=== PATIENT | female | born 1965 | race Hispanic/Latino ===

== ENCOUNTER 2023-01-18 11:20 | Emergency (ER) | payer SELFPAY ==
--- NOTE | 2023-01-18 11:50 | RAD REPORT ---
EXAM DESCRIPTION: CT - Ct Stroke Brain Wo Cont - 01/18/2023 11:37 am CLINICAL HISTORY: STROKE ALERT COMPARISON: No comparisons TECHNIQUE: Noncontrast head CT images ad were obtained without IV contrast. Multiplanar reformats we re generated and reviewed. All CT scans are performed using dose optimization technique as appropriate and may include automated exposure control or mA/KV adjustment according to patient size. FINDINGS: No intracranial hemorrhage, mass, or edema. Midline structures are unremarkable. Normal ventricular caliber for age. Region of vasogenic edema pattern in the left frontal operculum, appears to spare the cortex. Miller-wh ite matter differentiation is preserved, without evidence of acute infarct. No abnormal extra-axial f luid collections. Mastoid air cells and visualized portions of the paranasal sinuses are clear. No acute bony findings. IMPRESSION: Region of vasogenic edema pattern in the left frontal operculum, appearing to spare the cortex. Differential considerations include white matter ischemia, or vasogenic edema surrounding an otherwise indeterminate subcortical or deep white matter space-occupying lesion. MRI would provide im proved characterization. The findings were communicated to Frank Myers on 01/18/2023 at 11:39 hours.
[2023-01-18] MEDS ORDERED: METOPROLOL TARTRATE 5 MG/5 ML INJ IV ONE (11:51)
--- NOTE | 2023-01-18 12:02 | ER ---
Nurse's Notes [facility] Name: Tahira Solorio Age: 57 yrs Sex: Female : 1965 Arrival Date: 01/18/2023 Time: 11:20 Bed 6 Private MD: Diagnosis: Persistent atrial fibrillation Presentation: 01/18 11:47 Chief complaint: Patient states: R sided facial drrop, R sided deficitis, cannot talk. ll1 [address] today. Last known well 11 PM last night when going to bed EMS states: HR 160's sinus tach. BP 130's/90;'s. B leg swelling, urine soaked clothes. Coronavirus screen: Client denies travel out of the [place] in the last 14 days. At this time, the client does not indicate any symptoms associated with coronavirus-19. Ebola Screen: Patient denies travel to an Ebola-affected area in the 21 days before illness onset. Initial Sepsis Screen: Does the patient meet any 2 criteria? No. Patient's initial sepsis screen is negative. Does the patient have a suspected source of infection? No. Patient's initial sepsis screen is negative. Risk Assessment: Do you want to hurt yourself or someone else? Patient reports no desire to harm self or others. Onset of symptoms was January 18, 2023. 11:47 Method Of Arrival: Ambulatory ll1 11:47 Acuity: RENO 2 ll1 Triage Assessment: 11:57 General: Appears uncomfortable, Behavior is cooperative, quiet. Pain: Denies pain. ll1 Neuro: Level of Consciousness is awake, confused, lethargic, Speech is slurred, with expressive aphasia noted, Facial droop on right. Historical: - Allergies: 11:22 No Known Allergies; ll1 - Immunization history:: Adult Immunizations up to date. - Social history:: Smoking status: unknown. Screenin:55 Misti Swallow Protocol Exclusion Criteria: Unable to remain alert for testing: Yes NPO ll1 for medical/surgical reason by provider order Yes Exclusion Criteria Result: Defer \T\ Re-attempt Brief Cognitive Screen What is your name? Abnormal: no answer. Result: FAIL MD Notified: Frank Myers MD. 11:56 [facility] ED Fall Risk Assessment (Adult) Confusion or Disorientation Yes (5 pts) ll1 Impaired Gait Yes (1 pt) Mobility Assist Device Used Yes (1 pt) Score/Fall Risk Level 3 or more points = High Risk Oriented to surroundings, Maintained a safe environment, Educated pt \T\ family on fall prevention, incl call for assistance when getting out of bed, Hourly rounding (assess needs \T\ fall precautionary measures) done, Used gait belt as appropriate Implemented a Fall Risk Plan of Care, Remained with patient while ambulating. Abuse screen: Denies threats or abuse. Nutritional screening: No deficits noted. Tuberculosis screening: No symptoms or risk factors identified. Assessment: 11:42 Reassessment: No changes from previously documented assessment. Patient and/or family ll1 updated on plan of care and expected duration. Pain level reassessed. 12:16 Reassessment: No changes from previously documented assessment. Patient and/or family ll1 updated on plan of care and expected duration. Pain level reassessed. Vital Signs: 11:30 Weight 125.65 kg (M); jl7 11:41 BP 150 / 121; Pulse 170; Resp 24; Pulse Ox 91% on R/A; ll1 11:47 Pulse 135; Resp 22; Pulse Ox 100% on 2 lpm NC; ll1 11:50 BP 129 / 106; Pulse 129; ll1 11:56 BP 127 / 102; Pulse 135; Resp 22; Pulse Ox 100% on 2 lpm NC; ll1 12:15 BP 127 / 102; Pulse 134; Resp 25; Temp 98; Pulse Ox 94% on 2 lpm NC; ll1 NIH Stroke Scale Scores: 11:32 NIHSS Score: 18 bs3 12:16 NIHSS Score: 19 ll1 ED Course: 11:21 Patient arrived in ED. eb 11:22 Frank Myers MD is Attending Physician. bs3 11:22 Arm band placed on. ll1 11:35 Inserted saline lock: 20 gauge in left forearm, using aseptic technique. Blood ll1 collected. 11:39 CT Stroke Brain w/o Contrast In Process Unspecified. EDMS 11:39 CT Head Angio In Process Unspecified. EDMS 11:40 CT Neck Angio In Process Unspecified. EDMS 11:40 EKG done, by ED staff. tm3 11:41 Jordan Boyd RN is Primary Nurse. ll1 11:41 initiated a transfer with Mehrdad from the [facility]/. eb 11:[address] Negrete the neuro economic history teacher for [facility] with Dr. Myers for patient eb transfer consultation. 11:47 called the [facility] for a helicopter/ rashawn Singh they will send one eb once we get administrative approval. 11:49 Triage completed. ll1 11:58 Stroke CXR 1 View In Process Unspecified. EDMS 12:00 administrative approval given by Mehrdad Jackson Rn/ patient has been accepted to [facility] ER/ Dr. Katie Gray has accepted the patient in transfer/ report to be called [phone]. 12:18 No provider procedures requiring assistance completed. ll1 12:19 Patient has correct armband on for positive identification. Bed in low position. Call ll1 light in reach. Side rails up X2. Client placed on continuous cardiac and pulse oximetry monitoring. NIBP monitoring applied. monitoring coordinator on. 12:19 Patient transferred, IV remains in place. ll1 Administered Medications: 11:41 Drug: NS 0.9% IV 500 ml Route: IV; Rate: bolus; Site: left forearm; ll1 12:19 Follow up: Response: No adverse reaction; IV Status: Completed infusion; IV Intake: ll1 500ml 11:46 Drug: Metoprolol IVP 5 mg Route: IVP; Site: left forearm; ll1 12:19 Follow up: Response: No adverse reaction ll1 Medication: 12:19 VIS not applicable for this client. ll1 Intake: 12:19 IV: 500ml; Total: 500ml. ll1 Outcome: 12:01 ER care complete, transfer ordered by bs3 12:19 Transferred by helicopter to [facility], Transfer form completed. ll1 12:19 Condition: stable 12:19 Instructed on the need for transfer. 12:21 Patient left the ED. ll1 12:34 Transferred Note: Report to Shemar Jimenes in interventional radiology. ll1 NIH Stroke Scale - NIH Stroke Score Date: 01/18/2023 Time: 11:32 Total Score = 18 10. Dysarthria (speech clarity - read or repeat words) - 2(Severe) 11. Extinction and Inattention (visual/tactile/auditory/spatial/personal) - 0(No abnormality) 1a. Level of Consciousness (LOC) - 0(Alert) 1b. Level of Consciousness (LOC) (Month \T\ Age) - 2(Neither) 1c. LOC Commands (Open \T\ Closes Eyes/Pari Mutuel Ticket Seller) - 2(Neither) 2. Best Gaze (Lateral Gaze Paresis) - 1(Partial gaze palsy) 3. Visual Field Loss - 0(No visual loss) 4. Facial Palsy - 2(Partial paralysis) 5a. Left Arm: Motor (10-second hold) - 0(No drift) 5b. Right Arm: Motor (10-second hold) - 2(Drift, some effort against gravity) 6a. Left Leg: Motor (5-second hold - always test supine) - 0(No drift) 6b. Right Leg: Motor (5-second hold - always test supine) - 2(Drift, some effort against gravity) 7. Limb Ataxia (finger/nose \T\ heel/regalado - test with eyes open) - 1(Present in one limb) 8. Sensory Loss (pinprick arms/legs/face) - 1(Mild to moderate loss) 9. Best Language: Aphasia (description/naming/reading) - 3(Mute, global aphasia) Initials: bs3 NIH Stroke Scale - NIH Stroke Score Date: 01/18/2023 Time: 12:16 Total Score = 19 10. Dysarthria (speech clarity - read or repeat words) - 2(Severe) 11. Extinction and Inattention (visual/tactile/auditory/spatial/personal) - 1(Present) 1a. Level of Consciousness (LOC) - 1(Not Alert) 1b. Level of Consciousness (LOC) (Month \T\ Age) - 2(Neither) 1c. LOC Commands (Open \T\ Closes Eyes/Pari Mutuel Ticket Seller) - 0(Both) 2. Best Gaze (Lateral Gaze Paresis) - 2(Forced deviation) 3. Visual Field Loss - 0(No visual loss) 4. Facial Palsy - 2(Partial paralysis) 5a. Left Arm: Motor (10-second hold) - 0(No drift) 5b. Right Arm: Motor (10-second hold) - 2(Drift, some effort against gravity) 6a. Left Leg: Motor (5-second hold - always test supine) - 3(No effort against gravity) 6b. Right Leg: Motor (5-second hold - always test supine) - 0(No drift) 7. Limb Ataxia (finger/nose \T\ heel/regalado - test with eyes open) - 2(Present in two limbs) 8. Sensory Loss (pinprick arms/legs/face) - 0(Normal) 9. Best Language: Aphasia (description/naming/reading) - 2(Severe aphasia) Initials: ll1 Signatures: Dispatcher [employer] EDAyo Mason tm3 Jazmyne Burns RN RN jl7 Lea Lutz Lynsay, RN RN ll1 Emmanuelle Jacques RN RN ld1 Frank Myers MD MD bs3 Corrections: (The following items were deleted from the chart) 11:47 11:41 BP 150 / 121; Pulse 150bpm; Resp 24bpm; Pulse Ox 91% RA; ll1 ll1 11:54 11:51 called the [facility] flight for a helicopter/ per Francisco they eb will send one once we get administrative approval. eb 12:16 11:42 Reassessment: No changes from previously documented assessment. Patient ll1 and/or family updated on plan of care and expected duration. Pain level reassessed. Patient is alert, oriented x 3, equal unlabored respirations, skin warm/dry/pink. ll1 12:20 12:15 BP 127 / 102; Pulse 134bpm; Resp 25bpm; Pulse Ox 89% 2 lpm Nasal Cannula; ll1 ld1 12:29 12:15 BP 127 / 102; Pulse 134bpm; Resp 25bpm; Pulse Ox 89% 2 lpm Nasal Cannula; ll1 Temp 98F; ll1
--- NOTE | 2023-01-18 12:02 | EDPHYS ---
Physician Documentation [facility] Name: Tahira Solorio Age: 57 yrs Sex: Female : 1965 Arrival Date: 01/18/2023 Time: 11:20 Bed 6 Private MD: ED Physician Frank Myers HPI: 01/18 11:32 This 57 yrs old Female presents to ER via Unassigned with complaints of S/S of bs3 Possible Stroke. 11:32 Patient does not see a doctor she was last known normal approximately 11 to 11:30 PM bs3 presents with right-sided weakness unintelligible speech fingerstick per EMS was over 100. 11:32 Blood pressure less than 180 systolic per EMS the report was that she normally is able bs3 to walk and talk and act normally but she went to bed and they heard coughing and then today she was not speaking she has not seen a doctor in years per her son and refused to go history is limited secondary to patient's mental status and acute condition. Historical: - Allergies: 11:22 No Known Allergies; ll1 - Immunization history:: Adult Immunizations up to date. - Social history:: Smoking status: unknown. ROS: 11:32 Unable to obtain ROS due to altered mental status. bs3 Exam: 11:32 Constitutional: Awake and alert appears in distress Head/Face: Right facial droop bs3 Eyes: Pupils equal round and reactive to light, extra-ocular motions intact. Lids and lashes normal. ENT: mmm, no posterior phyarngeal erythema Neck: Trachea midline, no thyromegaly, no neck stiffness Chest/axilla: Normal chest wall appearance and motion. Nontender with no deformity. No lesions are appreciated. Cardiovascular: Irregular, tachycardic Respiratory: Lungs have equal breath sounds bilaterally, clear to auscultation, no respiratory distress Abdomen/GI: Soft, non-tender, no rebound or guarding Back: No spinal tenderness. No costovertebral tenderness. Full range of motion. Skin: Warm, dry with normal turgor. Normal color with no rashes, no lesions, and no evidence of cellulitis. MS/ Extremity: Pulses equal, no cyanosis. Neurovascular intact. Full, normal range of motion. Neuro: She has a slight gaze preference to the left but does seem to overcome this she has a right facial droop she has inability to lift her arm up but when I lifted up she does hold it up but it drifts and hits the bed the same with the right lower extremity she does not name objects and is not talking 11:32 A-fib at a rate of [address] elevations or depressions QTc 507 12:02 Radiologist reports: occlusion bs3 Vital Signs: 11:30 Weight 125.65 kg (M); jl7 11:41 BP 150 / 121; Pulse 170; Resp 24; Pulse Ox 91% on R/A; ll1 11:47 Pulse 135; Resp 22; Pulse Ox 100% on 2 lpm NC; ll1 11:50 BP 129 / 106; Pulse 129; ll1 11:56 BP 127 / 102; Pulse 135; Resp 22; Pulse Ox 100% on 2 lpm NC; ll1 12:15 BP 127 / 102; Pulse 134; Resp 25; Temp 98; Pulse Ox 94% on 2 lpm NC; ll1 NIH Stroke Scale Scores: 11:32 NIHSS Score: 18 bs3 12:16 NIHSS Score: 19 ll1 MDM: 11:32 Differential diagnosis: CVA, metabolic disorder, Given the A-fib and right-sided bs3 weakness my concerns for CVA possible bleed versus ischemic/embolic we will do gentle rate control as prolonged permissive hypertension she is not in the window for TNK she immediately received a CT CT angiogram which showed a left anterior MCA branch occlusion at the origin I immediately called neuro intervention at [facility] and spoke with the neuro food broker Dr. De La Rosa who given the patient has symptoms for less than 24 hours recommended transfer for CT perfusion and possible intervention. Data reviewed: vital signs, nurses notes. 12:01 Patient medically screened. bs3 12:10 ED course: Given my lack of capacity for neuro intervention here will transfer to [facility]. 01/18 11:22 Order name: Basic Metabolic Panel eb 01/18 11:22 Order name: CBC with Diff eb 01/18 11:22 Order name: High Sensitivity Troponin eb 01/18 11:22 Order name: Protime (+inr) eb 01/18 11:22 Order name: Ptt, Activated eb 01/18 11:22 Order name: CT Stroke Brain w/o Contrast; Complete Time: 12:10 eb 01/18 11:22 Order name: Stroke CXR 1 View; Complete Time: 12:10 eb 01/18 11:24 Order name: CT Head Angio; Complete Time: 12:10 eb 01/18 11:24 Order name: CT Neck Angio; Complete Time: 12:10 eb 01/18 11:22 Order name: EKG; Complete Time: 11:23 eb 01/18 11:22 Order name: Accucheck; Complete Time: 11:42 eb 01/18 11:22 Order name: Cardiac monitoring; Complete Time: 11:42 eb 01/18 11:22 Order name: EKG - Nurse/Tech; Complete Time: 11:42 eb 01/18 11:22 Order name: IV Saline Lock; Complete Time: 11:42 eb 01/18 11:22 Order name: Labs collected and sent; Complete Time: 11:42 eb 01/18 11:22 Order name: NPO; Complete Time: 11:42 eb 01/18 11:22 Order name: O2 Per Protocol; Complete Time: 11:42 eb 01/18 11:22 Order name: O2 Sat Monitoring; Complete Time: 11:42 eb 01/18 11:22 Order name: Stroke Swallow Screen; Complete Time: 11:42 eb Administered Medications: 11:41 Drug: NS 0.9% IV 500 ml Route: IV; Rate: bolus; Site: left forearm; ll1 12:19 Follow up: Response: No adverse reaction; IV Status: Completed infusion; IV Intake: ll1 500ml 11:46 Drug: Metoprolol IVP 5 mg Route: IVP; Site: left forearm; ll1 12:19 Follow up: Response: No adverse reaction ll1 Disposition: 12:10 Chart complete. bs3 Disposition Summary: 01/18/23 12:01 Transfer Ordered Transfer Location: [facility] bs3 Reason: Higher level of care bs3 Condition: Critical bs3 Problem: new bs3 Symptoms: are unchanged bs3 Accepting Physician: robert(01/18/23 12:21) ll1 Diagnosis - Persistent atrial fibrillation bs3 Forms: - Medication Reconciliation Form bs3 - SBAR form bs3 Critical care time excluding procedures: 11:32 Critical care time: Bedside Care: 35 minutes, Consultation: 30 minutes. Total time: 65 bs3 minutes NIH Stroke Scale - NIH Stroke Score Date: 01/18/2023 Time: 11:32 Total Score = 18 10. Dysarthria (speech clarity - read or repeat words) - 2(Severe) 11. Extinction and Inattention (visual/tactile/auditory/spatial/personal) - 0(No abnormality) 1a. Level of Consciousness (LOC) - 0(Alert) 1b. Level of Consciousness (LOC) (Month \T\ Age) - 2(Neither) 1c. LOC Commands (Open \T\ Closes Eyes/Software Development Leader) - 2(Neither) 2. Best Gaze (Lateral Gaze Paresis) - 1(Partial gaze palsy) 3. Visual Field Loss - 0(No visual loss) 4. Facial Palsy - 2(Partial paralysis) 5a. Left Arm: Motor (10-second hold) - 0(No drift) 5b. Right Arm: Motor (10-second hold) - 2(Drift, some effort against gravity) 6a. Left Leg: Motor (5-second hold - always test supine) - 0(No drift) 6b. Right Leg: Motor (5-second hold - always test supine) - 2(Drift, some effort against gravity) 7. Limb Ataxia (finger/nose \T\ heel/regalado - test with eyes open) - 1(Present in one limb) 8. Sensory Loss (pinprick arms/legs/face) - 1(Mild to moderate loss) 9. Best Language: Aphasia (description/naming/reading) - 3(Mute, global aphasia) Initials: bs3 NIH Stroke Scale - NIH Stroke Score Date: 01/18/2023 Time: 12:16 Total Score = 19 10. Dysarthria (speech clarity - read or repeat words) - 2(Severe) 11. Extinction and Inattention (visual/tactile/auditory/spatial/personal) - 1(Present) 1a. Level of Consciousness (LOC) - 1(Not Alert) 1b. Level of Consciousness (LOC) (Month \T\ Age) - 2(Neither) 1c. LOC Commands (Open \T\ Closes Eyes/Software Development Leader) - 0(Both) 2. Best Gaze (Lateral Gaze Paresis) - 2(Forced deviation) 3. Visual Field Loss - 0(No visual loss) 4. Facial Palsy - 2(Partial paralysis) 5a. Left Arm: Motor (10-second hold) - 0(No drift) 5b. Right Arm: Motor (10-second hold) - 2(Drift, some effort against gravity) 6a. Left Leg: Motor (5-second hold - always test supine) - 3(No effort against gravity) 6b. Right Leg: Motor (5-second hold - always test supine) - 0(No drift) 7. Limb Ataxia (finger/nose \T\ heel/regalado - test with eyes open) - 2(Present in two limbs) 8. Sensory Loss (pinprick arms/legs/face) - 0(Normal) 9. Best Language: Aphasia (description/naming/reading) - 2(Severe aphasia) Initials: ll1 Signatures: Dispatcher [employer] EDLea Young Lynsay, RN RN ll1 Frank Myers MD MD bs3 Corrections: (The following items were deleted from the chart) 11:56 11:32 This 57 yrs old Female presents to ER via Unassigned with bs3 complaints of S/S of Possible Stroke. bs3 12:21 12:01 jones bs3 ll1
--- NOTE | 2023-01-18 12:03 | RAD REPORT ---
EXAM DESCRIPTION: CT - Head angio - 01/18/2023 11:38 am CLINICAL HISTORY: DECLINING STATE COMPARISON: Ct Stroke Brain Wo Cont dated 01/18/2023; Neck Angio dated 01/18/2023 TECHNIQUE: Axial CT angiography images of the head was performed with multiplanar and maximum intens ity projection reconstructions. Images performed following intravenous administration of 95mL Isovue 370. All CT scans are performed using dose optimization technique as appropriate and may include automated exposure control or mA/KV adjustment according to patient size. FINDINGS: Very proximal anterior left MCA branch occlusion, likely M2 segment. Please see CT angiogr am separate Henson axial image 72/167 and coronal images 99 and 100/208 of the coronal sequence dee lovell. Reconstitution of a distal left M3/M4 BALDEMAR branch along the anterior sylvian fissure more cr anially, axial image 94/167. No evidence of aneurysm or dissection flap is detected. No flow-limiting stenosis or vascular malformation identified. Antegrade flow is seen in the vertebral arteries. The vertebral arteries are codominant. The visualized dural venous sinuses are grossly patent. IMPRESSION: Very proximal anterior left MCA branch occlusion. The findings were communicated to Frank Myers on 01/18/2023 at 11: 39 hours.
--- NOTE | 2023-01-18 12:06 | RAD REPORT ---
EXAM DESCRIPTION: CT - Neck Angio - 01/18/2023 11:38 am CLINICAL HISTORY: poss cva COMPARISON: No comparisons TECHNIQUE: Axial CT angiography images of the head was performed with multiplanar and maximum intens ity projection reconstructions. Images performed following intravenous administration of 95mL Isovue 370. All CT scans are performed using dose optimization technique as appropriate and may include automated exposure control or mA/KV adjustment according to patient size. Quantification of carotid stenosis, if any, is performed according to NASCET criteria. FINDINGS: A left aortic arch is identified with normal three vessel configuration of the great vesse ls. No significant flow abnormality is seen of the common carotid bilaterally. No significant stenosis is identified involving the cervical segments of both internal carotid arteri es. Mild atherosclerotic calcifications along the carotid bifurcations. Normal flow is seen within both vertebral arteries. Not mentioned on prior reports, up to advanced inflammatory mucosal thickening throughout the paranas al sinuses, with mucous retention cyst in the left maxillary sinus. IMPRESSION: No significant flow abnormality of the neck vessels is identified. Findings as above.
[2023-01-18 12:08] LABS: Absolute Lymphocytes (CBC) 1.1 K/uL (0.7-4.9); Hematocrit 38.5 % (36.0-45.0); Lymphocytes % 16.1 % (15.3-44.8); MCV 99.7 fL (80-100); MPV 8.4 fL (7.6-11.3); RBC Red Blood Cell Count 3.86 M/uL (3.86-4.86)
--- NOTE | 2023-01-18 12:08 | RAD REPORT ---
EXAM DESCRIPTION: Christoph Single View01/18/2023 11:57 am CLINICAL HISTORY: poss cva COMPARISON: No comparisons TECHNIQUE: Portable AP view of the chest. FINDINGS: Central interstitial prominence with central and basilar predominant fluffy opacities. No pneumothorax or effusion. Moderate cardiomegaly The mediastinal contours are unremarkable. IMPRESSION: Suspected pulmonary edema, with moderate cardiomegaly, could be of cardiogenic origin.
[2023-01-18 12:14] LABS: Protime INR 1.22
[2023-01-18 12:28] LABS: Potassium 3.7 mEq/L (3.5-5.1)
[2023-01-18 12:35] LABS: Troponin High Sensitivity 155.5 pg/mL (<58.9)
[2023-01-18 13:10] VITALS: BP 127/102
[2023-01-18 13:12] VITALS: TEMP 98; O2SAT 89
--- NOTE | 2023-01-19 10:16 | EKG ---
Test Date: 2023-01-18 Test Time: 11:31:37 Senior Qa Automation Engineer: KASH MEASUREMENT RESULTS: Intervals: Rate: 167 VA: QRSD: 120 QT: 304 QTc: 507 [place]: P: VA: QRS: -23 T: 174 INTERPRETIVE STATEMENTS: Poor data quality, interpretation may be adversely affected Atrial fibrillation with premature ventricular or aberrantly conducted complexes Left ventricular hypertrophy with QRS widening ST & T wave abnormality, consider lateral ischemia or digitalis effect Abnormal ECG No previous ECG available for comparison Electronically Signed On 01-19-23 10:13:47 CDT by Willis Holman
--- NOTE | 2023-01-19 10:16 | EKG ---
Test Date: 2023-01-18 Test Time: 11:32:10 Salesperson Stereo Equipment: GERALDINEL MEASUREMENT RESULTS: Intervals: Rate: 161 UT: QRSD: 116 QT: 310 QTc: 507 [place]: P: UT: QRS: -24 T: 130 INTERPRETIVE STATEMENTS: Atrial fibrillation Left ventricular hypertrophy with QRS widening ST & T wave abnormality, consider lateral ischemia or digitalis effect Abnormal ECG Compared to ECG 01/18/2023 11:31:37 Ventricular premature complex(es) no longer present ST (T wave) deviation still present Possible ischemia still present Electronically Signed On 01-19-23 10:13:46 CDT by Willis Holman
== END 2023-01-18 12:21 | disposition short-term general hospital (02) ==
LOC: ER 11:20
DX: I48.19 Other persistent atrial fibrillation (principal); R29.718 NIHSS score 18
CPT/HCPCS: 36415; 70450; 70496; 70498; 71045; 80048; 82947; 84484; 85025; 85610; 85730; 93005; 96361; 96374; 99285; Q9967

== ENCOUNTER 2023-06-15 12:38 | Emergency (ER) | payer OTHER, SELFPAY ==
--- OUTSIDE RECORDS SUMMARY | 2023-06-15 12:54 | XMS REPORT | Continuity of Care Document ---
:1965 Author Organization [facility] t Address [address] [facility] [address] [place] [address] Care Team Providers Name Role Phone Pcp, Patient Does Not Have A Primary Care Physician [phone] BRIT SMITH Attending Clinician Unavailable WANDA ROJAS Attending Clinician Unavailable ALLYN ZULETA Attending Clinician Unavailable RE CHASE Attending Clinician Unavailable BOB GALEAS Attending Clinician Unavailable SHAWN CARTER Attending Clinician Unavailable SANDHYA PAREDES Attending Clinician Unavailable LEVI MAZA Attending Clinician Unavailable JOSE SALGUERO Attending Clinician Unavailable AMADEO SANCHEZ Attending Clinician Unavailable BONIFACIO CLARK Attending Clinician Unavailable Renetta Hilario MD Attending Clinician Abel Vicente DO Attending Clinician ABEL VICENTE Attending Clinician Unavailable REGULO PETERS Attending Clinician Unavailable REGULO PETERS Attending Clinician Unavailable Julio Avalos MD Attending Clinician Ember Johnston MD Attending Clinician [phone] Sandhya Paredes MD Attending Clinician Negra Sanders MD, Angeles Herman Attending Clinician [phone] Estela Benitez MD Attending Clinician Rena CARTER, Re Hung Attending Clinician Hailee No DO Attending Clinician Aviva CARTER, Ceci Gilbert Attending Clinician Carolina CARTER, Collin Higuera Attending Clinician [phone] Dutch CARTER, Dylan Melgar Attending Clinician DYLAN JUDD Attending Clinician Unavailable Lazaro Schroeder MD, Justyn Alegria Attending Clinician [phone] Crystal CARTER, Wanda Eid Attending Clinician [phone] Song CARTER, Allyn Chicas Attending Clinician [phone] Emerita Monroy Attending Clinician Vitaly Olmedo MD Attending Clinician Dionte Hanley MD Attending Clinician Bob Galeas Attending Clinician JULIO AVALOS Attending Clinician Unavailable EMBER JOHNSTON Attending Clinician Unavailable Wanda Benoit MD Attending Clinician Bonifacio Clark MD Attending Clinician [phone] Luisa Ewing MD, Amadeo Darnell Attending Clinici an Jose Salguero MD Attending Clinician Emani Robertson MD Attending Clinician EMANI ROBERTSON Attending Clinician Unavailable WANDA BENOIT Attending Clinician Unavailable Virtual, Surgeon Attending Clinician Unavailable Jamaal Arreola MD Attending Clinician EMBER JOHNSTON Admitting Clinician Unavailable BOB GALEAS Admitting Clinician Unavailable BONIFACIO CLARK Admitting Clinician Unavailable REGULO PETERS Admitting Clinician Unavailable Payers Payer Name Policy Type Policy Number Effective Date Expiration Date S [facility] HMO POS [id number] 2022 00:00:00 [employer] CHO[employer] Problems Condition Condition Condition Status Onset Resolution Last Treating Co mments Source Name Details Category Date Date Treatment Clinician Date Encounter Encounter Disease Active Uni vers for care for care 8-15 [place] [place] feeding 00 Medical tube tube Branch Dysphagia Dysphagia Disease [facility] Medical 00 [place] 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 6[facility] failure failure 00:00: Medical 00 [place] Choledocho Choledocho Disease Active [facility] lithiasis lithiasis 630 [facility] 00:00: Medical 00 [place] Bacteremia Bacteremia Disease Active [facility] due to due to [facility] Klebsiella Klebsiella 00:00: Me dical pneumoniae pneumoniae 00 Ce nter Atrial Atrial Disease Active [facility] fibrillati fibrillati 6-30 [facility] on with on with 00:00: Medical RVR RVR 00 Center Septic Septic Disease Recurre [facility] shock shock nce 6-23 [facility] 00:00: Medical 00 Center Atrial Atrial Disease Recurre [facility] fibrillati fibrillati nce 6-05 [facility] on on 00:00: Medical 00 Center Cerebral Cerebral Disease Recurre [facility] edema edema nce 6[facility]05 [facility] 00:00: Medical 00 [place] Obesity Obesity Disease Active [facility] 00:[facility]: Medical 00 Center Cerebrovas Cerebrovas Disease Recurre [facility] cular cular nce 6[facility]04 [facility] accident accident 00:00: Medica l (CVA), (CVA), 00 Center unspecifie unspecifie d d mechanism mechanism Allergies, Adverse Reactions, Alerts Allergy Allergy Status Severity Reaction(s) Onset Inactive Treating Comm ents Source Name Type Date Date Clinician NO KNOWN Drug Active Univers ALLERGIE Class ity [facility] NO KNOWN Allergy Active [facility] Social History Social Habit Start Date Stop Date Quantity Comments Source Gender identity [facility] Sexual orientation Univer [facility] Alcohol intake 2023-02-26 2023-02-26 Ex-drinker SAVANAH Sanchez es 00:00:00 00:00:00 (finding) Medical Center Exposure to 2023-02-14 2023-02-24 Not sure SAVANAH Ayala SARS-CoV-2 (event) 00:00:00 14:15:00 Medica Center Tobacco use and 2023-01-18 2023-01-18 Smokeless SAVANAH Victoria exposure 00:00:00 00:00:00 tobacco non-user Medical Center Sex Ass[birth year] At [birth year] SAVANAH [place] 00:00:00 00:00:00 Medical Center Smoking Status Start Date Stop Date Source Tobacco smoking consumption [facility] unknown Branch Never smoked tobacco [facility] Medications Ordered Filled Start Stop Current Ordering Indication Dosage Frequency Signature Comments Components Source Medication Medication Date Date Medication? Clinician (SIG) Name Name iopamidol 2022- No [id number] 100mL 100 mL, Univers (ISOVUE 03-11 Intravenou ity o f 370-500 mL) 05:15: 04:25 s, ONCE, 1 [place] injection 00 :00 dose, On Medica l 100 mL Wed Branch 03/11/23 at 0015, Routine acetaminoph 0 Yes [id number] 650mg Take 1 Univers en (TYLENOL 7-26 tablet by ity of 8 HOUR) 650 00:00: mouth [place] mg CR 00 every 8 Medical tablet (eight) Branch hours as needed for Pain. ibuprofen 0 Yes [id number] 600mg Take 1 Univers 600 mg 7-26 tablet by ity of tablet 00:00: mouth [place] 00 every 6 Medical (six) Branch hours as needed for Pain (scale 4-6). acetaminoph 2022-0 Yes [id number] 650mg Take 1 Univers en (TYLENOL 7-26 tablet by ity of 8 HOUR) 650 00:00: mouth [place] mg CR 00 every 8 Medical tablet (eight) Branch hours as needed for Pain. ibuprofen 2022-0 Yes [id number] 600mg Take 1 Univers 600 mg 7-26 tablet by ity of tablet 00:00: mouth [place] 00 every 6 Medical (six) Branch hours as needed for Pain (scale 4-6). acetaminoph 2022-0 Yes [id number] 650mg Take 1 Univers en (TYLENOL 7-26 tablet by ity of 8 HOUR) 650 00:00: mouth [place] mg CR 00 every 8 Medical tablet (eight) Branch hours as needed for Pain. ibuprofen 2023-0 Yes [id number] 600mg Take 1 Univers 600 mg 7-26 tablet by ity of tablet 00:00: mouth [place] 00 every 6 Medical (six) Branch hours as needed for Pain (scale 4-6). acetaminoph 2023-0 Yes [id number] 650mg Take 1 Univers en (TYLENOL 7-26 tablet by ity of 8 HOUR) 650 00:00: mouth [place] mg CR 00 every 8 Medical tablet (eight) Branch hours as needed for Pain. ibuprofen 2023-0 Yes [id number] 600mg Take 1 Univers 600 mg 7-26 tablet by ity of tablet 00:00: mouth [place] 00 every 6 Medical (six) Branch hours as needed for Pain (scale 4-6). acetaminoph 2023-0 Yes [id number] 650mg Take 1 Univers en (TYLENOL 7-26 tablet by ity of 8 HOUR) 650 00:00: mouth [place] mg CR 00 every 8 Medical tablet (eight) Branch hours as needed for Pain. ibuprofen 3-0 Yes [id number] 600mg Take 1 Univers 600 mg 7-26 tablet by ity of tablet 00:00: mouth [place] 00 every 6 Medical (six) Branch hours as needed for Pain (scale 4-6). acetaminoph 2023-0 Yes [id number] 650mg Take 1 Univers en (TYLENOL 7-26 tablet by ity of 8 HOUR) 650 00:00: mouth [place] mg CR 00 every 8 Medical tablet (eight) Branch hours as needed for Pain. ibuprofen 2023-0 Yes [id number] 600mg Take 1 Univers 600 mg 7-26 tablet by ity of tablet 00:00: mouth [place] 00 every 6 Medical (six) Branch hours as needed for Pain (scale 4-6). acetaminoph 2023-0 Yes [id number] 650mg Take 1 Univers en (TYLENOL 7-26 tablet by ity of 8 HOUR) 650 00:00: mouth [place] mg CR 00 every 8 Medical tablet (eight) Branch hours as needed for Pain. ibuprofen 2023-0 Yes [id number] 600mg Take 1 Univers 600 mg 7-26 tablet by ity of tablet 00:00: mouth [place] 00 every 6 Medical (six) Branch hours as needed for Pain (scale 4-6). metoprolol 2023- No 50mg Q.5D Take [address] [facility] succinate 03-04- tablet (50 Soy es (TOPROL-XL) 00:00: 23:59 mg total) Medical 50 MG 24 hr 00 :00 by mouth 2 Ce nter tablet (two) times daily. digoxin 2023- No 125ug QD Take [address] [facility] (LANOXIN) 02-25- tablet [facility] 0.125 MG 00:00: 23:59 (125 mcg Medi alejandra tablet 00 :00 total) by Center mouth daily. spironolact 2023- No 25mg QD Take [address] [facility] one 02-25 tablet (25 [facility] (ALDACTONE) 00:00: 23:59 mg total) Medical 25 MG 00 :00 by mouth Center tablet daily. amiodarone 2022- No 200mg QD Take [address] (PACERONE) 02-04 tablet [facility] 200 MG 00:00: 23:59 (200 mg Medical tablet 00 :00 total) by Center mouth daily for 90 days. digoxin 2022- No 125ug QD Take [address] (LANOXIN) 02-04 tablet [facility] 0.125 MG 00:00: 00:00 (125 mcg Medi alejandra tablet 00 :00 total) by Center mouth daily. insulin 2023- No 10U QD Inject [address] glargine 02-03- Units [facility]ukes (LANTUS) 00:00: 23:59 subcutaneo Me dical 100 unit/mL 00 :00 usly Center injection nightly Use as directed. metoprolol 2022- No 25mg Q.5D Take 0.[address] tartrate 02-03- tablets [facility] (LOPRESSOR) 00:00: 00:00 (25 mg Med ical 50 MG 00 :00 total) by Center tablet mouth 2 (two) times daily. empaglifloz Yes 25mg QD Take [address] [facility] in - tablet (25 [facility] (JARDIANCE) 00:00: mg total) M edical 25 mg 00 by mouth Center tablet daily. cyanocobala 2023- No 1000ug QD Take [address] min 02-01 tablet [facility] (VITAMIN 00:00: 23:59 (1,000 mcg Me dical B-12) 1000 00 :00 total) by Cent er MCG tablet mouth daily. losartan 2023- No 25mg QD Take [address] (COZAAR) 25 02-01 tablet (25 L ukes MG tablet 00:00: 23:59 mg total) Me dical 00 :00 by mouth Center daily. furosemide 2022- No 20mg QD Take [address] [facility] (LASIX) 20 02-01- tablet (20 [facility] MG tablet 00:00: 00:00 mg total) Me dical 00 :00 by mouth Center daily. apixaban Yes 5mg Q.5D Take [address] (ELIQUIS) 5 01-31 tablet (5 Soy es mg Tab 00:00: mg total) Medica l tablet 00 by mouth 2 Center (two) times daily. atorvastati 2023- No 80mg QD Take [address] n (LIPITOR) 01-31 tablet (80 L ukes 80 MG 00:00: 23:59 mg total) Medica l tablet 00 :00 by mouth Center nightly. insulin 2023- No Use as [facility] regular 01-31 directed. [facility] (HumuLIN 00:00: 23:59 Medical R,NovoLIN 00 :00 Center R) 100 unit/mL injection amiodarone 2022- No 200mg Q.5D Take [address] (PACERONE) 01-31 tablet [facility] 200 MG 00:00: 00:00 (200 mg Medical tablet 00 :00 total) by Center mouth 2 (two) times daily for 30 days. insulin 2022- No 5U QD Inject 5 [facility] t glargine 01-31-20 Units [facility] (LANTUS) 00:00: 00:00 subcutaneo Me dical 100 unit/mL 00 :00 usly Center injection nightly Use as directed. metoprolol 2022- No 50mg Q.5D Take [address] tartrate 6-17 06-20 tablet (50 Luke s (LOPRESSOR) 00:00: 00:00 mg total) Medical 50 MG 00 :00 by mouth 2 Center tablet (two) times daily. Vital Signs Vital Name Observation Time Observation Value Comments Source Systolic blood 2023-03-31 14:26:00 102 mm[Hg] Univer sity of pressure [facility] Diastolic blood 2023-03-31 14:26:00 53 mm[Hg] Unive rsity of [facility] Heart rate 2023-03-31 14:26:00 63 /min Universi ty of [facility] Body temperature 2023-03-31 14:26:00 36.33 Fatoumata Univ ersity [facility] Respiratory rate 2023-03-31 14:26:00 19 /min Univ ersity of [facility] Body height 2023-03-31 14:26:00 175.3 cm Universi ty [facility] Oxygen saturation in 2023-03-31 14:26:00 99 /min University of Arterial blood by [facility] Pulse oximetry Branch Systolic blood 2023-03-11 06:00:00 126 mm[Hg] Univer sity of [facility] Diastolic blood 2023-03-11 06:00:00 47 mm[Hg] Unive rsity of [facility] Heart rate 2023-03-11 06:00:00 64 /min Universi ty of [facility] Respiratory rate 2023-03-11 06:00:00 20 /min Univ ersity [facility] Oxygen saturation in 2023-03-11 06:00:00 99 /min University of Arterial blood by [facility] Pulse oximetry Branch Body temperature 2023-03-11 04:01:00 36.61 Fatoumata Univ ersity [facility] Body height 2023-03-11 02:41:00 172.7 cm Universi ty of [facility] Body weight 2023-03-11 02:41:00 104.327 kg Universi ty of [facility] BMI 2023-03-11 02:41:00 34.97 kg/m2 Universi ty of [facility] HEIGHT 2023-02-24 14:03:00 180.3 cm WEIGHT 2023-02-24 14:03:00 110.678 kg WEIGHT 2023-02-07 21:00:00 110.8 kg HEIGHT 2023-02-05 23:43:00 180.3 cm WEIGHT 2023-02-05 23:43:00 119.75 kg HEIGHT 2023-02-24 14:03:00 180.3 cm WEIGHT 2023-02-24 14:03:00 110.678 kg WEIGHT 2023-02-07 21:00:00 110.8 kg HEIGHT 2023-02-05 23:43:00 180.3 cm WEIGHT 2023-02-05 23:43:00 119.75 kg WEIGHT 2023-01-20 05:39:00 120.1 kg WEIGHT 2023-01-19 06:00:00 120 kg HEIGHT 2023-01-18 16:00:00 180.3 cm WEIGHT 2023-01-18 16:00:00 120.7 kg WEIGHT 2023-01-18 13:52:00 125.65 kg HEIGHT 2023-01-18 13:52:00 180.3 cm WEIGHT 2023-01-20 05:39:00 120.1 kg WEIGHT 2023-01-19 06:00:00 120 kg HEIGHT 2023-01-18 16:00:00 180.3 cm WEIGHT 2023-01-18 16:00:00 120.7 kg WEIGHT 2023-01-18 13:52:00 125.65 kg HEIGHT 2023-01-18 13:52:00 180.3 cm Heart rate 2023-03-04 12:14:00 127 /min [facility] Systolic blood 2023-03-04 12:00:00 119 mm[Hg] [facility] Diastolic blood 2023-03-04 12:00:00 89 mm[Hg] [facility] Body temperature 2023-03-04 12:00:00 36 Fatoumata [facility] Respiratory rate 2023-03-04 12:00:00 18 /min [facility] Oxygen saturation in 2023-03-04 12:00:00 100 /min [facility] Arterial blood by Medical nter Pulse oximetry Body height 2023-02-24 14:03:00 180.3 cm [facility] Body weight 2023-02-24 14:03:00 110.678 kg [facility] BMI 2023-02-24 14:03:00 34.03 kg/m2 [facility] Procedures Procedure Date / Time Performing Clinician Source Performed CT ABDOMEN PELVIS W CONTRAST 2023-03-11 Trinity Regulo Uni versity of 04:25:02 [facility] LIPASE 2023-03-11 Regulo Peters [place] of 03:03:00 [facility] TROPONIN I 2023-03-11 Regulo Peters [place] of 03:03:00 [facility] COMP. METABOLIC PANEL ([id number]) 2023-03-11 Trinity Regulo Un iversity of 03:03:00 [facility] CBC WITH DIFF 2023-03-11 Trinity [facility] of 03:03:00 [facility] POCT-GLUCOSE METER 2023-03-[address] [facility] 12:17:00 [facility] POCT-GLUCOSE METER 2023-03-[address] [facility] 06:39:00 [facility] LIMITED 2D ECHOCARDIOGRAM 2023-03-[address] [facility] 22:58:13 [facility] POCT-GLUCOSE METER 2023-03-03 Athreya, Khannan [facility] 21:18:00 [facility] POCT-GLUCOSE METER 2023-03-03 Athreya, Khannan [facility] 15:30:00 [facility] POCT-GLUCOSE METER 2023-03-03 Athreya, Khannan [facility] 11:09:00 [facility] POCT-GLUCOSE METER 2023-03-03 Athreya, Khannan [facility] 06:20:00 [facility] CBC (HEMOGRAM ONLY) 2023-03-[address] [facility] 03:53:00 [facility] POCT-GLUCOSE METER 2023-03-02 Athreya, Khannan [facility] 21:35:00 [facility] POCT-GLUCOSE METER 2023-03-02 Athreya, Khannan [facility] 16:27:00 [facility] POCT-GLUCOSE METER 2023-03-02 Athreya, Khannan [facility] 12:42:00 [facility] POCT-GLUCOSE METER 2023-03-[address] [facility] 06:09:00 [facility] POCT-GLUCOSE METER 2023-03-[address] [facility] 21:29:00 [facility] POCT-GLUCOSE METER 2023-03-[address] [facility] 16:54:00 [facility] POCT-GLUCOSE METER 2023-03-[address] [facility] 11:28:00 [facility] POCT-GLUCOSE METER 2023-03-[address] [facility] 06:53:00 [facility] CBC (HEMOGRAM ONLY) 2023-03-[address] [facility] 02:36:00 [facility] POCT-GLUCOSE METER 2023-03-[address] [facility] 00:01:00 [facility] POCT-GLUCOSE METER 2023-02-[address] [facility] 16:10:00 [facility] POCT-GLUCOSE METER 2023-02-[address] [facility] 11:58:00 [facility] POCT-GLUCOSE METER 2023-02-[address] [facility] 07:01:00 [facility] COMPREHENSIVE METABOLIC PANEL 2023-02-[address] [facility] 04:33:00 [facility] POCT-GLUCOSE METER 2023-02-[address] [facility] 20:49:00 [facility] POCT-GLUCOSE METER 2023-02-[address] [facility] 16:08:00 [facility] POCT-GLUCOSE METER 2023-02-[address] [facility] 11:03:00 [facility] POCT-GLUCOSE METER 2023-02-[address] [facility] 06:14:00 [facility] CBC (HEMOGRAM ONLY) 2023-02-[address] [facility] 03:27:00 [facility] COMPREHENSIVE METABOLIC PANEL 2023-02-[address] [facility] 03:27:00 [facility] POCT-GLUCOSE METER 2023-02-[address] [facility] 21:58:00 [facility] POCT-GLUCOSE METER 2023-02-26 Athgladysa, Khannan [facility] 17:46:00 [facility] POCT-GLUCOSE METER 2023-02-26 Athgladysa, Khannan [facility] 15:19:00 [facility] FL FLUORO NON-SPECIFIC UP TO 1 2023-02-[address] [facility] HOUR 13:34:00 [facility] TISSUE EXAM 2023-02-[address] [facility] 12:12:00 [facility] CHOLECYSTECTOMY, LAPAROSCOPIC 2023-02-[address] [facility] 10:51:00 [facility] POCT-GLUCOSE METER 2023-02-[address] [facility] 06:29:00 [facility] HEPATIC FUNCTION PANEL 2023-02-[address] Mar[address]id[address] T [facility] 03:31:00 [facility] POCT-GLUCOSE METER 2023-02-25 Athgeronimo, Khannan [facility] 21:27:00 [facility] POCT-GLUCOSE METER 2023-02-[address] [facility] 16:15:00 [facility] TYPE AND SCREEN, AUTOMATED 2023-02-25 Pham Cassidy [facility] POCT-GLUCOSE METER 2023-02-25 Athreya, Khannan [facility] 11:15:00 [facility] POCT-GLUCOSE METER 2023-02-25 No, Hailee [facility] 06:16:00 [facility] CBC (HEMOGRAM ONLY) 2023-02-[address] [facility] 04:14:00 [facility] POCT-GLUCOSE METER 2023-02-24 No, Hailee [facility] 22:16:00 [facility] POCT-GLUCOSE METER 2023-02-24 No, Hailee [facility] 17:06:00 [facility] REPORT OF PROCEDURE - ENDOSCOPY 2023-02-[address] [facility] URL 16:35:34 [facility] ERCP, WITH SPHINCTEROTOMY 2023-02-24 [facility], [facility]lyn [facility] 15:50:00 [facility] PROCEDURE W/ C-ARM 2023-02-24 [facility], Allyn [facility] 15:50:00 [facility] ENDOSCOPIC RETROGRADE 2023-02-24 [facility], Allyn [facility] St Soy es CHOLANGIOPANCREATOGRAPHY, WITH 15:50:00 [facility] STENT REMOVAL ERCP, WITH BALLOON SWEEP OF BILE 2023-02-24 [facility], [facility] DUCTS 15:50:00 [facility] POCT-GLUCOSE METER 2023-02-24 No, Hailee [facility] 11:42:00 [facility] POCT-GLUCOSE METER 2023-02-24 No, Hailee [facility] 06:23:00 [facility] COMPREHENSIVE METABOLIC PANEL 2023-02-[address] [facility] 03:29:00 [facility] DIGOXIN LEVEL 2023-02-[address]ño [facility] 03:29:00 [facility] Center POCT-GLUCOSE METER 2023-02-23 No, Hailee [facility] 21:29:00 [facility] Center POCT-GLUCOSE METER 2023-02-23 No, Hailee [facility] 16:59:00 [facility] Center POCT-GLUCOSE METER 2023-02-23 No, Hailee [facility] 11:40:00 [facility] Center POCT-GLUCOSE METER 2023-02-23 No, Hailee [facility] 06:16:00 [facility] CBC (HEMOGRAM ONLY) 2023-02-[address] [facility] 04:37:00 [facility] COMPREHENSIVE METABOLIC PANEL 2023-02-[address] [facility] 04:37:00 [facility] POCT-GLUCOSE METER 2023-02-22 No, Hailee [facility] 21:27:00 [facility] APTT 2023-02-22 Manek, Magen [facility] 18:44:00 [facility] POCT-GLUCOSE METER 2023-02-22 No, Hailee [facility] 16:02:00 Medical Center APTT 2023-02-22 Manek, Magen [facility] 12:32:00 [facility] POCT-GLUCOSE METER 2023-02-22 No, Hailee [facility] 11:04:00 [facility] Center POCT-GLUCOSE METER 2023-02-22 Ali, Hiba Vladimir [facility] 07:09:00 [facility] Center COMPREHENSIVE METABOLIC PANEL 2023-02-22 Ali, Hiba [facility] 03:41:00 [facility] Center APTT 2023-02-22 Manek, Magen [facility] 03:41:00 [facility] POCT-GLUCOSE METER 2023-02-21 Ali, Hiba Vladimir [facility] 21:49:00 [facility] Center APTT 2023-02-21 Manek, Magen [facility] 19:16:00 [facility] POCT-GLUCOSE METER 2023-02-21 Ali, Hiba Vladimir [facility] 16:19:00 [facility] Center APTT 2023-02-21 Manek, Magen [facility] 12:09:00 [facility] POCT-GLUCOSE METER 2023-02-21 Ali, Hiba Vladimir [facility] 11:58:00 [facility] Center APTT 2023-02-21 Manek, Magen [facility] 10:26:00 [facility] POCT-GLUCOSE METER 2023-02-21 Ali, Hiba Vladimir [facility] 06:40:00 [facility] Center CBC (HEMOGRAM ONLY) 2023-02-21 Manek, [employer] [facility] 03:53:00 [facility] COMPREHENSIVE METABOLIC PANEL 2023-02-21 Ali, Hiba Vladimir [facility] 03:53:00 [facility] Center APTT 2023-02-21 Manek, Magen [facility] 03:53:00 [facility] POCT-GLUCOSE METER 2023-02-21 Ali, Hiba Vladimir [facility] 00:10:00 [facility] Center APTT 2023-02-20 Ali, Hiba Vladimir [facility] 19:37:00 Medical Center POCT-GLUCOSE METER 2023-02-20 Ali, Darrina Vladimir [facility] 16:21:00 Medical Center POCT-GLUCOSE METER 2023-02-20 Ali, Ceci Crockettr [facility] 11:46:00 [facility] Center POCT-GLUCOSE METER 2023-02-20 No, Hailee [facility] 06:31:00 [facility] Center COMPREHENSIVE METABOLIC PANEL 2023-02-20 Ali, Ceci Gilbert [facility] 04:31:00 [facility] Center POCT-GLUCOSE METER 2023-02-19 No, Hailee [facility] 20:24:00 [facility] Center POCT-GLUCOSE METER 2023-02-19 No, Hailee [facility] 16:16:00 [facility] Center POCT-GLUCOSE METER 2023-02-19 No, Hailee [facility] 11:57:00 [facility] Center POCT-GLUCOSE METER 2023-02-19 No, Hailee [facility] 06:11:00 [facility] Center CBC (HEMOGRAM ONLY) 2023-02-[address] [facility] 04:06:00 [facility] POCT-GLUCOSE METER 2023-02-18 No, Hailee [facility] 21:17:00 [facility] Center POCT-GLUCOSE METER 2023-02-18 No, Hailee [facility] 16:46:00 [facility] POCT-GLUCOSE METER 2023-02-18 No, Hailee [facility] 11:42:00 [facility] POCT-GLUCOSE METER 2023-02-18 No, Hailee [facility] 09:38:00 [facility] POCT-GLUCOSE METER 2023-02-[address] [facility] 05:58:00 [facility] INTRINSIC FACTOR BLOCKING 2023-02-[address] [facility] ANTIBODY 04:04:00 [facility] PARIETAL CELL ANTIBODY, IGG 2023-02-[address] [facility] 04:04:00 [facility] BASIC METABOLIC PANEL 2023-02-18 Re [facility] 04:04:00 [facility] MAGNESIUM 2023-02-18 Rena, Re Henzell [facility] 04:04:00 [facility] POCT-GLUCOSE METER 2023-02-18 Re Chase Tomnainal [facility] 00:21:00 [facility] POCT-GLUCOSE METER 2023-02-17 Rena Re Santoszell [facility] 17:43:00 [facility] VITAMIN B12 2023-02-[address] [facility] 16:32:00 [facility] IRON, TIBC, % SAT. (WITHOUT 2023-02-[address] [facility] FERRITIN) 16:32:00 [facility] POCT-GLUCOSE METER 2023-02-17 Re Chase Tomnainal [facility] 11:37:00 [facility] POCT-GLUCOSE METER 2023-02-17 Rena Re Cohenl [facility] 05:48:00 [facility] CBC (HEMOGRAM ONLY) 2023-02-[address] [facility] 04:20:00 [facility] COMPREHENSIVE METABOLIC PANEL 2023-02-[address] [facility] 04:20:00 [facility] MAGNESIUM 2023-02-17 Rena Re Noell [facility] 04:20:00 [facility] PHOSPHORUS 2023-02-17 Rena Re Cohenl [facility] 04:20:00 [facility] POCT-GLUCOSE METER 2023-02-17 Re Chase Noell [facility] 00:14:00 [facility] POCT-GLUCOSE METER 2023-02-16 Re Chase Noell [facility] 16:26:00 [facility] POCT-GLUCOSE METER 2023-02-16 [address] [facility] 12:08:00 [facility] POCT-GLUCOSE METER 2023-02-16 [address]as[address] Henzell [facility] 06:23:00 [facility] POCT-GLUCOSE METER 2023-02-15 Da Chasell Henzell [facility] 23:46:00 [facility] POCT-GLUCOSE METER 2023-02-[address] Henzell [facility] 17:04:00 [facility] Center POCT-GLUCOSE METER 2023-02-15 Rena [address] Noell [facility] 11:41:00 [facility] POCT-GLUCOSE METER 2023-02-[address] [facility] 06:30:00 [facility] BASIC METABOLIC PANEL 2023-02-15 Re Chasel [facility] 05:00:00 [facility] MAGNESIUM 2023-02-[address] [facility] 05:00:00 [facility] POCT-GLUCOSE METER 2023-02-[address] [facility] 00:42:00 [facility] POCT-GLUCOSE METER 2023-02-[address] [facility] 17:39:00 [facility] POCT-GLUCOSE METER 2023-02-[address] [facility] 11:27:00 [facility] POCT-GLUCOSE METER 2023-02-14 Re Chase Tomnainal [facility] 06:31:00 [facility] CBC (HEMOGRAM ONLY) 2023-02-[address] [facility] 03:44:00 [facility] BASIC METABOLIC PANEL 2023-02-14 Re Chasel [facility] 03:44:00 [facility] MAGNESIUM 2023-02-[address] [facility] 03:44:00 [facility] POCT-GLUCOSE METER 2023-02-[address] [facility] 23:35:00 [facility] POCT-GLUCOSE METER 2023-02-13 Re Chase Tomnainal [facility] 18:29:00 [facility] POCT-GLUCOSE METER 2023-02-[address] [facility] 12:06:00 [facility] FL MODIFIED BARIUM SWALLOW 2023-02-[address] [facility] 10:50:00 [facility] CTA HEART CORONARY WITH CALCIUM 2023-02-[address] [facility] EVALUATION WITH FFR 10:20:00 Medical [facility] er POCT-GLUCOSE METER 2023-02-[address] [facility] 06:37:00 [facility] CBC (HEMOGRAM ONLY) 2023-02-13 Rena Re Cohenl [facility] 03:58:00 [facility] BASIC METABOLIC PANEL 2023-02-13 Re Chasetamika [facility] 03:58:00 [facility] MAGNESIUM 2023-02-13 Da [address] Tomtamika [facility] 03:58:00 [facility] POCT-GLUCOSE METER 2023-02-12 Rena, Re Tomnainal [facility] 23:13:00 [facility] POCT-GLUCOSE METER 2023-02-[address] [facility] 16:59:00 [facility] POCT-GLUCOSE METER 2023-02-[address] [facility] 12:33:00 [facility] XR CHEST 1 VIEW PORTABLE / 2023-02-[address] [facility] 11:18:00 [facility] POCT-GLUCOSE METER 2023-02-[address] [facility] 05:54:00 [facility] CBC (HEMOGRAM ONLY) 2023-02-[address] [facility] 03:19:00 [facility] COMPREHENSIVE METABOLIC PANEL 2023-02-[address] [facility] 03:19:00 [facility] MAGNESIUM 2023-02-[address] [facility] 03:19:00 [facility] PHOSPHORUS 2023-02-12 Rena [address] Tomtamika [facility] 03:19:00 [facility] PROTHROMBIN TIME/INR 2023-02-[address] [facility] 03:19:00 [facility] POCT-GLUCOSE METER 2023-02-[address] [facility] 23:58:00 [facility] POCT-GLUCOSE METER 2023-02-[address] [facility] 17:33:00 [facility] POCT-GLUCOSE METER 2023-02-[address] [facility] 12:06:00 [facility] POCT-GLUCOSE METER 2023-02-11 Elderndmilton, Estela [facility] 06:06:00 [facility] BLOOD CULTURE 2023-02-11 Emmanuel, Estela [facility] 03:57:00 [facility] BLOOD CULTURE 2023-02-11 Emmanuel, Estela [facility] 03:47:00 [facility] CBC W/PLT COUNT & AUTO 2023-02-11 Amelia Ramosl M [facility] DIFFERENTIAL 03:47:00 [facility] COMPREHENSIVE METABOLIC PANEL 2023-02-11 ChangeAmelia liral M [facility] 03:47:00 [facility] CBC W/PLT COUNT & AUTO 2023-02-11 Amelia Ramosl M [facility] DIFFERENTIAL 03:47:00 [facility] POCT-GLUCOSE METER 2023-02-10 Emmanuel, Estela [facility] 23:58:00 [facility] APTT 2023-02-[address] [facility] 22:05:00 [facility] POCT-GLUCOSE METER 2023-02-10 Emmanuel, Estela [facility] 17:42:00 [facility] APTT 2023-02-[address] [facility] 15:20:00 [facility] POCT-GLUCOSE METER 2023-02-10 Emmanuel, Estela [facility] 12:10:00 [facility] APTT 2023-02-[address] [facility] 07:28:00 [facility] POCT-GLUCOSE METER 2023-02-10 Hayat Tommy, Reynoso [facility] 06:41:00 [facility] CBC W/PLT COUNT & AUTO 2023-02-[address] [facility] DIFFERENTIAL 04:03:00 [facility] COMPREHENSIVE METABOLIC PANEL 2023-02-10 R[address]Amelia l[address] M [facility] 04:03:00 [facility] CBC W/PLT COUNT & AUTO 2023-02-10 [address]Terri l[address] M [facility] DIFFERENTIAL 04:03:00 [facility] POCT-GLUCOSE METER 2023-02-10 Hayat Tommy, Reynoso [facility] 01:16:00 [facility] APTT 2023-02-[address] [facility] 22:26:00 [facility] POCT-GLUCOSE METER 2023-02-[address] [facility] 18:40:00 [facility] CBC (HEMOGRAM ONLY) 2023-02-[address] [facility] 16:06:00 [facility] APTT 2023-02-[address] [facility] 16:06:00 [facility] POCT-GLUCOSE METER 2023-02-[address] [facility] 13:13:00 [facility] 2D ECHO W/ DOPPLER (CW/PW/COLOR) 2023-02-09 [facility] Shawn [facility] 09:30:[address] [facility] APTT 2023-02-[address] [facility] 07:30:00 [facility] POCT-GLUCOSE METER 2023-02-[address] [facility] 06:02:00 [facility] CBC W/PLT COUNT & AUTO 2023-02-09 Terri Ramos Mike [facility] DIFFERENTIAL 03:19:00 [facility] COMPREHENSIVE METABOLIC PANEL 2023-02-09 Rachel Terri M [facility] 03:19:00 [facility] CBC W/PLT COUNT & AUTO 2023-02-09 Amelia Ramosl M [facility] DIFFERENTIAL 03:19:00 [facility] POCT-GLUCOSE METER 2023-02-[address] [facility] 00:29:00 [facility] BASIC METABOLIC PANEL 2023-02-08 Amelia Ramosl M [facility] 21:54:00 [facility] POCT-GLUCOSE METER 2023-02-[address] [facility] 17:32:00 [facility] BASIC METABOLIC PANEL 2023-02-[address] [facility] 12:29:00 [facility] POCT-GLUCOSE METER 2023-02-[address] [facility] 12:28:00 [facility] CBC W/PLT COUNT & AUTO 2023-02-[address] [facility] DIFFERENTIAL 08:39:00 [facility] PROTHROMBIN TIME/INR 2023-02-[address] [facility] 08:39:00 [facility] APTT 2023-02-[address] [facility] 08:39:00 [facility] CBC W/PLT COUNT & AUTO 2023-02-[address] [facility] DIFFERENTIAL 08:39:00 [facility] POCT-GLUCOSE METER 2023-02-[address] [facility] 06:25:00 [facility] COMPREHENSIVE METABOLIC PANEL 2023-02-08 Egland, [facility] 02:57:[address] [facility] MAGNESIUM 2023-02-08 Egland, Shawn [facility] 02:57:[address] [facility] PHOSPHORUS 2023-02-08 Egland, Shawn [facility] 02:57:[address] [facility] CALCIUM, IONIZED 2023-02-08 Egland, Shawn [facility] 02:57:[address] [facility] APTT 2023-02-08 Augie, Issac [facility] 02:57:00 [facility] PREPARE PLASMA 2023-02-[address] [facility] 23:55:00 [facility] POCT-GLUCOSE METER 2023-02-[address] [facility] 23:29:00 [facility] APTT 2023-02-[address] [facility] 20:13:00 [facility] POCT-GLUCOSE METER 2023-02-[address] [facility] 18:37:00 [facility] CBC W/PLT COUNT & AUTO 2023-02-[address] [facility] DIFFERENTIAL 18:36:00 [facility] APTT 2023-02-[address] [facility] 18:36:00 [facility] CBC W/PLT COUNT & AUTO 2023-02-[address] [facility] DIFFERENTIAL 18:36:00 [facility] SODIUM, RANDOM URINE 2023-02-[address] [facility] 12:46:00 [facility] CREATININE, RANDOM URINE 2023-02-[address] [facility] 12:46:00 [facility] APTT 2023-02-[address] [facility] 12:33:00 [facility] POCT-GLUCOSE METER 2023-02-[address] [facility] 11:56:00 [facility] HIGH SENSITIVITY TROPONIN I 2023-02-[address] [facility] 11:32:00 [facility] APTT 2023-02-[address] [facility] 11:32:00 [facility] APTT 2023-02-[address] [facility] 09:22:00 [facility] CBC W/PLT COUNT & AUTO 2023-02-[address] [facility] DIFFERENTIAL 09:18:00 [facility] CBC W/PLT COUNT & AUTO 2023-02-[address] [facility] DIFFERENTIAL 09:18:00 [facility] (CELLAVISION MANUAL DIFF) 2023-02-[address] [facility] 09:18:00 [facility] POCT-GLUCOSE METER 2023-02-[address] [facility] 06:21:00 [facility] COMPREHENSIVE METABOLIC PANEL 2023-02-07 [facility], Shawn [facility] 03:25:[address] [facility] MAGNESIUM 2023-02-07 Egland, Shawn [facility] 03:25:[address] [facility] PHOSPHORUS 2023-02-07 [facility] Shawn [facility] 03:25:[address] [facility] CALCIUM, IONIZED 2023-02-07 Egland, Shawn [facility] 03:25:[address] [facility] VANCOMYCIN LEVEL, RANDOM 2023-02-07 Gilbert, Ariela [facility] 03:25:00 [facility] APTT 2023-02-[address] [facility] 02:50:00 [facility] POCT-GLUCOSE METER 2023-02-[address] [facility] 00:17:00 [facility] APTT 2023-02-[address] [facility] 00:14:00 [facility] CBC W/PLT COUNT & AUTO 2023-02-[address] [facility] DIFFERENTIAL 20:27:00 [facility] CBC W/PLT COUNT & AUTO 2023-02-[address] [facility] DIFFERENTIAL 20:27:00 [facility] (CELLAVISION MANUAL DIFF) 2023-02-[address] [facility] 20:27:00 [facility] POCT-GLUCOSE METER 2023-02-[address] [facility] 17:58:00 [facility] REPORT OF PROCEDURE - ENDOSCOPY 2023-02-06 Keihanian, Bob [facility] URL 16:06:59 [facility] APTT 2023-02-06 Augie, Issac [facility] 15:15:00 [facility] PROTHROMBIN TIME/INR 2023-02-[address] [facility] 15:15:00 [facility] ENDOSCOPIC RETROGRADE 2023-02-06 Keihanian, Bob [facility]APHY 12:58:00 [facility] (ENDOSCOPIC RETROGRADE CHOLANGIOPANCREATOGRAPHY) PROCEDURE W/ C-ARM 2023-02-06 Keihanian, Bob [facility] 12:58:00 [facility] ENDOSCOPIC RETROGRADE 2023-02-06 Keihanian, Bob [facility] CHOLANGIOPANCREATOGRAPHY, WITH 12:58:00 M [facility] BILE DUCT STENT INSERTION TRANSFUSE PLASMA 2023-02-[address] [facility] 12:56:00 [facility] POCT-GLUCOSE METER 2023-02-[address] [facility] 11:40:00 [facility] LEGIONELLA ANTIGEN, URINE [facility] 11:[facility]:[address] [facility] RESPIRATORY PANEL 2023-02-[address] [facility] 11:20:[address] [facility] MRSA SCREEN [facility]23[facility]02-06 [facility] 11:[facility]:[address] [facility] DIGOXIN LEVEL 2023-02-[address] [facility] 11:07:00 [facility] BILIRUBIN, TOTAL AND DIRECT 2023-02-[address] [facility] 11:07:00 [facility] HEMOGLOBIN AND HEMATOCRIT 2023-02-[address] [facility] 11:07:00 [facility] PLATELET COUNT 2023-02-[address] [facility] 11:07:00 [facility] PT/APTT 2023-02-[address] [facility] 11:07:00 [facility] CBC (HEMOGRAM ONLY) 2023-02-[address] [facility] 11:07:00 [facility] ABORH, MANUAL 2023-02-[address] [facility] 11:07:00 [facility] HIGH SENSITIVITY TROPONIN I 2023-02-[address] [facility] 06:21:[address] [facility] BASIC METABOLIC PANEL 2023-02-[address] [facility] 06:21:[address] [facility] HEPATIC FUNCTION PANEL 2023-02-06 Lance Joe [facility] 06:[facility]:00 [facility] POCT-GLUCOSE METER 2023-02-[address] [facility] 05:45:00 [facility] CTA BRAIN 2023-02-06 Kelley-Ocanas, [facility] 03:52:06 [facility] CTA CAROTID 2023-02-06 Kelley-Ocanas, [facility] 03:49:07 [facility] ELECTRICAL CARDIOVERSION 2023-02-[address] [facility] 03:09:25 [facility] CT BRAIN WITHOUT IV CONTRAST 2023-02-[address] [facility] 02:26:54 [facility] US ABDOMEN LIMITED 2023-02-[address] [facility] 02:05:00 [facility] LACTIC ACID, VENOUS 2023-02-[address] [facility] 02:02:00 [facility] ECG 12-LEAD 2023-02-[address] [facility] 00:33:42 [facility] ECG 12-LEAD 2023-02-06 Unknown, Hl7 Doctor [facility] 00:33:42 [facility] RAPID DRUG SCREEN, URINE 2023-02-[address] [facility] 00:31:00 [facility] XR CHEST 1 VIEW PORTABLE / 2023-02-06 Julio [facility]valos [facility] 00:20:00 [facility] URINE CULTURE 2023-02-[address] [facility] 00:12:00 [facility] URINALYSIS W/ REFLEX URINE 2023-02-06 Julio Avalos [facility] CULTURE 00:12:00 [facility] BLOOD GAS, VENOUS 2023-02-[address] [facility] 00:08:00 [facility] B-TYPE NATRIURETIC FACTOR (BNP) 2023-02-[address] [facility] 23:59:00 [facility] HIGH SENSITIVITY TROPONIN I 2023-02-[address] [facility] 23:59:00 Medical [facility] BLOOD CULTURE 2023-02-[address] [facility] 23:56:00 [facility] BLOOD CULTURE IDENTIFICATION 2023-02-[address] [facility] PANEL 23:56:00 [facility] CBC W/PLT COUNT & AUTO 2023-02-[address] [facility] DIFFERENTIAL 23:56:00 [facility] LACTIC ACID, VENOUS 2023-02-[address] [facility] 23:56:00 [facility] COMPREHENSIVE METABOLIC PANEL 2023-02-[address] [facility] 23:56:00 [facility] PROTHROMBIN TIME/INR 2023-02-[address] [facility] 23:56:00 [facility] APTT 2023-02-[address] [facility] 23:56:00 [facility] BILIRUBIN, TOTAL AND DIRECT 2023-02-[address] Cruz [facility] 23:56:00 [facility] GAMMA GLUTAMYL TRANSFERASE (GGT) 2023-02-05 [address] Cruz [facility] 23:56:00 [facility] CBC W/PLT COUNT & AUTO 2023-02-[address] [facility] DIFFERENTIAL 23:56:00 [facility] (CELLAVISION MANUAL DIFF) 2023-02-[address] [facility] 23:56:00 [facility] POCT-GLUCOSE METER 2023-02-[address] [facility] 23:52:00 [facility] ECG 12-LEAD 2023-02-05 Unknown, Hl7 Doctor [facility] 23:44:24 [facility] ECG 12-LEAD 2023-02-[address] [facility] 23:44:24 [facility] EKG-SCANNED 2023-02-05 Provider, Alexander [facility] 00:00:00 Scanning [facility] POCT-GLUCOSE METER 2023-02-[address] [facility] 18:07:00 [facility] POCT-GLUCOSE METER 2023-02-[address] [facility] 11:30:00 [facility] Center POCT-GLUCOSE METER 2023-02-03 Marcelo, Emani P [facility] 05:33:00 [facility] CBC W/PLT COUNT & AUTO 2023-02-03 Marcelo, Emani P [facility] DIFFERENTIAL 05:28:00 [facility] CBC W/PLT COUNT & AUTO 2023-02-03 Marcelo, Emani P [facility] DIFFERENTIAL 05:28:00 [facility] POCT-GLUCOSE METER 2023-02-02 Marcelo, Emani P [facility] 23:45:00 [facility] POCT-GLUCOSE METER 2023-02-02 Marcelo, Emani P [facility] 16:50:00 [facility] POCT-GLUCOSE METER 2023-02-02 Marcelo, Emani P [facility] 12:30:00 [facility] POCT-GLUCOSE METER 2023-02-02 Marcelo, Emani P [facility] 06:18:00 [facility] CBC W/PLT COUNT & AUTO 2023-02-02 Marcelo, Emani P [facility] DIFFERENTIAL 03:26:00 [facility] BASIC METABOLIC PANEL 2023-02-02 Mareclo, Emani P [facility] 03:26:00 [facility] CBC W/PLT COUNT & AUTO 2023-02-02 Marcelo, Emani P [facility] DIFFERENTIAL 03:26:00 [facility] POCT-GLUCOSE METER 2023-02-02 Marcelo, Emani P [facility] 00:18:00 [facility] POCT-GLUCOSE METER 2023-02-01 Marcelo, Emani P [facility] 17:53:00 [facility] POCT-GLUCOSE METER 2023-02-01 Marcelo, Emani P [facility] 11:59:00 [facility] ECG 12-LEAD 2023-02-01 Marcelo, Emani P [facility] 10:02:09 [facility] ECG 12-LEAD 2023-02-01 Unknown, Hl7 Doctor [facility] 10:02:09 [facility] ECG 12-LEAD 2023-02-01 Unknown, Hl7 Doctor [facility] 10:01:49 [facility] POCT-GLUCOSE METER 2023-02-01 Marcelo, Emani P [facility] 06:04:00 [facility] POCT-GLUCOSE METER 2023-01-31 Marcelo, Emani P [facility] 23:25:00 [facility] POCT-GLUCOSE METER 2023-01-31 Marcelo, Emani P [facility] 18:04:00 [facility] POCT-GLUCOSE METER 2023-01-31 Marcelo, Emani P [facility] 12:51:00 [facility] POCT-GLUCOSE METER 2023-01-31 Marcelo, Emani P [facility] 05:46:00 [facility] POCT-GLUCOSE METER 2023-01-30 Marcelo, Emani P [facility] 23:33:00 [facility] POCT-GLUCOSE METER 2023-01-30 Marcelo, Emani P [facility] 17:26:00 [facility] POCT-GLUCOSE METER 2023-01-30 Marcelo, Emani P [facility] 13:01:00 [facility] POCT-GLUCOSE METER 2023-01-30 Jose M, Jose [facility] 06:17:00 [facility] BASIC METABOLIC PANEL 2023-01-30 Jose M, Jose [facility] 04:19:00 [facility] CBC W/PLT COUNT & AUTO 2023-01-30 Jose M, Jose [facility] DIFFERENTIAL 04:19:00 [facility] MAGNESIUM 2023-01-30 Jose M, Jose [facility] 04:19:00 [facility] PHOSPHORUS 2023-01-30 Jose M, Jose [facility] 04:19:00 [facility] CBC W/PLT COUNT & AUTO 2023-01-30 Jose M, Jose [facility] DIFFERENTIAL 04:19:00 [facility] POCT-GLUCOSE METER 2023-01-30 Jose M, Jose [facility] 00:48:00 [facility] POCT-GLUCOSE METER 2023-01-29 Jose M, Jose [facility] 18:12:00 [facility] TRANSESOPHAGEAL ECHO 2023-01-[address] [facility] 15:53:31 [facility] POCT-GLUCOSE METER 2023-01-29 Jose M, Jose [facility] 12:25:00 [facility] POCT-GLUCOSE METER 2023-01-29 Jose M, Jose [facility] 05:15:00 [facility] BASIC METABOLIC PANEL 2023-01-29 Jose M, Jose [facility] 04:25:00 [facility] CBC W/PLT COUNT & AUTO 2023-01-29 Jose M, Jose [facility] DIFFERENTIAL 04:25:00 [facility] MAGNESIUM 2023-01-29 Jose M, Jose [facility] 04:25:00 [facility] PHOSPHORUS 2023-01-29 Jose M, Jose [facility] 04:25:00 [facility] CBC W/PLT COUNT & AUTO 2023-01-29 Jose M, Jose [facility] DIFFERENTIAL 04:25:00 [facility] POCT-GLUCOSE METER 2023-01-29 Jose M, Jose [facility] 01:10:00 [facility] POCT-GLUCOSE METER 2023-01-28 Jose M, Jose [facility] 16:59:00 [facility] ECG 12-LEAD 2023-01-[address] [facility] 12:19:21 [facility] ECG 12-LEAD 2023-01-28 Unknown, Hl7 Doctor [facility] 12:19:21 [facility] ECG 12-LEAD 2023-01-28 Unknown, Hl7 Doctor [facility] 12:18:40 [facility] POCT-GLUCOSE METER 2023-01-28 Jose M, Jose [facility] 11:44:00 [facility] POCT-GLUCOSE METER 2023-01-28 Jose M, Jose [facility] 05:12:00 [facility] Center BASIC METABOLIC PANEL 2023-01-28 Jose M, Jose [facility] 04:23:00 [facility] CBC W/PLT COUNT & AUTO 2023-01-28 Jose M, Jose [facility] DIFFERENTIAL 04:23:00 [facility] MAGNESIUM 2023-01-28 Jose M, Jose [facility] 04:23:00 [facility] PHOSPHORUS 2023-01-28 Jose M, Jose [facility] 04:23:00 [facility] CBC W/PLT COUNT & AUTO 2023-01-28 Jose M, Jose [facility] DIFFERENTIAL 04:23:00 [facility] POCT-GLUCOSE METER 2023-01-28 Jose M, Jose [facility] 00:20:00 [facility] ECG 12-LEAD 2023-01-27 Unknown, Hl7 Doctor [facility] 21:10:19 [facility] ECG 12-LEAD 2023-01-27 Unknown, Hl7 Doctor [facility] 21:10:19 [facility] ECG 12-LEAD 2023-01-27 Unknown, Hl7 Doctor [facility] 21:09:58 [facility] POCT-GLUCOSE METER 2023-01-27 Jose M, Jose [facility] 17:31:00 [facility] POCT-GLUCOSE METER 2023-01-27 Jose M, Jose [facility] 12:02:00 [facility] POCT-GLUCOSE METER 2023-01-27 Jose M, Jose [facility] 08:02:00 [facility] POCT-GLUCOSE METER 2023-01-27 Jose M, Jose [facility] 06:07:00 [facility] BASIC METABOLIC PANEL 2023-01-27 Jose M, Jose [facility] 04:16:00 [facility] CBC W/PLT COUNT & AUTO 2023-01-27 Jose M, Jose [facility] DIFFERENTIAL 04:16:00 [facility] MAGNESIUM 2023-01-27 Jose M, Jose [facility] 04:16:00 [facility] PHOSPHORUS 2023-01-27 Jose M, Jose [facility] 04:16:00 [facility] CBC W/PLT COUNT & AUTO 2023-01-27 Jose M, Jose [facility] DIFFERENTIAL 04:16:00 [facility] POCT-GLUCOSE METER 2023-01-27 Jose M, Jose [facility] 00:07:00 [facility] POCT-GLUCOSE METER 2023-01-26 Jose M, Jose [facility] 17:14:00 [facility] POCT-GLUCOSE METER 2023-01-26 Jose M, Jose [facility] 11:52:00 [facility] POCT-GLUCOSE METER 2023-01-26 Jose M, Jose [facility] 06:15:00 [facility] BASIC METABOLIC PANEL 2023-01-26 Jose M, Jose [facility] 04:11:00 [facility] CBC W/PLT COUNT & AUTO 2023-01-26 Jose M, Jose [facility]FFER[facility] 04:11:00 [facility] MAGNESIUM 2023-01-26 Jose M, Jose [facility] 04:11:00 [facility] PHOSPHORUS 2023-01-26 Jose M, Jose [facility] 04:11:00 [facility] Center CBC W/PLT COUNT & AUTO 2023-01-26 Jose M, Jose [facility] DIFFER[facility] 04:11:00 [facility] POCT-GLUCOSE METER 2023-01-26 Jose M, Jose [facility] 00:34:00 [facility] POCT-GLUCOSE METER 2023-01-25 Jose M, Jose [facility] 17:20:00 [facility] POCT-GLUCOSE METER 2023-01-25 Jose M, Jose [facility] 11:42:00 [facility] POCT-GLUCOSE METER 2023-01-25 Jose M, Jose [facility] 05:21:00 [facility] MAGNESIUM 2023-01-[address] [facility] 03:40:00 [facility] PHOSPHORUS 2023-01-[address] [facility] 03:40:00 [facility] CBC W/PLT COUNT & AUTO 2023-01-[address] [facility] 03:40:00 [facility] BASIC METABOLIC PANEL 2023-01-[address] [facility] 03:40:00 [facility] CBC W/PLT COUNT & AUTO 2023-01-[address] [facility] 03:40:00 [facility] POCT-GLUCOSE METER 2023-01-24 Jose M, Jose [facility] 23:58:00 [facility] MR BRAIN WITHOUT IV CONTRAST 2023-01-[address] [facility] 18:21:11 [facility] POCT-GLUCOSE METER 2023-01-24 Jose M, Jose [facility] 13:11:00 [facility] POCT-GLUCOSE METER 2023-01-24 Jose M, Jose [facility] 06:47:00 [facility] MAGNESIUM 2023-01-[address] [facility] 05:46:00 [facility] PHOSPHORUS 2023-01-[address] [facility] 05:46:00 [facility] CBC W/PLT COUNT & AUTO 2023-01-[address] [facility] 05:46:00 [facility] BASIC METABOLIC PANEL 2023-01-[address] [facility] 05:46:00 [facility] CBC W/PLT COUNT & AUTO 2023-01-[address] [facility] 05:46:00 [facility] POCT-GLUCOSE METER 2023-01-23 Jose M, Jose [facility] 23:33:00 [facility] POCT-GLUCOSE METER 2023-01-23 Jose M, Jose [facility] 18:03:00 [facility] POCT-GLUCOSE METER 2023-01-23 Jose M, Jose [facility] 13:53:00 [facility] IR GASTROSTOMY TUBE INSERTION 2023-01-23 Jose M, Jose [facility] W/FLUORO 10:55:00 [facility] MAGNESIUM 2023-01-[address] [facility] 06:13:00 [facility] PHOSPHORUS 2023-01-[address] [facility] 06:13:00 [facility] CBC W/PLT COUNT & AUTO 2023-01-[address] [facility] 06:13:00 [facility] BASIC METABOLIC PANEL 2023-01-[address] [facility] 06:13:00 [facility] PT/APTT 2023-01-23 Jose M, Jose [facility] 06:13:00 [facility] CBC W/PLT COUNT & AUTO 2023-01-[address] [facility] 06:13:00 [facility] POCT-GLUCOSE METER 2023-01-23 Jose M, Jose [facility] 05:36:00 [facility] POCT-GLUCOSE METER 2023-01-23 Jose M, Jose [facility] 00:06:00 [facility] XR ABDOMEN/KUB 1 VIEW PORTABLE 2023-01-22 Maria T Wynn [facility] 20:29:00 [facility] POCT-GLUCOSE METER 2023-01-22 Jose M, Jose [facility] 17:58:00 [facility] POCT-GLUCOSE METER 2023-01-22 Jose M, Jose [facility] 12:25:00 [facility] CT ABDOMEN WITHOUT IV CONTRAST 2023-01-22 Jose M, Jose [facility] 11:04:00 [facility] POCT-GLUCOSE METER 2023-01-22 Jose M, Jose [facility] 05:59:00 [facility] MAGNESIUM 2023-01-[address] [facility] 04:29:00 [facility] PHOSPHORUS 2023-01-[address] [facility] 04:29:00 [facility] CBC W/PLT COUNT & AUTO 2023-01-[address] [facility] 04:29:00 [facility] BASIC METABOLIC PANEL 2023-01-[address] [facility] 04:29:00 [facility] CBC W/PLT COUNT & AUTO 2023-01-[address] [facility] 04:29:00 [facility] POCT-GLUCOSE METER 2023-01-22 Jose M, Jose [facility] 04:24:00 [facility] POCT-GLUCOSE METER 2023-01-21 Jose M, Jose [facility] 17:11:00 [facility] POCT-GLUCOSE METER 2023-01-21 Jose M, Jose [facility] 12:21:00 [facility] POCT-GLUCOSE METER 2023-01-[address] [facility] 05:16:00 [facility] MAGNESIUM 2023-01-[address] [facility] 04:56:00 [facility] PHOSPHORUS 2023-01-[address] [facility] 04:56:00 [facility] CBC W/PLT COUNT & AUTO 2023-01-[address] [facility] 04:56:00 [facility] BASIC METABOLIC PANEL 2023-01-[address] [facility] 04:56:00 [facility] CBC W/PLT COUNT & AUTO 2023-01-[address] [facility] 04:56:00 [facility] POCT-GLUCOSE METER 2023-01-20 Zhangkatasmain Ewing, [facility] 22:49:00 [facility] POCT-GLUCOSE METER 2023-01-20 Venkatasmain Ewing, [facility] 17:01:00 [facility] 2D ECHO W/ DOPPLER (CW/PW/COLOR) 2023-01-[address] [facility] 16:28:45 [facility] XR ABDOMEN/KUB 1 VIEW PORTABLE 2023-01-[address] [facility] 11:36:35 [facility] POCT-GLUCOSE METER 2023-01-20 [facility] 11:21:00 [facility] POCT-GLUCOSE METER 2023-01-20 Luisa Ewing, [facility] 05:48:00 [facility] MAGNESIUM 2023-01-[address] [facility] 03:48:00 [facility] Center PHOSPHORUS 2023-01-[address] [facility] 03:48:00 [facility] CBC W/PLT COUNT & AUTO 2023-01-[address] [facility] 03:48:00 [facility] BASIC METABOLIC PANEL 2023-01-[address] [facility] 03:48:00 [facility] HIGH SENSITIVITY TROPONIN I 2023-01-[address] [facility] 03:48:00 [facility] CBC W/PLT COUNT & AUTO 2023-01-[address] [facility] DIFFERENTIAL 03:48:00 [facility] POCT-GLUCOSE METER 2023-01-19 [facility] 23:50[facility]00 [facility] POCT-GLUCOSE METER 2023-01-19 [facility] 17:34:00 [facility] ECG 12-LEAD 2023-01-19 Unknown, Hl7 Doctor [facility] 13:23:41 [facility] ECG 12-LEAD 2023-01-19 Unknown, Hl7 Doctor [facility] 13:23:41 [facility] SPUTUM CULTURE + GRAM STAIN 2023-01-[address] [facility] 10:43:00 [facility] HIGH SENSITIVITY TROPONIN I 2023-01-19 Estela, Lintu [facility] 10:35:00 [facility] LACTIC ACID, VENOUS 2023-01-19 Estela, Lintu [facility] 10:[facility]00 [facility] ECG 12-LEAD 2023-01-19 Estela, Lintu [facility] 09:13:34 [facility] ECG 12-LEAD 2023-01-19 Unknown, Hl7 Doctor [facility] 09:13:34 [facility] ECG 12-LEAD 2023-01-19 Unknown, Hl7 Doctor [facility] 09:11:49 [facility] ECG 12-LEAD 2023-01-19 Unknown, Hl7 Doctor [facility] 09:11:07 [facility] ECG 12-LEAD 2023-01-19 Unknown, Hl7 Doctor [facility] 09:11:07 [facility] ECG 12-LEAD 2023-01-19 Unknown, Hl7 Doctor [facility] 09:08:02 [facility] POCT-GLUCOSE METER 2023-01-19 Clark, Khwaja [facility] 05:52:[address] [facility] CT BRAIN WITHOUT IV CONTRAST 2023-01-[address] [facility] 05:16:43 [facility] LIPID PANEL 2023-01-[address] [facility] 04:28:00 [facility] MAGNESIUM 2023-01-[address] [facility] 04:28:00 [facility] PHOSPHORUS 2023-01-[address] [facility] 04:28:00 [facility] CBC W/PLT COUNT & AUTO 2023-01-[address] [facility] 04:28:00 [facility] BASIC METABOLIC PANEL 2023-01-[address] [facility] [address] [facility] 04[facility]28:00 [facility] HEMOGLOBIN A1C 2023-01-[address] [facility] 04:28:00 [facility] TSH/FREE T4 IF INDICATED 2023-01-[address] [facility] 04:28:00 [facility] VITAMIN B12 2023-01-19 [facility] 04:28:00 [facility] CBC W/PLT COUNT & AUTO 2023-01-[address] [facility] DIFFER[facility] 04:28:00 [facility] POCT-GLUCOSE METER 2023-01-18 Clark, Khwaja [facility] 23:02:[address] [facility] RAPID DRUG SCREEN, URINE 2023-01-[address] [facility] 21:06:00 [facility] POCT-GLUCOSE METER 2023-01-[address] [facility] 18:21:[address] [facility] XR ABDOMEN/KUB 1 VIEW PORTABLE 2023-01-[address] [facility] 18:20:00 [facility] LACTIC ACID, VENOUS 2023-01-[address] [facility] 18:09:00 [facility] BLOOD GAS, VENOUS 2023-01-[address] [facility] 18:09:00 [facility] MAGNESIUM 2023-01-[address] [facility] 14:55:00 [facility] PHOSPHORUS 2023-01-[address] [facility] 14:55:00 [facility] URINALYSIS W/ REFLEX URINE 2023-01-18 Della Friedman [facility] CULTURE 14:55:00 [facility] PROCALCITONIN 2023-01-[address] [facility] 14:55:00 [facility] XR CHEST 1 VIEW PORTABLE / 2023-01-18 Wanda Benoit [facility] BEDSIDE 14:43:00 [facility] ABORH, MANUAL 2023-01-[address] [facility] 14:21:00 [facility] LACTIC ACID, VENOUS 2023-01-[address] [facility] 14:01:00 [facility] SARS-COV2/INFLUENZA/RSV RT-PCR 2023-01-[address] [facility] 13:58:00 [facility] BLOOD CULTURE 2023-01-[address] [facility] 13:58:00 [facility] ABORH, MANUAL 2023-01-[address] [facility] 13:58:00 [facility] B-TYPE NATRIURETIC FACTOR (BNP) 2023-01-[address] [facility] 13:57:00 [facility] CBC W/PLT COUNT & AUTO 2023-01-[address] [facility] DI[facility] 13:57:00 [facility] COMPREHENSIVE METABOLIC PANEL 2023-01-[address] [facility] 13:57:00 [facility] HIGH SENSITIVITY TROPONIN I 2023-01-[address] [facility] 13:57:00 [facility] PT/APTT 2023-01-[address] [facility] 13:57:00 [facility] CBC W/PLT COUNT & AUTO 2023-01-[address] [facility] DIFFER[facility] 13:57:00 [facility] ECG 12-LEAD 2023-01-[address] [facility] 13:40:36 [facility] ECG 12-LEAD 2023-01-18 Unknown, Hl7 Doctor [facility] 13:40:36 [facility] CTA BRAIN 2023-01-[address] [facility] 13:39:14 [facility] CTA CAROTID 2023-01-18 Ahmad, Ali [facility] 13:39:14 [facility] CT BRAIN CEREBRAL PERFUSION 2023-01-18 Ahmad, Ali [facility] ANALYSIS 13:39:14 [facility] POCT-GLUCOSE METER 2023-01-[address] [facility] 13:33:[address] [facility] EKG-SCANNED 2023-01-[address] [facility] 00:00:[address] [facility] Plan of Care Planned Activity Planned Date Details Comments Source Future Scheduled 2026-01-19 Lipid panel (procedure) [facility] 00:00:00 [code = 89240841] Medical Ce nter Future Scheduled 2024-02-[address] [facility] 00:00:[address] [facility] (12+) [code = Tobacco Cessation Counseling and Screening (12+)] Future Scheduled 2023-04-17 Influenza Vaccine (#1) [facility] 00:00:00 [code = Influenza Vaccine [facility] Center (#1)] Future Scheduled 2014 SHINGLES VACCINES ([address] [facility] 00:00:00 2) [code = SHINGLES Medical Center VACCINES (1 of 2)] Future Scheduled 1985 Screening for malignant [facility] 00:00:00 neoplasm of cervix Medical C enter (procedure) [code = 512897262] Future Scheduled 1983 DTAP/TDAP/TD VACCINES ([address] [facility] 00:00:00 - Tdap) [code = Medical Cent er DTAP/TDAP/TD VACCINES (1 - Tdap)] Future Scheduled 1982 HEPATITIS C SCRE[facility]ING [facility] 00:00:00 [code = HEPATITIS C Medical Center SCREENING] Future Scheduled [address] [facility] 00:00:00 virus screening Medical Cent er (procedure) [code = 582019724] Future Scheduled 1964 COVID-19 VACCINE (#1) [facility] 00:00:00 [code = COVID-19 VACCINE Med ical Center (#1)] Future Scheduled 1964 Screening for malignant [facility] 00:00:00 neoplasm of breast Medical C enter (procedure) [code = 001026608] Future Scheduled 1964 CT Colonography (combo) [facility] 00:00:00 [code = CT Colonography [facility] Center (combo)] Future Scheduled 1964 Screening for malignant [facility] 00:00:00 neoplasm of colon Medical Ce nter (procedure) [code = 398297464] Future Scheduled 1964 Screening for malignant [facility] 00:00:00 neoplasm of colon Medical Ce nter (procedure) [code = 471852265] Future Scheduled 1964 Screening for malignant [facility] 00:00:00 neoplasm of colon Medical Ce nter (procedure) [code = 068151875] Future Scheduled 1964 Screening for malignant [facility] 00:00:00 neoplasm of colon Medical Ce nter (procedure) [code = 471420026] Future Scheduled 1964 Sigmoidoscopy [code = [facility] 00:[facility] Sigmoidoscopy] Medical Cente r Encounters Start End Encounter Admission Attending Care Care Encounter Source Date/Time Date/Time Type Type Clinicians Facility Department ID 2023-03-03 Inpatient ER SEN, [facility] [id number] SLE 20:15:00 BRIT 2023-02-26 Inpatient ER CRYSTAL, [facility] [id number] SLE 13:49:51 WANDA 2023-02-24 Inpatient ER QIANABABS, [facility] [id number] SLE 16:35:43 MOHORAL 2023-02-13 Inpatient ER RENA, [facility] [id number] [facility] 10:33:35 RE 2023-02-13 Inpatient ER SEN, [facility] [id number] [facility] 09:50:45 BRIT 2023-02-12 Inpatient ER RENA, [facility] [id number] [facility] 10:25:01 RE 2023-02-10 Outpatient EL ADAL, [facility] Surgery [id number] [facility] 17:36:57 BOB 2023-02-09 Inpatient ER EGLDI, [facility] [id number] [facility]H 07:48:24 SHAWN 2023-02-07 Inpatient ER SANDHYA PAREDES [facility] [id number] SLEH 12:57:52 2023-02-06 Inpatient ER ADAL, [facility] [id number] SLEH 15:37:57 BOB 2023-02-06 Inpatient ER EGLDI, [facility] [id number] SLEH 10:43:41 SHAWN 2023-01-29 Inpatient ER BADJATIYA, [facility] [id number] [facility]H 13:36:52 LEVI 2023-01-29 Inpatient ER BADJATIYA, [facility] [id number] SLEH 13:36:34 LEVI 2023-01-24 Inpatient ER JOSE M, JOSE [facility] [id number] [facility] 17:44:50 2023-01-23 Inpatient ER JOSE M, JOSE [facility] [id number] [facility]H 06:50:52 2023-01-22 Inpatient ER JOSE M, JOSE [facility] [id number] SLEH 19:55:17 2023-01-22 Inpatient ER JOSE M, JOSE [facility] [id number] [facility] 17:19:36 2023-01-20 Inpatient ER VENKATASUBB [facility] [id number] SLEH 11:55:11 AMADEO GUAJARDO 2023-01-18 Inpatient ER CLARK, [facility] Surgery [id number] [facility] 12:26:24 BONIFACIO 2023-03-31 2023-03-31 Office Renetta Hilario [facility] [id number] [facility] 09:30:00 10:00:00 Visit Abel Vicente SPECIALTY [id number] [id number] [id number] [place] White2 [facility] 2023-03-31 2023-03-31 Outpatient R JUSTO [facility] [id number] Univers 09:30:00 09:30:00 ABEL gongy o f [facility] 2023-03-10 2023-03-11 Emergency X PETERS, [facility] ERT [id number] Univers 21:44:00 02:26:00 PETERS, REGULO it y of [facility] 2023-03-10 2023-03-11 Emergency Peters, [facility] [id number] Univers 21:44:00 02:26:00 HEALTH [id number] [id number] [phone] [address] ([facility]) 2023-02-05 2023-03-04 Hospital ER Avalos Miriamxochitl [facility] [id number] [facility] 23:38:00 16:17:00 Encounter Ember Johnston, [facility] Estela Benitez Jill Henzell Khan, Hailee Chicas, Ceci Figueroa, Dylan Justice 2023-02-05 2023-03-04 Inpatient ER DUTCH [facility] Surgery [id number] [facility] 23:38:00 16:17:00 DYLAN 2023-02-26 2023-02-26 Anesthesia Nilay, [facility] [id number] 10:44:00 14:29:00 [facility]23-02-26 2023-02-26 Surgery Crystal [facility] [id number] 10:35:00 13:10:00 W[facility] 2023-02-24 2023-02-24 Surgery Song [facility] [id number] 15:59:00 17:29:00 [facility] 2023-02-24 2023-02-24 Anesthesia Emerita Monroy [facility] [id number] 15:50:00 15:50:00 Event Vitaly Olmedo [facility] 2023-02-24 2023-02-[address] [facility] [id number] [facility] 00:00:00 00:00:00 [facility] 2023-02-06 2023-02-06 Anesthesia Dionte Hanley [facility] [id number] 12:58:00 14:24:00 Event Ashley [facility] 2023-02-06 2023-02-06 Surgery Adal [facility] [id number] 12:00:00 13:23:00 [facility] 2023-02-06 2023-02-06 Emergency ER AVALOS, [facility] [id number] SLE 02:11:31 02:11:31 [facility] 2023-02-06 2023-02-06 Emergency ER AVALOS, [facility] [id number] SLE 01:22:33 01:22:33 [facility] 2023-02-06 2023-02-06 Emergency ER AVALOS, [facility] [id number] SLEH 00:12:27 00:12:27 [facility] 2023-02-06 2023-02-06 Inpatient ER JAMES, [facility] [id number] SLE 03:28:15 00:00:00 [place] 2023-02-06 2023-02-06 Inpatient ER JAMES, [facility] [id number] SLE 03:28:08 00:00:00 [place] 2023-02-05 2023-02-[address] [facility] [id number] [facility] 00:00:[facility] 00:00:00 [facility] 2023-01-18 2023-02-03 Hospital ER Wanda Benoit [facility] [id number] 13:11:00 23:08:00 Encounter Bonifacio Clark [facility] Amadeo Ewing [facility] Jose Salguero r Emani Robertson 2023-01-18 2023-02-03 Inpatient ER ROD ROBERTSON Emergency [id number] [facility] 13:11:00 23:08:00 EMANI 2023-01-22 2023-01-22 Inpatient ER JOSE MJOSE Mckeon [facility] [id number] [facility] 10:53:33 00:00:00 2023-01-20 2023-01-20 [facility] [id number] 11:11:58 23:59:00 Encounter Chris Guajardo [place] [facility] 2023-01-20 2023-01-[address] [facility] SLE SLE [id number] SLEH 11:11:58 23:59:00 A AMADEO EWING 2023-01-19 2023-01-19 Outpatient ER CLARK, [facility] [id number] SLE 05:09:39 05:09:39 [facility] 2023-01-18 2023-01-18 [facility] [id number] 17:41:33 23:59:00 Encounter Bonifacio [facility] 2023-01-18 2023-01-18 Outpatient CLARK, [facility] [id number] SLE 17:41:33 23:59:00 [facility] 2023-01-18 2023-01-18 [facility] [id number] 14:10:31 17:40:00 Encounter Wanda caro [facility] 2023-01-18 2023-01-18 Outpatient [facility], [facility] [id number] SLE 14:10:31 17:40:00 WANDA 2023-01-18 2023-01-18 Outpatient ER CLARK, [facility] [id number] SLEH 16:24:45 16:24:45 [facility] 2023-01-18 2023-01-18 Hospital Clark, [facility] [id number] 12:56:02 13:10:00 Encounter Bonifacio [facility] 2023-01-18 2023-01-18 Out[facility]ARD[facility] [id number] SLE 12:56:02 13:10:00 [facility] 2023-01-18 2023-01-18 Surgery Virtual, [facility] [id number] 12:47:00 13:10:00 Surgeon [facility] 2023-01-18 2023-01-18 Outpatient ER CLARK, [facility] [id number] SLE 13:09:56 13:09:56 [facility] 2023-01-18 2023-01-18 Outpatient ER CLARK, [facility] [id number] [facility] 13:09:21 13:09:21 [facility] 2023-01-18 2023-01-18 Hospital ER [place], [facility] [id number] [facility] 12:47:00 12:47:00 Encounter [facility] 2023-01-18 2023-01-18 Anesthesia [facility], [facility] [id number] [facility] 12:47:00 12:47:00 Event [facility] 2023-01-18 2023-01-18 Outpatient ER [place], [facility] [id number] [facility] 00:00:00 00:00:00 [facility] 2023-01-18 2023-01-[address] [facility] [id number] [facility] 00:[facility] 00:00:00 [facility] 2023-01-18 2023-01-18 Orders [facility] [id number] 00:00:00 00:00:00 Only [facility] Results Test Description Test Time Test Comments Results Result Comments Source [place] [facility] 2023-05-06 13:58:52 [facility] 1965 Sex: F *This is a non-reportable study with no Radiologist dictation. Please refer to your PACS to review images, or Doc Flowsheets for documentation on studies without images. [place] [facility] 2023-05-06 13:58:20 [facility] 1965 Sex: F *This is a non-reportable study with no Radiologist dictation. Please refer to your PACS to review images, or Doc Flowsheets for documentation on studies without images. TROPONIN I 2023-03-11 03:33:50 Test Item Value Reference Range Interpretation Comme nts TROPONIN I (test code = 4472174826) 0.010 ng/mL <=0.034 ZOILA (test code = ZOILA) Reference (Normal) Range (defined by the 99th percentile reference limit): <= 0.034 ng/mL Note: Cardiac troponin begins to rise 3-4 hours after the onset of ischemia. Repeat in 4-6 hours if the sample was drawn within 3-4 hours of the onset of the symptom and found normal. Diagnosis of myocardial injury is made with acute changes in cTn concentrations with at least one serial sample above the 99th percentile upper reference limit (URL), taken together with the patient's clinical presentation. Biotin has been reported to cause a negative bias, interpret results relative to patient's use of biotin. Lab Interpretation (test code = Normal 35398-8) [facility]12 Test Item Value Reference Range Interpretation Comments LIPASE (test code = 4785968409) 142 U/L 0-220 Lab Interpretation (test code = Normal 55766-1) [facility]OLIC PANEL (98962)2023-03-11 03:22:12 Test Item Value Reference Range Interpretation Comments NA (test code = 136 mmol/L 135-145 8626468841) K (test code = 3.3 mmol/L 3.5-5.0 L 3765834431) CL (test code = 103 mmol/L 98-108 1720828935) CO2 TOTAL (test code = 28 mmol/L 23-31 4145306228) AGAP (test code = 5 2-16 9014202504) BUN (test code = 12 mg/dL 7-23 3676821624) GLUCOSE (test code = 143 mg/dL 70-110 H 6240452070) CREATININE (test code = 0.46 mg/dL 0.50-1.04 L 5350422414) TOTAL BILI (test code = 0.5 mg/dL 0.1-1.9 6341320724) CALCIUM (test code = 8.3 mg/dL 8.6-10.6 L 0707871950) T PROTEIN (test code = 7.1 g/dL 6.3-8.2 6666767874) ALBUMIN (test code = 3.3 g/dL 3.5-5.0 L 3323872103) ALK PHOS (test code = 97 U/L 34-122 9335997440) ALTv (test code = 23 U/L 5-35 1742-6) AST(SGOT) (test code = 33 U/L 13-40 9951491939) eGFR (test code = 139.5 mL/min/1.73m2 6450845514) ZOILA (test code = ZOILA) Association of Glomerular Filtration Rate (GFR) and Staging of Kidney Disease* + --+ --+ ------+| GFR (mL/min/1.73 m2) ?| With Kidney Damage ?| ?Without Kidney Damage+ --------+ --------+ +| ?>90 ?| ?Stage one ?| ? Normal ?+ ---+ ---+ -------+| ?60-89 ?| ?Stage two ?| ? Decreased GFR ? + --+ --+ ------+| ?30-59 ?| ?Stage three ?| ? Stage three ? + --+ --+ ------+| ?15-29 ?| ?Stage four ? | ? Stage four ?+ ---+ ---+ -------+| ?<15 (or dialysis) ? ?| ?Stage five ? | ? Stage five ?+ ---+ ---+ -------+ *Each stage assumes the associated GFR level has been in effect for at least three months. ?Stages 1 to 5, with or without kidney disease, indicate chronic kidney disease. Notes: Determination of stages one and two (with eGFR >59mL/min/1.73 m2) requires estimation of kidney damage for at least three months as defined by structural or functional abnormalities of the kidney, manifested by either:Pathological abnormalities or Markers of kidney damage (including abnormalities in the composition of the blood or urine or abnormalities in imaging tests). Lab Interpretation Abnormal (test code = 95057-2) [facility] WITH [id number] 03:11:09 Test Item Value Reference Range Interpretation Comments WBC (test code = 8.21 See_Comment [Automated 8042-2) message] The sy stem which generated this result transmitted reference range : 4.30 - 11.10 10*3/?L. The reference range was not used to interpret this result as normal/abnormal . RBC (test code = 3.78 See_Comment L [Automated 434-8) message] The sy stem which generated this result transmitted reference range : 3.93 - 5.25 10*6/?L. The reference range was not used to interpret this result as normal/abnormal . HGB (test code = 11.0 g/dL 11.6-15.0 L 718-7) HCT (test code = 34.1 % 35.7-45.2 L 4544-3) MCV (test code = 90.2 fL 80.6-95.5 787-2) MCH (test code = 29.1 pg 25.9-32.8 785-6) MCHC (test code = 32.3 g/dL 31.6-35.1 786-4) RDW-SD (test code = 48.3 fL 39.0-49.9 45803-0) RDW-CV (test code = 14.6 % 12.0-15.5 788-0) PLT (test code = 254 See_Comment [Automated 777-3) message] The sy stem which generated this result transmitted reference range : 166 - 358 10*3/ ?L. The reference r nathan was not used to interpret this result as normal/abnormal . MPV (test code = 10.0 fL 9.5-12.9 83854-4) NRBC/100 WBC (test 0.0 See_Comment [Automat ed code = 7226646407) message] The system which generated this result transmitted reference range : 0.0 - 10.0 /100 WBCs. The refer ence range was not u sed to interpret th is result as normal/abnormal . NRBC x10^3 (test code See_Comment [Auto mated = 4781801029) message] The s ystem which generated this result transmitted reference range : 10*3/?L. The reference range was not used to interpret this result as normal/abnormal . GRAN MAT (NEUT) % 69.1 % (test code = 770-8) IMM GRAN % (test code 0.60 % = 0469334665) LYMPH % (test code = 22.5 % 736-9) MONO % (test code = 5.7 % 5905-5) EOS % (test code = 1.5 % 713-8) BASO % (test code = 0.6 % 706-2) GRAN MAT x10^3(ANC) 5.67 10*3/uL 1.88-7.09 (test code = 6751173409) IMM GRAN x10^3 (test 0.05 10*3/uL 0.00-0.06 code = 2122719133) LYMPH x10^3 (test code 1.85 10*3/uL 1.32-3.29 = 731-0) MONO x10^3 (test code 0.47 10*3/uL 0.33-0.92 = 742-7) EOS x10^3 (test code = 0.12 10*3/uL 0.03-0.39 711-2) BASO x10^3 (test code 0.05 10*3/uL 0.01-0.07 = 704-7) Lab Interpretation Abnormal (test code = 72067-5) [facility] [id number] 13:59:13 Test Item Value Reference Range Interpretation Comments Case Report (test code Surgical Pathology = 104) Report Case: [id number] Authorizing Provider: Wanda Rojas MD Collected: 02/26/2023 12:12 PM Ordering Location: [facility] Received: 02/26/2023 04:49 PM SERVICES Pathologist: Julisa Alexandre MD Specimen: Gallbladder DIAGNOSIS (test code = [id number] 3220) uZzEwMzNcZnRuYmpcdWMxIH tccnRmMVxlcGljMTAyMDdcY W2exMrhxBu3yIspGAQhblE4 uNWtVDqtw1muQWU2v1xnliz oYLNtHTthFz9dqSFycBzgIb KfMROoDXz0fO44HGOkiY5rp RGaAHt5QHNsxDJicqJuZxHe WTDrtVRomXA4MQXxBE6tutx tKHqsUCaxIIQhhlR0DYKhuI UvQ6SaAWYcNK8ulhkeUCY7S RvaRBLmSTW5UhGsAHEak1Vc vwm6ZgVgyFMmBVtaqFNdwer mczIwIEdBTExCTEFEREVSLC CTHZ8ZNVUCM5UOD1YVPGr7U XCxand8MINyJIZWOUISYcsA KPGJP6eNF4tVCIlNIPRiiAU nPAQnGxLkOLXEA8lAPLpUTH hHJ3nOKSHcifpuVKLqAIQwo y35FPP7RiCdx7M9TGZ7MZVj PYUgp9lxHYMqfHOrZkNgDhZ cZnRuYmpcdWMxXGRlZmYwe1 ntl143fGAvp0qlOPNbYuS9c ZOsNKDgiQDaG283JZQsHUug n2dmy9BvIZQcaMKhc3W5VGM YtaqjtNo0mNigY31ku9E3Rq zyS7lpGEArLEVyF9SsED6bH BSbRff0NXY9RJL8FCFdPUQr H3BsDM7pNJZyfNIxTOy8p9y reOnrPIQsQUW3o1akPCnduj JhPY0rtm1rtRw5a1kqldOoY OPtLUYiaEGZUWWjA1TfeCkl Pd4jeId1hDlqLywuXLO1Zor 6LI3kya16gmz2oCzaTGBldh joGoT9NBslOIYruptxIGi8N NkpHTGisFI1GAOszDDyW8Un FVLhRC4asqr8DGD5TGraBYL iPiE6FREeoGTrMKAsoOevLW zkw159DLK1NgUqYD2zP3Zbs 8O3jA3gxLHcNPBgqUSkCpUh ARBxky9owGTcTOzbe1XyQXF 9gfI6dGXljPItNJYrElD7EJ seKL3wgo11CPNxQKE8uz1uv UBhfCsolxUipQAjGGtrV3Fb VDGrw000OQUiE1WnZMYne3J 4rxDrQiWaHQGraIA3gjJ3JC JkBB6wtumyj8lwWBvrUZneI BRzizE5tuP0WRUivQFhY6Gd pT8yAJPeRD4ceooqa0apSNV 5TNgzJXTzZNL5FtToBRQrt6 Eygro3YpYje1OcrKSfFAcjD 58ou167EVBktsEpA6xomUCw qaiiiWAgywvrSMbnrpJ9KQP jIJfcnysnPBYoYDoxI0poKb WbOOSqkGfmQPyop3AjNQJtS YCkVsTpfXCuJDQfDdj7TDHk iRWbKSBmQpMuJ5gdzeamJgN QHMLqb5asA7yukEKGzGSlZ1 QgUGhvbmUgTGluZTogNzEzL Db4IW11SwZbIHBsbf72 CPT Code(s) (test code p3qeeSCdKBTzdCKgBZPdG1x = 3357) wmzAxSZPsiWUzY5EfkmyxQD zvHP3bFI8ajTlxyRYxoPIgC HZcWkBie8kph487pIHng5cq RJMIycmusYj0nTipY58oo4A 9CkgwY51teCScWQZ6PQJtEF NknNOhBBZyGJI2EAJebXZjA 8jiNLZsVX7azesyYTkvJXqd QDGgeOG6UMThhROdX1RmLKT qJVmjKKEudbv9UaYzVv4biW VyeTcyMFxwYXJkXHBsYWluX GZzMjAgODgzMDQgXHBhcn0= CLINICAL HISTORY (test o8drxEZwMDFuvSNbRWIfZ7b code = 3356) hdpGbLPGsbHDrV8IheqcnLL jjPO7uFT4iiGjwsSNwvRExM BHcCdVje5usg308rBUjr3qv IZMDCAofHXOMZIr9b9lhVCG PwetmyTt9wXefN92km2F2Cx ayE24niIRnWPZ3FMMiFDLio KKaLXGaRGY5MJLmsDEpV6eh JVRhFJ0vhwugBDsdHVnvOWW vmHN4IRFbmAKzY9RzJIApZI fcEKXwekl5FhCjXc7epCTei TcyMFxwYXJkXHBsYWluXGYx WTJmEwMjC4tohXStk4Kzt0s rcMsnBZOge7ptMBS1 GROSS DESCRIPTION v0qooKMzWCJhcIHjRCWiG0d (test code = cfvUoIIRibOMwI1CchteiGC 5807865389) ohBC0sYI1vwPwiwQZylYRtG ASmLuDoe5vxj921sDOhn3rg UZMAjvvtmRt3dEopU92fz8J 0DykbS61mmVShYJX0OJPgWB WmpGSfSCEhECR1AUTkjMKwG 4taFIXkGR0oixkrZJkpIPbi QZGkdOZ3PBXbwFXnT7RjDUM aXHczJGSpbav0OlBnKs7wnJ OboKsiDSicOgfvjTdhd5Cad CBcXGlkIDUxMDAwIFxcZGIg H6JJUEGiZLQ8IUXxXzaeJBU VYONvVhV0AbD2QCMKSBMuBD GdYrG6SsXqOdYgCMRBXSVbH zAwMDAwMDkgXFxuaCBcXHQg BKQfVYNnPKoqtdD8b7jbBQF cqJDvKIS2EKjsaMUuDEEsUN PkREnjMyDCKcIhGuIxNHP8L jEfMSCxQMx6XOudU3DZPHDm WUV2IfR7WgY3TmM1QEy2WNE JEt6lOaR7KYLcRBOoDEQ2RM MuPLomcBFsCRxgh8RaWpYxE VMqTRgchhT0BIDireOtaSjy nW6pRxKwCpLEIpWUPPvbKca hZGRlclxwYXJccGFyZFxzYj EaZZKtmPANv7XvLTrwcYTjj lxmczIwICBSZWNlaXZlZCBm ddFryGfiwWPpAKuaOLC3cBG bDPHsJZQhDZPxAI58X6Lfxc MuKKrfJMJWYAFsHLKuK0Byd VDmISSbCZBdSACdDEKyy57y iGC0apMnGiApqoIhinC9jH2 9l6o5HJAwr5W1lVVcPLGnEE nbOgprKHRigkNsUQN7MFMjE ZZ1TUKrRAjmc5qhS8wutURp KMDpW8xukPSxXVZezVH9mNG pKFAwuB6wVHevFXDcbb7xOR LjvqR9UA4roJovcyLtplQpI 72iN8FwiGAkJPShcVXcfGI3 WVGyBFOpnYqgRKVytk1iWWh eq4GrQwVwKNGaJtZ1rIEaMk VuZHVzIHdpdGggYSBkZWZlY 2JnkRLrx9IzpK8kKEPuGsE5 TMFfAoCbtU3nVZAdoDQ2tJI yQMYknTHpiZ1bfSRja0FvBE cpGP5fsOPnifUaUH43UbOIo PIrM7KpkTDjYFCrJWShpGMu y4VwezSiZTRhUTKgdhIwmKN iFHIblTzsiVIkUQ6rhV91RH 9mIGdyZWVuLWJsYWNrIGNhb LR6nNyscjAbJ8zoSdQhgd0s CGGrHp9hUhnoO18jkD1zP6Q wXSUvx9WnCMaqZZ2ieL8hPI RrD9kfCNczuAnmCiN7qzV9B kKsrXB9SqDhsWKdLzMaF51w CDUzVFBxqQJlv0FkbCAqlNY gBDLnxyqoXJJjgvywr9HwTU ccs8f7aQJ7vLXaiN1xCL34O HXbl52aLN1nUMScMDIrDGwy qXykUJ3dBEJvVHPpsVIfr6J jFOT7dtOcQ3WoPTUrWAZ3WW xsIHRoaWNrbmVzcyAwLjEtM C4dNXDpNlDOhgPtmq1sebRd YJZqo22cLBRpTFNaDSLtsMg maWVkLiBSZXByZXNlbnRhdG a6PNOgCNS1rI0obxGdjiXow 2QulFu9pIHlJkxiLAThdGAr BZbiQTHgC5ZizVyvqwSbs4J bUHXbfsHITOkqD6cktCwcOX J7L9KouXJjB9qjITyfoNAdV UybCK0aKaKySXccORVxVMP0 IEdhbGxibGFkZGVyIHdhbGw kGAQbsxvbCVLir8IfVOfzmO maVPSySnU2WIZgkTWwAWL3G M1hzZhrRENaT4NeT7YkjsI7 XHBhcn0= MICROSCOPIC y1wsvEEkPNPqqRKpHMZaR7p DESCRIPTION (test code vgiUaUWTbmUReJ2MxesdxME = 3371) csDD2yRF0fvIwxmPRbqGBqO BAxZtLux7gqc534fSPxv9wi AHBGzbaufKc3nIllO05lx4G 6CayoO67fqAYpNJT5JLJlBU OwyQEhNZZrBMR4EZObjNJsX 3aaMNBvFT6tyingHGloGGnt HCUnkSA3PHFdfTFlD8PvXHU aLBpdKPLhhlz9DpUgAo5uzN VyeTcyMFxwYXJkXHBsYWluX SQzAeTlTKBlUr7msEEnUnnh YXJccGFyZFxwYXJ9 Gross assessment was [facility] performed at ([facility], code = 2777) Department of Pathology, [address] [place], [place] [id number], Technical component [facility] was performed at ([facility], code = 2778) Department of Pathology, [address] [place] [address], Professional component [facility] was performed at ([facility], code = 2779) Department of Pathology, [address] [place] [address], [facility] [id number] 13:59:13Surgical Pathology Report Case: [id number] Authorizing Provider: Wanda Rojas MD Collected:02/26/2023 12:12 PM Ordering Location: [facility] Received: 02/26/2023 04:49 PM SERVICES Pathologist: Julisa Alexandre MD Specimen: Gallbladder GALLBLADDER, CHOLECYSTECTOMY: - CHRONIC CHOLECYSTITIS - CHOLELITHIASIS Signing Pathologist Direct Phone Line: [phone] signed by Julisa Alexandre MD on 03/10/2023 at 1:59 [id number] CholedocholithiasisA. Gallbladder Received fresh, labeled with the patient's name, MRN and "gallbladder" and consists of an previously disrupted gallbladder (9 x 4.0 x 4.0) which has a clipped cystic duct. The serosa is bailon-pink and congested, disrupted at the serosal surface of the fundus with a defect measuring 0.7 x 0.7 cm. A cystic duct lymph node is not present. The gallbladder is opened to reveal a copious amount of green-black calculi ranging from 0.2-0.7 cm in greatest dimension, aggregating to 9.0 x 8.0 x 2.0 cm. The mucosa is bailon-pink, congested, with the indentations of the calculi on the mucosal surface. The wall thickness 0.1-0.2 cm. No gross lesions are identified. Swing Frame Grinder Operator sections are submitted.Section codeA1: Cystic duct margin (blue), en faceA2: Gallbladder wall Performed.[facility], Department of Pathology, [address] [place] [address], [facility], [address] [place] [address], [facility], Department of Pathology, [address] [place] [address], BXR-Glucose [id number] 12:28:55 Test Item Value Reference Range Interpretation Comments POC-Glucose Meter (test 104 mg/dL 70-110 : TE STED AT [facility] code = 1538) [address] [place] [address], [facility] 30: Ice Cream Dispenser/Techni betty ID = [id number] for Antonina Shah Lab Interpretation (test Normal code = 24642-6) [facility] [id number] 12:28:55 Test Item Value Reference Range Interpretation Comments POC-GLUCOSE METER 104 mg/dL 70-110 : TESTED A T [facility] 6720 (BEAKER) (test code = [facility], 153) 18096: Ice Cream Dispenser/Techni betty ID = [id number] for Antonina Lerner POCT-GLUCOSE [id number] 06:51:27 Test Item Value Reference Range Interpretation Comments POC-GLUCOSE METER 141 mg/dL 70-110 H : TESTED A T [facility] 6720 (BEAKER) (test code = [facility], 1538) 59040: Ice Cream Dispenser/Techni betty ID = [id number] for Mo ore, Fabi POCT-GLUCOSE [id number] 21:30:56 Test Item Value Reference Range Interpretation Comments POC-GLUCOSE METER 114 mg/dL 70-110 H : TESTED A T [facility] 6720 (BEAKER) (test code = [facility], 153) 75712: Ice Cream Dispenser/Techni betty ID = [id number] for Mo ore, Fabi POCT-GLUCOSE [id number] 15:47:57 Test Item Value Reference Range Interpretation Comments POC-GLUCOSE METER 128 mg/dL 70-110 H : TESTED A T [facility] 6720 (BEAKER) (test code = [facility], 153) 15856: Ice Cream Dispenser/Techni betty ID = [id number] for He rnandez, Emilia POCT-GLUCOSE [id number] 11:27:11 Test Item Value Reference Range Interpretation Comments POC-GLUCOSE METER 152 mg/dL 70-110 H : TESTED A T [facility] 6720 (BEAKER) (test code = [facility], 153) 20776: Ice Cream Dispenser/Techni betty ID = [id number] for He rnandez, Emilia POCT-GLUCOSE [id number] 08:57:52 Test Item Value Reference Range Interpretation Comments POC-GLUCOSE METER 103 mg/dL 70-110 : TESTED A T [facility] 6720 (BEAKER) (test code = [facility], 1538) 57872: Ice Cream Dispenser/Techni betty ID = [id number] for Hailee Barr CBC (HEMOGRAM ONLY)2023-03-03 04:51:19 Test Item Value Reference Range Interpretation Comments WHITE BLOOD CELL COUNT (BEAKER) 6.9 K/ L 3.5-10.5 (test code = 775) RED BLOOD CELL COUNT (BEAKER) 3.91 M/ L 3.93-5.22 L (test code = 761) HEMOGLOBIN (BEAKER) (test code = 11.4 GM/DL 11.2-15.7 410) HEMATOCRIT (BEAKER) (test code = 36.5 % 34.1-44.9 411) MEAN CORPUSCULAR VOLUME (BEAKER) 93 fL 79-95 (test code = 753) MEAN CORPUSCULAR HEMOGLOBIN 29.2 pg 25.6-32.2 (BEAKER) (test code = 751) MEAN CORPUSCULAR HEMOGLOBIN CONC 31.2 GM/DL 32.2-35.5 L (BEAKER) (test code = 752) RED CELL DISTRIBUTION WIDTH 14.7 % 11.7-14.4 H (BEAKER) (test code = 412) PLATELET COUNT (BEAKER) (test 298 K/CU MM 150-450 code = 756) MEAN PLATELET VOLUME (BEAKER) 10.9 fL 9.4-12.3 (test code = 754) NUCLEATED RED BLOOD CELLS 0 /100 WBC 0-0 (BEAKER) (test code = 413) POCT-GLUCOSE [id number] 22:03:48 Test Item Value Reference Range Interpretation Comments POC-GLUCOSE METER 130 mg/dL 70-110 H : TESTED A T [facility] 6720 (BEAKER) (test code = [facility], 1538) 20369: Ice Cream Dispenser/Techni betty ID = [id number] for Hailee Barr POCT-GLUCOSE [id number] 16:38:16 Test Item Value Reference Range Interpretation Comments POC-GLUCOSE METER 109 mg/dL 70-110 : TESTED A T [facility] 6720 (BEAKER) (test code = [facility], 1538) 26486: Ice Cream Dispenser/Techni betty ID = [id number] for Antonina Lerner POCT-GLUCOSE [id number] 12:53:43 Test Item Value Reference Range Interpretation Comments POC-GLUCOSE METER 116 mg/dL 70-110 H : TESTED A T [facility] 6720 (BEAKER) (test code = [facility], [facility]) 57232: Ice Cream Dispenser/Techni betty ID = [id number] for Antonina Lerner POCT-GLUCOSE [id number] 06:46:31 Test Item Value Reference Range Interpretation Comments POC-GLUCOSE METER 124 mg/dL 70-110 H : TESTED A T [facility] 6720 (BEAKER) (test code = [facility], [facility]) 21772: Ice Cream Dispenser/Techni betty ID = [id number] for Hailee Barr POCT-GLUCOSE [id number] 21:41:15 Test Item Value Reference Range Interpretation Comments POC-GLUCOSE METER 108 mg/dL 70-110 : TESTED A T [facility] 6720 (BEAKER) (test code = [facility], [facility]) 33830: Ice Cream Dispenser/Techni betty ID = [id number] for Hailee Barr POCT-GLUCOSE [id number] 17:07:16 Test Item Value Reference Range Interpretation Comments POC-GLUCOSE METER 104 mg/dL 70-110 : TESTED A T [facility] 6720 (BEAKER) (test code = [facility], [facility]) 62686: Ice Cream Dispenser/Techni betty ID = [id number] for Estevan farias, Hailee POCT-GLUCOSE [id number] 11:40:55 Test Item Value Reference Range Interpretation Comments POC-GLUCOSE METER 94 mg/dL 70-110 : TESTED A T [facility] 6720 (BEAKER) (test code = [facility], [facility]) 46546: Ice Cream Dispenser/Techni betty ID = [id number] for Nikhil bagley Hailee POCT-GLUCOSE [id number] 07:06:24 Test Item Value Reference Range Interpretation Comments POC-GLUCOSE METER 113 mg/dL 70-110 H : TESTED A T [facility] 6720 (BEAKER) (test code = [facility], [facility]) 84914: Ice Cream Dispenser/Techni betty ID = [id number] for Fabi Laguna CBC (HEMOGRAM ONLY)2023-03-01 02:46:02 Test Item Value Reference Range Interpretation Comments WHITE BLOOD CELL COUNT (BEAKER) 7.9 K/ L 3.5-10.5 (test code = 775) RED BLOOD CELL COUNT (BEAKER) 3.83 M/ L 3.93-5.22 L (test code = 761) HEMOGLOBIN (BEAKER) (test code = 11.4 GM/DL 11.2-15.7 410) HEMATOCRIT (BEAKER) (test code = 35.6 % 34.1-44.9 411) MEAN CORPUSCULAR VOLUME (BEAKER) 93 fL 79-95 (test code = 753) MEAN CORPUSCULAR HEMOGLOBIN 29.8 pg 25.6-32.2 (BEAKER) (test code = 751) MEAN CORPUSCULAR HEMOGLOBIN CONC 32.0 GM/DL 32.2-35.5 L (BEAKER) (test code = 752) RED CELL DISTRIBUTION WIDTH 15.0 % 11.7-14.4 H (BEAKER) (test code = 412) PLATELET COUNT (BEAKER) (test 235 K/CU MM 150-450 code = 756) MEAN PLATELET VOLUME (BEAKER) 11.2 fL 9.4-12.3 (test code = 754) NUCLEATED RED BLOOD CELLS 0 /100 WBC 0-0 (BEAKER) (test code = 413) POCT-GLUCOSE [id number] 00:12:10 Test Item Value Reference Range Interpretation Comments POC-GLUCOSE METER 127 mg/dL 70-110 H : TESTED A T [facility] ([facility]) (test code = [facility] Karen [facility], 153) 48653: Ice Cream Dispenser/Techni betty ID = [id number] for Fabi Laguna POCT-GLUCOSE [id number] 16:21:37 Test Item Value Reference Range Interpretation Comments POC-GLUCOSE METER 120 mg/dL 70-110 H : TESTED A T [facility] 6720 (BEAKER) (test code = [facility] Karen [facility], 153) [address]: Ice Cream Dispenser/Techni betty ID = [id number] for Antonina Lerner POCT-GLUCOSE [id number] 13:09:29 Test Item Value Reference Range Interpretation Comments POC-GLUCOSE METER 71 mg/dL 70-110 : Notified RN/MD: TESTED ([facility]) (test code = AT [facility] 6720 [facility] 1538) [facility], 770 30: Ice Cream Dispenser/Techni betty ID = [id number] for CHUCK REDDY POCT-GLUCOSE [id number] 07:13:47 Test Item Value Reference Range Interpretation Comments POC-GLUCOSE METER 86 mg/dL 70-110 : TESTED A T [facility] 6720 (BEAKER) (test code = [facility] [place] [place], 1538) [address]: Ice Cream Dispenser/Techni betty ID = [id number] for Fabi Oliver COMPREHENSIVE METABOLIC [id number] 06:28:53 Test Item Value Reference Range Interpretation Comments TOTAL PROTEIN 7.5 gm/dL 6.0-8.3 (BEAKER) (test code = 770) ALBUMIN (BEAKER) 3.1 g/dL 3.5-5.0 L (test code = 1145) ALKALINE 143 U/L 40-150 PHOSPHATASE (BEAKER) (test code = 346) BILIRUBIN TOTAL 0.8 mg/dL 0.2-1.2 (BEAKER) (test code = 377) SODIUM (BEAKER) 133 meq/L 136-145 L (test code = 381) POTASSIUM (BEAKER) 4.3 meq/L 3.5-5.1 (test code = 379) CHLORIDE (BEAKER) 101 meq/L 98-107 (test code = 382) CO2 (BEAKER) (test 22 meq/L 22-29 code = 355) BLOOD UREA 18 mg/dL 7-21 NITROGEN (BEAKER) (test code = 354) CREATININE 0.79 mg/dL 0.57-1.25 (BEAKER) (test code = 358) GLUCOSE RANDOM 115 mg/dL 70-105 H (BEAKER) (test code = 652) CALCIUM (BEAKER) 8.9 mg/dL 8.4-10.2 (test code = 697) AST (SGOT) 31 U/L 5-34 (BEAKER) (test code = 353) ALT (SGPT) 34 U/L 6-55 (BEAKER) (test code = 347) EGFR (BEAKER) 87 Interpretatio n of eGFR (test code = 1092) mL/min/1.[address] age Description sq m Result G1 Stephanie l or high >=90 G2 Mildly decreased 60-89 G3a Mildl y to moderately 45-5 9 G3b Moderately to s everely 30-44 G4 Severl y decreased 15-29 G5 Kidney failure <15Reported eGF R is based on the CKD-EPI 2020 equation that d oes not use a race coefficientEsti mated GFR is not as accur ate as Creatinine Jess chang in predicting glom erular filtration rate . Estimated GFR is not appl icable for dialysis patien ts POCT-GLUCOSE [id number] 21:01:18 Test Item Value Reference Range Interpretation Comments POC-GLUCOSE METER 145 mg/dL 70-110 H : TESTED A T [facility] 6720 (BEAKER) (test code = [facility], 1538) [address]: Ice Cream Dispenser/Techni betty ID = [id number] for Fabi Laguna POCT-GLUCOSE [id number] 16:20:49 Test Item Value Reference Range Interpretation Comments POC-GLUCOSE METER 139 mg/dL 70-110 H : TESTED A T [facility] 6720 (BEAKER) (test code = [facility], 1538) [address]: Ice Cream Dispenser/Techni betty ID = [id number] for Jer Patten POCT-GLUCOSE [id number] 11:14:29 Test Item Value Reference Range Interpretation Comments POC-GLUCOSE METER 141 mg/dL 70-110 H : TESTED A T [facility] 6720 (BEAKER) (test code = [facility], 1538) [address]: Ice Cream Dispenser/Techni betty ID = [id number] for Jer Patten COMPREHENSIVE METABOLIC [id number] 08:28:37 Test Item Value Reference Range Interpretation Comments TOTAL PROTEIN 7.8 gm/dL 6.0-8.3 (BEAKER) (test code = 770) ALBUMIN (BEAKER) 3.3 g/dL 3.5-5.0 L (test code = 1145) ALKALINE 163 U/L 40-150 H PHOSPHATASE (BEAKER) (test code = 346) BILIRUBIN TOTAL 0.5 mg/dL 0.2-1.2 (BEAKER) (test code = 377) SODIUM (BEAKER) 137 meq/L 136-145 (test code = 381) POTASSIUM (BEAKER) 5.0 meq/L 3.5-5.1 (test code = 379) CHLORIDE (BEAKER) 103 meq/L 98-107 (test code = 382) CO2 (BEAKER) (test 20 meq/L 22-29 L code = 355) BLOOD UREA 25 mg/dL 7-21 H NITROGEN (BEAKER) (test code = 354) CREATININE 1.06 mg/dL 0.57-1.25 (BEAKER) (test code = 358) GLUCOSE RANDOM 160 mg/dL 70-105 H (BEAKER) (test code = 652) CALCIUM (BEAKER) 9.5 mg/dL 8.4-10.2 (test code = 697) AST (SGOT) 70 U/L 5-34 H (BEAKER) (test code = 353) ALT (SGPT) 52 U/L 6-55 (BEAKER) (test code = 347) EGFR (BEAKER) 61 Interpretati on of eGFR (test code = 1092) mL/min/1.[address] age Description sq m Result G1 Stephanie l or high >=90 G2 Mildly decreased 60-89 G3a Mildl y to moderately 45-5 9 G3b Moderately to s everely 30-44 G4 Severl y decreased 15-29 G5 Kidney failure <15Reported eGF R is based on the CKD-EPI 2020 equation that d oes not use a race coefficientEsti mated GFR is not as accur ate as Creatinine Jess chang in predicting glom erular filtration rate . Estimated GFR is not appl icable for dialysis patien ts Ice Cream Dispenser ID - ADMINPOCT-GLUCOSE [id number] 06:27:05 Test Item Value Reference Range Interpretation Comments POC-GLUCOSE METER 233 mg/dL 70-110 H : Notified RN/MD: (OSCARAKER) (test code = TESTED AT [facility] 3910 7888) [facility], [address]: Ice Cream Dispenser/Techni betty ID = [id number] for Hailee Guan CBC (HEMOGRAM ONLY)2023-02-27 04:18:39 Test Item Value Reference Range Interpretation Comments WHITE BLOOD CELL COUNT (BEAKER) 13.0 K/ L 3.5-10.5 H (test code = 775) RED BLOOD CELL COUNT (BEAKER) 3.93 M/ L 3.93-5.22 (test code = 761) HEMOGLOBIN (BEAKER) (test code = 11.5 GM/DL 11.2-15.7 410) HEMATOCRIT (BEAKER) (test code = 36.6 % 34.1-44.9 411) MEAN CORPUSCULAR VOLUME (BEAKER) 93 fL 79-95 (test code = 753) MEAN CORPUSCULAR HEMOGLOBIN 29.3 pg 25.6-32.2 (BEAKER) (test code = 751) MEAN CORPUSCULAR HEMOGLOBIN CONC 31.4 GM/DL 32.2-35.5 L (BEAKER) (test code = 752) RED CELL DISTRIBUTION WIDTH 14.8 % 11.7-14.4 H (BEAKER) (test code = 412) PLATELET COUNT (BEAKER) (test 279 K/CU MM 150-450 code = 756) MEAN PLATELET VOLUME (BEAKER) 11.8 fL 9.4-12.3 (test code = 754) NUCLEATED RED BLOOD CELLS 0 /100 WBC 0-0 (BEAKER) (test code = 413) POCT-GLUCOSE [id number] 22:09:39 Test Item Value Reference Range Interpretation Comments POC-GLUCOSE METER 199 mg/dL 70-110 H : TESTED A T [facility] ([facility]) (test code = [facility], 1538) 76726: Ice Cream Dispenser/Techni betty ID = [id number] for Roge, Hailee POCT-GLUCOSE [id number] 17:58:02 Test Item Value Reference Range Interpretation Comments POC-GLUCOSE METER 179 mg/dL 70-110 H : TESTED A T [facility] ([facility]) (test code = [facility], 1538) 90825: Ice Cream Dispenser/Techni betty ID = [id number] for OC ampo, Hailee POCT-GLUCOSE [id number] 15:31:49 Test Item Value Reference Range Interpretation Comments POC-GLUCOSE METER 176 mg/dL 70-110 H : TESTED A T [facility] (BEAKER) (test code [facility], = 1538) 33825: Ice Cream Dispenser/Techni betty ID = [id number] for Fausto Marin CTA HEART CORONARY WITH CALCIUM EVALUATION WITH [id number] 14:18:19 [facility] 1965 Sex: F ADDENDUM #1 Addendum:I agree with the previously described non vascular findings by .Electronically Signed By: Ronaldo Abdi MD ORIGINAL REPORT CT coronary angiography, 13-Feb-23 INDICATION: This is a 57 years-old female with atrial fibrillation,septic shock, stroke, presents for assessment. TECHNIQUE: Spiral acquisition before and during intravenous contrastadministration using Siemens multidetector CT scanner. Multi-planar 3-Wyhxcae-walupnsgi reconstruction was performed using an independentworkstation interactively by the interpreting physician as well as the3-D specialist for optimal visualisation of the coronary anatomy. Consecutive thin slices (< 1mm) were obtained. Refer to SideStep regarding the medication administered for thisexamination.Please refer tothe contrast sheet scanned in the EPIC system for theamount and route of contrast given.This exam was performed according to our departmental dose-optimisationprogramme, which includes automated exposure control, adjustment of themA and/or kV according to patient size and/or use of iterativereconstruction technique. Dose modulation, iterative reconstruction,and/or weight based adjustment of the mA/kVwas utilized to reduce theradiation dose to as low as reasonably achievable.FINDINGS: VASCULAR:The th oracic aorta is normal in course, calibre, contour. Tinycalcification is seen at the level of the aortic root. No ectasia oraneurysmal dilation is seen. There is no acute aortic pathology,specifically,there is no dissection, contained rupture, and intramuralhaematoma. The arch vessel branching pattern is normal.The central pulmonary artery is normal in calibre. In the mid diastolic data set, the left ventricle appears to be at theupper limits of normal in size. Left atrial prominence is identified.There is normal atrio-ventricular and ventriculo-arterial concordance,and systemic and pulmonary venous return. Minimal aortic valvularcalcification is seen. No mitral annular calcification is identified. The pericardium is normal appearance. There is no evidence ofpericardial effusion.Calcium score and high-resolution, ECG synchronized computed tomographyof the heart with attention to the coronary arteries was performed.Coronary calcification was analyzed using the [employer] system software.These are the results of the calcium score evaluation (threshold = 130HU): LM: = 0 LAD: = 18 LCX: = 0 RCA: = 0 Agatston: = 18 Reference ranges for calcium scores are provided as follows ([place] ClinProc 1999; 74: 243-252):0-10: minimal calcium 11-100: mild calcium 101-400 moderate calcium > 400 significant calcium The calcium score places patient between 75th to 90th percentile for herage group using the CHAN database. The coronary arteries have normal origins. The left main coronaryartery arises from the left sinus of Valsalva and give rise to the leftanterior descending of the left circumflex arteries in the normalfashion. The right coronary artery arises from the right sinus ofValsalva.The left main coronary artery is widely patent. The proximal LAD is widely patent. The mid LAD has minimal eccentricnonobstructive calcification identified with only luminal irregularitiespresent. Remainder of the mid and distal LAD is widely patent. The firstdiagonal artery is widely patent.A ramus intermedius artery is identified, that is widely patent.The LCx is nondominant. The proximal and mid LCx is patent, continue asa small OM branch.The right coronary artery is a dominant vessel. The proximal, mid,distal RCA is widely patent. The PDA and the PL branch is widely patent.NON- VASCULAR:The thyroid gland is unremarkable.The chest wall and mediastinum appears unremarkable. Small lymph nodesare seen in the mediastinum, not enlarged, considered nonspecific innature.In the lung windows, no endobronchial lesion is seen, and no pleuraleffusion is identified. Some dependent changes are seen in the lungbases.Overall, no suspicious pulmonary nodule is identified.Limited images of the upper abdomen reveals no gross abnormality. Apigtail catheter is identified in the stomach, partially seen.Pneumobilia is partially seen, likely represent an recent interventionalprocedure; correlate clinically.No acute bone pathology is identified. Degenerative changes is noted.CONCLUSIONS:1. Quantitative coronary artery calcium Agatston score of 18. The calcium score places patient between 75th to 90th percentile for herage group using the CHAN database. There is focal calcification, mild in nature, identified in the mid LADterritory and there is also minimal calcification seen in the proximalRCA, too small to beincluded in the Agatston score algorithm.2. Normal coronary artery origins. The major epicardial coronary arteries including the left main coronaryartery, the ramus branch, left anterior descending artery, leftcircumflex artery, and the right coronary artery are widely patent withno focal stenosis.Minimal calcification is seen in mid LAD with only luminalirregularities identified. The above findings indicate the presence ofearly coronary atherosclerosis in the absence of obstructive disease.The data will be sent for CT analysis, by an independent third partyvendor. Should the data be accepted for postprocessing, the result wouldbe sent to PACS/SideStep when available. According to computer, noobstructive coronary artery disease is seen.3. No acute pulmonary pathology.No pulmonary nodule is identified.4. Unremarkable thoracic aorta.5. Other findings as described above.6. An addendum will be dictated by the Cake Washer Radiologist regardingthe nonvascular findings.THE REPORT WILL ONLY BE CONSIDERED COMPLETE AFTER THE ADDENDUM HAS BEENDICTATED.Electronically Signed By: Hari Chicas02/26/2023 14:20 C DTWorkstation Name: [id number] FLUORO NON-SPECIFIC UP TO 1 [id number] 14:10:29[facility] : 1965 Sex: FThis kain non- reportable study with no Radiologist dictation. Please refer to your PACS to review images, orDoc Flowsheets for documentation on studies without images. POCT-GLUCOSE [id number] 06:40:30 Test Item Value Reference Range Interpretation Comments POC-GLUCOSE METER 110 mg/dL 70-110 : TESTED A T [facility] (BEAKER) (test code = [facility], 1538) 03694: Ice Cream Dispenser/Techni betty ID = [id number] for Hailee Guan HEPATIC FUNCTION [id number] 05:24:31 Test Item Value Reference Range Interpretation Comments TOTAL PROTEIN (BEAKER) (test code = 7.0 gm/dL 6.0-8.3 770) ALBUMIN (BEAKER) (test code = 1145) 3.0 g/dL 3.5-5.0 L BILIRUBIN TOTAL (BEAKER) (test code 0.6 mg/dL 0.2-1.2 = 377) BILIRUBIN DIRECT (BEAKER) (test 0.3 mg/dL 0.1-0.5 code = 706) ALKALINE PHOSPHATASE (BEAKER) (test 166 U/L 40-150 H code = 346) AST (SGOT) (BEAKER) (test code = 24 U/L 5-34 353) ALT (SGPT) (BEAKER) (test code = 27 U/L 6-55 347) Ice Cream Dispenser ID - ADMINPOCT-GLUCOSE [id number] 21:38:39 Test Item Value Reference Range Interpretation Comments POC-GLUCOSE METER 110 mg/dL 70-110 : TESTED A T [facility] (BEAKER) (test code = [facility], 1538) [id number]: Ice Cream Dispenser/Techni betty ID = [id number] for Hailee Guan POCT-GLUCOSE [id number] 16:27:35 Test Item Value Reference Range Interpretation Comments POC-GLUCOSE METER 114 mg/dL 70-110 H : TESTED A T [facility] (BEAKER) (test code = [facility], 1538) 94102: Ice Cream Dispenser/Techni betty ID = [id number] for Terry mota (contract)Rodney mike POCT-GLUCOSE [id number] 11:29:35 Test Item Value Reference Range Interpretation Comments POC-GLUCOSE METER 187 mg/dL 70-110 H : TESTED A T [facility] (BEAKER) (test code = [facility], 1538) 99861: Ice Cream Dispenser/Techni betty ID = [id number] for Terry mota (contract)Rodney POCT-GLUCOSE [id number] 07:03:31 Test Item Value Reference Range Interpretation Comments POC-GLUCOSE METER 104 mg/dL 70-110 : TESTED A T [facility] (BEAKER) (test code = [facility], 1538) 07961: Ice Cream Dispenser/Techni betty ID = [id number] for RogeHailee CBC (HEMOGRAM ONLY)2023-02-25 04:47:16 Test Item Value Reference Range Interpretation Comments WHITE BLOOD CELL COUNT (BEAKER) 6.2 K/ L 3.5-10.5 (test code = 775) RED BLOOD CELL COUNT (BEAKER) 3.76 M/ L 3.93-5.22 L (test code = 761) HEMOGLOBIN (BEAKER) (test code = 11.4 GM/DL 11.2-15.7 410) HEMATOCRIT (BEAKER) (test code = 35.9 % 34.1-44.9 411) MEAN CORPUSCULAR VOLUME (BEAKER) 96 fL 79-95 H (test code = 753) MEAN CORPUSCULAR HEMOGLOBIN 30.3 pg 25.6-32.2 (BEAKER) (test code = 751) MEAN CORPUSCULAR HEMOGLOBIN CONC 31.8 GM/DL 32.2-35.5 L (BEAKER) (test code = 752) RED CELL DISTRIBUTION WIDTH 14.7 % 11.7-14.4 H (BEAKER) (test code = 412) PLATELET COUNT (BEAKER) (test 280 K/CU MM 150-450 code = 756) MEAN PLATELET VOLUME (BEAKER) 11.5 fL 9.4-12.3 (test code = 754) NUCLEATED RED BLOOD CELLS 0 /100 WBC 0-0 (BEAKER) (test code = 413) POCT-GLUCOSE [id number] 22:28:18 Test Item Value Reference Range Interpretation Comments POC-GLUCOSE METER 116 mg/dL 70-110 H : TESTED A T [facility] (BEAKER) (test code = [facility], 1538) [id number]: Ice Cream Dispenser/Techni betty ID = [id number] for Hailee Guan POCT-GLUCOSE [id number] 17:18:49 Test Item Value Reference Range Interpretation Comments POC-GLUCOSE METER 130 mg/dL 70-110 H : TESTED A T [facility] (BEAKER) (test code = [facility], 1538) 42711: Ice Cream Dispenser/Techni betty ID = [id number] for WEN SEGAL POCT-GLUCOSE [id number] 12:12:57 Test Item Value Reference Range Interpretation Comments POC-GLUCOSE METER 93 mg/dL 70-110 : TESTED A T [facility] (BEAKER) (test code = [facility], 1538) 06115: Ice Cream Dispenser/Techni betty ID = [id number] for Frankie vee (contract)Rodney mike POCT-GLUCOSE [id number] 06:46:41 Test Item Value Reference Range Interpretation Comments POC-GLUCOSE METER 110 mg/dL 70-110 : TESTED A T [facility] (BEAKER) (test code = [facility], 1538) 29297: Ice Cream Dispenser/Techni betty ID = [id number] for Hailee Barr COMPREHENSIVE METABOLIC [id number] 05:24:40 Test Item Value Reference Range Interpretation Comments TOTAL PROTEIN 7.0 gm/dL 6.0-8.3 (BEAKER) (test code = 770) ALBUMIN (BEAKER) 2.9 g/dL 3.5-5.0 L (test code = 1145) ALKALINE 199 U/L 40-150 H PHOSPHATASE (BEAKER) (test code = 346) BILIRUBIN TOTAL 0.5 mg/dL 0.2-1.2 (BEAKER) (test code = 377) SODIUM (BEAKER) 138 meq/L 136-145 (test code = 381) POTASSIUM (BEAKER) 4.0 meq/L 3.5-5.1 (test code = 379) CHLORIDE (BEAKER) 105 meq/L 98-107 (test code = 382) CO2 (BEAKER) (test 23 meq/L 22-29 code = 355) BLOOD UREA 20 mg/dL 7-21 NITROGEN (BEAKER) (test code = 354) CREATININE 0.77 mg/dL 0.57-1.25 (BEAKER) (test code = 358) GLUCOSE RANDOM 118 mg/dL 70-105 H (BEAKER) (test code = 652) CALCIUM (BEAKER) 8.6 mg/dL 8.4-10.2 (test code = 697) AST (SGOT) 33 U/L 5-34 (BEAKER) (test code = 353) ALT (SGPT) 35 U/L 6-55 (BEAKER) (test code = 347) EGFR (BEAKER) 89 Interpretatio n of eGFR (test code = 1092) mL/min/1.[address] age Description sq m Result G1 Stephanie l or high >=90 G2 Mildly decreased 60-89 G3a Mildl y to moderately 45- 59 G3b Moderately to s everely 30-44 G4 Severl y decreased 15-29 G5 Kidney failure <15Reported eGF R is based on the CKD-EPI 2020 equation that d oes not use a race coefficientEsti mated GFR is not as accur ate as Creatinine Jess charlene in predicting glom erular filtration rate . Estimated GFR is not appl icable for dialysis patien ts Ice Cream Dispenser ID - PEDRO WDIGOXIN [id number] 05:10:07 Test Item Value Reference Range Interpretation Comments DIGOXIN LEVEL ([employer]) (test code 0.92 ng/mL 0.80-2.00 = 669) Ice Cream Dispenser ID - PEDRO WPOCT-GLUCOSE [id number] 21:40:40 Test Item Value Reference Range Interpretation Comments POC-GLUCOSE METER 134 mg/dL 70-110 H : TESTED A T [facility] ([facility] [employer]) (test code = [facility], 153) 10799: Ice Cream Dispenser/Techni betty ID = [id number] for Hailee Barr POCT-GLUCOSE [id number] 17:10:39 Test Item Value Reference Range Interpretation Comments POC-GLUCOSE METER 115 mg/dL 70-110 H : TESTED A T [facility] ([facility]) (test code = [facility] ? [facility], 1538) [id number]: Ice Cream Dispenser/Techni betty ID = [id number] for Antonina Lerner POCT-GLUCOSE [id number] 11:51:54 Test Item Value Reference Range Interpretation Comments POC-GLUCOSE METER 144 mg/dL 70-110 H : TESTED A T [facility] ([facility]) (test code = [facility] ? [facility], 1538) 17405: Ice Cream Dispenser/Techni betty ID = [id number] for Antonina Lerner COMPREHENSIVE METABOLIC [id number] 06:50:08 Test Item Value Reference Range Interpretation Comments TOTAL PROTEIN 7.4 gm/dL 6.0-8.3 Specimen sligh tly (BEAKER) (test hemolyzed code = 770) ALBUMIN (BEAKER) 3.0 g/dL 3.5-5.0 L Specimen sl ightly (test code = 1145) hemolyzed ALKALINE 223 U/L 40-150 H PHOSPHATASE (BEAKER) (test code = 346) BILIRUBIN TOTAL 0.5 mg/dL 0.2-1.2 Specimen sli ghtly (BEAKER) (test hemolyzed code = 377) SODIUM (BEAKER) 138 meq/L 136-145 (test code = 381) POTASSIUM (BEAKER) 4.1 meq/L 3.5-5.1 Specimen slightly (test code = 379) hemolyzed CHLORIDE (BEAKER) 104 meq/L 98-107 (test code = 382) CO2 (BEAKER) (test 23 meq/L 22-29 code = 355) BLOOD UREA 19 mg/dL 7-21 NITROGEN (BEAKER) (test code = 354) CREATININE 0.80 mg/dL 0.57-1.25 Specimen slight ly (BEAKER) (test hemolyzed code = 358) GLUCOSE RANDOM 125 mg/dL 70-105 H (BEAKER) (test code = 652) CALCIUM (BEAKER) 8.8 mg/dL 8.4-10.2 (test code = 697) AST (SGOT) 34 U/L 5-34 Specimen slight ly (BEAKER) (test hemolyzed code = 353) ALT (SGPT) 37 U/L 6-55 Specimen slight ly (BEAKER) (test hemolyzed code = 347) EGFR (BEAKER) 85 Interpretatio n of eGFR (test code = 1092) mL/min/1.[address] age Description sq m Result G1 Stephanie l or high >=90 G2 Mildly decreased 60-89 G3a Mildl y to moderately 45-5 9 G3b Moderately to s everely 30-44 G4 Severl y decreased 15-29 G5 Kidney failure <15Reported eGF R is based on the CKD-EPI 2020 equation that d oes not use a race coefficientEsti mated GFR is not as accur ate as Creatinine Jess chang in predicting glom erular filtration rate . Estimated GFR is not appl icable for dialysis patien ts Ice Cream Dispenser ID - EOOPOCT-GLUCOSE [id number] 06:32:18 Test Item Value Reference Range Interpretation Comments POC-GLUCOSE METER 132 mg/dL 70-110 H : TESTED A T [facility] (BEAKER) (test code = [facility] [place], 1538) [id number]: Ice Cream Dispenser/Techni betty ID = [id number] for Hailee Barr CBC (HEMOGRAM ONLY)2023-02-23 05:50:55 Test Item Value Reference Range Interpretation Comments WHITE BLOOD CELL COUNT (BEAKER) 5.2 K/ L 3.5-10.5 (test code = 775) RED BLOOD CELL COUNT (BEAKER) 3.78 M/ L 3.93-5.22 L (test code = 761) HEMOGLOBIN (BEAKER) (test code = 11.4 GM/DL 11.2-15.7 410) HEMATOCRIT (BEAKER) (test code = 35.5 % 34.1-44.9 411) MEAN CORPUSCULAR VOLUME (BEAKER) 94 fL 79-95 (test code = 753) MEAN CORPUSCULAR HEMOGLOBIN 30.2 pg 25.6-32.2 (BEAKER) (test code = 751) MEAN CORPUSCULAR HEMOGLOBIN CONC 32.1 GM/DL 32.2-35.5 L (BEAKER) (test code = 752) RED CELL DISTRIBUTION WIDTH 14.6 % 11.7-14.4 H (BEAKER) (test code = 412) PLATELET COUNT (BEAKER) (test 316 K/CU MM 150-450 code = 756) MEAN PLATELET VOLUME (BEAKER) 12.1 fL 9.4-12.3 (test code = 754) NUCLEATED RED BLOOD CELLS 0 /100 WBC 0-0 (BEAKER) (test code = 413) POCT-GLUCOSE [id number] 21:51:42 Test Item Value Reference Range Interpretation Comments POC-GLUCOSE METER 140 mg/dL 70-110 H : TESTED A T [facility] (BEAKER) (test code = [facility] [place], 1538) 54037: Ice Cream Dispenser/Techni betty ID = [id number] for Hailee Barr [id number] 19:24:09 Test Item Value Reference Range Interpretation Comments PARTIAL THROMBOPLASTIN TIME 70.9 seconds 22.5-36.0 H (BEAKER) (test code = 760) POCT-GLUCOSE [id number] 16:14:19 Test Item Value Reference Range Interpretation Comments POC-GLUCOSE METER 120 mg/dL 70-110 H : TESTED A T [facility] ([facility]) (test code = [facility], 1538) 55541: Ice Cream Dispenser/Techni betty ID = [id number] for DANIEL TA [id number] 12:56:52 Test Item Value Reference Range Interpretation Comments PARTIAL THROMBOPLASTIN TIME 91.5 seconds 22.5-36.0 H (BEAKER) (test code = 760) POCT-GLUCOSE [id number] 12:19:13 Test Item Value Reference Range Interpretation Comments POC-GLUCOSE METER 173 mg/dL 70-110 H : TESTED A T [facility] ([facility]) (test code = [facility], 1538) 93478: Ice Cream Dispenser/Techni betty ID = [id number] for DANIEL TA POCT-GLUCOSE [id number] 07:25:16 Test Item Value Reference Range Interpretation Comments POC-GLUCOSE METER 151 mg/dL 70-110 H : TESTED A T [facility] ([facility]) (test code = [facility], 1538) 78785: Ice Cream Dispenser/Techni betty ID = [id number] for Hailee Guan [id number] 04:35:52 Test Item Value Reference Range Interpretation Comments PARTIAL THROMBOPLASTIN TIME 108.6 seconds 22.5-36.0 H (BEAKER) (test code = 760) COMPREHENSIVE METABOLIC [id number] 04:35:28 Test Item Value Reference Range Interpretation Comments TOTAL PROTEIN 7.1 gm/dL 6.0-8.3 (BEAKER) (test code = 770) ALBUMIN (BEAKER) 2.8 g/dL 3.5-5.0 L (test code = 1145) ALKALINE 243 U/L 40-150 H PHOSPHATASE (BEAKER) (test code = 346) BILIRUBIN TOTAL 0.6 mg/dL 0.2-1.2 (BEAKER) (test code = 377) SODIUM (BEAKER) 136 meq/L 136-145 (test code = 381) POTASSIUM (BEAKER) 4.0 meq/L 3.5-5.1 (test code = 379) CHLORIDE (BEAKER) 102 meq/L 98-107 (test code = 382) CO2 (BEAKER) (test 25 meq/L 22-29 code = 355) BLOOD UREA 27 mg/dL 7-21 H NITROGEN (BEAKER) (test code = 354) CREATININE 0.83 mg/dL 0.57-1.25 (BEAKER) (test code = 358) GLUCOSE RANDOM 167 mg/dL 70-105 H (BEAKER) (test code = 652) CALCIUM (BEAKER) 8.7 mg/dL 8.4-10.2 (test code = 697) AST (SGOT) 34 U/L 5-34 (BEAKER) (test code = 353) ALT (SGPT) 44 U/L 6-55 (BEAKER) (test code = 347) EGFR (BEAKER) 82 Interpretatio n of eGFR (test code = 1092) mL/min/1.[address] age Description sq m Result G1 Stephanie l or high >=90 G2 Mildly decreased 60-89 G3a Mildl y to moderately 45-5 9 G3b Moderately to s everely 30-44 G4 Severl y decreased 15-29 G5 Kidney failure <15Reported eGF R is based on the CKD-EPI 2021 equation that d oes not use a race coefficientEsti mated GFR is not as accur ate as Creatinine Jess chang in predicting glom erular filtration rate . Estimated GFR is not appl icable for dialysis patien ts Ice Cream Dispenser ID - MARCOPOCT-GLUCOSE [id number] 22:05:05 Test Item Value Reference Range Interpretation Comments POC-GLUCOSE METER 148 mg/dL 70-110 H : TESTED A T [facility] (BEAKER) (test code = [facility] [place], 1538) 83157: Ice Cream Dispenser/Techni betty ID = [id number] for Hailee Guan [id number] 19:46:20 Test Item Value Reference Range Interpretation Comments PARTIAL THROMBOPLASTIN TIME 51.2 seconds 22.5-36.0 H (BEAKER) (test code = 760) POCT-GLUCOSE [id number] 17:21:57 Test Item Value Reference Range Interpretation Comments POC-GLUCOSE METER 143 mg/dL 70-110 H : TESTED A T [facility] (BEAKER) (test code = [facility], 1538) 22157: Ice Cream Dispenser/Techni betty ID = [id number] for CHUCK MINER [id number] 12:40:44 Test Item Value Reference Range Interpretation Comments PARTIAL THROMBOPLASTIN TIME 68.4 seconds 22.5-36.0 H (BEAKER) (test code = 760) POCT-GLUCOSE [id number] 12:09:27 Test Item Value Reference Range Interpretation Comments POC-GLUCOSE METER 154 mg/dL 70-110 H : TESTED A T [facility] (BEAKER) (test code = [facility], 1538) 59367: Ice Cream Dispenser/Techni betty ID = [id number] for VIVIANA MIRANDA [id number] 10:54:44 Test Item Value Reference Range Interpretation Comments PARTIAL THROMBOPLASTIN TIME 123.6 seconds 22.5-36.0 H (BEAKER) (test code = 760) POCT-GLUCOSE [id number] 06:52:46 Test Item Value Reference Range Interpretation Comments POC-GLUCOSE METER 194 mg/dL 70-110 H : TESTED A T [facility] (BEAKER) (test code = [facility], 153) 82567: Ice Cream Dispenser/Techni betty ID = [id number] for Fabi Laguna COMPREHENSIVE METABOLIC [id number] 04:27:21 Test Item Value Reference Range Interpretation Comments TOTAL PROTEIN 7.2 gm/dL 6.0-8.3 (BEAKER) (test code = 770) ALBUMIN (BEAKER) 2.8 g/dL 3.5-5.0 L (test code = 1145) ALKALINE 268 U/L 40-150 H PHOSPHATASE (BEAKER) (test code = 346) BILIRUBIN TOTAL 0.8 mg/dL 0.2-1.2 (BEAKER) (test code = 377) SODIUM (BEAKER) 132 meq/L 136-145 L (test code = 381) POTASSIUM (BEAKER) 3.9 meq/L 3.5-5.1 (test code = 379) CHLORIDE (BEAKER) 101 meq/L 98-107 (test code = 382) CO2 (BEAKER) (test 24 meq/L 22-29 code = 355) BLOOD UREA 30 mg/dL 7-21 H NITROGEN (BEAKER) (test code = 354) CREATININE 0.84 mg/dL 0.57-1.25 (BEAKER) (test code = 358) GLUCOSE RANDOM 137 mg/dL 70-105 H (BEAKER) (test code = 652) CALCIUM (BEAKER) 8.5 mg/dL 8.4-10.2 (test code = 697) AST (SGOT) 40 U/L 5-34 H (BEAKER) (test code = 353) ALT (SGPT) 49 U/L 6-55 (BEAKER) (test code = 347) EGFR (BEAKER) 80 Interpretatio n of eGFR (test code = 1092) mL/min/1.[address] age Description sq m Result G1 Stephanie l or high >=90 G2 Mildly decreased 60-89 G3a Mildl y to moderately 45-5 9 G3b Moderately to s everely 30-44 G4 Severl y decreased 15-29 G5 Kidney failure <15Reported eGF R is based on the CKD-EPI 2020 equation that d oes not use a race coefficientEsti mated GFR is not as accur ate as Creatinine Jess charlene in predicting glom erular filtration rate . Estimated GFR is not appl icable for dialysis patien ts Ice Cream Dispenser ID - [id number] 04:22:56 Test Item Value Reference Range Interpretation Comments PARTIAL THROMBOPLASTIN TIME 90.9 seconds 22.5-36.0 H (BEAKER) (test code = 760) CBC (HEMOGRAM ONLY)2023-02-21 04:05:38 Test Item Value Reference Range Interpretation Comments WHITE BLOOD CELL COUNT (BEAKER) 8.3 K/ L 3.5-10.5 (test code = 775) RED BLOOD CELL COUNT (BEAKER) 3.96 M/ L 3.93-5.22 (test code = 761) HEMOGLOBIN (BEAKER) (test code = 11.8 GM/DL 11.2-15.7 410) HEMATOCRIT (BEAKER) (test code = 36.9 % 34.1-44.9 411) MEAN CORPUSCULAR VOLUME (BEAKER) 93 fL 79-95 (test code = 753) MEAN CORPUSCULAR HEMOGLOBIN 29.8 pg 25.6-32.2 (AKER) (test code = 751) MEAN CORPUSCULAR HEMOGLOBIN CONC 32.0 GM/DL 32.2-35.5 L (AKER) (test code = 752) RED CELL DISTRIBUTION WIDTH 14.6 % 11.7-14.4 H ([facility]) (test code = 412) PLATELET COUNT ([facility]) (test 323 K/CU MM 150-450 code = 756) MEAN PLATELET VOLUME ([facility]) 11.2 fL 9.4-12.3 (test code = 754) NUCLEATED RED BLOOD CELLS 0 /100 WBC 0-0 ([facility]) (test code = 413) POCT-GLUCOSE [id number] 00:22:31 Test Item Value Reference Range Interpretation Comments POC-GLUCOSE METER 147 mg/dL 70-110 H : TESTED A [facility] 6720 ([facility]) (test code = [facility], 153) [address]: Ice Cream Dispenser/Techni betty ID = [id number] for Fabi Laguna [id number] 19:54:26 Test Item Value Reference Range Interpretation Comments PARTIAL THROMBOPLASTIN TIME 28.3 seconds 22.5-36.0 ([facility]) (test code = 760) POCT-GLUCOSE [id number] 16:32:39 Test Item Value Reference Range Interpretation Comments POC-GLUCOSE METER 115 mg/dL 70-110 H : TESTED A [facility] 6720 ([facility]) (test code = [facility], 1537) 93115: Ice Cream Dispenser/Techni betty ID = [id number] for Antonina Lerner POCT-GLUCOSE [id number] 11:57:32 Test Item Value Reference Range Interpretation Comments POC-GLUCOSE METER 126 mg/dL 70-110 H : Notified RN/MD: ([facility]) (test code = TESTED AT [place] [address] 1537) [facility], [address]: Ice Cream Dispenser/Techni betty ID = [id number] for Klaus Quintero POCT-GLUCOSE [id number] 06:43:44 Test Item Value Reference Range Interpretation Comments POC-GLUCOSE METER 99 mg/dL 70-110 : TESTED A T [facility] 6720 (BEAKER) (test code = [place], 1538) [address]: Ice Cream Dispenser/Techni betty ID = [id number] for Fabi Oliver COMPREHENSIVE METABOLIC [id number] 05:40:56 Test Item Value Reference Range Interpretation Comments TOTAL PROTEIN 7.7 gm/dL 6.0-8.3 (BEAKER) (test code = 770) ALBUMIN (BEAKER) 3.0 g/dL 3.5-5.0 L (test code = 1145) ALKALINE 302 U/L 40-150 H PHOSPHATASE (BEAKER) (test code = 346) BILIRUBIN TOTAL 0.9 mg/dL 0.2-1.2 (BEAKER) (test code = 377) SODIUM (BEAKER) 138 meq/L 136-145 (test code = 381) POTASSIUM (BEAKER) 4.0 meq/L 3.5-5.1 (test code = 379) CHLORIDE (BEAKER) 102 meq/L 98-107 (test code = 382) CO2 (BEAKER) (test 23 meq/L 22-29 code = 355) BLOOD UREA 25 mg/dL 7-21 H NITROGEN (BEAKER) (test code = 354) CREATININE 0.81 mg/dL 0.57-1.25 (BEAKER) (test code = 358) GLUCOSE RANDOM 86 mg/dL 70-105 (BEAKER) (test code = 652) CALCIUM (BEAKER) 9.1 mg/dL 8.4-10.2 (test code = 697) AST (SGOT) 54 U/L 5-34 H (BEAKER) (test code = 353) ALT (SGPT) 65 U/L 6-55 H (BEAKER) (test code = 347) EGFR (BEAKER) 84 Interpretatio n of eGFR (test code = 1092) mL/min/1.[address] age Description sq m Result G1 Stephanie l or high >=90 G2 Mildly decreased 60-89 G3a Mildl y to moderately 45-5 9 G3b Moderately to s everely 30-44 G4 Severl y decreased 15-29 G5 Kidney failure <15Reported eGF R is based on the CKD-EPI 2021 equation that d oes not use a race coefficientEsti mated GFR is not as accur ate as Creatinine Jess charlene in predicting glom erular filtration rate . Estimated GFR is not appl icable for dialysis patien ts Ice Cream Dispenser ID - MARCOPOCT-GLUCOSE [id number] 20:35:25 Test Item Value Reference Range Interpretation Comments POC-GLUCOSE METER 79 mg/dL 70-110 : TESTED A T [facility] 6720 (BEAKER) (test code = [facility], 1538) [address]: Ice Cream Dispenser/Techni betty ID = [id number] for Fabi Oliver POCT-GLUCOSE [id number] 16:27:33 Test Item Value Reference Range Interpretation Comments POC-GLUCOSE METER 119 mg/dL 70-110 H : TESTED A T [facility] 6720 (BEAKER) (test code = [facility], 1538) 69[address]: Ice Cream Dispenser/Techni betty ID = [id number] for Mc Fee, Antonina POCT-GLUCOSE [id number] 12:08:54 Test Item Value Reference Range Interpretation Comments POC-GLUCOSE METER 127 mg/dL 70-110 H : TESTED A T [facility] 6720 (BEAKER) (test code = [facility], 1538) [address]89[address]: Ice Cream Dispenser/Techni betty ID = [id number] for Mc Fee, Antonina POCT-GLUCOSE [id number] 06:57:48 Test Item Value Reference Range Interpretation Comments POC-GLUCOSE METER 131 mg/dL 70-110 H : TESTED A T [facility] 6720 (BEAKER) (test code = [facility], 1538) [address]270: Ice Cream Dispenser/Techni betty ID = [id number] for Hailee Barr CBC (HEMOGRAM ONLY)2023-02-19 04:24:11 Test Item Value Reference Range Interpretation Comments WHITE BLOOD CELL COUNT (BEAKER) 10.2 K/ L 3.5-10.5 (test code = 775) RED BLOOD CELL COUNT (BEAKER) 3.81 M/ L 3.93-5.22 L (test code = 761) HEMOGLOBIN (BEAKER) (test code = 11.5 GM/DL 11.2-15.7 410) HEMATOCRIT (BEAKER) (test code = 35.8 % 34.1-44.9 411) MEAN CORPUSCULAR VOLUME (BEAKER) 94 fL 79-95 (test code = 753) MEAN CORPUSCULAR HEMOGLOBIN 30.2 pg 25.6-32.2 (BEAKER) (test code = 751) MEAN CORPUSCULAR HEMOGLOBIN CONC 32.1 GM/DL 32.2-35.5 L (BEAKER) (test code = 752) RED CELL DISTRIBUTION WIDTH 14.9 % 11.7-14.4 H (BEAKER) (test code = 412) PLATELET COUNT (BEAKER) (test 339 K/CU MM 150-450 code = 756) MEAN PLATELET VOLUME (BEAKER) 11.3 fL 9.4-12.3 (test code = 754) NUCLEATED RED BLOOD CELLS 0 /100 WBC 0-0 (BEAKER) (test code = 413) POCT-GLUCOSE [id number] 21:29:08 Test Item Value Reference Range Interpretation Comments POC-GLUCOSE METER 122 mg/dL 70-110 H : TESTED A T [facility] 6720 (BEAKER) (test code = [facility], 153) 98255: Ice Cream Dispenser/Techni betty ID = [id number] for Hailee Barr POCT-GLUCOSE [id number] 16:57:34 Test Item Value Reference Range Interpretation Comments POC-GLUCOSE METER 138 mg/dL 70-110 H : TESTED A T [facility] 6720 (BEAKER) (test code = [facility], 153) 55952: Ice Cream Dispenser/Techni betty ID = [id number] for Antonina Lerner POCT-GLUCOSE [id number] 11:55:17 Test Item Value Reference Range Interpretation Comments POC-GLUCOSE METER 213 mg/dL 70-110 H : TESTED A T [facility] 6720 (BEAKER) (test code = [facility], 153) 079[address]: Ice Cream Dispenser/Techni betty ID = [id number] for CHUCK MINER POCT-GLUCOSE [id number] 09:49:49 Test Item Value Reference Range Interpretation Comments POC-GLUCOSE METER 206 mg/dL 70-110 H : TESTED A T [facility] 6720 (BEAKER) (test code = [facility], 153) 545[address]: Ice Cream Dispenser/Techni betty ID = [id number] for Jef tavarezyoel Yao POCT-GLUCOSE [id number] 06:38:51 Test Item Value Reference Range Interpretation Comments POC-GLUCOSE METER 133 mg/dL 70-110 H : TESTED A T [facility] 6720 (BEAKER) (test code = [facility] [place], 1538) [address]: Ice Cream Dispenser/Techni betty ID = [id number] for Hailee Barr [id number] 05:07:10 Test Item Value Reference Range Interpretation Comments MAGNESIUM (BEAKER) 2.0 mg/dL 1.6-2.6 Specimen slightly (test code = 627) hemolyzed Ice Cream Dispenser ID - bvBASIC METABOLIC [id number] 05:07:10 Test Item Value Reference Range Interpretation Comments SODIUM (BEAKER) 137 meq/L 136-145 (test code = 381) POTASSIUM 4.5 meq/L 3.5-5.1 Specimen slight ly (BEAKER) (test hemolyzed code = 379) CHLORIDE (BEAKER) 101 meq/L 98-107 (test code = 382) CO2 (BEAKER) 28 meq/L 22-29 (test code = 355) BLOOD UREA 21 mg/dL 7-21 NITROGEN (BEAKER) (test code = 354) CREATININE 0.73 mg/dL 0.57-1.25 Specimen slight ly (BEAKER) (test hemolyzed code = 358) GLUCOSE RANDOM 150 mg/dL 70-105 H (BEAKER) (test code = 652) CALCIUM (BEAKER) 9.2 mg/dL 8.4-10.2 (test code = 697) EGFR (BEAKER) 95 Interpretatio n of eGFR (test code = mL/min/1.73 values Stage De scription 1092) sq m Result G1 Stephanie l or high >=90 G2 Mildly decreased 60-89 G3a Mild ly to moderately 45-5 9 G3b Moderately to s everely 30-44 G4 Severl y decreased 15-29 G5 Kidney failure <15Reported eGF R is based on the CKD-EPI 2020 equation that d oes not use a race coefficientEsti mated GFR is not as accur ate as Creatinine Jess chang in predicting glom erular filtration rate . Estimated GFR is not appl icable for dialysis patien ts Ice Cream Dispenser ID - bvPOCT-GLUCOSE [id number] 00:32:37 Test Item Value Reference Range Interpretation Comments POC-GLUCOSE METER 168 mg/dL 70-110 H : TESTED A T [facility] 6720 (BEAKER) (test code = [facility], 153) 61391: Ice Cream Dispenser/Techni betty ID = [id number] for Hailee Barr VITAMIN [id number] 19:17:57 Test Item Value Reference Range Interpretation Comments VITAMIN B12 ([facility]) (test code = 163 pg/mL 213-816 L 774) Ice Cream Dispenser ID - BSIRON, TIBC, % SAT. (WITHOUT FERRITIN)2023-02-17 18:50:36 Test Item Value Reference Range Interpretation Comments IRON ([facility]) (test code = 547) 30.0 ug/dL 40.0-160.0 L TOTAL IRON BINDING CAPACITY 261 ug/dL 250-450 ([facility]) (test code = 769) IRON % SATURATION (2) ([facility]) 11 % 20-55 L (test code = 2590) Ice Cream Dispenser ID - BSPOCT-GLUCOSE [id number] 17:54:23 Test Item Value Reference Range Interpretation Comments POC-GLUCOSE METER 182 mg/dL 70-110 H : TESTED A T [facility] 6720 ([facility]) (test code = [facility], 153) [address]: Ice Cream Dispenser/Techni betty ID = [id number] for Dakota Odell amrik POCT-GLUCOSE [id number] 12:24:22 Test Item Value Reference Range Interpretation Comments POC-GLUCOSE METER 184 mg/dL 70-110 H : TESTED A T [facility] 6720 ([facility]) (test code = [facility], 153) 11651: Ice Cream Dispenser/Techni betty ID = [id number] for Dakota Odell POCT-GLUCOSE [id number] 06:01:16 Test Item Value Reference Range Interpretation Comments POC-GLUCOSE METER 159 mg/dL 70-110 H : Notified RN/MD: ([facility]) (test code = TESTED AT [place] [address] 153) [facility], [address]: Ice Cream Dispenser/Techni betty ID = [id number] for Kang Frederick COMPREHENSIVE METABOLIC [id number] 05:33:34 Test Item Value Reference Range Interpretation Comments TOTAL PROTEIN 7.1 gm/dL 6.0-8.3 ([facility]) (test code = 770) ALBUMIN ([facility]) 2.8 g/dL 3.5-5.0 L (test code = 1145) ALKALINE 396 U/L 40-150 H PHOSPHATASE (BEAKER) (test code = 346) BILIRUBIN TOTAL 0.5 mg/dL 0.2-1.2 (BEAKER) (test code = 377) SODIUM (BEAKER) 135 meq/L 136-145 L (test code = 381) POTASSIUM (BEAKER) 4.2 meq/L 3.5-5.1 (test code = 379) CHLORIDE (BEAKER) 104 meq/L 98-107 (test code = 382) CO2 (BEAKER) (test 25 meq/L 22-29 code = 355) BLOOD UREA 21 mg/dL 7-21 NITROGEN (BEAKER) (test code = 354) CREATININE 0.69 mg/dL 0.57-1.25 (BEAKER) (test code = 358) GLUCOSE RANDOM 141 mg/dL 70-105 H (BEAKER) (test code = 652) CALCIUM (BEAKER) 8.8 mg/dL 8.4-10.2 (test code = 697) AST (SGOT) 62 U/L 5-34 H (BEAKER) (test code = 353) ALT (SGPT) 70 U/L 6-55 H (BEAKER) (test code = 347) EGFR (BEAKER) 101 Interpretatio n of eGFR (test code = 1092) mL/min/1.[address] age Description sq m Result G1 Stephanie l or high >=90 G2 Mildly decreased 60-89 G3a Mildl y to moderately 45-5 9 G3b Moderately to s everely 30-44 G4 Severl y decreased 15-29 G5 Kidne y failure <15Reported eGF R is based on the CKD-EPI 2021 equation that d oes not use a race coefficientEsti mated GFR is not as accur ate as Creatinine Jess chang in predicting glom erular filtration rate . Estimated GFR is not appl icable for dialysis patien ts Ice Cream Dispenser ID - [id number] 05:33:34 Test Item Value Reference Range Interpretation Comments MAGNESIUM (BEAKER) (test code = 2.0 mg/dL 1.6-2.6 627) Ice Cream Dispenser ID - [id number] 05:33:34 Test Item Value Reference Range Interpretation Comments PHOSPHORUS (BEAKER) (test code = 3.9 mg/dL 2.3-4.7 604) Ice Cream Dispenser ID - ADMINCBC (HEMOGRAM ONLY)2023-02-17 05:00:56 Test Item Value Reference Range Interpretation Comments WHITE BLOOD CELL COUNT (BEAKER) 7.2 K/ L 3.5-10.5 (test code = 775) RED BLOOD CELL COUNT (BEAKER) 3.61 M/ L 3.93-5.22 L (test code = 761) HEMOGLOBIN (BEAKER) (test code = 10.8 GM/DL 11.2-15.7 L 410) HEMATOCRIT (BEAKER) (test code = 33.8 % 34.1-44.9 L 411) MEAN CORPUSCULAR VOLUME (BEAKER) 94 fL 79-95 (test code = 753) MEAN CORPUSCULAR HEMOGLOBIN 29.9 pg 25.6-32.2 (BEAKER) (test code = 751) MEAN CORPUSCULAR HEMOGLOBIN CONC 32.0 GM/DL 32.2-35.5 L (BEAKER) (test code = 752) RED CELL DISTRIBUTION WIDTH 15.0 % 11.7-14.4 H (BEAKER) (test code = 412) PLATELET COUNT (BEAKER) (test 236 K/CU MM 150-450 code = 756) MEAN PLATELET VOLUME (BEAKER) 11.4 fL 9.4-12.3 (test code = 754) NUCLEATED RED BLOOD CELLS 0 /100 WBC 0-0 (BEAKER) (test code = 413) POCT-GLUCOSE [id number] 00:32:40 Test Item Value Reference Range Interpretation Comments POC-GLUCOSE METER 162 mg/dL 70-110 H : Notified RN/MD: ([facility]) (test code = TESTED AT [facility] 6720 1538) [facility], [address]: Ice Cream Dispenser/Techni betty ID = [id number] for Kang Frederick POCT-GLUCOSE [id number] 16:38:22 Test Item Value Reference Range Interpretation Comments POC-GLUCOSE METER 153 mg/dL 70-110 H : TESTED A T [facility] 6720 ([facility]) (test code = [facility], 1538) [address]: Ice Cream Dispenser/Techni betty ID = [id number] for Hailee Dorman POCT-GLUCOSE [id number] 13:20:14 Test Item Value Reference Range Interpretation Comments POC-GLUCOSE METER 168 mg/dL 70-110 H : TESTED A T [facility] 6720 (BEAKER) (test code = [facility]) [address]: Ice Cream Dispenser/Techni betty ID = [id number] for Rosie Dorado POCT-GLUCOSE [id number] 07:09:20 Test Item Value Reference Range Interpretation Comments POC-GLUCOSE METER 157 mg/dL 70-110 H : TESTED A T [facility] 6720 (BEAKER) (test code = [facility]8) [address]: Ice Cream Dispenser/Techni betty ID = [id number] for Hailee Barr BLOOD [id number] 05:01:00 Test Item Value Reference Range Interpretation Comments CULTURE (BEAKER) (test No growth in 5 days code = 1095) BLOOD [id number] 05:00:59 Test Item Value Reference Range Interpretation Comments CULTURE (BEAKER) (test No growth in 5 days code = 1095) POCT-GLUCOSE [id number] 23:57:25 Test Item Value Reference Range Interpretation Comments POC-GLUCOSE METER 175 mg/dL 70-110 H : TESTED A T [facility] 6720 (BEAKER) (test code = [facility]) [address]: Ice Cream Dispenser/Techni betty ID = [id number] for Hailee Barr POCT-GLUCOSE [id number] 17:15:48 Test Item Value Reference Range Interpretation Comments POC-GLUCOSE METER 138 mg/dL 70-110 H : TESTED A T [facility] 6720 (BEAKER) (test code = [facility]) [address]: Ice Cream Dispenser/Techni betty ID = [id number] for Co rtez, Katiuska POCT-GLUCOSE [id number] 11:53:06 Test Item Value Reference Range Interpretation Comments POC-GLUCOSE METER 134 mg/dL 70-110 H : TESTED A T [facility] 6720 (BEAKER) (test code = [facility], [facility]8) [address]: Ice Cream Dispenser/Techni betty ID = [id number] for Co rtez, Bug Tussle POCT-GLUCOSE [id number] 06:44:52 Test Item Value Reference Range Interpretation Comments POC-GLUCOSE METER 176 mg/dL 70-110 H : TESTED A T [facility] 6720 (BEAKER) (test code = [facility] [place], 1538) [address]: Ice Cream Dispenser/Techni betty ID = [id number] for OMER ZIEGLER BASIC METABOLIC [id number] 05:32:42 Test Item Value Reference Range Interpretation Comments SODIUM (BEAKER) 136 meq/L 136-145 (test code = 381) POTASSIUM 4.3 meq/L 3.5-5.1 (BEAKER) (test code = 379) CHLORIDE (BEAKER) 104 meq/L 98-107 (test code = 382) CO2 (BEAKER) 24 meq/L 22-29 (test code = 355) BLOOD UREA 19 mg/dL 7-21 NITROGEN (BEAKER) (test code = 354) CREATININE 0.68 mg/dL 0.57-1.25 (BEAKER) (test code = 358) GLUCOSE RANDOM 151 mg/dL 70-105 H (BEAKER) (test code = 652) CALCIUM (BEAKER) 8.5 mg/dL 8.4-10.2 (test code = 697) EGFR (BEAKER) 101 Interpretatio n of eGFR (test code = mL/min/1.73 values Stage D escription 1092) sq m Result G1 Stephanie l or high >=90 G2 Mildly decreased 60-89 G3a Mildl y to moderately 45-5 9 G3b Moderately to s everely 30-44 G4 Severl y decreased 15-29 G5 Kidney failure <15Reported eGF R is based on the CKD-EPI 2020 equation that d oes not use a race coefficientEsti mated GFR is not as accur ate as Creatinine Jess charlene in predicting glom erular filtration rate . Estimated GFR is not appl icable for dialysis patien ts Ice Cream Dispenser ID - [id number] 05:32:42 Test Item Value Reference Range Interpretation Comments MAGNESIUM (BEAKER) (test code = 2.1 mg/dL 1.6-2.6 627) Ice Cream Dispenser ID - ADMINPOCT-GLUCOSE [id number] 00:53:27 Test Item Value Reference Range Interpretation Comments POC-GLUCOSE METER 154 mg/dL 70-110 H : TESTED A T [facility] 6720 (BEAKER) (test code = [facility]) [address]: Ice Cream Dispenser/Techni betty ID = [id number] for OC ampo, [place] POCT-GLUCOSE [id number] 17:51:25 Test Item Value Reference Range Interpretation Comments POC-GLUCOSE METER 132 mg/dL 70-110 H : TESTED A T [facility] 6720 (BEAKER) (test code = [facility]8) [address]: Ice Cream Dispenser/Techni betty ID = [id number] for Pa til, Maikol POCT-GLUCOSE [id number] 12:00:19 Test Item Value Reference Range Interpretation Comments POC-GLUCOSE METER 170 mg/dL 70-110 H : TESTED A T [facility] 6720 (BEAKER) (test code = [facility], [facility]) [address]: Ice Cream Dispenser/Techni betty ID = [id number] for Pa til, Maikol POCT-GLUCOSE [id number] 06:50:04 Test Item Value Reference Range Interpretation Comments POC-GLUCOSE METER 149 mg/dL 70-110 H : TESTED A T [facility] 6720 (BEAKER) (test code = [facility], [facility]) [address]: Ice Cream Dispenser/Techni betty ID = [id number] for Fabi Laguna BASIC METABOLIC [id number] 04:20:03 Test Item Value Reference Range Interpretation Comments SODIUM (BEAKER) 137 meq/L 136-145 (test code = 381) POTASSIUM 3.9 meq/L 3.5-5.1 (BEAKER) (test code = 379) CHLORIDE (BEAKER) 106 meq/L 98-107 (test code = 382) CO2 (BEAKER) 26 meq/L 22-29 (test code = 355) BLOOD UREA 17 mg/dL 7-21 NITROGEN (BEAKER) (test code = 354) CREATININE 0.69 mg/dL 0.57-1.25 (BEAKER) (test code = 358) GLUCOSE RANDOM 157 mg/dL 70-105 H (BEAKER) (test code = 652) CALCIUM (BEAKER) 8.1 mg/dL 8.4-10.2 L (test code = 697) EGFR (BEAKER) 101 Interpretatio n of eGFR (test code = mL/min/1.73 values Stage De scription 1092) sq m Result G1 Stephanie l or high >=90 G2 Mildly decreased 60-89 G3a Mildl y to moderately 45-5 9 G3b Moderately to s everely 30-44 G4 Severl y decreased 15-29 G5 Kidne y failure <15Reported eGF R is based on the CKD-EPI 2020 equation that d oes not use a race coefficientEsti mated GFR is not as accur ate as Creatinine Jess charlene in predicting glom erular filtration rate . Estimated GFR is not appl icable for dialysis patien ts Ice Cream Dispenser ID - [id number] 04:20:03 Test Item Value Reference Range Interpretation Comments MAGNESIUM (BEAKER) (test code = 2.2 mg/dL 1.6-2.6 627) Ice Cream Dispenser ID - ADMINCBC (HEMOGRAM ONLY)2023-02-14 03:58:56 Test Item Value Reference Range Interpretation Comments WHITE BLOOD CELL COUNT (BEAKER) 9.6 K/ L 3.5-10.5 (test code = 775) RED BLOOD CELL COUNT (BEAKER) 3.37 M/ L 3.93-5.22 L (test code = 761) HEMOGLOBIN (BEAKER) (test code = 10.1 GM/DL 11.2-15.7 L 410) HEMATOCRIT (BEAKER) (test code = 31.3 % 34.1-44.9 L 411) MEAN CORPUSCULAR VOLUME (BEAKER) 93 fL 79-95 (test code = 753) MEAN CORPUSCULAR HEMOGLOBIN 30.0 pg 25.6-32.2 (BEAKER) (test code = 751) MEAN CORPUSCULAR HEMOGLOBIN CONC 32.3 GM/DL 32.2-35.5 (BEAKER) (test code = 752) RED CELL DISTRIBUTION WIDTH 14.6 % 11.7-14.4 H (BEAKER) (test code = 412) PLATELET COUNT (BEAKER) (test 193 K/CU MM 150-450 code = 756) MEAN PLATELET VOLUME (BEAKER) 11.7 fL 9.4-12.3 (test code = 754) NUCLEATED RED BLOOD CELLS 0 /100 WBC 0-0 (BEAKER) (test code = 413) POCT-GLUCOSE [id number] 23:56:03 Test Item Value Reference Range Interpretation Comments POC-GLUCOSE METER 151 mg/dL 70-110 H : TESTED A T [facility] 6720 (BEAKER) (test code = [facility], 1538) [address]: Ice Cream Dispenser/Techni betty ID = [id number] for OMER ZIEGLER POCT-GLUCOSE [id number] 18:40:12 Test Item Value Reference Range Interpretation Comments POC-GLUCOSE METER 193 mg/dL 70-110 H : TESTED A T [facility] 6720 (BEAKER) (test code = [facility], 1538) [address]: Ice Cream Dispenser/Techni betty ID = [id number] for ARIEL MENDOZA [place] MODIFIED BARIUM [id number] 14:18:46 [facility] 1965 Sex: FModified barium swallow exam with speech pathology serviceCLINICAL HISTORY: dysphagiaIMPRESSION:Please see the speech pathology service report for details.Barium contrast of multiple consistencies is given to the patient ronny. Fluoroscopic observation is performed during swallowing. Fluoro time: 0.9 minutesNumber of images: 1 cine clipElectronically Signed By: Rosanna Weber02/13/2023 14:20 CDTWorkstation Name: [id number] 12:22:43 Test Item Value Reference Range Interpretation Comments POC-GLUCOSE METER 126 mg/dL 70-110 H : TESTED A T [facility] 6720 (BEAKER) (test code = [facility], 1538) [address]: Ice Cream Dispenser/Techni betty ID = [id number] for Dayan Rosas POCT-GLUCOSE [id number] 06:50:40 Test Item Value Reference Range Interpretation Comments POC-GLUCOSE METER 155 mg/dL 70-110 H : TESTED A T [facility] 6720 (BEAKER) (test code = [facility] [place], 1538) [address]: Ice Cream Dispenser/Techni betty ID = [id number] for OMER ZIEGLER BASIC METABOLIC [id number] 06:14:48 Test Item Value Reference Range Interpretation Comments SODIUM (BEAKER) 140 meq/L 136-145 (test code = 381) POTASSIUM 4.1 meq/L 3.5-5.1 (BEAKER) (test code = 379) CHLORIDE (BEAKER) 107 meq/L 98-107 (test code = 382) CO2 (BEAKER) 24 meq/L 22-29 (test code = 355) BLOOD UREA 18 mg/dL 7-21 NITROGEN (BEAKER) (test code = 354) CREATININE 0.68 mg/dL 0.57-1.25 (BEAKER) (test code = 358) GLUCOSE RANDOM 139 mg/dL 70-105 H (BEAKER) (test code = 652) CALCIUM (BEAKER) 8.5 mg/dL 8.4-10.2 (test code = 697) EGFR (BEAKER) 101 Interpretati on of eGFR (test code = mL/min/1.73 values Stage De scription 1092) sq m Result G1 Stephanie l or high >=90 G2 Mildly decreased 60-89 G3a Mildl y to moderately 45-5 9 G3b Moderately to s everely 30-44 G4 Severl y decreased 15-29 G5 Kidney failure <15Reported eGF R is based on the CKD-EPI 2020 equation that d oes not use a race coefficientEsti mated GFR is not as accur ate as Creatinine Jess chang in predicting glom erular filtration rate . Estimated GFR is not appl icable for dialysis patien ts Ice Cream Dispenser ID - [id number] 06:14:48 Test Item Value Reference Range Interpretation Comments MAGNESIUM (BEAKER) (test code = 2.3 mg/dL 1.6-2.6 627) Ice Cream Dispenser ID - [id number] (HEMOGRAM ONLY)[id number] 04:46:40 Test Item Value Reference Range Interpretation Comments WHITE BLOOD CELL COUNT (BEAKER) 9.6 K/ L 3.5-10.5 (test code = 775) RED BLOOD CELL COUNT (BEAKER) 3.57 M/ L 3.93-5.22 L (test code = 761) HEMOGLOBIN (BEAKER) (test code = 10.9 GM/DL 11.2-15.7 L 410) HEMATOCRIT (BEAKER) (test code = 33.0 % 34.1-44.9 L 411) MEAN CORPUSCULAR VOLUME (BEAKER) 92 fL 79-95 (test code = 753) MEAN CORPUSCULAR HEMOGLOBIN 30.5 pg 25.6-32.2 (BEAKER) (test code = 751) MEAN CORPUSCULAR HEMOGLOBIN CONC 33.0 GM/DL 32.2-35.5 (BEAKER) (test code = 752) RED CELL DISTRIBUTION WIDTH 14.6 % 11.7-14.4 H (BEAKER) (test code = 412) PLATELET COUNT (BEAKER) (test 180 K/CU MM 150-450 code = 756) MEAN PLATELET VOLUME (BEAKER) 12.1 fL 9.4-12.3 (test code = 754) NUCLEATED RED BLOOD CELLS 0 /100 WBC 0-0 (BEAKER) (test code = 413) POCT-GLUCOSE [id number] 23:28:33 Test Item Value Reference Range Interpretation Comments POC-GLUCOSE METER 131 mg/dL 70-110 H : TESTED A T [facility] 67[address] ([facility]) (test code = [facility], 1538) [id number]: Ice Cream Dispenser/Techni betty ID = [id number] for UG OMER ROYAL POCT-GLUCOSE [id number] 17:11:02 Test Item Value Reference Range Interpretation Comments POC-GLUCOSE METER 159 mg/dL 70-110 H : TESTED A T [facility] 6720 (BEAKER) (test code = [facility], 1538) [address]: Ice Cream Dispenser/Techni betty ID = [id number] for DARIA PANG XR CHEST 1 VIEW PORTABLE / [id number] 13:47:48 [facility] CENTERName: ALEX SOLORIO : 1965 Sex: FCLINICAL HISTORY: new cough TECHNIQUE: 1 view of the chest.COMPARISON: 02/06/2023IMPRESSION:There is a new left axillary PICC line. A pigtail catheter is again seenin the left upper quadrant. There are no infiltrates or effusions. Thecardiomediastinal silhouette is magnified by technique.Electronically SignedBy: Rodney Delvis02/12/2023 13:49 CDTWorkstation Name: [id number] METER 2023-02-12 12:44:32 Test Item Value Reference Range Interpretation Comments POC-GLUCOSE METER 145 mg/dL 70-110 H : TESTED [facility] T [facility] 67[facility] (test code = [facility], 1538) [id number]: Ice Cream Dispenser/Techni betty ID = [id number] for Rachel Bradshaw COMPREHENSIVE METABOLIC [id number] 08:42:14 Test Item Value Reference Range Interpretation Comments TOTAL PROTEIN 6.2 gm/dL 6.0-8.3 (BEAKER) (test code = 770) ALBUMIN (BEAKER) 2.8 g/dL 3.5-5.0 L (test code = 1145) ALKALINE 562 U/L 40-150 H PHOSPHATASE (BEAKER) (test code = 346) BILIRUBIN TOTAL 0.7 mg/dL 0.2-1.2 (BEAKER) (test code = 377) SODIUM (BEAKER) 138 meq/L 136-145 (test code = 381) POTASSIUM (BEAKER) 3.7 meq/L 3.5-5.1 (test code = 379) CHLORIDE (BEAKER) 105 meq/L 98-107 (test code = 382) CO2 (BEAKER) (test 27 meq/L - code = 355) BLOOD UREA 23 mg/dL 7-21 H NITROGEN (BEAKER) (test code = 354) CREATININE 0.76 mg/dL 0.57-1.25 (BEAKER) (test code = 358) GLUCOSE RANDOM 139 mg/dL 70-105 H (BEAKER) (test code = 652) CALCIUM (BEAKER) 7.6 mg/dL 8.4-10.2 L (test code = 697) AST (SGOT) 123 U/L 5-34 H (BEAKER) (test code = 353) ALT (SGPT) 139 U/L 6-55 H (BEAKER) (test code = 347) EGFR (BEAKER) 91 Interpretatio n of eGFR (test code = 1092) mL/min/1.[address] age Description sq m Result G1 Stephanie l or high >=90 G2 Mildly decreased 60-89 G3a Mild ly to moderately 45-5 9 G3b Moderately to s everely 30-44 G4 Severl y decreased 15-29 G5 Kidney failure <15Reported eGF R is based on the CKD-EPI 2020 equation that d oes not use a race coefficientEsti mated GFR is not as accur ate as Creatinine Jess charlene in predicting glom erular filtration rate . Estimated GFR is not appl icable for dialysis patien ts [id number] 08:40:59 Test Item Value Reference Range Interpretation Comments MAGNESIUM (BEAKER) (test code = 2.3 mg/dL 1.6-2.6 627) [id number] 08:40:59 Test Item Value Reference Range Interpretation Comments PHOSPHORUS (BEAKER) (test code = 3.3 mg/dL 2.3-4.7 604) POCT-GLUCOSE [id number] 06:48:21 Test Item Value Reference Range Interpretation Comments POC-GLUCOSE METER 122 mg/dL 70-110 H : TESTED A T [facility] 6720 (BEAKER) (test code = [facility] [place], 1538) [address]: Ice Cream Dispenser/Techni betty ID = [id number] for Hailee Barr PROTHROMBIN [id number] 05:11:49 Test Item Value Reference Range Interpretation Comments PROTIME (BEAKER) (test code = 15.9 seconds 11.9-14.2 H 759) INR (BEAKER) (test code = 370) 1.30 <=5.90 RECOMMENDED COUMADIN/WARFARIN INR THERAPY RANGESSTANDARD DOSE: 2.0 - 3.0 Includes: PROPHYLAXIS for venous thrombosis, systemic embolization; TREATMENT for venous thrombosis and/or pulmonary embolus.HIGH RISK: Target INR is 2.5-3.5 for patients with mechanical heart valves.CBC (HEMOGRAM ONLY)2023-02-12 04:31:36 Test Item Value Reference Range Interpretation Comments WHITE BLOOD CELL COUNT (BEAKER) 10.5 K/ L 3.5-10.5 (test code = 775) RED BLOOD CELL COUNT (BEAKER) 3.36 M/ L 3.93-5.22 L (test code = 761) HEMOGLOBIN (BEAKER) (test code = 10.1 GM/DL 11.2-15.7 L 410) HEMATOCRIT (BEAKER) (test code = 31.0 % 34.1-44.9 L 411) MEAN CORPUSCULAR VOLUME (BEAKER) 92 fL 79-95 (test code = 753) MEAN CORPUSCULAR HEMOGLOBIN 30.1 pg 25.6-32.2 (BEAKER) (test code = 751) MEAN CORPUSCULAR HEMOGLOBIN CONC 32.6 GM/DL 32.2-35.5 (BEAKER) (test code = 752) RED CELL DISTRIBUTION WIDTH 14.5 % 11.7-14.4 H (BEAKER) (test code = 412) PLATELET COUNT (BEAKER) (test 150 K/CU MM 150-450 code = 756) MEAN PLATELET VOLUME (BEAKER) 12.9 fL 9.4-12.3 H (test code = 754) NUCLEATED RED BLOOD CELLS 0 /100 WBC 0-0 (BEAKER) (test code = 413) POCT-GLUCOSE [id number] 00:09:39 Test Item Value Reference Range Interpretation Comments POC-GLUCOSE METER 151 mg/dL 70-110 H : TESTED A T [facility] 6720 (BEAKER) (test code = [facility], 1538) [id number]: Ice Cream Dispenser/Techni betty ID = [id number] for Hailee Barr POCT-GLUCOSE [id number] 17:45:39 Test Item Value Reference Range Interpretation Comments POC-GLUCOSE METER 124 mg/dL 70-110 H : TESTED A T [facility] 6720 (BEAKER) (test code = [facility], 1538) 39239: Ice Cream Dispenser/Techni betty ID = [id number] for Dayan Rosas POCT-GLUCOSE [id number] 12:27:03 Test Item Value Reference Range Interpretation Comments POC-GLUCOSE METER 160 mg/dL 70-110 H : TESTED A T [facility] 6720 (BEAKER) (test code = [facility], 1538) 41572: Ice Cream Dispenser/Techni betty ID = [id number] for Dayan Rosas POCT-GLUCOSE [id number] 06:19:24 Test Item Value Reference Range Interpretation Comments POC-GLUCOSE METER 104 mg/dL 70-110 : TESTED A T [facility] 6720 (BEAKER) (test code = [facility] [place], 1538) [address]: Ice Cream Dispenser/Techni betty ID = [id number] for Hailee Guan COMPREHENSIVE METABOLIC [id number] 05:33:06 Test Item Value Reference Range Interpretation Comments TOTAL PROTEIN 6.9 gm/dL 6.0-8.3 (BEAKER) (test code = 770) ALBUMIN (BEAKER) 2.5 g/dL 3.5-5.0 L (test code = 1145) ALKALINE 580 U/L 40-150 H PHOSPHATASE (BEAKER) (test code = 346) BILIRUBIN TOTAL 0.9 mg/dL 0.2-1.2 (BEAKER) (test code = 377) SODIUM (BEAKER) 139 meq/L 136-145 (test code = 381) POTASSIUM (BEAKER) 3.4 meq/L 3.5-5.1 L (test code = 379) CHLORIDE (BEAKER) 107 meq/L 98-107 (test code = 382) CO2 (BEAKER) (test 24 meq/L 22-29 code = 355) BLOOD UREA 24 mg/dL 7-21 H NITROGEN (BEAKER) (test code = 354) CREATININE 0.71 mg/dL 0.57-1.25 (BEAKER) (test code = 358) GLUCOSE RANDOM 107 mg/dL 70-105 H (BEAKER) (test code = 652) CALCIUM (BEAKER) 7.9 mg/dL 8.4-10.2 L (test code = 697) AST (SGOT) 137 U/L 5-34 H (BEAKER) (test code = 353) ALT (SGPT) 148 U/L 6-55 H (BEAKER) (test code = 347) EGFR (BEAKER) 98 Interpretatio n of eGFR (test code = 1092) mL/min/1.[address] age Description sq m Result G1 Stephanie l or high >=90 G2 Mildly decreased 60-89 G3a Mildl y to moderately 45-5 9 G3b Moderately to s everely 30-44 G4 Severl y decreased 15-29 G5 Kidne y failure <15Reported eGF R is based on the CKD-EPI 2020 equation that d oes not use a race coefficientEsti mated GFR is not as accur ate as Creatinine Jess charlene in predicting glom erular filtration rate . Estimated GFR is not appl icable for dialysis patien ts Ice Cream Dispenser ID - ADMINCBC W/PLT COUNT & AUTO [id number] 04:42:20 Test Item Value Reference Range Interpretation Comments WHITE BLOOD CELL COUNT (BEAKER) 12.9 K/ L 3.5-10.5 H (test code = 775) RED BLOOD CELL COUNT (BEAKER) 4.05 M/ L 3.93-5.22 (test code = 761) HEMOGLOBIN (BEAKER) (test code = 12.0 GM/DL 11.2-15.7 410) HEMATOCRIT (BEAKER) (test code = 37.1 % 34.1-44.9 411) MEAN CORPUSCULAR VOLUME (BEAKER) 92 fL 79-95 (test code = 753) MEAN CORPUSCULAR HEMOGLOBIN 29.6 pg 25.6-32.2 (BEAKER) (test code = 751) MEAN CORPUSCULAR HEMOGLOBIN CONC 32.3 GM/DL 32.2-35.5 (BEAKER) (test code = 752) RED CELL DISTRIBUTION WIDTH 14.3 % 11.7-14.4 (BEAKER) (test code = 412) PLATELET COUNT (BEAKER) (test 154 K/CU MM 150-450 code = 756) MEAN PLATELET VOLUME (BEAKER) 12.9 fL 9.4-12.3 H (test code = 754) NUCLEATED RED BLOOD CELLS 0 /100 WBC 0-0 (BEAKER) (test code = 413) NEUTROPHILS RELATIVE PERCENT 69 % (BEAKER) (test code = 429) LYMPHOCYTES RELATIVE PERCENT 17 % (BEAKER) (test code = 430) MONOCYTES RELATIVE PERCENT 7 % (BEAKER) (test code = 431) EOSINOPHILS RELATIVE PERCENT 4 % (BEAKER) (test code = 432) BASOPHILS RELATIVE PERCENT 0 % (BEAKER) (test code = 437) NEUTROPHILS ABSOLUTE COUNT 8.94 K/ L 1.56-6.13 H (BEAKER) (test code = 670) LYMPHOCYTES ABSOLUTE COUNT 2.23 K/ L 1.18-3.74 (BEAKER) (test code = 414) MONOCYTES ABSOLUTE COUNT (BEAKER) 0.91 K/ L 0.24-0.36 H (test code = 415) EOSINOPHILS ABSOLUTE COUNT 0.47 K/ L 0.04-0.36 H (BEAKER) (test code = 416) BASOPHILS ABSOLUTE COUNT (BEAKER) 0.04 K/ L 0.01-0.08 (test code = 417) IMMATURE GRANULOCYTES-RELATIVE 2.40 % 0.00-1.00 H PERCENT (BEAKER) (test code = 2801) POCT-GLUCOSE [id number] 00:09:25 Test Item Value Reference Range Interpretation Comments POC-GLUCOSE METER 83 mg/dL 70-110 : TESTED A T [facility] 6720 ([facility]) (test code = [facility] ? [facility]) [id number]: Ice Cream Dispenser/Techni betty ID = [id number] for Hailee Kulkarni ra [id number] 22:29:26 Test Item Value Reference Range Interpretation Comments PARTIAL THROMBOPLASTIN TIME 93.4 seconds 22.5-36.0 H (BEAKER) (test code = 760) POCT-GLUCOSE [id number] 18:10:09 Test Item Value Reference Range Interpretation Comments POC-GLUCOSE METER 109 mg/dL 70-110 : TESTED A T [facility] 6720 ([facility]) (test code = [facility] ? [facility], [facility]) [id number]: Ice Cream Dispenser/Techni betty ID = [id number] for Rosie Dorado [id number] 15:45:33 Test Item Value Reference Range Interpretation Comments PARTIAL THROMBOPLASTIN TIME 74.9 seconds 22.5-36.0 H (BEAKER) (test code = 760) POCT-GLUCOSE [id number] 12:29:02 Test Item Value Reference Range Interpretation Comments POC-GLUCOSE METER 177 mg/dL 70-110 H : TESTED A T [facility] 6720 (BEAKER) (test code = [facility] ? [facility], 153) [address]: Ice Cream Dispenser/Techni betty ID = [id number] for Dayan Rosas [id number] 08:18:20 Test Item Value Reference Range Interpretation Comments PARTIAL THROMBOPLASTIN TIME 50.8 seconds 22.5-36.0 H (BEAKER) (test code = 760) POCT-GLUCOSE [id number] 06:52:45 Test Item Value Reference Range Interpretation Comments POC-GLUCOSE METER 191 mg/dL 70-110 H : TESTED A T [facility] 6720 (BEAKER) (test code = [facility] [place], 1538) [address]: Ice Cream Dispenser/Techni betty ID = [id number] for Hailee Guan COMPREHENSIVE METABOLIC [id number] 05:11:08 Test Item Value Reference Range Interpretation Comments TOTAL PROTEIN 6.5 gm/dL 6.0-8.3 (BEAKER) (test code = 770) ALBUMIN (BEAKER) 2.4 g/dL 3.5-5.0 L (test code = 1145) ALKALINE 561 U/L 40-150 H PHOSPHATASE (BEAKER) (test code = 346) BILIRUBIN TOTAL 0.9 mg/dL 0.2-1.2 (BEAKER) (test code = 377) SODIUM (BEAKER) 145 meq/L 136-145 (test code = 381) POTASSIUM (BEAKER) 3.5 meq/L 3.5-5.1 (test code = 379) CHLORIDE (BEAKER) 114 meq/L 98-107 H (test code = 382) CO2 (BEAKER) (test 22 meq/L 22-29 code = 355) BLOOD UREA 33 mg/dL 7-21 H NITROGEN (BEAKER) (test code = 354) CREATININE 0.76 mg/dL 0.57-1.25 (BEAKER) (test code = 358) GLUCOSE RANDOM 194 mg/dL 70-105 H (BEAKER) (test code = 652) CALCIUM (BEAKER) 7.7 mg/dL 8.4-10.2 L (test code = 697) AST (SGOT) 140 U/L 5-34 H (BEAKER) (test code = 353) ALT (SGPT) 163 U/L 6-55 H (BEAKER) (test code = 347) EGFR (BEAKER) 91 Interpretatio n of eGFR (test code = 1092) mL/min/1.[address] age Description sq m Result G1 Stephanie l or high >=90 G2 Mildly decreased 60-89 G3a Mildl y to moderately 45-5 9 G3b Moderately to s everely 30-44 G4 Severl y decreased 15-29 G5 Kidney failure <15Reported eGF R is based on the CKD-EPI 2020 equation that d oes not use a race coefficientEsti mated GFR is not as accur ate as Creatinine Jess charlene in predicting glom erular filtration rate . Estimated GFR is not appl icable for dialysis patien ts Ice Cream Dispenser ID - ADMINCBC W/PLT COUNT & AUTO [id number] 04:42:36 Test Item Value Reference Range Interpretation Comments WHITE BLOOD CELL COUNT (BEAKER) 13.1 K/ L 3.5-10.5 H (test code = 775) RED BLOOD CELL COUNT (BEAKER) 3.89 M/ L 3.93-5.22 L (test code = 761) HEMOGLOBIN (BEAKER) (test code = 11.9 GM/DL 11.2-15.7 410) HEMATOCRIT (BEAKER) (test code = 35.9 % 34.1-44.9 411) MEAN CORPUSCULAR VOLUME (BEAKER) 92 fL 79-95 (test code = 753) MEAN CORPUSCULAR HEMOGLOBIN 30.6 pg 25.6-32.2 (BEAKER) (test code = 751) MEAN CORPUSCULAR HEMOGLOBIN CONC 33.1 GM/DL 32.2-35.5 (BEAKER) (test code = 752) RED CELL DISTRIBUTION WIDTH 14.6 % 11.7-14.4 H (BEAKER) (test code = 412) PLATELET COUNT (BEAKER) (test 134 K/CU MM 150-450 L code = 756) MEAN PLATELET VOLUME (BEAKER) 13.2 fL 9.4-12.3 H (test code = 754) NUCLEATED RED BLOOD CELLS 0 /100 WBC 0-0 (BEAKER) (test code = 413) NEUTROPHILS RELATIVE PERCENT 73 % (BEAKER) (test code = 429) LYMPHOCYTES RELATIVE PERCENT 16 % (BEAKER) (test code = 430) MONOCYTES RELATIVE PERCENT 8 % (BEAKER) (test code = 431) EOSINOPHILS RELATIVE PERCENT 2 % (BEAKER) (test code = 432) BASOPHILS RELATIVE PERCENT 0 % (BEAKER) (test code = 437) NEUTROPHILS ABSOLUTE COUNT 9.57 K/ L 1.56-6.13 H (BEAKER) (test code = 670) LYMPHOCYTES ABSOLUTE COUNT 2.04 K/ L 1.18-3.74 (BEAKER) (test code = 414) MONOCYTES ABSOLUTE COUNT (BEAKER) 1.00 K/ L 0.24-0.36 H (test code = 415) EOSINOPHILS ABSOLUTE COUNT 0.23 K/ L 0.04-0.36 (BEAKER) (test code = 416) BASOPHILS ABSOLUTE COUNT (BEAKER) 0.02 K/ L 0.01-0.08 (test code = 417) IMMATURE GRANULOCYTES-RELATIVE 1.80 % 0.00-1.00 H PERCENT (BEAKER) (test code = 2801) POCT-GLUCOSE [id number] 01:27:31 Test Item Value Reference Range Interpretation Comments POC-GLUCOSE METER 182 mg/dL 70-110 H : TESTED A T [facility] 6720 (BEAKER) (test code = [facility], 1538) [address]83[address]: Ice Cream Dispenser/Techni betty ID = [id number] for SACHA WEST [id number] 22:45:48 Test Item Value Reference Range Interpretation Comments PARTIAL THROMBOPLASTIN TIME 69.4 seconds 22.5-36.0 H (BEAKER) (test code = 760) POCT-GLUCOSE [id number] 18:51:05 Test Item Value Reference Range Interpretation Comments POC-GLUCOSE METER 174 mg/dL 70-110 H : TESTED A T [facility] 6720 (BEAKER) (test code = [facility] ? [facility], 1538) [address]78: Ice Cream Dispenser/Techni betty ID = [id number] for Roxanna Shepherd [id number] 16:38:38 Test Item Value Reference Range Interpretation Comments PARTIAL THROMBOPLASTIN TIME 66.6 seconds 22.5-36.0 H (BEAKER) (test code = 760) CBC (HEMOGRAM ONLY)2023-02-09 16:13:51 Test Item Value Reference Range Interpretation Comments WHITE BLOOD CELL COUNT (BEAKER) 13.6 K/ L 3.5-10.5 H (test code = 775) RED BLOOD CELL COUNT (BEAKER) 3.97 M/ L 3.93-5.22 (test code = 761) HEMOGLOBIN (BEAKER) (test code = 12.0 GM/DL 11.2-15.7 410) HEMATOCRIT (BEAKER) (test code = 36.3 % 34.1-44.9 411) MEAN CORPUSCULAR VOLUME (BEAKER) 91 fL 79-95 (test code = 753) MEAN CORPUSCULAR HEMOGLOBIN 30.2 pg 25.6-32.2 (BEAKER) (test code = 751) MEAN CORPUSCULAR HEMOGLOBIN CONC 33.1 GM/DL 32.2-35.5 (BEAKER) (test code = 752) RED CELL DISTRIBUTION WIDTH 14.3 % 11.7-14.4 (BEAKER) (test code = 412) PLATELET COUNT (BEAKER) (test 177 K/CU MM 150-450 code = 756) MEAN PLATELET VOLUME (BEAKER) 13.1 fL 9.4-12.3 H (test code = 754) NUCLEATED RED BLOOD CELLS 0 /100 WBC 0-0 (BEAKER) (test code = 413) POCT-GLUCOSE [id number] 13:24:38 Test Item Value Reference Range Interpretation Comments POC-GLUCOSE METER 232 mg/dL 70-110 H : TESTED A T [facility] 6720 (BEAKER) (test code = [facility] ? [facility], 1538) [address]: Ice Cream Dispenser/Techni betty ID = [id number] for Roxanna Shepherd [id number] 07:48:20 Test Item Value Reference Range Interpretation Comments PARTIAL THROMBOPLASTIN TIME 72.0 seconds 22.5-36.0 H (BEAKER) (test code = 760) POCT-GLUCOSE [id number] 06:13:40 Test Item Value Reference Range Interpretation Comments POC-GLUCOSE METER 218 mg/dL 70-110 H : TESTED A T [facility] 6720 (BEAKER) (test code = [facility] ? [facility], 1538) [address]: Ice Cream Dispenser/Techni betty ID = [id number] for Mckenna Lira ra COMPREHENSIVE METABOLIC [id number] 05:11:50 Test Item Value Reference Range Interpretation Comments TOTAL PROTEIN 7.0 gm/dL 6.0-8.3 (BEAKER) (test code = 770) ALBUMIN (BEAKER) 2.7 g/dL 3.5-5.0 L (test code = 1145) ALKALINE 633 U/L 40-150 H PHOSPHATASE (BEAKER) (test code = 346) BILIRUBIN TOTAL 1.0 mg/dL 0.2-1.2 (BEAKER) (test code = 377) SODIUM (BEAKER) 145 meq/L 136-145 (test code = 381) POTASSIUM (BEAKER) 3.6 meq/L 3.5-5.1 (test code = 379) CHLORIDE (BEAKER) 116 meq/L 98-107 H (test code = 382) CO2 (BEAKER) (test 20 meq/L 22-29 L code = 355) BLOOD UREA 47 mg/dL 7-21 H NITROGEN (BEAKER) (test code = 354) CREATININE 1.02 mg/dL 0.57-1.25 (BEAKER) (test code = 358) GLUCOSE RANDOM 231 mg/dL 70-105 H (BEAKER) (test code = 652) CALCIUM (BEAKER) 8.0 mg/dL 8.4-10.2 L (test code = 697) AST (SGOT) 183 U/L 5-34 H (BEAKER) (test code = 353) ALT (SGPT) 214 U/L 6-55 H (BEAKER) (test code = 347) EGFR (BEAKER) 64 Interpretatio n of eGFR (test code = 1092) mL/min/1.[address] age Description sq m Result G1 Stephanie l or high >=90 G2 Mildly decreased 60-89 G3a Mildl y to moderately 45-5 9 G3b Moderately to s everely 30-44 G4 Severl y decreased 15-29 G5 Kidney failure <15Reported eGF R is based on the CKD-EPI 2021 equation that d oes not use a race coefficientEsti mated GFR is not as accur ate as Creatinine Jess charlene in predicting glom erular filtration rate . Estimated GFR is not appl icable for dialysis patien ts Ice Cream Dispenser ID - ADMINCBC W/PLT COUNT & AUTO [id number] 03:39:29 Test Item Value Reference Range Interpretation Comments WHITE BLOOD CELL COUNT (BEAKER) 13.7 K/ L 3.5-10.5 H (test code = 775) RED BLOOD CELL COUNT (BEAKER) 4.15 M/ L 3.93-5.22 (test code = 761) HEMOGLOBIN (BEAKER) (test code = 12.3 GM/DL 11.2-15.7 410) HEMATOCRIT (BEAKER) (test code = 38.3 % 34.1-44.9 411) MEAN CORPUSCULAR VOLUME (BEAKER) 92 fL 79-95 (test code = 753) MEAN CORPUSCULAR HEMOGLOBIN 29.6 pg 25.6-32.2 (BEAKER) (test code = 751) MEAN CORPUSCULAR HEMOGLOBIN CONC 32.1 GM/DL 32.2-35.5 L (BEAKER) (test code = 752) RED CELL DISTRIBUTION WIDTH 14.4 % 11.7-14.4 (BEAKER) (test code = 412) PLATELET COUNT (BEAKER) (test 173 K/CU MM 150-450 code = 756) MEAN PLATELET VOLUME (BEAKER) 13.1 fL 9.4-12.3 H (test code = 754) NUCLEATED RED BLOOD CELLS 0 /100 WBC 0-0 (BEAKER) (test code = 413) NEUTROPHILS RELATIVE PERCENT 75 % (BEAKER) (test code = 429) LYMPHOCYTES RELATIVE PERCENT 12 % (BEAKER) (test code = 430) MONOCYTES RELATIVE PERCENT 10 % (BEAKER) (test code = 431) EOSINOPHILS RELATIVE PERCENT 1 % (BEAKER) (test code = 432) BASOPHILS RELATIVE PERCENT 0 % (BEAKER) (test code = 437) NEUTROPHILS ABSOLUTE COUNT 10.28 K/ L 1.56-6.13 H (BEAKER) (test code = 670) LYMPHOCYTES ABSOLUTE COUNT 1.62 K/ L 1.18-3.74 (BEAKER) (test code = 414) MONOCYTES ABSOLUTE COUNT (BEAKER) 1.34 K/ L 0.24-0.36 H (test code = 415) EOSINOPHILS ABSOLUTE COUNT 0.09 K/ L 0.04-0.36 (BEAKER) (test code = 416) BASOPHILS ABSOLUTE COUNT (BEAKER) 0.03 K/ L 0.01-0.08 (test code = 417) IMMATURE GRANULOCYTES-RELATIVE 2.50 % 0.00-1.00 H PERCENT (BEAKER) (test code = 2801) POCT-GLUCOSE [id number] 00:40:41 Test Item Value Reference Range Interpretation Comments POC-GLUCOSE METER 206 mg/dL 70-110 H : TESTED A T [facility] 6720 (BEAKER) (test code = [facility] [place], 1538) [address]: Ice Cream Dispenser/Techni betty ID = [id number] for Mckenna Lira ra BASIC METABOLIC [id number] 22:14:13 Test Item Value Reference Range Interpretation Comments SODIUM (BEAKER) 149 meq/L 136-145 H (test code = 381) POTASSIUM 4.1 meq/L 3.5-5.1 (BEAKER) (test code = 379) CHLORIDE (BEAKER) 118 meq/L 98-107 H (test code = 382) CO2 (BEAKER) 22 meq/L 22-29 (test code = 355) BLOOD UREA 55 mg/dL 7-21 H NITROGEN (BEAKER) (test code = 354) CREATININE 1.13 mg/dL 0.57-1.25 (BEAKER) (test code = 358) GLUCOSE RANDOM 199 mg/dL 70-105 H (BEAKER) (test code = 652) CALCIUM (BEAKER) 8.2 mg/dL 8.4-10.2 L (test code = 697) EGFR (BEAKER) 56 Interpretati on of eGFR (test code = mL/min/1.73 values Stage De scription 1092) sq m Result G1 Stephanie l or high >=90 G2 Mildly decreased 60-89 G3a Mildl y to moderately 45-5 9 G3b Moderately to s everely 30-44 G4 Severl y decreased 15-29 G5 Kidney failure <15Reported eGF R is based on the CKD-EPI 2020 equation that d oes not use a race coefficientEsti mated GFR is not as accur ate as Creatinine Jess chang in predicting glom erular filtration rate . Estimated GFR is not appl icable for dialysis patien ts [employer] ID - ADMINPOCT-GLUCOSE [id number] 17:43:25 Test Item Value Reference Range Interpretation Comments POC-GLUCOSE METER 162 mg/dL 70-110 H : TESTED A T [facility] 6720 (BEAKER) (test code = [facility], 1538) [address]: [employer] Dispenser/Techni betty ID = [id number] for Roxanna Shepherd MRSA [id number] 15:53:37 Test Item Value Reference Range Interpretation Comments Result (test code = 6463-4) No MRSA isolated [facility] [id number] 15:53:37 Test Item Value Reference Range Interpretation Comments CULTURE (BEAKER) (test code No MRSA isolated = 1095) Urine [id number] 14:41:57 Test Item Value Reference Range Interpretation Comments Result (test code = No growth 6463-4) ZOILA (test code = If your patient does not ZOILA) have signs or symptoms of UTI, it is recommended NOT to treat, with the exception of and prior to urologic procedures. [facility] [id number] 12:56:10 Test Item Value Reference Range Interpretation Comments SODIUM (BEAKER) 151 meq/L 136-145 H (test code = 381) POTASSIUM 3.2 meq/L 3.5-5.1 L (BEAKER) (test code = 379) CHLORIDE (BEAKER) 121 meq/L 98-107 H (test code = 382) CO2 (BEAKER) 20 meq/L 22-29 L (test code = 355) BLOOD UREA 61 mg/dL 7-21 H NITROGEN (BEAKER) (test code = 354) CREATININE 1.27 mg/dL 0.57-1.25 H (BEAKER) (test code = 358) GLUCOSE RANDOM 264 mg/dL 70-105 H (BEAKER) (test code = 652) CALCIUM (BEAKER) 8.6 mg/dL 8.4-10.2 (test code = 697) EGFR (BEAKER) 49 Interpretatio n of eGFR (test code = mL/min/1.73 values Stage De scription 1092) sq m Result G1 Stephanie l or high >=90 G2 Mildly decreased 60-89 G3a Mildl y to moderately 45-5 9 G3b Moderately to s everely 30-44 G4 Severl y decreased 15-29 G5 Kidney failure <15Reported eGF R is based on the CKD-EPI 2021 equation that d oes not use a race coefficientEsti mated GFR is not as accur ate as Creatinine Jess chang in predicting glom erular filtration rate . Estimated GFR is not appl icable for dialysis patien ts [employer] Disp[employer]er ID - mmBLOOD [id number] 12:42:02 Test Item Value Reference Range Interpretation Comments CULTURE A From Aerobic An d (BEAKER) (test Anaerobic Bot tles Same code = 1095) organism has be en isolated from cultures(s) of the same body site and collection date . Repeat identifi cation and susceptibil ity testing perform ed only after consultat ion with the [facility].Refe r to previous cultur e ofKlebsiella pneumoniae GRAM STAIN From aerobic and RESULT (BEAKER) anaerobic (test code = bottles: gram 1123) negative rods BLOOD [id number] 12:41:16 Test Item Value Reference Range Interpretation Comments CULTURE (BEAKER) (test KLEBSIELLA A From Aerobic And code = 1095) PNEUMONIAE Anaerobic Bottles Klebsiella pneumoniae Amikacin (test code = S 1) Ampicillin + Sulbactam S (test code = 6) Aztreonam (test code = S 32) Cefepime (test code = S 51) Cefoxitin (test code = S 68) Ceftazidime (test code S = 27) Ceftriaxone (test code S = 52) Ertapenem (test code = S 38) Gentamicin (test code = S 18) Levofloxacin (test code S = 22) Meropenem (test code = S 34) Nitrofurantoin (test S code = 23) Piperacillin + S Tazobactam (test code = 29) Tetracycline (test code S = 2) Tobramycin (test code = S 25) Trimethoprim + S Sulfamethoxazole (test code = 47) GRAM STAIN RESULT From aerobic and (BEAKER) (test code = anaerobic 1123) bottles: gram negative rods POCT-GLUCOSE [id number] 12:40:01 Test Item Value Reference Range Interpretation Comments POC-GLUCOSE METER 251 mg/dL 70-110 H : TESTED A T [facility] 6720 (BEAKER) (test code = [place], 1538) [address]: Ice Cream Dispenser/Techni betty ID = [id number] for Roxanna Shepherd [id number] 09:04:34 Test Item Value Reference Range Interpretation Comments PARTIAL THROMBOPLASTIN TIME 88.9 seconds 22.5-36.0 H (BEAKER) (test code = 760) PROTHROMBIN TIME/[id number] 09:02:31 Test Item Value Reference Range Interpretation Comments PROTIME (BEAKER) (test code = 17.8 seconds 11.9-14.2 H 759) INR (BEAKER) (test code = 370) 1.56 <=5.90 RECOMMENDED COUMADIN/WARFARIN INR THERAPY RANGESSTANDARD DOSE: 2.0 - 3.0 Includes: PROPHYLAXIS for venous thrombosis, systemic embolization; TREATMENT for venous thrombosis and/or pulmonary embolus.HIGH RISK: Target INR is 2.5-3.5 for patients with mechanical heart valves.CBC W/PLT COUNT & AUTO [id number] 09:00:08 Test Item Value Reference Range Interpretation Comments WHITE BLOOD CELL COUNT (BEAKER) 15.3 K/ L 3.5-10.5 H (test code = 775) RED BLOOD CELL COUNT (BEAKER) 4.15 M/ L 3.93-5.22 (test code = 761) HEMOGLOBIN (BEAKER) (test code = 12.6 GM/DL 11.2-15.7 410) HEMATOCRIT (BEAKER) (test code = 38.9 % 34.1-44.9 411) MEAN CORPUSCULAR VOLUME (BEAKER) 94 fL 79-95 (test code = 753) MEAN CORPUSCULAR HEMOGLOBIN 30.4 pg 25.6-32.2 (BEAKER) (test code = 751) MEAN CORPUSCULAR HEMOGLOBIN CONC 32.4 GM/DL 32.2-35.5 (BEAKER) (test code = 752) RED CELL DISTRIBUTION WIDTH 14.5 % 11.7-14.4 H (BEAKER) (test code = 412) PLATELET COUNT (BEAKER) (test 187 K/CU MM 150-450 code = 756) MEAN PLATELET VOLUME (BEAKER) 13.3 fL 9.4-12.3 H (test code = 754) NUCLEATED RED BLOOD CELLS 0 /100 WBC 0-0 (BEAKER) (test code = 413) NEUTROPHILS RELATIVE PERCENT 89 % (BEAKER) (test code = 429) LYMPHOCYTES RELATIVE PERCENT 5 % (BEAKER) (test code = 430) MONOCYTES RELATIVE PERCENT 4 % (BEAKER) (test code = 431) EOSINOPHILS RELATIVE PERCENT 0 % (BEAKER) (test code = 432) BASOPHILS RELATIVE PERCENT 0 % (BEAKER) (test code = 437) NEUTROPHILS ABSOLUTE COUNT 13.54 K/ L 1.56-6.13 H (BEAKER) (test code = 670) LYMPHOCYTES ABSOLUTE COUNT 0.76 K/ L 1.18-3.74 L (BEAKER) (test code = 414) MONOCYTES ABSOLUTE COUNT (BEAKER) 0.67 K/ L 0.24-0.36 H (test code = 415) EOSINOPHILS ABSOLUTE COUNT 0.00 K/ L 0.04-0.36 L (BEAKER) (test code = 416) BASOPHILS ABSOLUTE COUNT (BEAKER) 0.03 K/ L 0.01-0.08 (test code = 417) IMMATURE GRANULOCYTES-RELATIVE 1.80 % 0.00-1.00 H PERCENT (BEAKER) (test code = 2801) POCT-GLUCOSE [id number] 06:38:27 Test Item Value Reference Range Interpretation Comments POC-GLUCOSE METER 111 mg/dL 70-110 H : TESTED A T [facility] [address] (BEAKER) (test code = [place], [address]) [address]: Ice Cream Dispenser/Techni betty ID = [id number] for CARMELA PANG CALCIUM, [id number] 04:27:44 Test Item Value Reference Range Interpretation Comments CALCIUM IONIZED (BEAKER) (test 1.11 mmol/L 1.12-1.27 L code = 698) PH, BLOOD (BEAKER) (test code = 7.45 1810) COMPREHENSIVE METABOLIC [id number] 04:10:11 Test Item Value Reference Range Interpretation Comments TOTAL PROTEIN 7.1 gm/dL 6.0-8.3 (BEAKER) (test code = 770) ALBUMIN (BEAKER) 2.8 g/dL 3.5-5.0 L (test code = 1145) ALKALINE 654 U/L 40-150 H PHOSPHATASE (BEAKER) (test code = 346) BILIRUBIN TOTAL 1.3 mg/dL 0.2-1.2 H (BEAKER) (test code = 377) SODIUM (BEAKER) 151 meq/L 136-145 H (test code = 381) POTASSIUM (BEAKER) 3.1 meq/L 3.5-5.1 L (test code = 379) CHLORIDE (BEAKER) 121 meq/L 98-107 H (test code = 382) CO2 (BEAKER) (test 17 meq/L 22-29 L code = 355) BLOOD UREA 79 mg/dL 7-21 H NITROGEN (BEAKER) (test code = 354) CREATININE 1.59 mg/dL 0.57-1.25 H (BEAKER) (test code = 358) GLUCOSE RANDOM 228 mg/dL 70-105 H (BEAKER) (test code = 652) CALCIUM (BEAKER) 8.2 mg/dL 8.4-10.2 L (test code = 697) AST (SGOT) 275 U/L 5-34 H (BEAKER) (test code = 353) ALT (SGPT) 281 U/L 6-55 H (BEAKER) (test code = 347) EGFR (BEAKER) 37 Interpretatio n of eGFR (test code = 1092) mL/min/1.[address] age Description sq m Result G1 Stephanie l or high >=90 G2 Mildly decreased 60-89 G3a Mildl y to moderately 45-5 9 G3b Moderately to s everely 30-44 G4 Severl y decreased 15-29 G5 Kidney failure <15Reported eGF R is based on the CKD-EPI 2020 equation that d oes not use a race coefficientEsti mated GFR is not as accur ate as Creatinine Jess charlene in predicting glom erular filtration rate . Estimated GFR is not appl icable for dialysis patien ts Ice Cream Dispenser ID - [id number] 04:05:47 Test Item Value Reference Range Interpretation Comments MAGNESIUM (BEAKER) (test code = 3.4 mg/dL 1.6-2.6 H 627) Ice Cream Dispenser ID - [id number] 04:05:47 Test Item Value Reference Range Interpretation Comments PHOSPHORUS (BEAKER) (test code = 2.7 mg/dL 2.3-4.7 604) Ice Cream Dispenser ID - [id number] 03:31:04 Test Item Value Reference Range Interpretation Comments PARTIAL THROMBOPLASTIN TIME 88.3 seconds 22.5-36.0 H (BEAKER) (test code = 760) Prepare [id number] 23:55:00 Test Item Value Reference Range Interpretation Comments Unit ABO (test code = 0387493) A Pos UNIT NUMBER (test code = [id number] 934-0) Status (test code = 5469488) TX_TIMEINCHART Blood Bank Product (test code FFP = 2263) PRODUCT CODE (test code = C6263S95 933-2) [facility] [id number] 23:42:26 Test Item Value Reference Range Interpretation Comments POC-GLUCOSE METER 193 mg/dL 70-110 H : TESTED A T [facility] [address] (BEAKER) (test code = [place], [address]) [address]: Ice Cream Dispenser/Techni betty ID = [id number] for VITALY HAIRSTON CIA [id number] 20:28:28 Test Item Value Reference Range Interpretation Comments PARTIAL THROMBOPLASTIN TIME 92.4 seconds 22.5-36.0 H (BEAKER) (test code = 760) [id number] 19:06:44 Test Item Value Reference Range Interpretation Comments PARTIAL THROMBOPLASTIN TIME 117.9 seconds 22.5-36.0 H (BEAKER) (test code = 760) CBC W/PLT COUNT & AUTO [id number] 19:02:47 Test Item Value Reference Range Interpretation Comments WHITE BLOOD CELL COUNT (BEAKER) 19.4 K/ L 3.5-10.5 H (test code = 775) RED BLOOD CELL COUNT (BEAKER) 4.06 M/ L 3.93-5.22 (test code = 761) HEMOGLOBIN (BEAKER) (test code = 12.3 GM/DL 11.2-15.7 410) HEMATOCRIT (BEAKER) (test code = 38.1 % 34.1-44.9 411) MEAN CORPUSCULAR VOLUME (BEAKER) 94 fL 79-95 (test code = 753) MEAN CORPUSCULAR HEMOGLOBIN 30.3 pg 25.6-32.2 (BEAKER) (test code = 751) MEAN CORPUSCULAR HEMOGLOBIN CONC 32.3 GM/DL 32.2-35.5 (BEAKER) (test code = 752) RED CELL DISTRIBUTION WIDTH 14.2 % 11.7-14.4 (BEAKER) (test code = 412) PLATELET COUNT (BEAKER) (test 195 K/CU MM 150-450 code = 756) MEAN PLATELET VOLUME (BEAKER) 13.5 fL 9.4-12.3 H (test code = 754) NUCLEATED RED BLOOD CELLS 0 /100 WBC 0-0 (BEAKER) (test code = 413) NEUTROPHILS RELATIVE PERCENT 89 % (BEAKER) (test code = 429) LYMPHOCYTES RELATIVE PERCENT 5 % (BEAKER) (test code = 430) MONOCYTES RELATIVE PERCENT 4 % (BEAKER) (test code = 431) EOSINOPHILS RELATIVE PERCENT 1 % (BEAKER) (test code = 432) BASOPHILS RELATIVE PERCENT 0 % (BEAKER) (test code = 437) NEUTROPHILS ABSOLUTE COUNT 17.16 K/ L 1.56-6.13 H (BEAKER) (test code = 670) LYMPHOCYTES ABSOLUTE COUNT 0.99 K/ L 1.18-3.74 L (BEAKER) (test code = 414) MONOCYTES ABSOLUTE COUNT (BEAKER) 0.84 K/ L 0.24-0.36 H (test code = 415) EOSINOPHILS ABSOLUTE COUNT 0.15 K/ L 0.04-0.36 (BEAKER) (test code = 416) BASOPHILS ABSOLUTE COUNT (BEAKER) 0.04 K/ L 0.01-0.08 (test code = 417) IMMATURE GRANULOCYTES-RELATIVE 1.00 % 0.00-1.00 PERCENT (BEAKER) (test code = 2801) POCT-GLUCOSE [id number] 18:48:14 Test Item Value Reference Range Interpretation Comments POC-GLUCOSE METER 205 mg/dL 70-110 H : TESTED A T [facility] [address] (BEAKER) (test code = [place], [address]) [address]: Ice Cream Dispenser/Techni betty ID = [id number] for Ug Roxanna wu Creatinine, random [id number] 14:38:11 Test Item Value Reference Range Interpretation Comments Creatinine, Ur 50.4 mg/dL (test code = 2161-8) ZOILA (test code = Reference Range: No ZOILA) NormalsOperator ID - ADMIN [facility] [id number] 14:38:11 Test Item Value Reference Range Interpretation Comments Sodium Urine (test 30 meq/L code = 2955-3) ZOILA (test code = Reference Range: No ZOILA) NormalsOperator ID - ADMIN [facility] RANDOM [id number] 14:38:11 Test Item Value Reference Range Interpretation Comments CREATININE URINE (BEAKER) (test 50.4 mg/dL code = 375) Reference Range: No NormalsOperator ID - ADMINSODIUM, RANDOM [id number] 14:38:11 Test Item Value Reference Range Interpretation Comments SODIUM URINE (BEAKER) (test code = 30 meq/L 243) Reference Range: No NormalsOperator ID - [id number] 13:17:11 Test Item Value Reference Range Interpretation Comments PARTIAL THROMBOPLASTIN TIME 95.5 seconds 22.5-36.0 H (BEAKER) (test code = 760) [id number] 12:19:34 Test Item Value Reference Range Interpretation Comments PARTIAL THROMBOPLASTIN TIME 121.4 seconds 22.5-36.0 H (BEAKER) (test code = 760) POCT-GLUCOSE [id number] 12:08:35 Test Item Value Reference Range Interpretation Comments POC-GLUCOSE METER 150 mg/dL 70-110 H : TESTED A T [facility] [address] (BEAKER) (test code = [place], [address]38) [address]: Ice Cream Dispenser/Techni betty ID = [id number] for EUFEMIA THOMAS HIGH SENSITIVITY TROPONIN [id number] 12:07:47 Test Item Value Reference Range Interpretation Comments HIGH SENSITIVITY TROPONIN I (test 82 pg/ml <=17 H code = 2192237) Ice Cream Dispenser ID - Tennille [employer] TEAM MEMBER STAT High Sensitivity Troponin-I results should be used in conjunction with other diagnostic information such as ECG, clinical observations and information, and patientsymptoms to aid in the diagnosis of [place]. [id number] 10:22:13 Test Item Value Reference Range Interpretation Comments PARTIAL THROMBOPLASTIN TIME 148.8 seconds 22.5-36.0 H (BEAKER) (test code = 760) (CELLAVISION MANUAL DIFF)2023-02-07 10:13:29 Test Item Value Reference Range Interpretation Comments NEUTROPHILS - REL 92 % (CELLAVISION)(BEAKER) (test code = 2816) LYMPHOCYTES - REL 6 % (CELLAVISION)(BEAKER) (test code = 2817) MONOCYTES - REL 2 % (CELLAVISION)(BEAKER) (test code = 2818) NEUTROPHILS - ABS 18.49 K/ul 1.56-6.13 H (CELLAVISION)(BEAKER) (test code = 2830) LYMPHOCYTES - ABS 1.21 K/ul 1.18-3.74 (CELLAVISION)(BEAKER) (test code = 2831) MONOCYTES - ABS 0.40 K/uL 0.24-0.36 H (CELLAVISION)(BEAKER) (test code = 2832) TOTAL COUNTED (BEAKER) (test code 100 = 1351) WBC MORPHOLOGY (BEAKER) (test code Normal = 487) PLT MORPHOLOGY (BEAKER) (test code Normal = 486) POLYCHROMATOPHILLIC RBCS(BEAKER) 1+ few (test code = 478) ANISOCYTOSIS (BEAKER) (test code = 1+ few 961) MACROCYTES (BEAKER) (test code = 1+ few 964) POIKILOCYTES (BEAKER) (test code = 1+ few 966) OVALOCYTES (BEAKER) (test code = 1+ few 477) HAFSA CELLS (BEAKER) (test code = 1+ few 474) ARTIFACT (CELLAVISION)(BEAKER) Present (test code = 3432) PLATELET CONCENTRATION Adequate (CELLAVISION)(BEAKER) (test code = 3438) Ice Cream Dispenser ID - [id number] ID - Emani Reza comments: Slide comments: CBC W/PLT COUNT & AUTO [id number] 10:13:27 Test Item Value Reference Range Interpretation Comments WHITE BLOOD CELL COUNT (BEAKER) 20.1 K/ L 3.5-10.5 H (test code = 775) RED BLOOD CELL COUNT (BEAKER) 3.83 M/ L 3.93-5.22 L (test code = 761) HEMOGLOBIN (BEAKER) (test code = 11.7 GM/DL 11.2-15.7 410) HEMATOCRIT (BEAKER) (test code = 36.2 % 34.1-44.9 411) MEAN CORPUSCULAR VOLUME (BEAKER) 95 fL 79-95 (test code = 753) MEAN CORPUSCULAR HEMOGLOBIN 30.5 pg 25.6-32.2 (BEAKER) (test code = 751) MEAN CORPUSCULAR HEMOGLOBIN CONC 32.3 GM/DL 32.2-35.5 (BEAKER) (test code = 752) RED CELL DISTRIBUTION WIDTH 14.4 % 11.7-14.4 (BEAKER) (test code = 412) PLATELET COUNT (BEAKER) (test 204 K/CU MM 150-450 code = 756) MEAN PLATELET VOLUME (BEAKER) 13.2 fL 9.4-12.3 H (test code = 754) NUCLEATED RED BLOOD CELLS 0 /100 WBC 0-0 (BEAKER) (test code = 413) POCT-GLUCOSE [id number] 06:32:29 Test Item Value Reference Range Interpretation Comments POC-GLUCOSE METER 220 mg/dL 70-110 H : TESTED A T [facility] [address] (BEAKER) (test code = [place], [address]38) [address]: Ice Cream Dispenser/Techni betty ID = [id number] for VITALY HAIRSTON CIA CALCIUM, [id number] 04:09:05 Test Item Value Reference Range Interpretation Comments CALCIUM IONIZED (BEAKER) (test 1.08 mmol/L 1.12-1.27 L code = 698) PH, BLOOD (BEAKER) (test code = 7.38 1810) COMPREHENSIVE METABOLIC [id number] 04:03:50 Test Item Value Reference Range Interpretation Comments TOTAL PROTEIN 6.6 gm/dL 6.0-8.3 (BEAKER) (test code = 770) ALBUMIN (BEAKER) 2.8 g/dL 3.5-5.0 L (test code = 1145) ALKALINE 560 U/L 40-150 H PHOSPHATASE (BEAKER) (test code = 346) BILIRUBIN TOTAL 2.4 mg/dL 0.2-1.2 H (BEAKER) (test code = 377) SODIUM (BEAKER) 150 meq/L 136-145 H (test code = 381) POTASSIUM (BEAKER) 3.5 meq/L 3.5-5.1 (test code = 379) CHLORIDE (BEAKER) 119 meq/L 98-107 H (test code = 382) CO2 (BEAKER) (test 18 meq/L 22-29 L code = 355) BLOOD UREA 93 mg/dL 7-21 H NITROGEN (BEAKER) (test code = 354) CREATININE 2.36 mg/dL 0.57-1.25 H (BEAKER) (test code = 358) GLUCOSE RANDOM 268 mg/dL 70-105 H (BEAKER) (test code = 652) CALCIUM (BEAKER) 8.6 mg/dL 8.4-10.2 (test code = 697) AST (SGOT) 399 U/L 5-34 H (BEAKER) (test code = 353) ALT (SGPT) 388 U/L 6-55 H (BEAKER) (test code = 347) EGFR (BEAKER) 23 Interpretatio n of eGFR (test code = 1092) mL/min/1.[address] age Description sq m Result G1 Stephanie l or high >=90 G2 Mildly decreased 60-89 G3a Mild ly to moderately 45-5 9 G3b Moderately to s everely 30-44 G4 Severl y decreased 15-29 G5 Kidney failure <15Reported eGF R is based on the CKD-EPI 2020 equation that d oes not use a race coefficientEsti mated GFR is not as accur ate as Creatinine Jess charlene in predicting glom erular filtration rate . Estimated GFR is not appl icable for dialysis patien ts Ice Cream Dispenser ID - MARCOSpecimen slightly [id number] 03:54:40 Test Item Value Reference Range Interpretation Comments PHOSPHORUS (BEAKER) (test code = 4.8 mg/dL 2.3-4.7 H 604) Ice Cream Dispenser ID - [id number] 03:54:39 Test Item Value Reference Range Interpretation Comments MAGNESIUM (BEAKER) (test code = 3.1 mg/dL 1.6-2.6 H 627) Ice Cream Dispenser ID - MARCOVANCOMYCIN LEVEL, [id number] 03:49:34 Test Item Value Reference Range Interpretation Comments VANCOMYCIN RANDOM (BEAKER) (test 17.3 ug/mL code = 523) Reference Range: No NormalsOperator ID - [id number] 03:11:07 Test Item Value Reference Range Interpretation Comments PARTIAL THROMBOPLASTIN TIME 106.2 seconds 22.5-36.0 H (BEAKER) (test code = 760) [id number] 01:05:44 Test Item Value Reference Range Interpretation Comments PARTIAL THROMBOPLASTIN TIME 111.3 seconds 22.5-36.0 H (BEAKER) (test code = 760) POCT-GLUCOSE [id number] 00:28:38 Test Item Value Reference Range Interpretation Comments POC-GLUCOSE METER 299 mg/dL 70-110 H : TESTED A T [facility] (BEAKER) (test code [facility], = 1538) [address]: Ice Cream Dispenser/Techni betty ID = [id number] for Devante Ritchie (CELLAVISION MANUAL DIFF)2023-02-06 21:39:18 Test Item Value Reference Range Interpretation Comments NEUTROPHILS - REL 86 % (CELLAVISION)(BEAKER) (test code = 2816) LYMPHOCYTES - REL 5 % (CELLAVISION)(BEAKER) (test code = 2817) MONOCYTES - REL 3 % (CELLAVISION)(BEAKER) (test code = 2818) BANDS - REL (CELLAVISION)(BEAKER) 6 % 0-10 (test code = 2826) NEUTROPHILS - ABS 22.79 K/ul 1.56-6.13 H (CELLAVISION)(BEAKER) (test code = 2830) LYMPHOCYTES - ABS 1.33 K/ul 1.18-3.74 (CELLAVISION)(BEAKER) (test code = 2831) MONOCYTES - ABS 0.80 K/uL 0.24-0.36 H (CELLAVISION)(BEAKER) (test code = 2832) BANDS - ABS (CELLAVISION)(BEAKER) 1.59 K/uL 0.00-0.80 H (test code = 2840) TOTAL COUNTED (BEAKER) (test code 100 = 1351) SMUDGE CELLS (BEAKER) (test code = Present 1371) GIANT PLATELETS (BEAKER) (test Present code = 313) ANISOCYTOSIS (BEAKER) (test code = 1+ few 961) MACROCYTES (BEAKER) (test code = 1+ few 964) POIKILOCYTES (BEAKER) (test code = 3+ many 966) PLATELET CONCENTRATION Adequate (CELLAVISION)(BEAKER) (test code = 3438) Ice Cream Dispenser ID - [id number] ID - Cesar comments: Slide comments:CBC W/PLT COUNT & AUTO [id number] 20:38:50 Test Item Value Reference Range Interpretation Comments WHITE BLOOD CELL COUNT (BEAKER) 26.5 K/ L 3.5-10.5 H (test code = 775) RED BLOOD CELL COUNT (BEAKER) 4.01 M/ L 3.93-5.22 (test code = 761) HEMOGLOBIN (BEAKER) (test code = 12.2 GM/DL 11.2-15.7 410) HEMATOCRIT (BEAKER) (test code = 38.5 % 34.1-44.9 411) MEAN CORPUSCULAR VOLUME (BEAKER) 96 fL 79-95 H (test code = 753) MEAN CORPUSCULAR HEMOGLOBIN 30.4 pg 25.6-32.2 (BEAKER) (test code = 751) MEAN CORPUSCULAR HEMOGLOBIN CONC 31.7 GM/DL 32.2-35.5 L (BEAKER) (test code = 752) RED CELL DISTRIBUTION WIDTH 14.4 % 11.7-14.4 (BEAKER) (test code = 412) PLATELET COUNT (BEAKER) (test 232 K/CU MM 150-450 code = 756) MEAN PLATELET VOLUME (BEAKER) 13.5 fL 9.4-12.3 H (test code = 754) NUCLEATED RED BLOOD CELLS 0 /100 WBC 0-0 (BEAKER) (test code = 413) POCT-GLUCOSE [id number] 18:10:20 Test Item Value Reference Range Interpretation Comments POC-GLUCOSE METER 251 mg/dL 70-110 H : TESTED A T [facility] [address] (BEAKER) (test code = [place], [address]38) [address]: Ice Cream Dispenser/Techni betty ID = [id number] for Ed wards ([facility]), Germania roldan [id number] 15:34:10 Test Item Value Reference Range Interpretation Comments PARTIAL THROMBOPLASTIN TIME 32.9 seconds 22.5-36.0 (BEAKER) (test code = 760) [id number] 15:34:10 Test Item Value Reference Range Interpretation Comments PROTIME (BEAKER) (test code = 22.0 seconds 11.9-14.2 H 759) INR (BEAKER) (test code = 370) 2.07 <=5.90 PARTIAL THROMBOPLASTIN TIME 32.9 seconds 22.5-36.0 (BEAKER) (test code = 760) RECOMMENDED COUMADIN/WARFARIN INR THERAPY RANGESSTANDARD DOSE: 2.0 - 3.0 Includes: PROPHYLAXIS for venous thrombosis, systemic embolization; TREATMENT for venous thrombosis and/or pulmonary embolus.HIGH RISK: Target INR is 2.5-3.5 for patients with mechanical heart valves.PROTHROMBIN TIME/[id number] 15:33:30 Test Item Value Reference Range Interpretation Comments PROTIME (BEAKER) (test code = 22.0 seconds 11.9-14.2 H 759) INR (BEAKER) (test code = 370) 2.07 <=5.90 RECOMMENDED COUMADIN/WARFARIN INR THERAPY RANGESSTANDARD DOSE: 2.0 - 3.0 Includes: PROPHYLAXIS for venous thrombosis, systemic embolization; TREATMENT for venous thrombosis and/or pulmonary embolus.HIGH RISK: Target INR is 2.5-3.5 for patients with mechanical heart valves.CBC (HEMOGRAM ONLY)2023-02-06 15:13:15 Test Item Value Reference Range Interpretation Comments WHITE BLOOD CELL COUNT 30.5 K/ L 3.5-10.5 H (BEAKER) (test code = 775) RED BLOOD CELL COUNT 4.16 M/ L 3.93-5.22 (BEAKER) (test code = 761) HEMOGLOBIN (BEAKER) 12.7 GM/DL 11.2-15.7 (test code = 410) HEMATOCRIT (BEAKER) 40.6 % 34.1-44.9 (test code = 411) MEAN CORPUSCULAR 98 fL 79-95 H Discordant with VOLUME (BEAKER) (test previo us result. code = 753) Clinical correl ation advised MEAN CORPUSCULAR 30.5 pg 25.6-32.2 HEMOGLOBIN (BEAKER) (test code = 751) MEAN CORPUSCULAR 31.3 GM/DL 32.2-35.5 L HEMOGLOBIN CONC (BEAKER) (test code = 752) RED CELL DISTRIBUTION 14.4 % 11.7-14.4 WIDTH (BEAKER) (test code = 412) PLATELET COUNT 217 K/CU MM 150-450 (BEAKER) (test code = 756) MEAN PLATELET VOLUME 14.1 fL 9.4-12.3 H (BEAKER) (test code = 754) NUCLEATED RED BLOOD 0 /100 WBC 0-0 CELLS (BEAKER) (test code = 413) Respiratory Panel [id number] 13:46:12 Test Item Value Reference Range Interpretation Comments Human Metapneumovirus Not detected Not detected, (test code = 30885-7) Equivocal Rhinovirus (test code = Not detected Not detected, 87343-3) Equivocal INFLUENZA A (NO Not detected Not detected, SUBTYPE) (test code = Equivocal 54672-2) Influenza A subtype H1 (test code = 01520-4) Influenza A Subtype H3 (test code = 22432-1) Influenza A Subtype H1-2009 (test code = 71053-7) Influenza B (test code Not detected Not detected, = 85278-1) Equivocal Respiratory Syncytial Not detected Not detected, Virus (test code = Equivocal 65818-7) Parainfluenza Virus 1 Not detected Not detected, (test code = 37775-9) Equivocal Parainfluenza Virus 2 Not detected Not detected, (test code = 11856-2) Equivocal Parainfluenza virus 3 Not detected Not detected, (test code = 98980-3) Equivocal Parainfluenza Virus 4 Not detected Not detected, (test code = 98581-3) Equivocal Adenovirus (test code = Not detected Not detected, 69306-8) Equivocal Coronavirus 229E (test Not detected Not detected, code = 35169-2) Equivocal Coronavirus HKU1 (test Not detected Not detected, code = 56251-8) Equivocal Coronavirus NL63 (test Not detected Not detected, code = 88135-6) Equivocal Coronavirus OC43 (test Not detected Not detected, code = 53808-1) Equivocal Bordetella Pertussis Not detected Not detected, (test code = 31079-8) Equivocal Chlamydophila Not detected Not detected, Pneumoniae (test code = Equivocal 05393-7) Mycoplasma Pneumoniae Not detected Not detected, (test code = 28931-0) Equivocal Severe Acute Not detected Not detected, Pdfddqxjzvi-YuV-2 (test Equivocal code = 49599-9) Bordtella Parapertussis Not detected Not detected, (test code = 62873-0) Equivocal ZOILA (test code = ZOILA) Other viruses and bacteria not targeted by this PCR panel cannot be excluded; therefore clinical correlation and follow up of serology, culture results, and other molecular studies is required. The results are not intended to be used as the sole means for clinical diagnosis or patient management decisions. This sample was tested at the [facility] using the [email or web address] Respiratory Panel. It is FDA cleared and has been verified and approved by the [facility] for clinical use on nasopharyngeal swab specimens. The performance of the [employer] RP has not been established in individuals who received influenza vaccine. Recent administration of a nasal influenza vaccine may cause false positive results for Influenza A and/orInfluenza B. [id number] 13:46:12 Test Item Value Reference Range Interpretation Comments HUMAN METAPNEUMOVIRUS Not detected Not detected, (BEAKER) (test code = 2683) Equivocal RHINOVIRUS (BEAKER) (test Not detected Not detected, code = 2684) Equivocal INFLUENZA A (BEAKER) (test Not detected Not detected, code = 2685) Equivocal INFLUENZA A (NO SUBTYPE) (test code = 3606) INFLUENZA A SUBTYPE H1 (BEAKER) (test code = 2686) INFLUENZA A SUBTYPE H3 (BEAKER) (test code = 2687) INFLUENZA A SUBTYPE H1-2009 (BEAKER) (test code = 3198) INFLUENZA B (BEAKER) (test Not detected Not detected, code = 2688) Equivocal RESPIRATORY SYNCYTIAL VIRUS Not detected Not detected, (BEAKER) (test code = 3199) Equivocal PARAINFLUENZA VIRUS 1 Not detected Not detected, (BEAKER) (test code = 2691) Equivocal PARAINFLUENZA VIRUS 2 Not detected Not detected, (BEAKER) (test code = 2692) Equivocal PARAINFLUENZA VIRUS 3 Not detected Not detected, (BEAKER) (test code = 2693) Equivocal PARAINFLUENZA VIRUS 4 Not detected Not detected, (BEAKER) (test code = 3200) Equivocal ADENOVIRUS (BEAKER) (test Not detected Not detected, code = 2694) Equivocal CORONAVIRUS 229E (BEAKER) Not detected Not detected, (test code = 3201) Equivocal CORONAVIRUS HKU1 (BEAKER) Not detected Not detected, (test code = 3202) Equivocal CORONAVIRUS NL63 (BEAKER) Not detected Not detected, (test code = 3203) Equivocal CORONAVIRUS OC43 (BEAKER) Not detected Not detected, (test code = 3204) Equivocal BORDETELLA PERTUSSIS Not detected Not detected, (BEAKER) (test code = 3205) Equivocal CHLAMYDOPHILA PNEUMONIAE Not detected Not detected, (BEAKER) (test code = 3206) Equivocal MYCOPLASMA PNEUMONIAE Not detected Not detected, (BEAKER) (test code = 3207) Equivocal SEVERE ACUTE RESPIRATORY Not detected Not detected, [id number] Equivocal (test code = [id number]) BORDETELLA PARAPERTUSSIS Not detected Not detected, (BKR) (test code = 8930595) Equivocal Other viruses and bacteria not targeted by this PCR panel cannot be excluded; therefore clinical correlation and follow up of serology, culture results, and other molecular studies is required. The results are not intended to be used as the sole means for clinical diagnosis or patient management decisions. This sample was tested at the [facility] using the TSO3 FilmArray Respiratory Panel. It is FDA cleared and has been verified and approved by the [facility] for clinical use on nasopharyngeal swab specimens.The performance of the FilmArrayRP has not been established in individuals who received influenza vaccine. Recent administration of a nasal influenza vaccine may cause false positive results for Influenza A and/orInfluenza B.Strep pneumoniae [id number] 13:01:05 Test Item Value Reference Range Interpretation Comments Strep pneumoniae Presumptive negative Presumptive Antigen (test code = [place] [address]-2) pneumonia - see pneumococcal comment pneumonia - see comment, Presumptive negative for pneumococcal meningitis - see comment ZOILA (test code = ZOLIA) Presumptive negative for pneumococcal pneumonia, suggesting no current or recent pneumococcal infection. Infection due to S. pneumoniae cannot be ruled out since the antigen present in the sample may be below the detection limit of the test. Lab Interpretation Normal (test code = 42398-5) [facility] [id number] 13:01:05 Test Item Value Reference Range Interpretation Comments STREP PNEUMONIAE Presumptive negative Presumptive negative ANTIGEN (BEAKER) for pneumococcal for pneumococcal (test code = 1615) pneumonia - see pneumonia - see comment commen Presumptive negative for pneumococcal pneumonia, suggesting no current or recent pneumococcal infection. Infection due to S. pneumoniae cannot be ruled out since the antigen present in the sample may be below the detection limit of the test. Legionella antigen, [id number] 12:58:18 Test Item Value Reference Range Interpretation Comments Legionella Urine Negative - see Negative Negative for L. Antigen (test code = comment pneumop pushpa 28781-8) serogroup 1 antigen, sugges ting no recent or current infecti on with this serogroup. Legionellosis cannot be ruled out since other serogroups and species may cau se disease. Lab Interpretation Normal (test code = 44312-5) [facility] [id number] 12:58:18 Test Item Value Reference Range Interpretation Comments L. PNEUMOPHILA Negative - see Negative Negative fo r L. SEROGP 1 UR AG comment pneumophila (BEAKER) (test code serogrou p 1 antigen, = 1156) suggesting no r ecent or current infe ction with this serog roup. Legionellosis c annot be ruled out si nce other serogroup s and species may cau se disease. BLOOD CULTURE IDENTIFICATION [id number] 12:34:31 Test Item Value Reference Interpretation Comments Range MCR-1 (SANDY) (test Not detected Not detected Note: A ntimicrobial code = 2387567663) resistanc e can occur via multiple mechanisms. A N ot Detected result for antimicrobial resistance gene (s) does not indica te antimicrobial susceptibility. Subculturing is required for sp ecies identification and susceptibility testing of isol ates. CTX-M (OSCARAKER) (test Not detected Not detected Note: A ntimicrobial code = 5222110010) resistanc e can occur via multiple mechanisms. A N ot Detected result for antimicrobial resistance gene (s) does not indica te antimicrobial susceptibility. Subculturing is required for sp ecies identification and susceptibility testing of isol ates. IMP ([place]) (test code = Not detected Not Detected Note: Antimicrobial 4125371064) resistance can occur via multiple mechanisms. A N ot Detected result for antimicrobial resistance gene (s) does not indica te antimicrobial susceptibility. Subculturing is required for sp ecies identification and susceptibility testing of isol ates. KPC (BKR) (test code Not detected Not detected Note: A ntimicrobial = 2305920153) resistance can occur via multiple mechanisms. A N ot Detected result for antimicrobial resistance gene (s) does not indica te antimicrobial susceptibility. Subculturing is required for sp ecies identification and susceptibility testing of isol ates. NDM (BKR) (test code Not detected Not Detected Note: A ntimicrobial = 9208168069) resistance can occur via multiple mechanisms. A N ot Detected result for antimicrobial resistance gene (s) does not indica te antimicrobial susceptibility. Subculturing is required for sp ecies identification and susceptibility testing of isol ates. OXA-48-LIKE (BKR) Not detected Not Detected Note: Anti microbial (test code = resistance can occur [id number]) via multiple mechanisms. A N ot Detected result for antimicrobial resistance gene (s) does not indica te antimicrobial susceptibility. Subculturing is required for sp ecies identification and susceptibility testing of isol ates. VIM (BKR) (test code Not detected Not detected Note: A ntimicrobial = 3603880236) resistance can occur via multiple mechanisms. A N ot Detected result for antimicrobial resistance gene (s) does not indica te antimicrobial susceptibility. Subculturing is required for sp ecies identification and susceptibility testing of isol ates. MEC A/C ([place]) (test Non Applicable Not detected code = 7052759540) MEC A/C AND MREJ Non Applicable Not Detected (MRSA) [place] (test code = 1103172156) VAN A/B (VANCOMYCIN Non Applicable Not detected RESISTANCE) (test code = 2352044514) ENTEROCOCCUS FAECALIS Not detected Not detected (BKR) (test code = 2982914263) ENTEROCOCCUS FAECIUM Not detected Not detected (BKR) (test code = 0935882831) LISTERIA Not detected Not detected MONOCYTOGENES (test code = 9323594) STAPHYLOCOCCUS (test Not detected Not detected code = 7019125) STAPHYLOCOCCUS AUREUS Not detected Not detected (test code = 9243215) STAPHYLOCOCCUS Not detected Not detected EPIDERMIDIS ([place]) (test code = 0508179266) STAPHYLOCOCCUS Not detected Not detected LUGDENENSIS (BKR) (test code = 8154982154) STREPTOCOCCUS (test Not detected Not detected code = 20160724) STREPTOCOCCUS Not detected Not detected AGALACTIAE (GROUP B) (test code = 9669238) STREPTOCOCCUS Not detected Not detected PNEUMONIAE (test code = 5701863) STREPTOCOCCUS Not detected Not detected PYOGENES (GROUP A) (test code = 3312530) ACINETOBACTER Not detected Not detected CALCOACETICUS-MARK II COMPLEX (BKR) (test code = 7712) BACTEROIDES FRAGILIS Not detected Not detected ([place]) (test code = 2008995648) ENTEROBACTERALES Detected Not detected A (test code = 6475970588) ENTEROBACTER CLOACOE Not detected Not detected COMPLEX (test code = 7960565) ESCHERICHIA COLI Not detected Not detected (test code = 0380928) KLEBSIELLA AEROGENES Not detected Not detected (BKR) (test code = 4561588780) KLEBSIELLA OXYTOCA Not detected Not detected (test code = 3502721) KLEBSIELLA PNEUMONIAE Detected Not detected A No mec hanisms of GROUP (test code = resistanc e tested on 5683115579) this panel were detectedFirst l ine therapy: Ceftriaxone.De- escal ate based on susceptibilitie s Note: While CTX -M is the most common ESBL enzyme, other E SBL enzymes may be present and are not detected on thi s panel PROTEUS (test code = Not detected Not detected ) SALMONELLA SPECIES Not detected Not detected ([place]) (test code = 5258190095) SERRATIA MARCESCENS Not detected Not detected (test code = 0113284) HAEMOPHILUS Not detected Not detected INFLUENZAE (test code = 5138356) NEISSERIA Not detected Not detected MENINGITIDIS (test code = 9228346) PSEUDOMONAS Not detected Not detected AERUGINOSA-BEAKER (test code = 3080531) STENOTROPHOMONAS Not detected Not detected MALTOPHILIA (BKR) (test code = 8049381491) MARA ALBICANS Not detected Not detected (test code = 2509037) MARA AURIS ([place]) Not detected Not detected (test code = 5604671551) MARA GLABRATA Not detected Not detected (test code = 7091794) MARA KRUSEI (test Not detected Not detected code = 6390854) MARA PARAPSILOSIS Not detected Not detected (test code = 6332900) MARA TROPICALIS Not detected Not detected (BKR) (test code = 1183007) CRYPTOCOCCUS Not detected Not detected NEOFORMANS/GATTII (test code = 1786818875) Other bacteria and resistance markers not targeted by this PCR panel cannot be excluded; therefore clinical correlation and follow up of serology, culture results, and other molecular studies is required. The results are not intended to be used as the sole means for clinical diagnosis or patient management decisions. This sample was tested at the [facility] using the [employer] Blood Culture ID Panel. It is FDA cleared and has been verified and approved by the [facility] for clinical use. This laboratory is CLIA-certified and College ofAmerican Pathologists (CAP)-accredited to perform high complexity testing.DIGOXIN LEVEL 2023-02-06 12:26:04 Test Item Value Reference Range Interpretation Comments DIGOXIN LEVEL (BEAKER) (test code 0.97 ng/mL 0.80-2.00 = 669) Ice Cream Dispenser ID - MMBILIRUBIN, TOTAL AND [id number] 12:19:42 Test Item Value Reference Range Interpretation Comments BILIRUBIN TOTAL (BEAKER) (test code 3.9 mg/dL 0.2-1.2 H = 377) BILIRUBIN DIRECT (BEAKER) (test 3.2 mg/dL 0.1-0.5 H code = 706) Ice Cream Dispenser ID - [id number] 12:09:04 Test Item Value Reference Range Interpretation Comments PROTIME (BEAKER) (test code = 29.6 seconds 11.9-14.2 H 759) INR (BEAKER) (test code = 370) 3.04 <=5.90 PARTIAL THROMBOPLASTIN TIME 36.5 seconds 22.5-36.0 H (BEAKER) (test code = 760) RECOMMENDED COUMADIN/WARFARIN INR THERAPY RANGESSTANDARD DOSE: 2.0 - 3.0 Includes: PROPHYLAXIS for venous thrombosis, systemic embolization; TREATMENT for venous thrombosis and/or pulmonary embolus.HIGH RISK: Target INR is 2.5-3.5 for patients with mechanical heart valves.HEMOGLOBIN AND [id number] 11:57:54 Test Item Value Reference Range Interpretation Comments HEMOGLOBIN (BEAKER) (test code = 12.7 GM/DL 11.2-15.7 410) HEMATOCRIT (BEAKER) (test code = 38.9 % 34.1-44.9 411) Ice Cream Dispenser ID - 6000PLATELET [id number] 11:57:53 Test Item Value Reference Range Interpretation Comments PLATELET COUNT (BEAKER) (test 222 K/CU MM 150-450 code = 756) Ice Cream Dispenser ID - 6000POCT-GLUCOSE [id number] 11:52:15 Test Item Value Reference Range Interpretation Comments POC-GLUCOSE METER 299 mg/dL 70-110 H : TESTED A T [facility] [address] (BEAKER) (test code = [place], 1538) [address]: Ice Cream Dispenser/Techni betty ID = [id number] for EUFEMIA THOMAS HEPATIC FUNCTION [id number] 10:23:42 Test Item Value Reference Range Interpretation Comments TOTAL PROTEIN (BEAKER) (test code = 6.7 gm/dL 6.0-8.3 770) ALBUMIN (BEAKER) (test code = 1145) 2.7 g/dL 3.5-5.0 L BILIRUBIN TOTAL (BEAKER) (test code 4.0 mg/dL 0.2-1.2 H = 377) BILIRUBIN DIRECT (BEAKER) (test 3.3 mg/dL 0.1-0.5 H code = 706) ALKALINE PHOSPHATASE (BEAKER) (test 655 U/L 40-150 H code = 346) AST (SGOT) (BEAKER) (test code = 694 U/L 5-34 H 353) ALT (SGPT) (BEAKER) (test code = 522 U/L 6-55 H 347) Ice Cream Dispenser ID - MMSpecimen slightly ictericHIGH SENSITIVITY TROPONIN [id number] 07:06:22 Test Item Value Reference Range Interpretation Comments HIGH SENSITIVITY TROPONIN I (test 95 pg/ml <=17 H code = 1051574) Ice Cream Dispenser ID - MMThe [employer]ODUCE [employer]ODUCTION TEAM MEMBER STAT High Sensitivity Troponin-I results should be used in conjunctionwith other diagnostic information such as ECG, clinical observations and information, and patient symptoms to aid in the diagnosis of LA.BASIC METABOLIC [id number] 07:05:05 Test Item Value Reference Range Interpretation Comments SODIUM (BEAKER) 149 meq/L 136-145 H (test code = 381) POTASSIUM 3.6 meq/L 3.5-5.1 (BEAKER) (test code = 379) CHLORIDE (BEAKER) 117 meq/L 98-107 H (test code = 382) CO2 (BEAKER) 19 meq/L 22-29 L (test code = 355) BLOOD UREA 87 mg/dL 7-21 H NITROGEN (BEAKER) (test code = 354) CREATININE 2.36 mg/dL 0.57-1.25 H (BEAKER) (test code = 358) GLUCOSE RANDOM 310 mg/dL 70-105 H (BEAKER) (test code = 652) CALCIUM (BEAKER) 8.5 mg/dL 8.4-10.2 (test code = 697) EGFR (BEAKER) 23 Interpretatio n of eGFR (test code = mL/min/1.73 values Stage De scription 1092) sq m Result G1 Norm al or high >=90 G2 Mildly decreased 60-89 G3a Mildl y to moderately 45-5 9 G3b Moderately to s everely 30-44 G4 Severl y decreased 15-29 G5 Kidney failure <15Reported eGF R is based on the CKD-EPI 2021 equation that d oes not use a race coefficientEsti mated GFR is not as accur ate as Creatinine Jess charlene in predicting glom erular filtration rate . Estimated GFR is not appl icable for dialysis patien ts Ice Cream Dispenser ID - MMSpecimen slightly ictericPOCT-GLUCOSE [id number] 05:56:51 Test Item Value Reference Range Interpretation Comments POC-GLUCOSE METER 254 mg/dL 70-110 H : TESTED A T [facility] [address] (SANDY) (test code = [place], 1538) [address]: Ice Cream Dispenser/Techni betty ID = [id number] for CARMELA PANG CTA [id number] 05:30:02 [facility] 1965 Sex: FEXAM/TECHNIQUE: CTA of the head and neck with IV contrast. 3D renderingwas not performed. MIPS Dose modulation, iterative reconstruction,and/or weight based adjustment of the mA/kV was utilized to reduce theradiation dose to as low as reasonably achievable.INDICATION: Stroke.COMPARISON: Same day CT head.FINDINGS: HEADAnterior circulation: The intracranial internal carotid arteries arepatent without significant stenosis. The M1 and M2 branches of the MCAare patent without significant stenosis. The A1 and A2 segments of theanterior cerebral arteries are patent without significant stenosis.Unremarkable appearance of the anterior communicating artery. Distalbranches appear patent. No occlusion, significant stenosis, or aneurysm.Posterior circulation: The V4 segments of the vertebral artery arepatent without significant stenosis. The right PICA is patent. The leftPICA is not visualized. The bilateral AICAs are patent. Basilar arteryis patent. The bilateral SCAs are patent. The P1 and P2 segments of thePCA are patent. Unremarkable appearance of the posterior communicatingarteries. Distal branches appear patent. No occlusion, significantstenosis, or aneurysm.Venous: Not visualized due to bolus timing.NECKVessels: Conventional three vessel anatomy of the aortic arch. Thebilateral common carotid arteries arepatent. There is mildatherosclerosis at the carotid bifurcations without stenosis by NASCETcriteria.The bilateral vertebral arteries are patent. Plaqueulcerations of the right carotid bifurcation. No occlusion ordissection.Lymph nodes: No lymphadenopathy.Glands: The parotids and submandibular glands are unremarkable. Thethyroid is unremarkable.Airway: Unremarkable.Dentition: Numerous dental caries without sizable periapical lucency ofthe singular right mandibular molar.Osseous: Unremarkable.Upper chest: No focal consolidation or suspicious pulmonary nodule.Mediastinum is unremarkable.IMPRESSION:Impression:No large vessel occlusion or hemodynamically significant stenosis. Thereis recanalization ofpreviously occluded left anterior M2 branch.Electronically Signed By: Lalo Reynoso02/06/2023 05:33CDTWorkstation Name: [id number] 05:30:02 [facility] : 1965 Sex: FEXAM/TECHNIQUE: CTA of the head and neck with IV contrast. 3D renderingwas not performed. MIPS Dose modulation, iterative reconstruction,and/or weight based adjustment of the mA/kV was utilized to reduce theradiation dose to as low as reasonably achievable.INDICATION: Stroke.COMPARISON: Same day CT head.FINDINGS: HEADAnterior circulation: The intracranial internal carotid arteries arepatent without significant stenosis. The M1 and M2 branches of the MCAare patent without significant stenosis. The A1 and A2 segments of theanterior cerebral arteries are patent without significant stenosis.Unremarkable appearance of the anterior communicating artery. Distalbranches appear patent. No occlusion, significant stenosis, or aneurysm.Posterior circulation: The V4 segments of the vertebral artery arepatent without significant stenosis. The right PICA is patent. The leftPICA is not visualized. The bilateral AICAs are patent. Basilar arteryis patent. The bilateral SCAs are patent. The P1 and P2 segments of thePCA are patent. Unremarkable appearance of the posterior communicatingarteries. Distal branches appear patent. No occlusion, significantstenosis, or aneurysm.Venous: Not visualized due to bolus timing.NECKVessels: Conventional three vessel anatomy of the aortic arch. Thebilateral common carotid arteries arepatent. There is mildatherosclerosis at the carotid bifurcations without stenosis by NASCETcriteria.The bilateral vertebral arteries are patent. Plaqueulcerations of the right carotid bifurcation. No occlusion ordissection.Lymph nodes: No lymphadenopathy.Glands: The parotids and submandibular glands are unremarkable. Thethyroid is unremarkable.Airway: Unremarkable.Dentition: Numerous dental caries without sizable periapical lucency ofthe singular right mandibular molar.Osseous: Unremarkable.Upper chest: No focal consolidation or suspicious pulmonary nodule.Mediastinum is unremarkable.IMPRESSION:Impression:No large vessel occlusion or hemodynamically significant stenosis. Thereis recanalization ofpreviously occluded left anterior M2 branch.Electronically Signed By: Lalo Reynoso02/06/2023 05:33CDTWorkstation Name: [id number], [id number] 04:22:45 Test Item Value Reference Range Interpretation Comments BILIRUBIN DIRECT (BEAKER) (test 3.4 mg/dL 0.1-0.5 H code = 706) GAMMA GLUTAMYL TRANSFERASE (GGT)2023-02-06 04:22:45 Test Item Value Reference Range Interpretation Comments GAMMA GLUTAMYL TRANSFERASE (BEAKER) 618 U/L 9-64 H (test code = 364) Ice Cream Dispenser ID - MMSpecimen moderately ictericBILIRUBIN, TOTAL AND [id number] 04:22:44 Test Item Value Reference Range Interpretation Comments BILIRUBIN TOTAL (BEAKER) (test code 4.1 mg/dL 0.2-1.2 H = 377) BILIRUBIN DIRECT (BEAKER) (test 3.4 mg/dL 0.1-0.5 H code = 706) Ice Cream Dispenser ID - MMCT BRAIN WITHOUT IV [id number] 03:37:21 [facility] : 1965 Sex: FEXAM/TECHNIQUE: Noncontrast CT of the head. Dose modulation, iterativereconstruction, and/or weight based adjustment of the mA/kV was utilizedto reduce the radiation dose to as low as reasonably achievable.INDICATION: Mental status changeCOMPARISON: CT head from 01/19/2023. MRI brain from 01/24/2023FINDINGS: Miller-white differentiation is preserved. No acute intracranialhemorrhage. No extra-axial fluid collection .Ventricles are normal in appearance. Basal cisterns are patent. Nomidline shift. Cerebellar tonsilsare normal in appearance.Orbits are normal. Paranasal sinuses are clear. Mastoid air cells areclear.No acute osseous processes or suspicious osseous lesion. Midlinestructures are normal. Visualized face and neck are unremarkable.IMPRESSION:Impression:1. No acute intracranial process.2. 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 The main portal vein is patent measuring 14 mm.Biliary: Cholelithiasis is present without mural thickening orsonographic José sign. The common bile duct measures 11 mm.Pancreas: The visualized pancreas is unremarkable in appearance.Right kidney: The right kidney measures 12.5 x 5.3 x 5.9 cm. Nohydronephrosis or focal mass.IMPRESSION:Impression:1. Extrahepatic biliary dilatation is present. If there is clinicalconcern for choledocholithiasis, considerMRCP.2. Cholelithiasis without sonographic findings of acute cholecystitis.3. Hepatomegaly with mildly prominent main portal vein. We willnonspecific, this could represent early hepatic fibrosis and portalvenous hypertension.Electronically Signed By: Lalo Reynoso02/06/2023 03:18 CDTWorkstation Name:[id number] ACID, [id number] 02:20:37 Test Item Value Reference Range Interpretation Comments LACTATE BLOOD VENOUS (2) (BEAKER) 1.51 mmol/L 0.50-2.00 (test code = 2872) Ice Cream Dispenser ID - MMSpecimen slightly ictericRapid drug screen, [id number] 01:27:47 Test Item Value Reference Range Interpretation Comments Barbiturate Screen Negative Negative (test code = 64258-0) Benzodiazepine Screen Negative Negative (test code = 16177-6) Cocaine (Metab.) Negative Negative Screen (test code = 3397-7) Methadone Screen (test Negative Negative code = 37319-3) Opiate Screen (test Negative Negative code = 35167-1) Cannabinoid Screen Negative Negative (test code = 71884-3) Amph/Methamph Screen Negative Negative (test code = 81124-0) Phencyclidine Screen Negative Negative (test code = 05978-9) pH, UA (test code = 5.0 5.0-8.0 5803-2) ZOILA (test code = ZOILA) DRUG CUTOFF CONC.Cocaine 300 ng/mL Cannabinoid 50 ng/mLBenzodiazepine 200 ng/mLBarbiturate 200 ng/mLPhencyclidine 25 ng/mLOpiate 300 ng/mLMethadone 300 ng/mLAmphetamine/ 1000 ng/mL Methamphetamine This assay provides an unconfirmed qualitative test result for the clinical management of patients in emergency situations. Chain of custody not maintained. Some yfdm-ggj-njyovtf medications, as well as adulterants, may cause inaccurate results. Clinical correlation should be applied. A more comprehensive drug screen or confirmation of a detected drug may be performed upon request.Ice Cream Dispenser ID - [auto]Ice Cream Dispenser ID - techOperator ID - MM Lab Interpretation Normal (test code = 32940-5) [facility], [id number] 01:27:47 Test Item Value Reference Range Interpretation Comments BARBITURATE URINE (BEAKER) (test Negative Negative code = 725) BENZODIAZEPINE SCREEN URINE (BEAKER) Negative Negative (test code = 726) COCAINE (METAB.) SCREEN (BEAKER) Negative Negative (test code = 1164) METHADONE SCREEN (BEAKER) (test code Negative Negative = 1436) OPIATE SCREEN URINE (BEAKER) (test Negative Negative code = 734) CANNABINOID SCREEN URINE (BEAKER) Negative Negative (test code = 727) AMPH/METHAMPH SCREEN (BEAKER) (test Negative Negative code = 1438) PHENCYCLIDINE SCREEN URINE (BEAKER) Negative Negative (test code = 608) PH UA (BEAKER) (test code = 467) 5.0 5.0-8.0 DRUG CUTOFF CONC.Cocaine 300 ng/mL Cannabinoid 50 ng/mLBenzodiazepine 200 ng/mLBarbiturate 200 ng/mLPhencyclidine 25 ng/mLOpiate 300 ng/mLMethadone 300 ng/mLAmphetamine/ 1000 ng/mL MethamphetamineThis assay provides an unconfirmed qualitative test result for the clinical management of patients in emergency situations. Chain of custody not maintained. Some kixu-xep-shumekj medications, as well as adulterants, may cause inaccurate results. Clinical correlation should be applied. A more comprehensive drug screen or confirmation of a detected drug may be performed upon request.Ice Cream Dispenser ID - [auto]Ice Cream Dispenser ID - techOperator ID - MMUrinalysis w/Microscopic + Reflex to [id number] 01:15:00 Test Item Value Reference Range Interpretation Comments Color, UA (test code [place] = 5778-6) Clarity, UA (test Hazy code = 5767-9) Specific [place], UA 1.029 1.001-1.035 (test code = 5811-5) pH, UA (test code = 6.0 5.0-8.0 5803-2) Protein, UA (test 30 mg/dL Negative A code = 91007-5) Glucose, UA (test >1000 mg/dL Negative A code = 365) Ketones, UA (test Negative Negative code = 2514-8) Bilirubin, UA (test Positive Negative A code = 24624-4) Blood, UA (test code Negative Negative = 70346-9) Nitrite, UA (test Negative Negative code = 5802-4) Leukocytes, UA (test Negative Negative code = 5799-2) Urobilinogen, UA 3 0.2-1.0 H (test code = 84335-2) RBC, UA (test code = 4 See_Comment [Autom ated 24797-7) message] The system which generated this result transmitted reference range : /HPF. The reference range was not used to interpret this result as normal/abnormal . WBC, UA (test code = 22 See_Comment [Autom ated 5821-4) message] The system which generated this result transmitted reference range : /HPF. The reference range was not used to interpret this result as normal/abnormal . Bacteria, UA (test Occasional code = 17517-1) Squam Epithel, UA 40 See_Comment [Automate d (test code = 44285-8) messag e] The system which generated this result transmitted reference range : /HPF. The reference range was not used to interpret this result as normal/abnormal . Hyaline Casts, UA 6 See_Comment [Automate d (test code = 48882-2) messag e] The system which generated this result transmitted reference range : /LPF. The reference range was not used to interpret this result as normal/abnormal . Amorphous Crystals Moderate (test code = 29349-0) Specimen Source (test code = 2795) ZOILA (test code = ZOILA) Ice Cream Dispenser ID - [auto]Ice Cream Dispenser ID - tech Lab Interpretation Abnormal (test code = 52163-7) [facility] [id number] 01:15:00 Test Item Value Reference Range Interpretation Comments COLOR (BEAKER) (test code = 470) [place] CLARITY (BEAKER) (test code = Hazy 469) SPECIFIC GRAVITY UA (BEAKER) 1.029 1.001-1.035 (test code = 468) PH UA (BEAKER) (test code = 467) 6.0 5.0-8.0 PROTEIN UA (BEAKER) (test code = 30 mg/dL Negative A 464) GLUCOSE UA (BEAKER) (test code = >1000 mg/dL Negative A 365) KETONES UA (BEAKER) (test code = Negative Negative 371) BILIRUBIN UA (BEAKER) (test code Positive Negative A = 462) BLOOD UA (BEAKER) (test code = Negative Negative 461) NITRITE UA (BEAKER) (test code = Negative Negative 465) LEUKOCYTE ESTERASE UA (BEAKER) Negative Negative (test code = 466) UROBILINOGEN UA (BEAKER) (test 3 0.2-1.0 H code = 463) RBC UA (BEAKER) (test code = 519) 4 /HPF WBC UA (BEAKER) (test code = 520) 22 /HPF BACTERIA (BEAKER) (test code = Occasional 517) SQUAMOUS EPITHELIAL (BEAKER) 40 /HPF (test code = 516) HYALINE CASTS (BEAKER) (test code 6 /LPF = 514) AMORPHOUS CRYSTALS (BEAKER) (test Moderate code = 1584) SOURCE(BEAKER) (test code = 2795) Ice Cream Dispenser ID - [auto]Ice Cream Dispenser ID - tech(CELLAVISION MANUAL DIFF)2023-02-06 00:48:45 Test Item Value Reference Range Interpretation Comments NEUTROPHILS - REL 79 % (CELLAVISION)(BEAKER) (test code = 2816) LYMPHOCYTES - REL 4 % (CELLAVISION)(BEAKER) (test code = 2817) MONOCYTES - REL 3 % (CELLAVISION)(BEAKER) (test code = 2818) METAMYELOCYTES - REL 2 % 0-0 H (CELLAVISION)(BEAKER) (test code = 2821) BANDS - REL (CELLAVISION)(BEAKER) 11 % 0-10 H (test code = 2826) ATYPICAL LYMPHOCYTES - REL 1 % 0-0 H (CELLAVISION)(BEAKER) (test code = 2829) NEUTROPHILS - ABS 24.73 K/ul 1.56-6.13 H (CELLAVISION)(BEAKER) (test code = 2830) LYMPHOCYTES - ABS 1.25 K/ul 1.18-3.74 (CELLAVISION)(BEAKER) (test code = 2831) MONOCYTES - ABS 0.94 K/uL 0.24-0.36 H (CELLAVISION)(BEAKER) (test code = 2832) METAMYELOCYTES - ABS 0.63 K/uL 0.00-0.00 H (CELLAVISION)(BEAKER) (test code = 2836) BANDS - ABS (CELLAVISION)(BEAKER) 3.44 K/uL 0.00-0.80 H (test code = 2840) ATYPICAL LYMPHOCYTES - ABS 0.31 K/uL 0.00-0.00 H (CELLAVISION)(BEAKER) (test code = 2858) TOTAL COUNTED (BEAKER) (test code 100 = 1351) MANUAL NRBC PER 100 CELLS 1 /100 WBC 0-0 H (BEAKER) (test code = 1353) SMUDGE CELLS (BEAKER) (test code Present = 1371) GIANT PLATELETS (BEAKER) (test Present code = 313) POLYCHROMATOPHILLIC RBCS(BEAKER) 1+ few (test code = 478) ANISOCYTOSIS (BEAKER) (test code 1+ few = 961) MACROCYTES (BEAKER) (test code = 1+ few 964) POIKILOCYTES (BEAKER) (test code 3+ many = 966) SCHISTOCYTES (BEAKER) (test code 1+ few = 765) ELLIPTOCYTES (BEAKER) (test code 2+ moderate = 962) HAFSA CELLS (BEAKER) (test code = 2+ moderate 474) PLATELET CONCENTRATION Adequate (CELLAVISION)(BEAKER) (test code = 3438) Ice Cream Dispenser ID - [id number] ID - Mukund Flowers comments: Slide comments:CBC W/PLT COUNT & AUTO [id number] 00:48:44 Test Item Value Reference Range Interpretation Comments WHITE BLOOD CELL COUNT 31.3 K/ L 3.5-10.5 H (BEAKER) (test code = 775) RED BLOOD CELL COUNT 4.55 M/ L 3.93-5.22 (BEAKER) (test code = 761) HEMOGLOBIN (BEAKER) 14.2 GM/DL 11.2-15.7 (test code = 410) HEMATOCRIT (BEAKER) 42.7 % 34.1-44.9 (test code = 411) MEAN CORPUSCULAR 94 fL 79-95 Discordant MCV VOLUME (BEAKER) (test result s compared to code = 753) previous result s; clinical correl ation required. MEAN CORPUSCULAR 31.2 pg 25.6-32.2 HEMOGLOBIN (BEAKER) (test code = 751) MEAN CORPUSCULAR 33.3 GM/DL 32.2-35.5 HEMOGLOBIN CONC (BEAKER) (test code = 752) RED CELL DISTRIBUTION 14.1 % 11.7-14.4 WIDTH (BEAKER) (test code = 412) PLATELET COUNT 192 K/CU MM 150-450 (BEAKER) (test code = 756) MEAN PLATELET VOLUME 14.0 fL 9.4-12.3 H (BEAKER) (test code = 754) NUCLEATED RED BLOOD 0 /100 WBC 0-0 CELLS (BEAKER) (test code = 413) HIGH SENSITIVITY TROPONIN [id number] 00:41:27 Test Item Value Reference Range Interpretation Comments HIGH SENSITIVITY TROPONIN I (test 82 pg/ml <=17 H code = 9742027) Ice Cream Dispenser ID - MMThe PRODUCE PRODUCTION TEAM MEMBER STAT High Sensitivity Troponin-I results should be used in conjunctionwith other diagnostic information such as ECG, clinical observations and information, and patient symptoms to aid in the diagnosis of LA.[id number] 00:41:27 Test Item Value Reference Range Interpretation Comments PARTIAL THROMBOPLASTIN TIME 38.7 seconds 22.5-36.0 H (BEAKER) (test code = 760) B-TYPE NATRIURETIC FACTOR (BNP)2023-02-06 00:41:10 Test Item Value Reference Range Interpretation Comments B-TYPE NATRIURETIC PEPTIDE (BEAKER) 315 pg/mL 0-100 H (test code = 700) Ice Cream Dispenser ID - MMPROTHROMBIN TIME/[id number] 00:40:28 Test Item Value Reference Range Interpretation Comments PROTIME (BEAKER) (test code = 32.4 seconds 11.9-14.2 H 759) INR (BEAKER) (test code = 370) 3.41 <=5.90 RECOMMENDED COUMADIN/WARFARIN INR THERAPY RANGESSTANDARD DOSE: 2.0 - 3.0 Includes: PROPHYLAXIS for venous thrombosis, systemic embolization; TREATMENT for venous thrombosis and/or pulmonary embolus.HIGH RISK: Target INR is 2.5-3.5 for patients with mechanical heart valves.COMPREHENSIVE METABOLIC PANEL 2023-02-06 00:37:42 Test Item Value Reference Range Interpretation Comments TOTAL PROTEIN 7.3 gm/dL 6.0-8.3 (BEAKER) (test code = 770) ALBUMIN (BEAKER) 3.0 g/dL 3.5-5.0 L (test code = 1145) ALKALINE 755 U/L 40-150 H PHOSPHATASE (BEAKER) (test code = 346) BILIRUBIN TOTAL 4.1 mg/dL 0.2-1.2 H (BEAKER) (test code = 377) SODIUM (BEAKER) 149 meq/L 136-145 H (test code = 381) POTASSIUM (BEAKER) 3.2 meq/L 3.5-5.1 L (test code = 379) CHLORIDE (BEAKER) 117 meq/L 98-107 H (test code = 382) CO2 (BEAKER) (test 16 meq/L 22-29 L code = 355) BLOOD UREA 90 mg/dL 7-21 H NITROGEN (BEAKER) (test code = 354) CREATININE 2.61 mg/dL 0.57-1.25 H (BEAKER) (test code = 358) GLUCOSE RANDOM 277 mg/dL 70-105 H (BEAKER) (test code = 652) CALCIUM (BEAKER) 9.2 mg/dL 8.4-10.2 (test code = 697) AST (SGOT) 704 U/L 5-34 H (BEAKER) (test code = 353) ALT (SGPT) 519 U/L 6-55 H (BEAKER) (test code = 347) EGFR (BEAKER) 21 Interpretatio n of eGFR (test code = 1092) mL/min/1.[address] age Description sq m Result G1 Stephanie l or high >=90 G2 Mildly decreased 60-89 G3a Mildl y to moderately 45-5 9 G3b Moderately to s everely 30-44 G4 Severl y decreased 15-29 G5 Kidney failure <15Reported eGF R is based on the CKD-EPI 2020 equation that d oes not use a race coefficientEsti mated GFR is not as accur ate as Creatinine Jess chang in predicting glom erular filtration rate . Estimated GFR is not appl icable for dialysis patien ts Ice Cream Dispenser ID - MMSpecimen slightly ictericXR CHEST 1 VIEW PORTABLE / BEDSIDE 2023-02-06 00:35:56 [facility] : 1965 Sex: FChest, 1 view, 02/06/2023 12:16 AM.History: Altered mental status.Comparison: 01/18/2023.Discussion: The cardiomediastinal silhouette and pulmonary vasculatureare within normal limits for a portable exam. There are decreasedbilateral pulmonary opacities. There is no pneumothorax. The softtissues and osseous structures are intact.IMPRESSION:Decreased bilateral pulmonary opacities.Electronically Signed By: Pierre Shipman02/06/2023 00:37 CDTWorkstation Name: [id number] GAS, [id number] 00:14:33 Test Item Value Reference Range Interpretation Comments PH VENOUS (BEAKER) (test code = 7.43 7.32-7.42 H 701) PCO2 VENOUS (BEAKER) (test code = 30 mm Hg 41-51 L 755) PO2 VENOUS (BEAKER) (test code = 85 mm Hg 25-40 H 702) O2 SATURATION VENOUS (BEAKER) 96.6 % 40.0-70.0 H (test code = 703) HCO3 VENOUS (BEAKER) (test code = 19 mmol/L 21-29 L 705) BASE EXCESS VENOUS (BEAKER) (test -3.8 mmol/L -2.0-3.0 L code = 704) PATIENT TEMPERATURE (BEAKER) 37.3 (test code = 1818) FIO2 (BEAKER) (test code = 1819) 100.0 LACTIC ACID, [id number] 00:13:01 Test Item Value Reference Range Interpretation Comments LACTATE BLOOD VENOUS 2.57 mmol/L 0.50-2.00 H Specime n moderately (2) (BEAKER) (test hemolyzed code = 2872) Ice Cream Dispenser ID - MMSpecimen slightly ictericPOCT-GLUCOSE [id number] 00:04:18 Test Item Value Reference Range Interpretation Comments POC-GLUCOSE METER 253 mg/dL 70-110 H : TESTED A T [facility] 6720 (BEAKER) (test code = [facility], 1538) [address]: Ice Cream Dispenser/Techni betty ID = [id number] for Zbigniew Gudino POCT-GLUCOSE [id number] 18:20:20 Test Item Value Reference Range Interpretation Comments POC-GLUCOSE METER 182 mg/dL 70-110 H : TESTED A T [facility] 6720 (BEAKER) (test code = [facility], 1538) 234[address]: Ice Cream Dispenser/Techni betty ID = [id number] for Um eh, Akumbu POCT-GLUCOSE [id number] 11:47:30 Test Item Value Reference Range Interpretation Comments POC-GLUCOSE METER 220 mg/dL 70-110 H : TESTED A T [facility] 6720 (BEAKER) (test code = [facility], 1538) [address]96[address]: Ice Cream Dispenser/Techni betty ID = [id number] for Um eh, Akumbu CBC W/PLT COUNT & AUTO [id number] 06:01:06 Test Item Value Reference Range Interpretation Comments WHITE BLOOD CELL COUNT 7.6 K/ L 3.5-10.5 (BEAKER) (test code = 775) RED BLOOD CELL COUNT 4.53 M/ L 3.93-5.22 (BEAKER) (test code = 761) HEMOGLOBIN (BEAKER) 14.0 GM/DL 11.2-15.7 (test code = 410) HEMATOCRIT (BEAKER) 46.2 % 34.1-44.9 H (test code = 411) MEAN CORPUSCULAR 102 fL 79-95 H Discordant results VOLUME (BEAKER) (test compar ed to previous code = 753) results; clinic al correlation req uired MEAN CORPUSCULAR 30.9 pg 25.6-32.2 HEMOGLOBIN (BEAKER) (test code = 751) MEAN CORPUSCULAR 30.3 GM/DL 32.2-35.5 L HEMOGLOBIN CONC (BEAKER) (test code = 752) RED CELL DISTRIBUTION 13.6 % 11.7-14.4 WIDTH (BEAKER) (test code = 412) PLATELET COUNT 208 K/CU MM 150-450 (BEAKER) (test code = 756) MEAN PLATELET VOLUME 12.7 fL 9.4-12.3 H (BEAKER) (test code = 754) NUCLEATED RED BLOOD 0 /100 WBC 0-0 CELLS (BEAKER) (test code = 413) NEUTROPHILS RELATIVE 75 % PERCENT (BEAKER) (test code = 429) LYMPHOCYTES RELATIVE 16 % PERCENT (BEAKER) (test code = 430) MONOCYTES RELATIVE 7 % PERCENT (BEAKER) (test code = 431) EOSINOPHILS RELATIVE 2 % PERCENT (BEAKER) (test code = 432) BASOPHILS RELATIVE 1 % PERCENT (BEAKER) (test code = 437) NEUTROPHILS ABSOLUTE 5.69 K/ L 1.56-6.13 COUNT (BEAKER) (test code = 670) LYMPHOCYTES ABSOLUTE 1.20 K/ L 1.18-3.74 COUNT (BEAKER) (test code = 414) MONOCYTES ABSOLUTE 0.51 K/ L 0.24-0.36 H COUNT (BEAKER) (test code = 415) EOSINOPHILS ABSOLUTE 0.14 K/ L 0.04-0.36 COUNT (BEAKER) (test code = 416) BASOPHILS ABSOLUTE 0.07 K/ L 0.01-0.08 COUNT (BEAKER) (test code = 417) IMMATURE 0.40 % 0.00-1.00 GRANULOCYTES-RELATIVE PERCENT (BEAKER) (test code = 2801) POCT-GLUCOSE [id number] 05:44:51 Test Item Value Reference Range Interpretation Comments POC-GLUCOSE METER 118 mg/dL 70-110 H : TESTED A T [facility] 6720 (BEAKER) ([facility] 532[address]: Ice Cream Dispenser/Techni betty ID = [id number] for Devante Burnham POCT-GLUCOSE [id number] 23:57:57 Test Item Value Reference Range Interpretation Comments POC-GLUCOSE METER 166 mg/dL 70-110 H : TESTED A T [facility] 6720 (BEAKER) (test code [facility], = 1538) 15771: Ice Cream Dispenser/Techni betty ID = [id number] for Devante Burnham POCT-GLUCOSE [id number] 17:05:47 Test Item Value Reference Range Interpretation Comments POC-GLUCOSE METER 189 mg/dL 70-110 H : [facility] (test code = [facility], 1538) [address]: Ice Cream Dispenser/Techni betty ID = [id number] for Um eh, Akumbu POCT-GLUCOSE [id number] 12:47:44 Test Item Value Reference Range Interpretation Comments POC-GLUCOSE METER 214 mg/dL 70-110 H : [facility] 67[facility] (test code = [facility], 1538) [address]: Ice Cream Dispenser/Techni betty ID = [id number] for Um eh, Akumbu POCT-GLUCOSE [id number] 06:30:12 Test Item Value Reference Range Interpretation Comments POC-GLUCOSE METER 145 mg/dL 70-110 H : Notified RN/MD: ([facility]) (test code = TESTED AT [facility] 6720 1538) [facility], [address]: Ice Cream Dispenser/Techni betty ID = [id number] for RAMIROTEDDY WILEY ICE BASIC METABOLIC [id number] 05:07:53 Test Item Value Reference Range Interpretation Comments SODIUM (BEAKER) 144 meq/L 136-145 (test code = 381) POTASSIUM 4.0 meq/L 3.5-5.1 (BEAKER) (test code = 379) CHLORIDE (BEAKER) 110 meq/L 98-107 H (test code = 382) CO2 (BEAKER) 23 meq/L 22-29 (test code = 355) BLOOD UREA 47 mg/dL 7-21 H NITROGEN (BEAKER) (test code = 354) CREATININE 0.94 mg/dL 0.57-1.25 (BEAKER) (test code = 358) GLUCOSE RANDOM 227 mg/dL 70-105 H (BEAKER) (test code = 652) CALCIUM (BEAKER) 9.4 mg/dL 8.4-10.2 (test code = 697) EGFR (BEAKER) 70 Interpretatio n of eGFR (test code = mL/min/1.73 values Stage De scription 1092) sq m Result G1 Stephanie l or high >=90 G2 Mildly decreased 60-89 G3a Mildl y to moderately 45-5 9 G3b Moderately to s everely 30-44 G4 Severl y decreased 15-29 G5 Kidney failure <15Reported eGF R is based on the CKD-EPI 2021 equation that d oes not use a race coefficientEsti mated GFR is not as accur ate as Creatinine Jess charlene in predicting glom erular filtration rate . Estimated GFR is not appl icable for dialysis patien ts Ice Cream Dispenser ID - BVCBC W/PLT COUNT & AUTO [id number] 04:43:05 Test Item Value Reference Range Interpretation Comments WHITE BLOOD CELL COUNT (BEAKER) 10.4 K/ L 3.5-10.5 (test code = 775) RED BLOOD CELL COUNT (BEAKER) 4.52 M/ L 3.93-5.22 (test code = 761) HEMOGLOBIN (BEAKER) (test code = 13.9 GM/DL 11.2-15.7 410) HEMATOCRIT (BEAKER) (test code = 43.5 % 34.1-44.9 411) MEAN CORPUSCULAR VOLUME (BEAKER) 96 fL 79-95 H (test code = 753) MEAN CORPUSCULAR HEMOGLOBIN 30.8 pg 25.6-32.2 (BEAKER) (test code = 751) MEAN CORPUSCULAR HEMOGLOBIN CONC 32.0 GM/DL 32.2-35.5 L (BEAKER) (test code = 752) RED CELL DISTRIBUTION WIDTH 13.4 % 11.7-14.4 (BEAKER) (test code = 412) PLATELET COUNT (BEAKER) (test 321 K/CU MM 150-450 code = 756) MEAN PLATELET VOLUME (BEAKER) 13.0 fL 9.4-12.3 H (test code = 754) NUCLEATED RED BLOOD CELLS 0 /100 WBC 0-0 (BEAKER) (test code = 413) NEUTROPHILS RELATIVE PERCENT 80 % (BEAKER) (test code = 429) LYMPHOCYTES RELATIVE PERCENT 12 % (BEAKER) (test code = 430) MONOCYTES RELATIVE PERCENT 7 % (BEAKER) (test code = 431) EOSINOPHILS RELATIVE PERCENT 1 % (BEAKER) (test code = 432) BASOPHILS RELATIVE PERCENT 1 % (BEAKER) (test code = 437) NEUTROPHILS ABSOLUTE COUNT 8.34 K/ L 1.56-6.13 H (BEAKER) (test code = 670) LYMPHOCYTES ABSOLUTE COUNT 1.23 K/ L 1.18-3.74 (BEAKER) (test code = 414) MONOCYTES ABSOLUTE COUNT (BEAKER) 0.69 K/ L 0.24-0.36 H (test code = 415) EOSINOPHILS ABSOLUTE COUNT 0.08 K/ L 0.04-0.36 (BEAKER) (test code = 416) BASOPHILS ABSOLUTE COUNT (BEAKER) 0.05 K/ L 0.01-0.08 (test code = 417) IMMATURE GRANULOCYTES-RELATIVE 0.40 % 0.00-1.00 PERCENT (BEAKER) (test code = 2801) POCT-GLUCOSE [id number] 00:30:15 Test Item Value Reference Range Interpretation Comments POC-GLUCOSE METER 278 mg/dL 70-110 H : Notified RN/MD: ([facility]) (test code = TESTED AT [place] [address]) [facility], [address]: Ice Cream Dispenser/Techni betty ID = [id number] for LATHBRIDGE, WILEY ICE POCT-GLUCOSE [id number] 18:05:33 Test Item Value Reference Range Interpretation Comments POC-GLUCOSE METER 139 mg/dL 70-110 H : [facility]) (test code = [facility]) [address]: Ice Cream Dispenser/Techni betty ID = [id number] for Wi linda, Andreyhja POCT-GLUCOSE [id number] 12:23:53 Test Item Value Reference Range Interpretation Comments POC-GLUCOSE METER 202 mg/dL 70-110 H : [facility] ([facility]) (test code = [facility], 153) [address]: Ice Cream Dispenser/Techni betty ID = [id number] for Wi mbley, Tahja POCT-GLUCOSE [id number] 06:15:57 Test Item Value Reference Range Interpretation Comments POC-GLUCOSE METER 230 mg/dL 70-110 H : Notified RN/MD: ([facility]) (test code = TESTED AT [place] [address]) [facility], [address]: Ice Cream Dispenser/Techni betty ID = [id number] for LATHBRIDGE, WILEY ICE POCT-GLUCOSE [id number] 23:43:43 Test Item Value Reference Range Interpretation Comments POC-GLUCOSE METER 229 mg/dL 70-110 H : TESTED A T [facility] 6720 (BEAKER) (test code = [facility]) [address]: Ice Cream Dispenser/Techni betty ID = [id number] for LATHBRIDGE, WILEY ICE POCT-GLUCOSE [id number] 18:16:42 Test Item Value Reference Range Interpretation Comments POC-GLUCOSE METER 180 mg/dL 70-110 H : TESTED A T [facility] 6720 (BEAKER) (test code = [facility]8) [address]: Ice Cream Dispenser/Techni betty ID = [id number] for MONIQUE STILL POCT-GLUCOSE [id number] 13:02:59 Test Item Value Reference Range Interpretation Comments POC-GLUCOSE METER 246 mg/dL 70-110 H : TESTED A T [facility] 6720 (BEAKER) (test code = [facility]) [address]: Ice Cream Dispenser/Techni betty ID = [id number] for Um eh, Akumbu POCT-GLUCOSE [id number] 05:58:52 Test Item Value Reference Range Interpretation Comments POC-GLUCOSE METER 131 mg/dL 70-110 H : TESTED A T [facility] 6720 (BEAKER) (test code = [facility]) [address]: Ice Cream Dispenser/Techni betty ID = [id number] for PHAN BAILEYA POCT-GLUCOSE [id number] 23:45:30 Test Item Value Reference Range Interpretation Comments POC-GLUCOSE METER 186 mg/dL 70-110 H : TESTED A T [facility] 6720 (BEAKER) (test code = [facility], 1538) [address]: Ice Cream Dispenser/Techni betty ID = [id number] for SHANNON HNSON, JEQUETTA POCT-GLUCOSE [id number] 17:38:03 Test Item Value Reference Range Interpretation Comments POC-GLUCOSE METER 204 mg/dL 70-110 H : TESTED A T [facility] 6720 (BEAKER) (test code = [facility], 1538) [address]: Ice Cream Dispenser/Techni betty ID = [id number] for Tessa Beckham IR GASTROSTOMY TUBE INSERTION [id number] 14:24:04 [facility] : 1965 Sex: FFluoroscopic guided gastrostomy tube placement, .Clinical History: peg Modality: Fluoroscopy. Cambering Machine Operator: Douglas De Jesus MD.Human Factors Scientist: Dr. FreitasConsahra sedation: 1 mg Versed, 50 mcg fentanyl IV. The patient wascontinuously monitored throughout the procedure by the nurse (moderatesedation time: 30 minutes). Vital signs remained stable throughout.Other medication: Glucagon 1 mg IV.Estimated Blood Loss:Less than 1 cc.Specimen: None.Fluoroscopy Time: 1.8 min.Reference Air Kerma (Ka, r): 17.1 mgyTechnique: Discussion of risks, benefits, and alternatives were made with thepatient. The patient expressed understanding and agreed to proceed. After informed consent was obtained, which included the risks ofb leeding, infection, injury to adjacent structures/bowel, adversemedication reaction, the patient's abdomen was prepped and draped in theusual sterile manner. All elements maximal sterile barrier technique wasutilized for this procedure, including utilization of sterile scrubsolution for skin prep, a large sterile sheet to cover the areas of thepatient that were not prepped, and hand hygiene, mask, head covering,and sterile gown for performing radiologist and scrub technologist. Local anesthesia was achieved with 2% lidocaine, the stomach wasinsufflated with air via the NG tube. Three gastropexy sutures wereadministered after instillation of contrast administration. Next, [id number] needle was advanced into the mid-body of the stomach underfluoroscopic guidance. Aspiration of air and injection of contrastconfirmed positioning within the stomach. An Amplatz wire was advancedthrough the needle and curled within the fundus. After a small skinincision was made, the soft tissue tract was created with serialdilators. After the tract was dilated, a 14 [place] catheter was placedinto the stomach. The wire was then removed, and the pigtail of thecatheter was locked. The catheter was then secured onto theskin with2-0 silk. The patient tolerated the procedure well, without immediatecomplications. The patient's vital signs remained stable throughout theprocedure.IMPRESSION:Impression:Successful and uncomplicated fluoroscopic guided gastrostomy tubeplacement, with conscious sedation.Electronically Signed By: Douglas De Jesus01/30/2023 14:26 CDTWorkstation Name: [id number] 13:13:15 Test Item Value Reference Range Interpretation Comments POC-GLUCOSE METER 270 mg/dL 70-110 H : TESTED A T [facility] 6720 (BEAKER) (test code = [facility], 1538) [address]: Ice Cream Dispenser/Techni betty ID = [id number] for Tessa Beckham POCT-GLUCOSE [id number] 06:33:52 Test Item Value Reference Range Interpretation Comments POC-GLUCOSE METER 240 mg/dL 70-110 H : TESTED A T [facility] 6720 (BEAKER) (test code = [facility], 1538) [address]: Ice Cream Dispenser/Techni betty ID = [id number] for SHANNON MASSIMO LANDIN CBC W/PLT COUNT & AUTO [id number] 06:04:51 Test Item Value Reference Range Interpretation Comments WHITE BLOOD CELL COUNT (BEAKER) 10.0 K/ L 3.5-10.5 (test code = 775) RED BLOOD CELL COUNT (BEAKER) 4.58 M/ L 3.93-5.22 (test code = 761) HEMOGLOBIN (BEAKER) (test code = 14.2 GM/DL 11.2-15.7 410) HEMATOCRIT (BEAKER) (test code = 45.3 % 34.1-44.9 H 411) MEAN CORPUSCULAR VOLUME (BEAKER) 99 fL 79-95 H (test code = 753) MEAN CORPUSCULAR HEMOGLOBIN 31.0 pg 25.6-32.2 (BEAKER) (test code = 751) MEAN CORPUSCULAR HEMOGLOBIN CONC 31.3 GM/DL 32.2-35.5 L (BEAKER) (test code = 752) RED CELL DISTRIBUTION WIDTH 13.4 % 11.7-14.4 (BEAKER) (test code = 412) PLATELET COUNT (BEAKER) (test 280 K/CU MM 150-450 code = 756) MEAN PLATELET VOLUME (BEAKER) 12.2 fL 9.4-12.3 (test code = 754) NUCLEATED RED BLOOD CELLS 0 /100 WBC 0-0 (BEAKER) (test code = 413) NEUTROPHILS RELATIVE PERCENT 67 % (BEAKER) (test code = 429) LYMPHOCYTES RELATIVE PERCENT 22 % (BEAKER) (test code = 430) MONOCYTES RELATIVE PERCENT 7 % (BEAKER) (test code = 431) EOSINOPHILS RELATIVE PERCENT 2 % (BEAKER) (test code = 432) BASOPHILS RELATIVE PERCENT 1 % (BEAKER) (test code = 437) NEUTROPHILS ABSOLUTE COUNT 6.73 K/ L 1.56-6.13 H (BEAKER) (test code = 670) LYMPHOCYTES ABSOLUTE COUNT 2.21 K/ L 1.18-3.74 (BEAKER) (test code = 414) MONOCYTES ABSOLUTE COUNT (BEAKER) 0.74 K/ L 0.24-0.36 H (test code = 415) EOSINOPHILS ABSOLUTE COUNT 0.20 K/ L 0.04-0.36 (BEAKER) (test code = 416) BASOPHILS ABSOLUTE COUNT (BEAKER) 0.09 K/ L 0.01-0.08 H (test code = 417) IMMATURE GRANULOCYTES-RELATIVE 0.40 % 0.00-1.00 PERCENT (BEAKER) (test code = 2801) [id number] 05:02:12 Test Item Value Reference Range Interpretation Comments MAGNESIUM (BEAKER) 2.2 mg/dL 1.6-2.6 Specimen moderately (test code = 627) hemolyzed Ice Cream Dispenser ID - [id number] 05:02:12 Test Item Value Reference Range Interpretation Comments PHOSPHORUS (BEAKER) 3.7 mg/dL 2.3-4.7 Specimen moderately (test code = 604) hemolyzed Ice Cream Dispenser ID - ADMINBASIC METABOLIC [id number] 05:02:12 Test Item Value Reference Range Interpretation Comments SODIUM (BEAKER) 137 meq/L 136-145 (test code = 381) POTASSIUM 5.3 meq/L 3.5-5.1 H Specimen modera tely (BEAKER) (test hemolyzed code = 379) CHLORIDE (BEAKER) 104 meq/L 98-107 (test code = 382) CO2 (BEAKER) 23 meq/L 22-29 (test code = 355) BLOOD UREA 40 mg/dL 7-21 H NITROGEN (BEAKER) (test code = 354) CREATININE 0.80 mg/dL 0.57-1.25 Specimen modera tely (BEAKER) (test hemolyzed code = 358) GLUCOSE RANDOM 300 mg/dL 70-105 H (BEAKER) (test code = 652) CALCIUM (BEAKER) 8.9 mg/dL 8.4-10.2 (test code = 697) EGFR (BEAKER) 85 Interpretatio n of eGFR (test code = mL/min/1.73 values Stage De scription 1092) sq m Result G1 Stephanie l or high >=90 G2 Mildly decreased 60-89 G3a Mildl y to moderately 45-5 9 G3b Moderately to s everely 30-44 G4 Severl y decreased 15-29 G5 Kidney failure <15Reported eGF R is based on the CKD-EPI 2020 equation that d oes not use a race coefficientEsti mated GFR is not as accur ate as Creatinine Jess charlene in predicting glom erular filtration rate . Estimated GFR is not appl icable for dialysis patien ts Ice Cream Dispenser ID - ADMINPOCT-GLUCOSE [id number] 01:00:58 Test Item Value Reference Range Interpretation Comments POC-GLUCOSE METER 253 mg/dL 70-110 H : TESTED A T [facility] 6720 (BEAKER) (test code = [facility], 1538) 39750: Ice Cream Dispenser/Techni betty ID = [id number] for MASSIMO BAILEY POCT-GLUCOSE [id number] 18:23:17 Test Item Value Reference Range Interpretation Comments POC-GLUCOSE METER 168 mg/dL 70-110 H : TESTED A T [facility] 6720 (BEAKER) ([facility] 1538[facility] 05984: Ice Cream Dispenser/Techni betty ID = [id number] for An vivek Tessa POCT-GLUCOSE [id number] 12:37:28 Test Item Value Reference Range Interpretation Comments POC-GLUCOSE METER 195 mg/dL 70-110 H : TESTED A T [facility] 6720 (BEAKER) (test code = [facility], 1538) 75938: Ice Cream Dispenser/Techni betty ID = [id number] for An vivek, Tessa POCT-GLUCOSE [id number] 05:26:53 Test Item Value Reference Range Interpretation Comments POC-GLUCOSE METER 211 mg/dL 70-110 H : TESTED A T [facility] 6720 (BEAKER) (test code = [facility], 1538) 89179: Ice Cream Dispenser/Techni betty ID = [id number] for Brad Milton BASIC METABOLIC [id number] 05:24:06 Test Item Value Reference Range Interpretation Comments SODIUM (BEAKER) 143 meq/L 136-145 (test code = 381) POTASSIUM 4.4 meq/L 3.5-5.1 (BEAKER) (test code = 379) CHLORIDE (BEAKER) 105 meq/L 98-107 (test code = 382) CO2 (BEAKER) 28 meq/L 22-29 (test code = 355) BLOOD UREA 34 mg/dL 7-21 H NITROGEN (BEAKER) (test code = 354) CREATININE 0.82 mg/dL 0.57-1.25 (BEAKER) (test code = 358) GLUCOSE RANDOM 208 mg/dL 70-105 H (BEAKER) (test code = 652) CALCIUM (BEAKER) 9.6 mg/dL 8.4-10.2 (test code = 697) EGFR (BEAKER) 83 Interpretatio n of eGFR (test code = mL/min/1.73 values Stage De scription 1092) sq m Result G1 Stephanie l or high >=90 G2 Mildly decreased 60-89 G3a Mildl y to moderately 45-5 9 G3b Moderately to s everely 30-44 G4 Severl y decreased 15-29 G5 Kidney failure <15Reported eGF R is based on the CKD-EPI 2020 equation that d oes not use a race coefficientEsti mated GFR is not as accur ate as Creatinine Jess charlene in predicting glom erular filtration rate . Estimated GFR is not appl icable for dialysis patien ts Ice Cream Dispenser ID - [id number] 05:24:06 Test Item Value Reference Range Interpretation Comments MAGNESIUM (BEAKER) (test code = 2.3 mg/dL 1.6-2.6 627) Ice Cream Dispenser ID - [id number] 05:24:06 Test Item Value Reference Range Interpretation Comments PHOSPHORUS (BEAKER) (test code = 4.0 mg/dL 2.3-4.7 604) Ice Cream Dispenser ID - ADMINCBC W/PLT COUNT & AUTO [id number] 04:53:25 Test Item Value Reference Range Interpretation Comments WHITE BLOOD CELL COUNT (BEAKER) 12.5 K/ L 3.5-10.5 H (test code = 775) RED BLOOD CELL COUNT (BEAKER) 4.69 M/ L 3.93-5.22 (test code = 761) HEMOGLOBIN (BEAKER) (test code = 14.3 GM/DL 11.2-15.7 410) HEMATOCRIT (BEAKER) (test code = 44.3 % 34.1-44.9 411) MEAN CORPUSCULAR VOLUME (BEAKER) 95 fL 79-95 (test code = 753) MEAN CORPUSCULAR HEMOGLOBIN 30.5 pg 25.6-32.2 (BEAKER) (test code = 751) MEAN CORPUSCULAR HEMOGLOBIN CONC 32.3 GM/DL 32.2-35.5 (BEAKER) (test code = 752) RED CELL DISTRIBUTION WIDTH 13.2 % 11.7-14.4 (BEAKER) (test code = 412) PLATELET COUNT (BEAKER) (test 351 K/CU MM 150-450 code = 756) MEAN PLATELET VOLUME (BEAKER) 11.8 fL 9.4-12.3 (test code = 754) NUCLEATED RED BLOOD CELLS 0 /100 WBC 0-0 (BEAKER) (test code = 413) NEUTROPHILS RELATIVE PERCENT 71 % (BEAKER) (test code = 429) LYMPHOCYTES RELATIVE PERCENT 21 % (BEAKER) (test code = 430) MONOCYTES RELATIVE PERCENT 5 % (BEAKER) (test code = 431) EOSINOPHILS RELATIVE PERCENT 2 % (BEAKER) (test code = 432) BASOPHILS RELATIVE PERCENT 1 % (BEAKER) (test code = 437) NEUTROPHILS ABSOLUTE COUNT 8.83 K/ L 1.56-6.13 H (BEAKER) (test code = 670) LYMPHOCYTES ABSOLUTE COUNT 2.64 K/ L 1.18-3.74 (BEAKER) (test code = 414) MONOCYTES ABSOLUTE COUNT (BEAKER) 0.66 K/ L 0.24-0.36 H (test code = 415) EOSINOPHILS ABSOLUTE COUNT 0.22 K/ L 0.04-0.36 (BEAKER) (test code = 416) BASOPHILS ABSOLUTE COUNT (BEAKER) 0.07 K/ L 0.01-0.08 (test code = 417) IMMATURE GRANULOCYTES-RELATIVE 0.20 % 0.00-1.00 PERCENT (BEAKER) (test code = 2801) POCT-GLUCOSE [id number] 01:21:42 Test Item Value Reference Range Interpretation Comments POC-GLUCOSE METER 223 mg/dL 70-110 H : TESTED A T [facility] 6720 (BEAKER) (test code = [facility], 1538) 90636: Ice Cream Dispenser/Techni betty ID = [id number] for Brad Milton POCT-GLUCOSE [id number] 17:12:31 Test Item Value Reference Range Interpretation Comments POC-GLUCOSE METER 231 mg/dL 70-110 H : TESTED A T [facility] 6720 (BEAKER) (test code = [facility], 1538) 56579: Ice Cream Dispenser/Techni betty ID = [id number] for ARIEL HAMILTONINEZ, JODY POCT-GLUCOSE [id number] 12:18:12 Test Item Value Reference Range Interpretation Comments POC-GLUCOSE METER 298 mg/dL 70-110 H : TESTED A T [facility] 6720 (BEAKER) (test code = [facility], 1538) 65751: Ice Cream Dispenser/Techni betty ID = [id number] for MA RTINEZ, JODY [id number] 05:45:49 Test Item Value Reference Range Interpretation Comments PHOSPHORUS (BEAKER) (test code = 3.3 mg/dL 2.3-4.7 604) Ice Cream Dispenser ID - PEDRO WBASIC METABOLIC [id number] 05:45:48 Test Item Value Reference Range Interpretation Comments SODIUM (BEAKER) 142 meq/L 136-145 (test code = 381) POTASSIUM 4.1 meq/L 3.5-5.1 (BEAKER) (test code = 379) CHLORIDE (BEAKER) 107 meq/L 98-107 (test code = 382) CO2 (BEAKER) 26 meq/L 22-29 (test code = 355) BLOOD UREA 34 mg/dL 7-21 H NITROGEN (BEAKER) (test code = 354) CREATININE 0.78 mg/dL 0.57-1.25 (BEAKER) (test code = 358) GLUCOSE RANDOM 204 mg/dL 70-105 H (BEAKER) (test code = 652) CALCIUM (BEAKER) 9.3 mg/dL 8.4-10.2 (test code = 697) EGFR (BEAKER) 88 Interpretatio n of eGFR (test code = mL/min/1.73 values Stage De scription 1092) sq m Result G1 Stephanie l or high >=90 G2 Mildly decreased 60-89 G3a Mildl y to moderately 45-5 9 G3b Moderately to s everely 30-44 G4 Severl y decreased 15-29 G5 Kidney failure <15Reported eGF R is based on the CKD-EPI 2020 equation that d oes not use a race coefficientEsti mated GFR is not as accur ate as Creatinine Jess chang in predicting glom erular filtration rate . Estimated GFR is not appl icable for dialysis patien ts Ice Cream Dispenser ID - PEDRO [id number] 05:45:48 Test Item Value Reference Range Interpretation Comments MAGNESIUM (BEAKER) (test code = 2.2 mg/dL 1.6-2.6 627) Ice Cream Dispenser ID - PEDRO WPOCT-GLUCOSE [id number] 05:23:22 Test Item Value Reference Range Interpretation Comments POC-GLUCOSE METER 237 mg/dL 70-110 H : TESTED A T [facility] 6720 (BEAKER) (test code = [facility], 1538) 07221: Ice Cream Dispenser/Techni betty ID = [id number] for Brad Milton CBC W/PLT COUNT & AUTO [id number] 04:48:32 Test Item Value Reference Range Interpretation Comments WHITE BLOOD CELL COUNT (BEAKER) 10.0 K/ L 3.5-10.5 (test code = 775) RED BLOOD CELL COUNT (BEAKER) 4.50 M/ L 3.93-5.22 (test code = 761) HEMOGLOBIN (BEAKER) (test code = 14.0 GM/DL 11.2-15.7 410) HEMATOCRIT (BEAKER) (test code = 43.4 % 34.1-44.9 411) MEAN CORPUSCULAR VOLUME (BEAKER) 96 fL 79-95 H (test code = 753) MEAN CORPUSCULAR HEMOGLOBIN 31.1 pg 25.6-32.2 (BEAKER) (test code = 751) MEAN CORPUSCULAR HEMOGLOBIN CONC 32.3 GM/DL 32.2-35.5 (BEAKER) (test code = 752) RED CELL DISTRIBUTION WIDTH 13.3 % 11.7-14.4 (BEAKER) (test code = 412) PLATELET COUNT (BEAKER) (test 320 K/CU MM 150-450 code = 756) MEAN PLATELET VOLUME (BEAKER) 11.7 fL 9.4-12.3 (test code = 754) NUCLEATED RED BLOOD CELLS 0 /100 WBC 0-0 (BEAKER) (test code = 413) NEUTROPHILS RELATIVE PERCENT 60 % (BEAKER) (test code = 429) LYMPHOCYTES RELATIVE PERCENT 30 % (BEAKER) (test code = 430) MONOCYTES RELATIVE PERCENT 7 % (BEAKER) (test code = 431) EOSINOPHILS RELATIVE PERCENT 3 % (BEAKER) (test code = 432) BASOPHILS RELATIVE PERCENT 1 % (BEAKER) (test code = 437) NEUTROPHILS ABSOLUTE COUNT 5.96 K/ L 1.56-6.13 (BEAKER) (test code = 670) LYMPHOCYTES ABSOLUTE COUNT 2.95 K/ L 1.18-3.74 (BEAKER) (test code = 414) MONOCYTES ABSOLUTE COUNT (BEAKER) 0.68 K/ L 0.24-0.36 H (test code = 415) EOSINOPHILS ABSOLUTE COUNT 0.29 K/ L 0.04-0.36 (BEAKER) (test code = 416) BASOPHILS ABSOLUTE COUNT (BEAKER) 0.07 K/ L 0.01-0.08 (test code = 417) IMMATURE GRANULOCYTES-RELATIVE 0.30 % 0.00-1.00 PERCENT (BEAKER) (test code = 2801) POCT-GLUCOSE [id number] 00:31:32 Test Item Value Reference Range Interpretation Comments POC-GLUCOSE METER 271 mg/dL 70-110 H : TESTED A T [facility] 6720 (BEAKER) (test code = [facility], 1538) 63405: Ice Cream Dispenser/Techni betty ID = [id number] for Brad Milton POCT-GLUCOSE [id number] 17:44:04 Test Item Value Reference Range Interpretation Comments POC-GLUCOSE METER 256 mg/dL 70-110 H : TESTED A T [facility] 6720 (BEAKER) (test code = [facility], 1538) 64303: Ice Cream Dispenser/Techni betty ID = [id number] for MA RTINEZ, JODY POCT-GLUCOSE [id number] 12:19:28 Test Item Value Reference Range Interpretation Comments POC-GLUCOSE METER 262 mg/dL 70-110 H : TESTED A T [facility] 6720 (BEAKER) (test code = [facility], 1538) 71797: Ice Cream Dispenser/Techni betty ID = [id number] for MONIQUE STILL POCT-GLUCOSE [id number] 08:14:10 Test Item Value Reference Range Interpretation Comments POC-GLUCOSE METER 263 mg/dL 70-110 H : TESTED A T [facility] 6720 (BEAKER) (test code = [facility], 1538) 26290: Ice Cream Dispenser/Techni betty ID = [id number] for MA RTINEZ, JODY POCT-GLUCOSE [id number] 06:18:30 Test Item Value Reference Range Interpretation Comments POC-GLUCOSE METER 211 mg/dL 70-110 H : TESTED A T [facility] 6720 (BEAKER) (test code [facility], = 1538) 61752: Ice Cream Dispenser/Techni betty ID = [id number] for Devante Burnham [id number] 06:18:18 Test Item Value Reference Range Interpretation Comments PHOSPHORUS (BEAKER) (test code = 2.6 mg/dL 2.3-4.7 604) Ice Cream Dispenser ID - PEDRO WBASIC METABOLIC [id number] 06:18:17 Test Item Value Reference Range Interpretation Comments SODIUM (BEAKER) 143 meq/L 136-145 (test code = 381) POTASSIUM 4.0 meq/L 3.5-5.1 (BEAKER) (test code = 379) CHLORIDE (BEAKER) 107 meq/L 98-107 (test code = 382) CO2 (BEAKER) 26 meq/L 22-29 (test code = 355) BLOOD UREA 29 mg/dL 7-21 H NITROGEN (BEAKER) (test code = 354) CREATININE 0.76 mg/dL 0.57-1.25 (BEAKER) (test code = 358) GLUCOSE RANDOM 209 mg/dL 70-105 H (BEAKER) (test code = 652) CALCIUM (BEAKER) 9.1 mg/dL 8.4-10.2 (test code = 697) EGFR (BEAKER) 91 Interpretatio n of eGFR (test code = mL/min/1.73 values Stage De scription 1092) sq m Result G1 Stephanie l or high >=90 G2 Mildly decreased 60-89 G3a Mildl y to moderately 45-5 9 G3b Moderately to s everely 30-44 G4 Severl y decreased 15-29 G5 Kidney failure <15Reported eGF R is based on the CKD-EPI 2020 equation that d oes not use a race coefficientEsti mated GFR is not as accur ate as Creatinine Jess charlene in predicting glom erular filtration rate . Estimated GFR is not appl icable for dialysis patien ts Ice Cream Dispenser ID - PEDRO [id number] 06:18:17 Test Item Value Reference Range Interpretation Comments MAGNESIUM (BEAKER) (test code = 2.2 mg/dL 1.6-2.6 627) Ice Cream Dispenser ID Tona VASQUEZ WCBC W/PLT COUNT & AUTO [id number] 04:49:41 Test Item Value Reference Range Interpretation Comments WHITE BLOOD CELL COUNT (BEAKER) 9.3 K/ L 3.5-10.5 (test code = 775) RED BLOOD CELL COUNT (BEAKER) 4.19 M/ L 3.93-5.22 (test code = 761) HEMOGLOBIN (BEAKER) (test code = 13.1 GM/DL 11.2-15.7 410) HEMATOCRIT (BEAKER) (test code = 41.2 % 34.1-44.9 411) MEAN CORPUSCULAR VOLUME (BEAKER) 98 fL 79-95 H (test code = 753) MEAN CORPUSCULAR HEMOGLOBIN 31.3 pg 25.6-32.2 (BEAKER) (test code = 751) MEAN CORPUSCULAR HEMOGLOBIN CONC 31.8 GM/DL 32.2-35.5 L (BEAKER) (test code = 752) RED CELL DISTRIBUTION WIDTH 13.2 % 11.7-14.4 (BEAKER) (test code = 412) PLATELET COUNT (BEAKER) (test 285 K/CU MM 150-450 code = 756) MEAN PLATELET VOLUME (BEAKER) 11.6 fL 9.4-12.3 (test code = 754) NUCLEATED RED BLOOD CELLS 0 /100 WBC 0-0 (BEAKER) (test code = 413) NEUTROPHILS RELATIVE PERCENT 72 % (BEAKER) (test code = 429) LYMPHOCYTES RELATIVE PERCENT 17 % (BEAKER) (test code = 430) MONOCYTES RELATIVE PERCENT 8 % (BEAKER) (test code = 431) EOSINOPHILS RELATIVE PERCENT 3 % (BEAKER) (test code = 432) BASOPHILS RELATIVE PERCENT 1 % (BEAKER) (test code = 437) NEUTROPHILS ABSOLUTE COUNT 6.64 K/ L 1.56-6.13 H (BEAKER) (test code = 670) LYMPHOCYTES ABSOLUTE COUNT 1.56 K/ L 1.18-3.74 (BEAKER) (test code = 414) MONOCYTES ABSOLUTE COUNT (BEAKER) 0.71 K/ L 0.24-0.36 H (test code = 415) EOSINOPHILS ABSOLUTE COUNT 0.28 K/ L 0.04-0.36 (BEAKER) (test code = 416) BASOPHILS ABSOLUTE COUNT (BEAKER) 0.06 K/ L 0.01-0.08 (test code = 417) IMMATURE GRANULOCYTES-RELATIVE 0.50 % 0.00-1.00 PERCENT (BEAKER) (test code = 2801) POCT-GLUCOSE [id number] 00:19:08 Test Item Value Reference Range Interpretation Comments POC-GLUCOSE METER 237 mg/dL 70-110 H : TESTED A T [facility] 6720 (BEAKER) (test code [facility], = 1538) 66057: Ice Cream Dispenser/Techni betty ID = [id number] for Asa alvarado Devante POCT-GLUCOSE [id number] 17:26:56 Test Item Value Reference Range Interpretation Comments POC-GLUCOSE METER 180 mg/dL 70-110 H : TESTED A T [facility] 6720 (BEAKER) ([facility] 1538) 66309: Ice Cream Dispenser/Techni betty ID = [id number] for NELDA TAYLOR POCT-GLUCOSE [id number] 12:04:42 Test Item Value Reference Range Interpretation Comments POC-GLUCOSE METER 167 mg/dL 70-110 H : TESTED A T [facility] 6720 (BEAKER) (test code = [facility] [place], 1538) 22194: Ice Cream Dispenser/Techni betty ID = [id number] for JODY WALSH [id number] 08:31:02 Test Item Value Reference Range Interpretation Comments PHOSPHORUS (BEAKER) (test code = 2.8 mg/dL 2.3-4.7 604) Ice Cream Dispenser ID - mmBASIC METABOLIC [id number] 08:31:01 Test Item Value Reference Range Interpretation Comments SODIUM (BEAKER) 144 meq/L 136-145 (test code = 381) POTASSIUM 3.9 meq/L 3.5-5.1 (BEAKER) (test code = 379) CHLORIDE (BEAKER) 108 meq/L 98-107 H (test code = 382) CO2 (BEAKER) 24 meq/L 22-29 (test code = 355) BLOOD UREA 29 mg/dL 7-21 H NITROGEN (BEAKER) (test code = 354) CREATININE 0.77 mg/dL 0.57-1.25 (BEAKER) (test code = 358) GLUCOSE RANDOM 222 mg/dL 70-105 H (BEAKER) (test code = 652) CALCIUM (BEAKER) 8.8 mg/dL 8.4-10.2 (test code = 697) EGFR (BEAKER) 89 Interpretatio n of eGFR (test code = mL/min/1.73 values Stage De scription 1092) sq m Result G1 Stephanie l or high >=90 G2 Mildly decreased 60-89 G3a Mildl y to moderately 45-5 9 G3b Moderately to s everely 30-44 G4 Severl y decreased 15-29 G5 Kidney failure <15Reported eGF R is based on the CKD-EPI 2021 equation that d oes not use a race coefficientEsti mated GFR is not as accur ate as Creatinine Jess chang in predicting glom erular filtration rate . Estimated GFR is not appl icable for dialysis patien ts Ice Cream Dispenser ID - [id number] 08:31:01 Test Item Value Reference Range Interpretation Comments MAGNESIUM (BEAKER) (test code = 2.3 mg/dL 1.6-2.6 627) Ice Cream Dispenser ID - mmPOCT-GLUCOSE [id number] 06:27:33 Test Item Value Reference Range Interpretation Comments POC-GLUCOSE METER 238 mg/dL 70-110 H : [facility] (test code = [facility] [place], 1538) 82531: Ice Cream Dispenser/Techni betty ID = [id number] for SHANNON ERNAYOEL MASSIMO CBC W/PLT COUNT & AUTO [id number] 04:45:26 Test Item Value Reference Range Interpretation Comments WHITE BLOOD CELL COUNT (BEAKER) 8.6 K/ L 3.5-10.5 (test code = 775) RED BLOOD CELL COUNT (BEAKER) 4.19 M/ L 3.93-5.22 (test code = 761) HEMOGLOBIN (BEAKER) (test code = 13.2 GM/DL 11.2-15.7 410) HEMATOCRIT (BEAKER) (test code = 40.8 % 34.1-44.9 411) MEAN CORPUSCULAR VOLUME (BEAKER) 97 fL 79-95 H (test code = 753) MEAN CORPUSCULAR HEMOGLOBIN 31.5 pg 25.6-32.2 (BEAKER) (test code = 751) MEAN CORPUSCULAR HEMOGLOBIN CONC 32.4 GM/DL 32.2-35.5 (BEAKER) (test code = 752) RED CELL DISTRIBUTION WIDTH 13.4 % 11.7-14.4 (BEAKER) (test code = 412) PLATELET COUNT (BEAKER) (test 265 K/CU MM 150-450 code = 756) MEAN PLATELET VOLUME (BEAKER) 11.3 fL 9.4-12.3 (test code = 754) NUCLEATED RED BLOOD CELLS 0 /100 WBC 0-0 (BEAKER) (test code = 413) NEUTROPHILS RELATIVE PERCENT 70 % (BEAKER) (test code = 429) LYMPHOCYTES RELATIVE PERCENT 19 % (BEAKER) (test code = 430) MONOCYTES RELATIVE PERCENT 8 % (BEAKER) (test code = 431) EOSINOPHILS RELATIVE PERCENT 3 % (BEAKER) (test code = 432) BASOPHILS RELATIVE PERCENT 1 % (BEAKER) (test code = 437) NEUTROPHILS ABSOLUTE COUNT 6.02 K/ L 1.56-6.13 (BEAKER) (test code = 670) LYMPHOCYTES ABSOLUTE COUNT 1.60 K/ L 1.18-3.74 (BEAKER) (test code = 414) MONOCYTES ABSOLUTE COUNT (BEAKER) 0.65 K/ L 0.24-0.36 H (test code = 415) EOSINOPHILS ABSOLUTE COUNT 0.25 K/ L 0.04-0.36 (BEAKER) (test code = 416) BASOPHILS ABSOLUTE COUNT (BEAKER) 0.04 K/ L 0.01-0.08 (test code = 417) IMMATURE GRANULOCYTES-RELATIVE 0.50 % 0.00-1.00 PERCENT (BEAKER) (test code = 2801) POCT-GLUCOSE [id number] 00:46:12 Test Item Value Reference Range Interpretation Comments POC-GLUCOSE METER 180 mg/dL 70-110 H : TESTED A T [facility] 6720 (BEAKER) (test code = [facility], 153) 00368: Ice Cream Dispenser/Techni betty ID = [id number] for MASSIMO BAILEY POCT-GLUCOSE [id number] 17:33:10 Test Item Value Reference Range Interpretation Comments POC-GLUCOSE METER 159 mg/dL 70-110 H : TESTED A T [facility] 6720 (BEAKER) (test code = [facility], 153) 69819: Ice Cream Dispenser/Techni betty ID = [id number] for Wi mbley, Tahja POCT-GLUCOSE [id number] 11:54:47 Test Item Value Reference Range Interpretation Comments POC-GLUCOSE METER 212 mg/dL 70-110 H : TESTED A T [facility] 6720 (BEAKER) (test code = [facility], 153) 85585: Ice Cream Dispenser/Techni betty ID = [id number] for Wi mbley, Tahja POCT-GLUCOSE [id number] 05:32:57 Test Item Value Reference Range Interpretation Comments POC-GLUCOSE METER 174 mg/dL 70-110 H : TESTED A T [facility] 6720 (BEAKER) (test code [facility], = 1538) 83423: Ice Cream Dispenser/Techni betty ID = [id number] for Devante Burnham BASIC METABOLIC [id number] 05:26:16 Test Item Value Reference Range Interpretation Comments SODIUM (BEAKER) 140 meq/L 136-145 (test code = 381) POTASSIUM 3.8 meq/L 3.5-5.1 (BEAKER) (test code = 379) CHLORIDE (BEAKER) 104 meq/L 98-107 (test code = 382) CO2 (BEAKER) 23 meq/L 22-29 (test code = 355) BLOOD UREA 25 mg/dL 7-21 H NITROGEN (BEAKER) (test code = 354) CREATININE 0.79 mg/dL 0.57-1.25 (BEAKER) (test code = 358) GLUCOSE RANDOM 155 mg/dL 70-105 H (BEAKER) (test code = 652) CALCIUM (BEAKER) 8.7 mg/dL 8.4-10.2 (test code = 697) EGFR (BEAKER) 87 Interpretatio n of eGFR (test code = mL/min/1.73 values Stage De scription 1092) sq m Result G1 Stephanie l or high >=90 G2 Mildly decreased 60-89 G3a Mildl y to moderately 45-5 9 G3b Moderately to s everely 30-44 G4 Severl y decreased 15-29 G5 Kidney failure <15Reported eGF R is based on the CKD-EPI 2020 equation that d oes not use a race coefficientEsti mated GFR is not as accur ate as Creatinine Jess chang in predicting glom erular filtration rate . Estimated GFR is not appl icable for dialysis patien ts Ice Cream Dispenser ID - [id number] 05:26:16 Test Item Value Reference Range Interpretation Comments MAGNESIUM (BEAKER) (test code = 2.4 mg/dL 1.6-2.6 627) [employer] Dispenser ID - [id number] 05:26:16 Test Item Value Reference Range Interpretation Comments PHOSPHORUS (BEAKER) (test code = 3.6 mg/dL 2.3-4.7 604) [employer] Dispenser ID - ADMINCBC W/PLT COUNT & AUTO [id number] 04:37:42 Test Item Value Reference Range Interpretation Comments WHITE BLOOD CELL COUNT (BEAKER) 8.4 K/ L 3.5-10.5 (test code = 775) RED BLOOD CELL COUNT (BEAKER) 4.19 M/ L 3.93-5.22 (test code = 761) HEMOGLOBIN (BEAKER) (test code = 13.3 GM/DL 11.2-15.7 410) HEMATOCRIT (BEAKER) (test code = 40.4 % 34.1-44.9 411) MEAN CORPUSCULAR VOLUME (BEAKER) 96 fL 79-95 H (test code = 753) MEAN CORPUSCULAR HEMOGLOBIN 31.7 pg 25.6-32.2 (BEAKER) (test code = 751) MEAN CORPUSCULAR HEMOGLOBIN CONC 32.9 GM/DL 32.2-35.5 (BEAKER) (test code = 752) RED CELL DISTRIBUTION WIDTH 13.2 % 11.7-14.4 (BEAKER) (test code = 412) PLATELET COUNT (BEAKER) (test 260 K/CU MM 150-450 code = 756) MEAN PLATELET VOLUME (BEAKER) 10.8 fL 9.4-12.3 (test code = 754) NUCLEATED RED BLOOD CELLS 0 /100 WBC 0-0 (BEAKER) (test code = 413) NEUTROPHILS RELATIVE PERCENT 73 % (BEAKER) (test code = 429) LYMPHOCYTES RELATIVE PERCENT 16 % (BEAKER) (test code = 430) MONOCYTES RELATIVE PERCENT 8 % (BEAKER) (test code = 431) EOSINOPHILS RELATIVE PERCENT 3 % (BEAKER) (test code = 432) BASOPHILS RELATIVE PERCENT 1 % (BEAKER) (test code = 437) NEUTROPHILS ABSOLUTE COUNT 6.09 K/ L 1.56-6.13 (BEAKER) (test code = 670) LYMPHOCYTES ABSOLUTE COUNT 1.33 K/ L 1.18-3.74 (BEAKER) (test code = 414) MONOCYTES ABSOLUTE COUNT (BEAKER) 0.67 K/ L 0.24-0.36 H (test code = 415) EOSINOPHILS ABSOLUTE COUNT 0.21 K/ L 0.04-0.36 (BEAKER) (test code = 416) BASOPHILS ABSOLUTE COUNT (BEAKER) 0.04 K/ L 0.01-0.08 (test code = 417) IMMATURE GRANULOCYTES-RELATIVE 0.40 % 0.00-1.00 PERCENT (BEAKER) (test code = 2801) POCT-GLUCOSE [id number] 00:10:30 Test Item Value Reference Range Interpretation Comments POC-GLUCOSE METER 145 mg/dL 70-110 H : TESTED A T 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 No hemorrhagicconversion or significant mass effect.No abnormal susceptibility.Sc attered T2/FLAIR hyperintense foci within the periventricular andsubcortical white matter are nonspecific, however, statisticallyrepresent chronic microvascular ischemic changes.No hydrocephalus.Orbitsare within normal limits. 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 No hemorrhagicconversion or significant mass effect.POCT-GLUCOSE [id number] 13:22:17 Test Item Value Reference Range Interpretation Comments POC-GLUCOSE METER 125 mg/dL 70-110 H : TESTED A T [facility] (BEAKER) (test code = [facility], 1538) 43126: Ice Cream Dispenser/Techni betty ID = [id number] for Isabel Bailey [id number] 07:12:26 Test Item Value Reference Range Interpretation Comments MAGNESIUM (BEAKER) (test code = 2.3 mg/dL 1.6-2.6 627) Ice Cream Dispenser ID - [id number] 07:12:26 Test Item Value Reference Range Interpretation Comments PHOSPHORUS (BEAKER) (test code = 4.0 mg/dL 2.3-4.7 604) Ice Cream Dispenser ID - MMBASIC METABOLIC [id number] 07:12:25 Test Item Value Reference Range Interpretation Comments SODIUM (BEAKER) 143 meq/L 136-145 (test code = 381) POTASSIUM 4.3 meq/L 3.5-5.1 (BEAKER) (test code = 379) CHLORIDE (BEAKER) 105 meq/L 98-107 (test code = 382) CO2 (BEAKER) 26 meq/L 22-29 (test code = 355) BLOOD UREA 23 mg/dL 7-21 H NITROGEN (BEAKER) (test code = 354) CREATININE 0.81 mg/dL 0.57-1.25 (BEAKER) (test code = 358) GLUCOSE RANDOM 125 mg/dL 70-105 H (BEAKER) (test code = 652) CALCIUM (BEAKER) 9.4 mg/dL 8.4-10.2 (test code = 697) EGFR (BEAKER) 84 Interpretatio n of eGFR (test code = mL/min/1.73 values Stage De scription 1092) sq m Result G1 Stephanie l or high >=90 G2 Mildly decreased 60-89 G3a Mildl y to moderately 45-5 9 G3b Moderately to s everely 30-44 G4 Severl y decreased 15-29 G5 Kidney failure <15Reported eGF R is based on the CKD-EPI 2020 equation that d oes not use a race coefficientEsti mated GFR is not as accur ate as Creatinine Jess chang in predicting glom erular filtration rate . Estimated GFR is not appl icable for dialysis patien ts Ice Cream Dispenser ID - MMPOCT-GLUCOSE [id number] 06:59:04 Test Item Value Reference Range Interpretation Comments POC-GLUCOSE METER 120 mg/dL 70-110 H : TESTED A T [facility] 6720 (BEAKER) (test code [facility], = 1538) 9[address]: Ice Cream Dispenser/Techni betty ID = [id number] for Devante Burnham CBC W/PLT COUNT & AUTO [id number] 06:03:28 Test Item Value Reference Range Interpretation Comments WHITE BLOOD CELL COUNT (BEAKER) 8.3 K/ L 3.5-10.5 (test code = 775) RED BLOOD CELL COUNT (BEAKER) 4.22 M/ L 3.93-5.22 (test code = 761) HEMOGLOBIN (BEAKER) (test code = 13.2 GM/DL 11.2-15.7 410) HEMATOCRIT (BEAKER) (test code = 40.4 % 34.1-44.9 411) MEAN CORPUSCULAR VOLUME (BEAKER) 96 fL 79-95 H (test code = 753) MEAN CORPUSCULAR HEMOGLOBIN 31.3 pg 25.6-32.2 (BEAKER) (test code = 751) MEAN CORPUSCULAR HEMOGLOBIN CONC 32.7 GM/DL 32.2-35.5 (BEAKER) (test code = 752) RED CELL DISTRIBUTION WIDTH 13.2 % 11.7-14.4 (BEAKER) (test code = 412) PLATELET COUNT (BEAKER) (test 256 K/CU MM 150-450 code = 756) MEAN PLATELET VOLUME (BEAKER) 10.4 fL 9.4-12.3 (test code = 754) NUCLEATED RED BLOOD CELLS 0 /100 WBC 0-0 (BEAKER) (test code = 413) NEUTROPHILS RELATIVE PERCENT 70 % (BEAKER) (test code = 429) LYMPHOCYTES RELATIVE PERCENT 17 % (BEAKER) (test code = 430) MONOCYTES RELATIVE PERCENT 9 % (BEAKER) (test code = 431) EOSINOPHILS RELATIVE PERCENT 2 % (BEAKER) (test code = 432) BASOPHILS RELATIVE PERCENT 1 % (BEAKER) (test code = 437) NEUTROPHILS ABSOLUTE COUNT 5.81 K/ L 1.56-6.13 (BEAKER) (test code = 670) LYMPHOCYTES ABSOLUTE COUNT 1.44 K/ L 1.18-3.74 (BEAKER) (test code = 414) MONOCYTES ABSOLUTE COUNT (BEAKER) 0.77 K/ L 0.24-0.36 H (test code = 415) EOSINOPHILS ABSOLUTE COUNT 0.19 K/ L 0.04-0.36 (BEAKER) (test code = 416) BASOPHILS ABSOLUTE COUNT (BEAKER) 0.05 K/ L 0.01-0.08 (test code = 417) IMMATURE GRANULOCYTES-RELATIVE 0.50 % 0.00-1.00 PERCENT (BEAKER) (test code = 2801) POCT-GLUCOSE [id number] 23:45:01 Test Item Value Reference Range Interpretation Comments POC-GLUCOSE METER 131 mg/dL 70-110 H : TESTED A T [facility] 6720 (BEAKER) (test code [facility], = 1538) 06384: Ice Cream Dispenser/Techni betty ID = [id number] for Devante Burnham POCT-GLUCOSE [id number] 18:15:03 Test Item Value Reference Range Interpretation Comments POC-GLUCOSE METER 103 mg/dL 70-110 : TESTED A T [facility] 6720 (SANDY) (test code = [facility], 1538) 13724: Ice Cream Dispenser/Techni betty ID = [id number] for Isabel Bailey CT ABDOMEN WITHOUT IV [id number] 15:39:16 [facility] 1965 Sex: FCT abdomen without contrastHistory: PEG tube placementComparison: noneTechnique: serial axial imaging was performed without intravenouscontrast as per departmental protocol. Multiplanar images arereconstructedand reviewed when indicated. This CT examination is performed using one or more of the following dosereduction techniques:Automated exposure control, adjustment of the mA and /or kV according topatientsize, and/or use of iterative reconstruction technique.Findings:Evaluation limited by lack of intravenous contrast. Grossly unremarkable appearance of unenhanced liver, gallbladder,pancreas, spleen, and adrenal glands.The common bile duct appears enlarged, measuring up to 14 mm in caliber.There is a questionable stone within the distal common bile duct whichis best seen on coronal image 43.No urinarycalculus. No hydronephrosis. No small or large bowel obstruction. No apparent bowel wall thickening.No free fluid or adenopathy.There is a small fat-containing umbilical hernia.No aggressive osseous lesion.IMPRESSION:Impression:1. Moderate enlargement of the common bile duct, with a questionablestone within the distal common bile duct, best seen on coronal image 43.Recommend further evaluation with MRCP or ERCP.2. Small fat- containing umbilical hernia.BLOOD [id number] 15:01:05 Test Item Value Reference Range Interpretation Comments CULTURE (BEAKER) (test No growth in 5 days code = 1095) The specimen volume collected for this blood culture was below the optimum (10 mL per bottle or 20 mL total). Use of lower volumes may adversely affect recovery and/or detection times of some organisms.BLOOD [id number] 15:01:04 Test Item Value Reference Range Interpretation Comments CULTURE (BEAKER) (test No growth in 5 days code = 1095) The specimen volume collected for this blood culture was below the optimum (10 mL per bottle or 20 mL total). Use of lower volumes may adversely affect recovery and/or detection times of some organisms.POCT-GLUCOSE [id number] 14:04:11 Test Item Value Reference Range Interpretation Comments POC-GLUCOSE METER 114 mg/dL 70-110 H : [facility] (test code = [facility], 1538) 44989: Ice Cream Dispenser/Techni betty ID = [id number] for Isabel Bailey [id number] 07:08:47 Test Item Value Reference Range Interpretation Comments PHOSPHORUS (BEAKER) (test code = 4.5 mg/dL 2.3-4.7 604) Ice Cream Dispenser ID - [id number] 07:08:46 Test Item Value Reference Range Interpretation Comments MAGNESIUM (BEAKER) (test code = 2.3 mg/dL 1.6-2.6 627) Ice Cream Dispenser ID - ADMINBASIC METABOLIC [id number] 07:08:46 Test Item Value Reference Range Interpretation Comments SODIUM (BEAKER) 139 meq/L 136-145 (test code = 381) POTASSIUM 4.2 meq/L 3.5-5.1 (BEAKER) (test code = 379) CHLORIDE (BEAKER) 104 meq/L 98-107 (test code = 382) CO2 (BEAKER) 27 meq/L 22-29 (test code = 355) BLOOD UREA 22 mg/dL 7-21 H NITROGEN (BEAKER) (test code = 354) CREATININE 0.81 mg/dL 0.57-1.25 (BEAKER) (test code = 358) GLUCOSE RANDOM 123 mg/dL 70-105 H (BEAKER) (test code = 652) CALCIUM (BEAKER) 8.8 mg/dL 8.4-10.2 (test code = 697) EGFR (BEAKER) 84 Interpretatio n of eGFR (test code = mL/min/1.73 values Stage De scription 1092) sq m Result G1 Stephanie l or high >=90 G2 Mildly decreased 60-89 G3a Mildl y to moderately 45-5 9 G3b Moderately to s everely 30-44 G4 Severl y decreased 15-29 G5 Kidne y failure <15Reported eGF R is based on the CKD-EPI 2020 equation that d oes not use a race coefficientEsti mated GFR is not as accur ate as Creatinine Jess charlene in predicting glom erular filtration rate . Estimated GFR is not appl icable for dialysis patien ts Ice Cream Dispenser ID - ADMINPT/[id number] 06:33:02 Test Item Value Reference Range Interpretation Comments PROTIME (BEAKER) (test code = 15.7 seconds 11.9-14.2 H 759) INR (BEAKER) (test code = 370) 1.34 <=5.90 PARTIAL THROMBOPLASTIN TIME 27.3 seconds 22.5-36.0 (BEAKER) (test code = 760) RECOMMENDED COUMADIN/WARFARIN INR THERAPY RANGESSTANDARD DOSE: 2.0 - 3.0 Includes: PROPHYLAXIS for venous thrombosis, systemic embolization; TREATMENT for venous thrombosis and/or pulmonary embolus.HIGH RISK: Target INR is 2.5-3.5 for patients with mechanical heart valves.CBC W/PLT COUNT & AUTO [id number] 06:25:59 Test Item Value Reference Range Interpretation Comments WHITE BLOOD CELL COUNT (BEAKER) 6.2 K/ L 3.5-10.5 (test code = 775) RED BLOOD CELL COUNT (BEAKER) 3.98 M/ L 3.93-5.22 (test code = 761) HEMOGLOBIN (BEAKER) (test code = 12.7 GM/DL 11.2-15.7 410) HEMATOCRIT (BEAKER) (test code = 39.3 % 34.1-44.9 411) MEAN CORPUSCULAR VOLUME (BEAKER) 99 fL 79-95 H (test code = 753) MEAN CORPUSCULAR HEMOGLOBIN 31.9 pg 25.6-32.2 (BEAKER) (test code = 751) MEAN CORPUSCULAR HEMOGLOBIN CONC 32.3 GM/DL 32.2-35.5 (BEAKER) (test code = 752) RED CELL DISTRIBUTION WIDTH 13.5 % 11.7-14.4 (BEAKER) (test code = 412) PLATELET COUNT (BEAKER) (test 254 K/CU MM 150-450 code = 756) MEAN PLATELET VOLUME (BEAKER) 10.5 fL 9.4-12.3 (test code = 754) NUCLEATED RED BLOOD CELLS 0 /100 WBC 0-0 (BEAKER) (test code = 413) NEUTROPHILS RELATIVE PERCENT 64 % (BEAKER) (test code = 429) LYMPHOCYTES RELATIVE PERCENT 24 % (BEAKER) (test code = 430) MONOCYTES RELATIVE PERCENT 9 % (BEAKER) (test code = 431) EOSINOPHILS RELATIVE PERCENT 3 % (BEAKER) (test code = 432) BASOPHILS RELATIVE PERCENT 1 % (BEAKER) (test code = 437) NEUTROPHILS ABSOLUTE COUNT 3.98 K/ L 1.56-6.13 (BEAKER) (test code = 670) LYMPHOCYTES ABSOLUTE COUNT 1.46 K/ L 1.18-3.74 (BEAKER) (test code = 414) MONOCYTES ABSOLUTE COUNT (BEAKER) 0.55 K/ L 0.24-0.36 H (test code = 415) EOSINOPHILS ABSOLUTE COUNT 0.16 K/ L 0.04-0.36 (BEAKER) (test code = 416) BASOPHILS ABSOLUTE COUNT (BEAKER) 0.04 K/ L 0.01-0.08 (test code = 417) IMMATURE GRANULOCYTES-RELATIVE 0.30 % 0.00-1.00 PERCENT (BEAKER) (test code = 2801) POCT-GLUCOSE [id number] 05:49:01 Test Item Value Reference Range Interpretation Comments POC-GLUCOSE METER 155 mg/dL 70-110 H : TESTED A T [facility] [address] (BEAKER) (test code = [facility] [place], 1538) [address]: Ice Cream Dispenser/Techni betty ID = [id number] for Brad Milton POCT-GLUCOSE [id number] 00:25:12 Test Item Value Reference Range Interpretation Comments POC-GLUCOSE METER 128 mg/dL 70-110 H : TESTED A T [facility] 6720 (BEAKER) (test code = [facility], 1538) 51472: Ice Cream Dispenser/Techni betty ID = [id number] for Brad Milton XR ABDOMEN/KUB 1 VIEW [id number] 20:38:37 [facility] 1965 Sex: FSupine a bdomen:HISTORY: Enteric tube placement verificationA feeding tube is noted with its tip projecting in the region of thedistal stomach. The bowel gas pattern is nonspecific.POCT-GLUCOSE [id number] 18:12:02 Test Item Value Reference Range Interpretation Comments POC-GLUCOSE METER 114 mg/dL 70-110 H : TESTED A T [facility] 6720 (BEAKER) (test code = [facility], 1538) 57311: Ice Cream Dispenser/Techni betty ID = [id number] for HI DALGO, AGLAE POCT-GLUCOSE [id number] 12:38:44 Test Item Value Reference Range Interpretation Comments POC-GLUCOSE METER 122 mg/dL 70-110 H : TESTED A T [facility] 6720 (BEAKER) (test code = [facility], 1538) 20402: Ice Cream Dispenser/Techni betty ID = [id number] for HI DALGO, AGLAE POCT-GLUCOSE [id number] 06:10:55 Test Item Value Reference Range Interpretation Comments POC-GLUCOSE METER 136 mg/dL 70-110 H : TESTED A T [facility] 6720 (BEAKER) (test code = [facility] [place], 1538) 77776: Ice Cream Dispenser/Techni betty ID = [id number] for Brad Milton BASIC METABOLIC [id number] 05:33:19 Test Item Value Reference Range Interpretation Comments SODIUM (BEAKER) 138 meq/L 136-145 (test code = 381) POTASSIUM 4.1 meq/L 3.5-5.1 (BEAKER) (test code = 379) CHLORIDE (BEAKER) 103 meq/L 98-107 (test code = 382) CO2 (BEAKER) 30 meq/L 22-29 H (test code = 355) BLOOD UREA 23 mg/dL 7-21 H NITROGEN (BEAKER) (test code = 354) CREATININE 0.76 mg/dL 0.57-1.25 (BEAKER) (test code = 358) GLUCOSE RANDOM 132 mg/dL 70-105 H (BEAKER) (test code = 652) CALCIUM (BEAKER) 8.6 mg/dL 8.4-10.2 (test code = 697) EGFR (BEAKER) 91 Interpretatio n of eGFR (test code = mL/min/1.73 values Stage De scription 1092) sq m Result G1 Stephanie l or high >=90 G2 Mildly decreased 60-89 G3a Mildl y to moderately 45-5 9 G3b Moderately to s everely 30-44 G4 Severl y decreased 15-29 G5 Kidney failure <15Reported eGF R is based on the CKD-EPI 2020 equation that d oes not use a race coefficientEsti mated GFR is not as accur ate as Creatinine Jess chang in predicting glom erular filtration rate . Estimated GFR is not appl icable for dialysis patien ts Ice Cream Dispenser ID - [id number] 05:33:19 Test Item Value Reference Range Interpretation Comments MAGNESIUM (BEAKER) (test code = 2.3 mg/dL 1.6-2.6 627) Ice Cream Dispenser ID - [id number] 05:33:19 Test Item Value Reference Range Interpretation Comments PHOSPHORUS (BEAKER) (test code = 3.9 mg/dL 2.3-4.7 604) Ice Cream Dispenser ID - ADMINCBC W/PLT COUNT & AUTO [id number] 05:08:15 Test Item Value Reference Range Interpretation Comments WHITE BLOOD CELL COUNT (BEAKER) 8.5 K/ L 3.5-10.5 (test code = 775) RED BLOOD CELL COUNT (BEAKER) 3.84 M/ L 3.93-5.22 L (test code = 761) HEMOGLOBIN (BEAKER) (test code = 12.1 GM/DL 11.2-15.7 410) HEMATOCRIT (BEAKER) (test code = 37.7 % 34.1-44.9 411) MEAN CORPUSCULAR VOLUME (BEAKER) 98 fL 79-95 H (test code = 753) MEAN CORPUSCULAR HEMOGLOBIN 31.5 pg 25.6-32.2 (BEAKER) (test code = 751) MEAN CORPUSCULAR HEMOGLOBIN CONC 32.1 GM/DL 32.2-35.5 L (BEAKER) (test code = 752) RED CELL DISTRIBUTION WIDTH 13.5 % 11.7-14.4 (BEAKER) (test code = 412) PLATELET COUNT (BEAKER) (test 230 K/CU MM 150-450 code = 756) MEAN PLATELET VOLUME (BEAKER) 10.5 fL 9.4-12.3 (test code = 754) NUCLEATED RED BLOOD CELLS 0 /100 WBC 0-0 (BEAKER) (test code = 413) NEUTROPHILS RELATIVE PERCENT 70 % (BEAKER) (test code = 429) LYMPHOCYTES RELATIVE PERCENT 20 % (BEAKER) (test code = 430) MONOCYTES RELATIVE PERCENT 8 % (BEAKER) (test code = 431) EOSINOPHILS RELATIVE PERCENT 1 % (BEAKER) (test code = 432) BASOPHILS RELATIVE PERCENT 1 % (BEAKER) (test code = 437) NEUTROPHILS ABSOLUTE COUNT 5.98 K/ L 1.56-6.13 (BEAKER) (test code = 670) LYMPHOCYTES ABSOLUTE COUNT 1.70 K/ L 1.18-3.74 (BEAKER) (test code = 414) MONOCYTES ABSOLUTE COUNT (BEAKER) 0.66 K/ L 0.24-0.36 H (test code = 415) EOSINOPHILS ABSOLUTE COUNT 0.09 K/ L 0.04-0.36 (BEAKER) (test code = 416) BASOPHILS ABSOLUTE COUNT (BEAKER) 0.04 K/ L 0.01-0.08 (test code = 417) IMMATURE GRANULOCYTES-RELATIVE 0.50 % 0.00-1.00 PERCENT (BEAKER) (test code = 2801) POCT-GLUCOSE [id number] 04:35:46 Test Item Value Reference Range Interpretation Comments POC-GLUCOSE METER 129 mg/dL 70-110 H : TESTED A T [facility] 6720 (BEAKER) (test code = [facility], 1538) 19735: Ice Cream Dispenser/Techni betty ID = [id number] for RAZA CHICAS POCT-GLUCOSE [id number] 17:22:36 Test Item Value Reference Range Interpretation Comments POC-GLUCOSE METER 203 mg/dL 70-110 H : TESTED A T [facility] 6720 (BEAKER) (test code = [facility], 1538) 70373: Ice Cream Dispenser/Techni betty ID = [id number] for Harry Aleman Sputum Culture + Gram [id number] 14:44:42 Test Item Value Reference Range Interpretation Comments Result (test code = 4+ Normal respiratory 6463-4) amy present Gram Stain Result 1+ gram positive cocci in (test code = 1123) pairs and clusters ZOILA (test code = 4+ Normal respiratory ZOILA) [facility]y [facility] [id number] 14:44:42 Test Item Value Reference Range Interpretation Comments CULTURE (BEAKER) 4+ Normal respiratory (test code = 1095) amy present GRAM STAIN RESULT 1+ WBCs (BEAKER) (test code = 1123) GRAM STAIN RESULT 0-5 epithelial cells (BEAKER) (test code = 277610) GRAM STAIN RESULT 1+ gram negative rods (BEAKER) (test code = 913136) GRAM STAIN RESULT 1+ gram positive cocci (BEAKER) (test code = in pairs and clusters 098555) 4+ Normal respiratory amy presentPOCT-GLUCOSE [id number] 12:32:53 Test Item Value Reference Range Interpretation Comments POC-GLUCOSE METER 171 mg/dL 70-110 H : TESTED A T [facility] 6720 (BEAKER) (test code = [facility], 1538) 57884: Ice Cream Dispenser/Techni betty ID = [id number] for Harry Aleman [id number] 06:08:25 Test Item Value Reference Range Interpretation Comments PHOSPHORUS (BEAKER) (test code = 3.6 mg/dL 2.3-4.7 604) Ice Cream Dispenser ID - ADMINBASIC METABOLIC [id number] 06:08:24 Test Item Value Reference Range Interpretation Comments SODIUM (BEAKER) 138 meq/L 136-145 (test code = 381) POTASSIUM 3.9 meq/L 3.5-5.1 (BEAKER) (test code = 379) CHLORIDE (BEAKER) 102 meq/L 98-107 (test code = 382) CO2 (BEAKER) 27 meq/L 22-29 (test code = 355) BLOOD UREA 19 mg/dL 7-21 NITROGEN (BEAKER) (test code = 354) CREATININE 0.88 mg/dL 0.57-1.25 (BEAKER) (test code = 358) GLUCOSE RANDOM 161 mg/dL 70-105 H (BEAKER) (test code = 652) CALCIUM (BEAKER) 8.7 mg/dL 8.4-10.2 (test code = 697) EGFR (BEAKER) 76 Interpretatio n of eGFR (test code = mL/min/1.73 values Stage De scription 1092) sq m Result G1 Stephanie l or high >=90 G2 Mildly decreased 60-89 G3a Mildl y to moderately 45-5 9 G3b Moderately to s everely 30-44 G4 Severl y decreased 15-29 G5 Kidney failure <15Reported eGF R is based on the CKD-EPI 2020 equation that d oes not use a race coefficientEsti mated GFR is not as accur ate as Creatinine Jess charlene in predicting glom erular filtration rate . Estimated GFR is not appl icable for dialysis patien ts Ice Cream Dispenser ID - [id number] 06:08:24 Test Item Value Reference Range Interpretation Comments MAGNESIUM (BEAKER) (test code = 2.2 mg/dL 1.6-2.6 627) Ice Cream Dispenser ID - ADMINCBC W/PLT COUNT & AUTO [id number] 05:30:39 Test Item Value Reference Range Interpretation Comments WHITE BLOOD CELL COUNT (BEAKER) 8.9 K/ L 3.5-10.5 (test code = 775) RED BLOOD CELL COUNT (BEAKER) 3.86 M/ L 3.93-5.22 L (test code = 761) HEMOGLOBIN (BEAKER) (test code = 12.2 GM/DL 11.2-15.7 410) HEMATOCRIT (BEAKER) (test code = 38.2 % 34.1-44.9 411) MEAN CORPUSCULAR VOLUME (BEAKER) 99 fL 79-95 H (test code = 753) MEAN CORPUSCULAR HEMOGLOBIN 31.6 pg 25.6-32.2 (BEAKER) (test code = 751) MEAN CORPUSCULAR HEMOGLOBIN CONC 31.9 GM/DL 32.2-35.5 L (BEAKER) (test code = 752) RED CELL DISTRIBUTION WIDTH 13.5 % 11.7-14.4 (BEAKER) (test code = 412) PLATELET COUNT (BEAKER) (test 238 K/CU MM 150-450 code = 756) MEAN PLATELET VOLUME (BEAKER) 10.2 fL 9.4-12.3 (test code = 754) NUCLEATED RED BLOOD CELLS 0 /100 WBC 0-0 (BEAKER) (test code = 413) NEUTROPHILS RELATIVE PERCENT 71 % (BEAKER) (test code = 429) LYMPHOCYTES RELATIVE PERCENT 16 % (BEAKER) (test code = 430) MONOCYTES RELATIVE PERCENT 11 % (BEAKER) (test code = 431) EOSINOPHILS RELATIVE PERCENT 1 % (BEAKER) (test code = 432) BASOPHILS RELATIVE PERCENT 0 % (BEAKER) (test code = 437) NEUTROPHILS ABSOLUTE COUNT 6.31 K/ L 1.56-6.13 H (BEAKER) (test code = 670) LYMPHOCYTES ABSOLUTE COUNT 1.40 K/ L 1.18-3.74 (BEAKER) (test code = 414) MONOCYTES ABSOLUTE COUNT (BEAKER) 0.96 K/ L 0.24-0.36 H (test code = 415) EOSINOPHILS ABSOLUTE COUNT 0.12 K/ L 0.04-0.36 (BEAKER) (test code = 416) BASOPHILS ABSOLUTE COUNT (BEAKER) 0.03 K/ L 0.01-0.08 (test code = 417) IMMATURE GRANULOCYTES-RELATIVE 0.50 % 0.00-1.00 PERCENT (BEAKER) (test code = 2801) POCT-GLUCOSE [id number] 05:27:26 Test Item Value Reference Range Interpretation Comments POC-GLUCOSE METER 138 mg/dL 70-110 H : TESTED A T [facility] 6720 (BEAKER) (test code = [facility] [place], 1538) 920[address]: Ice Cream Dispenser/Techni betty ID = [id number] for Anne Truong POCT-GLUCOSE [id number] 23:00:24 Test Item Value Reference Range Interpretation Comments POC-GLUCOSE METER 178 mg/dL 70-110 H : TESTED A T [facility] 6720 (BEAKER) (test code = [facility], 1538) 10759: Ice Cream Dispenser/Techni betty ID = [id number] for Anne Truong POCT-GLUCOSE [id number] 17:12:51 Test Item Value Reference Range Interpretation Comments POC-GLUCOSE METER 162 mg/dL 70-110 H : TESTED A T [facility] 6720 (BEAKER) (test code = [facility], 1538) 38837: Ice Cream Dispenser/Techni betty ID = [id number] for Skip reardonRenaldoPadmini XR ABDOMEN/KUB 1 VIEW [id number] 13:03:05 [facility] 1965 Sex: FXR ABDOMEN/KUB 1 VIEW PORTABLEINDICATION: check corpak placementCOMPARISON: NoneTECHNIQUE: Limited portable radiograph of the lower chest and upperabdomen was acquired for purposes of evaluating tube placementFINDINGS/IMPRESSION:Feeding tube is coiled within the stomachPOCT-GLUCOSE [id number] 11:33:00 Test Item Value Reference Range Interpretation Comments POC-GLUCOSE METER 114 mg/dL 70-110 H : TESTED A T [facility] 6720 (BEAKER) (test code = [facility], 1538) 90511: Ice Cream Dispenser/Techni betty ID = [id number] for He caron, Deepa'Padmini POCT-GLUCOSE [id number] 05:59:44 Test Item Value Reference Range Interpretation Comments POC-GLUCOSE METER 111 mg/dL 70-110 H : TESTED A T [facility] 6720 (BEAKER) (test code = [facility] [place], 1538) 98641: Ice Cream Dispenser/Techni betty ID = [id number] for Lizabeth Up BASIC METABOLIC [id number] 04:49:32 Test Item Value Reference Range Interpretation Comments SODIUM (BEAKER) 138 meq/L 136-145 (test code = 381) POTASSIUM 4.7 meq/L 3.5-5.1 Specimen slight ly (BEAKER) (test hemolyzed code = 379) CHLORIDE (BEAKER) 103 meq/L 98-107 (test code = 382) CO2 (BEAKER) 26 meq/L 22-29 (test code = 355) BLOOD UREA 15 mg/dL 7-21 NITROGEN (BEAKER) (test code = 354) CREATININE 0.89 mg/dL 0.57-1.25 Specimen slight ly (BEAKER) (test hemolyzed code = 358) GLUCOSE RANDOM 119 mg/dL 70-105 H (BEAKER) (test code = 652) CALCIUM (BEAKER) 8.8 mg/dL 8.4-10.2 (test code = 697) EGFR (BEAKER) 75 Interpretatio n of eGFR (test code = mL/min/1.73 values Stage De scription 1092) sq m Result G1 Stephanie l or high >=90 G2 Mildly decreased 60-89 G3a Mildl y to moderately 45-5 9 G3b Moderately to s everely 30-44 G4 Severl y decreased 15-29 G5 Kidney failure <15Reported eGF R is based on the CKD-EPI 2020 equation that d oes not use a race coefficientEsti mated GFR is not as accur ate as Creatinine Jess chang in predicting glom erular filtration rate . Estimated GFR is not appl icable for dialysis patien ts [employer] Dispenser ID - [id number] 04:49:31 Test Item Value Reference Range Interpretation Comments MAGNESIUM (BEAKER) 2.4 mg/dL 1.6-2.6 Specimen slightly (test code = 627) hemolyzed [employer]er ID - [id number] 04:49:31 Test Item Value Reference Range Interpretation Comments PHOSPHORUS (BEAKER) 4.4 mg/dL 2.3-4.7 Specimen slightly (test code = 604) hemolyzed [employer] Disp[employer]er ID - MMHIGH SENSITIVITY TROPONIN [id number] 04:44:23 Test Item Value Reference Range Interpretation Comments HIGH SENSITIVITY TROPONIN I (test 27 pg/ml <=17 H code = 7748867) [employer] Dispenser ID - MMThe [employer] TE[employer] MEMBER STAT High Sensitivity Troponin-I results should be used in conjunctionwith other diagnostic information such as ECG, clinical observations and information, and patient symptoms to aid in the diagnosis of LA.CBC W/PLT COUNT & AUTO [id number] 04:23:35 Test Item Value Reference Range Interpretation Comments WHITE BLOOD CELL COUNT (BEAKER) 6.9 K/ L 3.5-10.5 (test code = 775) RED BLOOD CELL COUNT (BEAKER) 3.89 M/ L 3.93-5.22 L (test code = 761) HEMOGLOBIN (BEAKER) (test code = 12.4 GM/DL 11.2-15.7 410) HEMATOCRIT (BEAKER) (test code = 37.9 % 34.1-44.9 411) MEAN CORPUSCULAR VOLUME (BEAKER) 97 fL 79-95 H (test code = 753) MEAN CORPUSCULAR HEMOGLOBIN 31.9 pg 25.6-32.2 (BEAKER) (test code = 751) MEAN CORPUSCULAR HEMOGLOBIN CONC 32.7 GM/DL 32.2-35.5 (BEAKER) (test code = 752) RED CELL DISTRIBUTION WIDTH 13.4 % 11.7-14.4 (BEAKER) (test code = 412) PLATELET COUNT (BEAKER) (test 248 K/CU MM 150-450 code = 756) MEAN PLATELET VOLUME (BEAKER) 10.3 fL 9.4-12.3 (test code = 754) NUCLEATED RED BLOOD CELLS 0 /100 WBC 0-0 (BEAKER) (test code = 413) NEUTROPHILS RELATIVE PERCENT 69 % (BEAKER) (test code = 429) LYMPHOCYTES RELATIVE PERCENT 21 % (BEAKER) (test code = 430) MONOCYTES RELATIVE PERCENT 9 % (BEAKER) (test code = 431) EOSINOPHILS RELATIVE PERCENT 0 % (BEAKER) (test code = 432) BASOPHILS RELATIVE PERCENT 0 % (BEAKER) (test code = 437) NEUTROPHILS ABSOLUTE COUNT 4.76 K/ L 1.56-6.13 (BEAKER) (test code = 670) LYMPHOCYTES ABSOLUTE COUNT 1.41 K/ L 1.18-3.74 (BEAKER) (test code = 414) MONOCYTES ABSOLUTE COUNT (BEAKER) 0.62 K/ L 0.24-0.36 H (test code = 415) EOSINOPHILS ABSOLUTE COUNT 0.02 K/ L 0.04-0.36 L (BEAKER) (test code = 416) BASOPHILS ABSOLUTE COUNT (BEAKER) 0.02 K/ L 0.01-0.08 (test code = 417) IMMATURE GRANULOCYTES-RELATIVE 0.40 % 0.00-1.00 PERCENT (BEAKER) (test code = 2801) POCT-GLUCOSE [id number] 00:01:38 Test Item Value Reference Range Interpretation Comments POC-GLUCOSE METER 134 mg/dL 70-110 H : TESTED A T [facility] ([facility]) (test code = [facility], 1538) [address]: Ice Cream Dispenser/Techni betty ID = [id number] for MITCH BAILEY POCT-GLUCOSE [id number] 17:47:07 Test Item Value Reference Range Interpretation Comments POC-GLUCOSE METER 173 mg/dL 70-110 H : TESTED A T [facility] ([facility]) (test code = [facility], 1538) 44824: Ice Cream Dispenser/Techni betty ID = [id number] for Kristal Benson HEMOGLOBIN [id number] 12:56:47 Test Item Value Reference Range Interpretation Comments HEMOGLOBIN A1C 6.5 % See_Comment H [Automated m essage] ELECTROPHORESIS ([facility]) The system which (test code = 3811) generated this result transmitted ref erence range: <=5.6%. The reference range was not used to int erpret this result as normal/abnormal . "The A1c is measured using a NGSP-certified method. HbA1c value equal to or greater than 6.5% as thediagnosis cutoff for diabetes. An HbA1c value of 5.7- 6.4% indicates increased risk for diabetes (prediabetes)."Ice Cream Dispenser ID - ADMOperator ID - ADMHIGH SENSITIVITY TROPONIN [id number] 11:49:14 Test Item Value Reference Range Interpretation Comments HIGH SENSITIVITY TROPONIN I (test 29 pg/ml <=17 H code = 9304517) Ice Cream Dispenser ID - JSThe PRODUCE PRODUCTION TEAM MEMBER STAT High Sensitivity Troponin-I results should be used in conjunctionwith other diagnostic information such as ECG, clinical observations and information, and patient symptoms to aid in the diagnosis of LA.LACTIC ACID, [id number] 11:31:45 Test Item Value Reference Range Interpretation Comments LACTATE BLOOD VENOUS 1.67 mmol/L 0.50-2.00 Specime n slightly (2) (BEAKER) (test hemolyzed code = 2872) Ice Cream Dispenser ID - JSCT BRAIN WITHOUT IV [id number] 07:21:27 [facility] 1965 Sex: FCT Headwithout contrastCLINICAL HISTORY: Stroke suspected TECHNIQUE: Contiguous axial CT images through thehead without contrast.This exam was performed according to the departmental dose optimizationprogramwhich includes automated exposure control, adjustment of the mAand/or kV according to the patient size, and/or use of an iterativereconstruction technique.COMPARISON: 01/18/2023FINDINGS:There is no definitive CT evidence of acute infarct. There is nointracranial hemorrhage. There is periventricular and subcortical whitematter hypodensity which is nonspecific but compatible with chronicmicrovascular ischemic change. There are atherosclerotic calcificationsof the intracranial circulation. There is mild s ulcal prominence withouthydrocephalus, midline shift, or apparent mass effect. There are noextra-axial fluid collections. The skull is intact. There is fluid inthe paranasal sinuses with support tubingin place.IMPRESSION:There is no definitive CT evidence of acute infarct. There is nointracranial hemorrhage. POCT-GLUCOSE [id number] 06:02:55 Test Item Value Reference Range Interpretation Comments POC-GLUCOSE METER 134 mg/dL 70-110 H : TESTED A T [facility] (BEAKER) (test code = [facility] [place], 1538) [address]: Ice Cream Dispenser/Techni betty ID = [id number] for Virginie Whittaker VITAMIN [id number] 06:02:08 Test Item Value Reference Range Interpretation Comments VITAMIN B12 (BEAKER) (test code = < pg/mL 213-816 L 774) Ice Cream Dispenser ID - PEDRO WTSH/FREE T4 IF [id number] 05:53:36 Test Item Value Reference Range Interpretation Comments THYROID STIMULATING HORMONE 0.741 uIU/mL 0.350-4.940 (BEAKER) (test code = 772) Ice Cream Dispenser ID Tona PEDRO WLIPID [id number] 05:46:18 Test Item Value Reference Range Interpretation Comments TRIGLYCERIDES (BEAKER) (test code = 87 mg/dL 540) CHOLESTEROL (BEAKER) (test code = 128 mg/dL 631) HDL CHOLESTEROL (BEAKER) (test code 32 mg/dL = 976) LDL CHOLESTEROL CALCULATED (BEAKER) 79 mg/dL (test code = 633) Triglyceride Reference Range: Low Risk <150 Borderline 150-199 High Risk 200- 499 Very High Risk >=500Cholesterol Reference Range: Low Risk <200 Borderline 200-239 High Risk >240HDL Cholesterol Reference Range: Low Risk >=60 High Risk <40LDL Cholesterol Reference Range: Optimal <100 Near Optimal 100-129 Borderline 130-159 High 160-189 Very High >=190 Ice Cream Dispenser ID - PEDRO [id number] 05:46:17 Test Item Value Reference Range Interpretation Comments MAGNESIUM (BEAKER) (test code = 2.3 mg/dL 1.6-2.6 627) Ice Cream Dispenser ID - PEDRO [id number] 05:46:17 Test Item Value Reference Range Interpretation Comments PHOSPHORUS (BEAKER) (test code = 4.4 mg/dL 2.3-4.7 604) Ice Cream Dispenser ID - PEDRO WBASIC METABOLIC [id number] 05:46:16 Test Item Value Reference Range Interpretation Comments SODIUM (BEAKER) 138 meq/L 136-145 (test code = 381) POTASSIUM 4.2 meq/L 3.5-5.1 (BEAKER) (test code = 379) CHLORIDE (BEAKER) 102 meq/L 98-107 (test code = 382) CO2 (BEAKER) 27 meq/L 22-29 (test code = 355) BLOOD UREA 12 mg/dL 7-21 NITROGEN (BEAKER) (test code = 354) CREATININE 0.84 mg/dL 0.57-1.25 (BEAKER) (test code = 358) GLUCOSE RANDOM 144 mg/dL 70-105 H (BEAKER) (test code = 652) CALCIUM (BEAKER) 8.7 mg/dL 8.4-10.2 (test code = 697) EGFR (BEAKER) 80 Interpretatio n of eGFR (test code = mL/min/1.73 values Stage De scription 1092) sq m Result G1 Stephanie l or high >=90 G2 Mildly decreased 60-89 G3a Mildl y to moderately 45-5 9 G3b Moderately to s everely 30-44 G4 Severl y decreased 15-29 G5 Kidney failure <15Reported eGF R is based on the CKD-EPI 2020 equation that d oes not use a race coefficientEsti mated GFR is not as accur ate as Creatinine Jess chang in predicting glom erular filtration rate . Estimated GFR is not appl icable for dialysis patien ts Ice Cream Dispenser ID - PEDRO WCBC W/PLT COUNT & AUTO [id number] 05:31:56 Test Item Value Reference Range Interpretation Comments WHITE BLOOD CELL COUNT (BEAKER) 10.4 K/ L 3.5-10.5 (test code = 775) RED BLOOD CELL COUNT (BEAKER) 3.69 M/ L 3.93-5.22 L (test code = 761) HEMOGLOBIN (BEAKER) (test code = 11.7 GM/DL 11.2-15.7 410) HEMATOCRIT (BEAKER) (test code = 36.0 % 34.1-44.9 411) MEAN CORPUSCULAR VOLUME (BEAKER) 98 fL 79-95 H (test code = 753) MEAN CORPUSCULAR HEMOGLOBIN 31.7 pg 25.6-32.2 (BEAKER) (test code = 751) MEAN CORPUSCULAR HEMOGLOBIN CONC 32.5 GM/DL 32.2-35.5 (BEAKER) (test code = 752) RED CELL DISTRIBUTION WIDTH 13.4 % 11.7-14.4 (BEAKER) (test code = 412) PLATELET COUNT (BEAKER) (test 245 K/CU MM 150-450 code = 756) MEAN PLATELET VOLUME (BEAKER) 10.9 fL 9.4-12.3 (test code = 754) NUCLEATED RED BLOOD CELLS 0 /100 WBC 0-0 (BEAKER) (test code = 413) NEUTROPHILS RELATIVE PERCENT 77 % (BEAKER) (test code = 429) LYMPHOCYTES RELATIVE PERCENT 15 % (BEAKER) (test code = 430) MONOCYTES RELATIVE PERCENT 7 % (BEAKER) (test code = 431) EOSINOPHILS RELATIVE PERCENT 0 % (BEAKER) (test code = 432) BASOPHILS RELATIVE PERCENT 0 % (BEAKER) (test code = 437) NEUTROPHILS ABSOLUTE COUNT 8.05 K/ L 1.56-6.13 H (BEAKER) (test code = 670) LYMPHOCYTES ABSOLUTE COUNT 1.55 K/ L 1.18-3.74 (BEAKER) (test code = 414) MONOCYTES ABSOLUTE COUNT (BEAKER) 0.70 K/ L 0.24-0.36 H (test code = 415) EOSINOPHILS ABSOLUTE COUNT 0.04 K/ L 0.04-0.36 (BEAKER) (test code = 416) BASOPHILS ABSOLUTE COUNT (BEAKER) 0.03 K/ L 0.01-0.08 (test code = 417) IMMATURE GRANULOCYTES-RELATIVE 0.40 % 0.00-1.00 PERCENT (BEAKER) (test code = 2801) POCT-GLUCOSE [id number] 23:19:39 Test Item Value Reference Range Interpretation Comments POC-GLUCOSE METER 143 mg/dL 70-110 H : TESTED A T [facility] (BEAKER) (test code = [facility] [place], 1538) [address]: Ice Cream Dispenser/Techni betty ID = [id number] for Virginie Whittaker RAPID DRUG SCREEN, [id number] 21:57:51 Test Item Value Reference Range Interpretation Comments BARBITURATE URINE (BEAKER) (test Negative Negative code = 725) BENZODIAZEPINE SCREEN URINE (BEAKER) Negative Negative (test code = 726) COCAINE (METAB.) SCREEN (BEAKER) Negative Negative (test code = 1164) METHADONE SCREEN (BEAKER) (test code Negative Negative = 1436) OPIATE SCREEN URINE (BEAKER) (test Negative Negative code = 734) CANNABINOID SCREEN URINE (BEAKER) Negative Negative (test code = 727) AMPH/METHAMPH SCREEN (BEAKER) (test Negative Negative code = 1438) PHENCYCLIDINE SCREEN URINE (BEAKER) Negative Negative (test code = 608) PH UA (BEAKER) (test code = 467) 6.5 5.0-8.0 DRUG CUTOFF CONC.Cocaine 300 ng/mL Cannabinoid 50 ng/mLBenzodiazepine 200 ng/mLBarbiturate 200 ng/mLPhencyclidine 25 ng/mLOpiate 300 ng/mLMethadone 300 ng/mLAmphetamine/ 1000 ng/mL MethamphetamineThis assay provides an unconfirmed qualitative test result for the clinical management of patients in emergency situations. Chain of custody not maintained. Some icjz-rfl-ledecqi medications, as well as adulterants, may cause inaccurate results. Clinical correlation should be applied. A more comprehensive drug screen or confirmation of a detected drug may be performed upon request.Ice Cream Dispenser ID - MMPOCT-GLUCOSE METER 2023-01-18 18:43:30 Test Item Value Reference Range Interpretation Comments POC-GLUCOSE METER 109 mg/dL 70-110 : TESTED A T [facility] (BEAKER) (test code = [facility], 1538) 469[address]: Ice Cream Dispenser/Techni betty ID = [id number] for leslie Kristal BLOOD GAS, [id number] 18:39:58 Test Item Value Reference Range Interpretation Comments PH VENOUS (BEAKER) (test code = 7.38 7.32-7.42 701) PCO2 VENOUS (BEAKER) (test code = 52 mm Hg 41-51 H 755) PO2 VENOUS (BEAKER) (test code = 23 mm Hg 25-40 L 702) O2 SATURATION VENOUS (BEAKER) 38.0 % 40.0-70.0 L (test code = 703) HCO3 VENOUS (BEAKER) (test code = 30 mmol/L 21-29 H 705) BASE EXCESS VENOUS (BEAKER) (test 4.0 mmol/L -2.0-3.0 H code = 704) PATIENT TEMPERATURE (BEAKER) (test 37.0 code = 1818) FIO2 (BEAKER) (test code = 1819) 100.0 LACTIC ACID, [id number] 18:32:55 Test Item Value Reference Range Interpretation Comments LACTATE BLOOD VENOUS 2.66 mmol/L 0.50-2.00 H Specime n moderately (2) (BEAKER) (test hemolyzed code = 2872) Ice Cream Dispenser ID - MMXR ABDOMEN/KUB 1 VIEW [id number] 18:27:23 [facility] 1965 Sex: FExam: XR ABDOMEN/KUB 1 VIEW PORTABLEIndication: Enteric tube placementComparison: CXR earlier the same dayFindings/IMPRESSION:Impression: Enteric tube terminates in the distal stomach. Nonspecific bowel gaspattern. No free air. No acute osseous abnormality.[id number] 15:38:48 Test Item Value Reference Range Interpretation Comments PROCALCITONIN (BEAKER) (test code = < ng/mL <0.05 3036) SEPSIS RISK (ng/mL)Low: 0.05-0.50Intermediate: 0.51-2.00High: >=2.01MAGNESIUM 2023-01-18 15:22:29 Test Item Value Reference Range Interpretation Comments MAGNESIUM (BEAKER) 2.3 mg/dL 1.6-2.6 Specimen moderately (test code = 627) hemolyzed Ice Cream Dispenser ID - [id number] 15:22:29 Test Item Value Reference Range Interpretation Comments PHOSPHORUS (BEAKER) 4.3 mg/dL 2.3-4.7 Specimen moderately (test code = 604) hemolyzed Ice Cream Dispenser ID - MARCOURINALYSIS W/ REFLEX URINE [id number] 15:14:53 Test Item Value Reference Range Interpretation Comments COLOR (BEAKER) (test code = 470) Colorless CLARITY (BEAKER) (test code = 469) Clear SPECIFIC GRAVITY UA (BEAKER) (test 1.015 1.001-1.035 code = 468) PH UA (BEAKER) (test code = 467) 6.5 5.0-8.0 PROTEIN UA (BEAKER) (test code = Negative Negative 464) GLUCOSE UA (BEAKER) (test code = Negative Negative 365) KETONES UA (BEAKER) (test code = Negative Negative 371) BILIRUBIN UA (BEAKER) (test code = Negative Negative 462) BLOOD UA (BEAKER) (test code = 461) Negative Negative NITRITE UA (BEAKER) (test code = Negative Negative 465) LEUKOCYTE ESTERASE UA (BEAKER) Negative Negative (test code = 466) UROBILINOGEN UA (BEAKER) (test code 0.2 0.2-1.0 = 463) RBC UA (BEAKER) (test code = 519) < /HPF WBC UA (BEAKER) (test code = 520) < /HPF SQUAMOUS EPITHELIAL (BEAKER) (test < /HPF code = 516) SOURCE(BEAKER) (test code = 2795) Ice Cream Dispenser ID - [auto]Ice Cream Dispenser ID - techXR CHEST 1 VIEW PORTABLE / BEDSIDE 2023-01-18 15:10:31 [facility] : 1965 Sex: FEXAMINATION: XR CHEST 1 VIEW PORTABLE / BEDSIDE.INDICATION: 57-year-old female with abnormal imaging resulted.COMPARISON: None.FINDINGS:The cardiac silhouette is normal in size. The thoracic vasculature iswithin normal limits. Moderate bilateral scattered patchy opacities. Nopleural effusion. No pneumothorax.No acute osseous abnormality.Visualized soft tissues are unremarkable.IMPRESSION:Moderate bilateral scattered patchy opacities. Clinical correlation isrecommended.SARS- CoV2/Influenza/RSV RT-PCR (Symptomatic ONLY)2023-01-18 14:47:10 Test Item Value Reference Interpretation Comments Range SARS-COV2/RT-PCR Negative Negative The SARS-Co V-2 (test code = target nucleic 28968-1) acids are not detected in thi s specimen. Negat walter results do not preclude SARS-C oV-2 infection and should not be u sed as the sole bas is for patient management decisions. Nega tive results must be combined with clinical observations, patient history , and epidemiolog ical information. A false negative result may occu r if a specimen is improperly collected, transported or handled. This S ARS CoV-2 test is a rapid, real-marion e RT-PCR test intended for e qualitative detection of nucleic acid fr om SARS-CoV-2 in a nasopharyngeal swab specimen collec judson from individual s suspected of COVID-19 by the healthcare provider. Influenza A RT-PCR Negative Negative The Flu A target (test code = [place] [address]-1) not detected in this specimen. Influenza B RT-PCR Negative Negative The Flu B target (test code = [place] [address]30-7) not detected in this specimen. RSV by RT-PCR (test Negative Negative The RSV target code = 09084-2) nucleic acid s are not detected in this specimen. ZOILA (test code = The presence of ZOILA) SARS-CoV-2/FLU/RSV viral nucleic acids cannot rule out co-infections or disease caused by other viral or bacterial pathogens. As with any molecular test, mutations within the target regions of the Xpert Xpress SARS-CoV-2/Flu/RSV test could affect primer and/or probe binding resulting in failure to detect the presence of virus or the virus being detected less predictably. False negative results may occur if the virus is present at levels below the analytical limit of detection in this specimen. This Xpert Xpress SARS-CoV-2/Flu/RSV test is a rapid, real-time RT-PCR test intended for the qualitative detection of nucleic acid from Xpert Xpress SARS-CoV-2/Flu/RSV in a nasopharyngeal swab specimen collected from individuals suspected of Xpert Xpress SARS-CoV-2/Flu/RSV by their healthcare provider. Results from [facility] Xpert Xpress SARS-CoV-2/Flu/RSV test should be correlated with the clinical history, epidemiological data, and other data available to the clinician evaluating the patient. Viral nucleic acid may persist in vivo, independent of virus viability. Detection of analyte target(s) does not imply that the corresponding virus(es) are infectious or are the causative agents for clinical symptoms. This test has not been Food and Drug Administration (FDA) cleared or approved and has been authorized by FDA under an Emergency Use Authorization (EUA). This EUA will be effective until the declaration that circumstances exist justifying the authorization of the emergency use of in vitro diagnostic tests for detection and/or diagnosis of COVID-19 is terminated under Section 564(b)(2) of the Act or the EUA is revoked under Section 564(g) of the Act. Fact Sheet for Healthcare Providers:https://w [employer]/Docu ments/Xpert%20Xpres s%20SARS%20CoV-2/Fa ct%20Sheets/302-390 2%12VEUS-SDE-4%20HE ALTHCARE%20PROVIDER S%20FACT%20SHEET.pd f Fact Sheet for Healthcare Patients:https://[employer]/Docum ents/Xpert%20Xpress %20SARS%20Cov-2/Fac t%20Sheets/302-3801 %52RXWD-EVH-9%20PAT IENT%20FACT%20SHEET .pdf Lab Interpretation Normal (test code = 67711-4) [facility]RSV [id number] 14:47:10 Test Item Value Reference Range Interpretation Comments SARS-COV2/RT-PCR Negative Negative The SARS-Co V-2 target (test code = nucleic acids a re not 5309801) detected in thi s specimen. Negat walter results do not preclude SARS-CoV-2 infe ction and should not be u sed as the sole basis for patient management deci sions. Negative result s must be combined with c linical observations, p atient history, and epidemiological information. A false negative result may occur if a specimen i s improperly mansi ected, transported or handled. This SARS CoV-2 test is a rapid, real-marion e RT-PCR test intended f or the qualitative det ection of nucleic acid fr om SARS-CoV-2 in a nasopharyngeal swab specimen collec judson from individuals john pected of COVID-19 by the [facility]. INFLUENZA A RT-PCR Negative Negative The Flu A target nucleic (test code = acids are not d etected in 19100920) this specimen. INFLUENZA B RT-PCR Negative Negative The Flu B target nucleic (test code = acids are not d etected in 19100921) this specimen. RSV RT-PCR (test Negative Negative The RSV tar get nucleic code = 5494913) acids are no t detected in this specimen. The presence of SARS-CoV-2/FLU/RSV viral nucleic acids cannot rule out co- infections or disease caused by other viral or bacterial pathogens. As with any molecular test, mutations within the target regions of the Xpert Xpress SARS-CoV-2/Flu/RSV test could affect primer and/or probe binding resulting in failure to detect the presence of virus or the virus being detected less predictably. False negative results may occur if the virus is present at levels below the analytical limit of detection in thisspecimen.This Xpert Xpress SARS-CoV-2/Flu/RSV test is a rapid, real-time RT-PCR test intended for the qualitative detection of nucleic acid from Xpert Xpress SARS-CoV-2/Flu/RSV in a nasopharyngeal swabspecimen collected from individuals suspected of Xpert Xpress SARS-CoV-2/Flu/RSV by their healthcareprovider. Results from [facility] Xpert Xpress SARS-CoV-2/Flu/RSV test should be correlated with the clinical history, epidemiological data, and other data available to the clinician evaluating the patient. Viral nucleic acid may persist in vivo, independent of virus viability. Detection of analyte target(s)does not imply that the corresponding virus(es) are infectious or are the causative agents for clinical symptoms.This test has not been Food and Drug Administration (FDA) cleared or approved and has been authorized by FDA under an Emergency Use Authorization (EUA). This EUA will be effective until thedeclaration that circumstances exist justifying the authorization of the emergency use of in vitro diagnostic tests for detection and/or diagnosis of COVID-19 is terminated under Section 564(b)(2) of the Act or the EUA is revoked under Section 564(g) of the Act.Fact Sheet for Healthcare Providers:https ://www.[employer]/Documents/Xpert%20Xpress%20SARS%20CoV-2/Fact%20Sheets/302-390 2%34YEEW-HFB-0%20HEALTHCARE%20PROVIDERS%20FACT%20SHEET.pdfFact Sheet for Healthcare Patients:https://www.[employer]/Docum ents/Xpert%20Xpress%20SARS%20Cov-2/Fact%20Sheets/302-3801%53MDDG-HSE-4%20PATIENT %20FACT%20SHEET.pdfB-TYPE NATRIURETIC FACTOR (BNP)2023-01-18 14:42:51 Test Item Value Reference Range Interpretation Comments B-TYPE NATRIURETIC PEPTIDE (BEAKER) 923 pg/mL 0-100 H (test code = 700) Ice Cream Dispenser ID - MARCOHIGH SENSITIVITY TROPONIN [id number] 14:42:31 Test Item Value Reference Range Interpretation Comments HIGH SENSITIVITY TROPONIN I (test 28 pg/ml <=17 H code = 6275292) Ice Cream Dispenser ID - Tennille PRODUCE PRODUCTION TEAM MEMBER STAT High Sensitivity Troponin-I results should be used in conjunction with other diagnostic information such as ECG, clinical observations and information, and patientsymptoms to aid in the diagnosis of LA. COMPREHENSIVE METABOLIC [id number] 14:36:24 Test Item Value Reference Range Interpretation Comments TOTAL PROTEIN 8.5 gm/dL 6.0-8.3 H Specimen sligh tly (BEAKER) (test hemolyzed code = 770) ALBUMIN (BEAKER) 3.7 g/dL 3.5-5.0 Specimen sl ightly (test code = 1145) hemolyzed ALKALINE 146 U/L 40-150 PHOSPHATASE (BEAKER) (test code = 346) BILIRUBIN TOTAL 0.5 mg/dL 0.2-1.2 Specimen sli ghtly (BEAKER) (test hemolyzed code = 377) SODIUM (BEAKER) 138 meq/L 136-145 (test code = 381) POTASSIUM (BEAKER) 4.8 meq/L 3.5-5.1 Specimen slightly (test code = 379) hemolyzed CHLORIDE (BEAKER) 104 meq/L 98-107 (test code = 382) CO2 (BEAKER) (test 21 meq/L 22-29 L code = 355) BLOOD UREA 9 mg/dL 7-21 NITROGEN (BEAKER) (test code = 354) CREATININE 0.80 mg/dL 0.57-1.25 Specimen slight ly (BEAKER) (test hemolyzed code = 358) GLUCOSE RANDOM 158 mg/dL 70-105 H (BEAKER) (test code = 652) CALCIUM (BEAKER) 9.0 mg/dL 8.4-10.2 (test code = 697) AST (SGOT) 20 U/L 5-34 Specimen slight ly (BEAKER) (test hemolyzed code = 353) ALT (SGPT) 22 U/L 6-55 Specimen slight ly (BEAKER) (test hemolyzed code = 347) EGFR (BEAKER) 85 Interpretatio n of eGFR (test code = 1092) mL/min/1.[address] age Description sq m Result G1 Stephanie l or high >=90 G2 Mildly decreased 60-89 G3a Mildl y to moderately 45-5 9 G3b Moderately to s everely 30-44 G4 Severl y decreased 15-29 G5 Kidney failure <15Reported eGF R is based on the CKD-EPI 2020 equation that d oes not use a race coefficientEsti mated GFR is not as accur ate as Creatinine Jess charlene in predicting glom erular filtration rate . Estimated GFR is not appl icable for dialysis patien ts Ice Cream Dispenser ID - MARCOLACTIC ACID, [id number] 14:31:56 Test Item Value Reference Range Interpretation Comments LACTATE BLOOD VENOUS 2.85 mmol/L 0.50-2.00 H Specime n slightly (2) (BEAKER) (test hemolyzed code = 7046) Ice Cream Dispenser ID - MARCOPT/[id number] 14:22:07 Test Item Value Reference Range Interpretation Comments PROTIME (BEAKER) (test code = 15.9 seconds 11.9-14.2 H 759) INR (BEAKER) (test code = 370) 1.36 <=5.90 PARTIAL THROMBOPLASTIN TIME 29.0 seconds 22.5-36.0 (BEAKER) (test code = 760) RECOMMENDED COUMADIN/WARFARIN INR THERAPY RANGESSTANDARD DOSE: 2.0 - 3.0 Includes: PROPHYLAXIS for venous thrombosis, systemic embolization; TREATMENT for venous thrombosis and/or pulmonary embolus.HIGH RISK: Target INR is 2.5-3.5 for patients with mechanical heart valves.CBC W/PLT COUNT & AUTO [id number] 14:15:03 Test Item Value Reference Range Interpretation Comments WHITE BLOOD CELL COUNT (BEAKER) 8.5 K/ L 3.5-10.5 (test code = 775) RED BLOOD CELL COUNT (BEAKER) 4.14 M/ L 3.93-5.22 (test code = 761) HEMOGLOBIN (BEAKER) (test code = 13.3 GM/DL 11.2-15.7 410) HEMATOCRIT (BEAKER) (test code = 40.9 % 34.1-44.9 411) MEAN CORPUSCULAR VOLUME (BEAKER) 99 fL 79-95 H (test code = 753) MEAN CORPUSCULAR HEMOGLOBIN 32.1 pg 25.6-32.2 (BEAKER) (test code = 751) MEAN CORPUSCULAR HEMOGLOBIN CONC 32.5 GM/DL 32.2-35.5 (BEAKER) (test code = 752) RED CELL DISTRIBUTION WIDTH 13.3 % 11.7-14.4 (BEAKER) (test code = 412) PLATELET COUNT (BEAKER) (test 264 K/CU MM 150-450 code = 756) MEAN PLATELET VOLUME (BEAKER) 10.5 fL 9.4-12.3 (test code = 754) NUCLEATED RED BLOOD CELLS 0 /100 WBC 0-0 (BEAKER) (test code = 413) NEUTROPHILS RELATIVE PERCENT 73 % (BEAKER) (test code = 429) LYMPHOCYTES RELATIVE PERCENT 21 % (BEAKER) (test code = 430) MONOCYTES RELATIVE PERCENT 4 % (BEAKER) (test code = 431) EOSINOPHILS RELATIVE PERCENT 0 % (BEAKER) (test code = 432) BASOPHILS RELATIVE PERCENT 1 % (BEAKER) (test code = 437) NEUTROPHILS ABSOLUTE COUNT 6.26 K/ L 1.56-6.13 H (BEAKER) (test code = 670) LYMPHOCYTES ABSOLUTE COUNT 1.82 K/ L 1.18-3.74 (BEAKER) (test code = 414) MONOCYTES ABSOLUTE COUNT (BEAKER) 0.34 K/ L 0.24-0.36 (test code = 415) EOSINOPHILS ABSOLUTE COUNT 0.01 K/ L 0.04-0.36 L (BEAKER) (test code = 416) BASOPHILS ABSOLUTE COUNT (BEAKER) 0.05 K/ L 0.01-0.08 (test code = 417) IMMATURE GRANULOCYTES-RELATIVE 0.50 % 0.00-1.00 PERCENT (BEAKER) (test code = 2801) CTA [id number] 13:53:40 [facility] 1965 Sex: FCT BRAIN CEREBRAL PERFUSION ANALYSIS, CTA CAROTID, CTA BRAINBRAIN CT WITHOUT CONTRASTINDICATION: Concern forstroke, weaknessCOMPARISON: CT head of the same dateTECHNIQUE:Rapid acquisition spiral images were obtained between the aortic archand the cranial vertex during intravenous contrast infusion toreconstruct axial images and angiographic 3D maximum intensityprojections (MIP). 3-D volumetric reformatted images were created at [employer]oph[employer] workstation. Precontrast images of the brain were alsoobtained. Stenosis evaluation reported in compliance with NASCET criteria.DOSE REDUCTION: Dose modulation, iterative reconstruction, and/orweight-based adjustment of the mA/kV was utilized to reduce theradiation doseto as low as reasonably achievable.FINDINGS: CTA BRAIN:Internal carotid arteries: Petrous, cavernousand supraclinoid portionspatent. Middle cerebral arteries: The left M2 anterior division demonstratessevere stenosis and likely occlusion (axial image 95-96). Right MCAM1-M2 branches demonstrate normal contrast enhancement.Anterior cerebral arteries: Bilateral BALDEMAR A1-A2 branches demonstratenormal contrast enhancement.Basilar system: Normal contrast opacification of the vertebrobasilarsystem.Posteriorcerebral arteries: Normal contrast opacification of thebilateral ERP IMPLEMENTATION CONSULTANT P1-P2 branches.Venous opacification: Major dural sinuses unremarkable for bolus timing.Additional findings: None.CT PERFUSION:Technique:Arterial input function: ACAVenous outflow function: TorcularSite of normal perfusion: right anterior territoryParametric Maps: Core infarct: Using the threshold of cerebral blood flow less than 30%,there is an ischemic core in the left MCA territory with a total volumeof ischemic core of 0 cc.Total hypoperfusion: Using the threshold of Tmax greater than 6 seconds,there is an area of hypoperfusionin the left MCA territory with a totalvolume of hypoperfusion of 14 cc.Penumbra: The mismatch volumeis 14 cc. The mismatch ratio is N/A.CTA NECK:Common carotid arteries: There is normal contrast opacification of thebilateral common carotid arteries.Cervical internal carotid arteries: Normal contrast opacification of thebilateral cervical internal carotid arteries without significantstenosis by NASCET criteria.Vertebral arteries: Normal contrast opacification of the bilateralcervical vertebral arteries.Arch anatomy: Conventional.Nonvascular findings:Ground glass opacities within the upper lobes.IMPRESSION: The left M2 anterior division demonstrates severe stenosis and likelyocclusion (axial image 95-96).Hypoperfusion in the left MCA territory with a central ischemic core of0 cc, total volume of hypoperfusion of 14 cc, and penumbra of 14 cc.Findings discussed with neurology by Dr. Landa at time of thisdictation.CTA CAROTID 2023-01-18 13:53:40 [facility] 1965 Sex: FCT BRAIN CEREBRAL PERFUSION ANALYSIS, CTA CAROTID, CTA BRAINBRAIN CT WITHOUT CONTRASTINDICATION: Concern forstroke, weaknessCOMPARISON: CT head of the same dateTECHNIQUE:Rapid acquisition spiral images were obtained between the aortic archand the cranial vertex during intravenous contrast infusion toreconstruct axial images and angiographic 3D maximum intensityprojections (MIP). 3-D volumetric reformatted images were created at [employer]ie workstation. Precontrast images of the brain were alsoobtained. Stenosis evaluation reported in compliance with NASCET criteria.DOSE REDUCTION: Dose modulation, iterative reconstruction, and/orweight-based adjustment of the mA/kV was utilized to reduce theradiation doseto as low as reasonably achievable.FINDINGS: CTA BRAIN:Internal carotid arteries: Petrous, cavernousand supraclinoid portionspatent. Middle cerebral arteries: The left M2 anterior division demonstratessevere stenosis and likely occlusion (axial image 95-96). Right MCAM1-M2 branches demonstrate normal contrast enhancement.Anterior cerebral arteries: Bilateral BALDEMAR A1-A2 branches demonstratenormal contrast enhancement.Basilar system: Normal contrast opacification of the vertebrobasilarsystem.Posteriorcerebral arteries: Normal contrast opacification of thebilateral ERP IMPLEMENTATION CONSULTANT P1-P2 branches.Venous opacification: Major dural sinuses unremarkable for bolus timing.Additional findings: None.CT PERFUSION:Technique:Arterial input function: ACAVenous outflow function: TorcularSite of normal perfusion: right anterior territoryParametric Maps: Core infarct: Using the threshold of cerebral blood flow less than 30%,there is an ischemic core in the left MCA territory with a total volumeof ischemic core of 0 cc.Total hypoperfusion: Using the threshold of Tmax greater than 6 seconds,there is an area of hypoperfusionin the left MCA territory with a totalvolume of hypoperfusion of 14 cc.Penumbra: The mismatch volumeis 14 cc. The mismatch ratio is N/A.CTA NECK:Common carotid arteries: There is normal contrast opacification of thebilateral common carotid arteries.Cervical internal carotid arteries: Normal contrast opacification of thebilateral cervical internal carotid arteries without significantstenosis by NASCET criteria.Vertebral arteries: Normal contrast opacification of the bilateralcervical vertebral arteries.Arch anatomy: Conventional.Nonvascular findings:Ground glass opacities within the upper lobes.IMPRESSION: The left M2 anterior division demonstrates severe stenosis and likelyocclusion (axial image 95-96).Hypoperfusion in the left MCA territory with a central ischemic core of0 cc, total volume of hypoperfusion of 14 cc, and penumbra of 14 cc.Findings discussed with neurology by Dr. Landa at time of thisdictation.CT BRAIN CEREBRAL PERFUSION [id number] 13:53:40 [facility] 1965 Sex: FCT BRAIN CEREBRAL PERFUSION ANALYSIS, CTA CAROTID, CTA BRAINBRAIN CT WITHOUT CONTRASTINDICATION: Concern forstroke, weaknessCOMPARISON: CT head of the same dateTECHNIQUE:Rapid acquisition spiral images were obtained between the aortic archand the cranial vertex during intravenous contrast infusion toreconstruct axial images and angiographic 3D maximum intensityprojections (MIP). 3-D volumetric reformatted images were created at [employer]ie workstation. Precontrast images of the brain were alsoobtained. Stenosis evaluation reported in compliance with NASCET criteria.DOSE REDUCTION: Dose modulation, iterative reconstruction, and/orweight-based adjustment of the mA/kV was utilized to reduce theradiation doseto as low as reasonably achievable.FINDINGS: CTA BRAIN:Internal carotid arteries: Petrous, cavernousand supraclinoid portionspatent. Middle cerebral arteries: The left M2 anterior division demonstratessevere stenosis and likely occlusion (axial image 95-96). Right MCAM1-M2 branches demonstrate normal contrast enhancement.Anterior cerebral arteries: Bilateral BALDEMAR A1-A2 branches demonstratenormal contrast enhancement.Basilar system: Normal contrast opacification of the vertebrobasilarsystem.Posteriorcerebral arteries: Normal contrast opacification of thebilateral ERP IMPLEMENTATION CONSULTANT P1-P2 branches.Venous opacification: Major dural sinuses unremarkable for bolus timing.Additional findings: None.CT PERFUSION:Technique:Arterial input function: ACAVenous outflow function: TorcularSite of normal perfusion: right anterior territoryParametric Maps: Core infarct: Using the threshold of cerebral blood flow less than 30%,there is an ischemic core in the left MCA territory with a total volumeof ischemic core of 0 cc.Total hypoperfusion: Using the threshold of Tmax greater than 6 seconds,there is an area of hypoperfusionin the left MCA territory with a totalvolume of hypoperfusion of 14 cc.Penumbra: The mismatch volumeis 14 cc. The mismatch ratio is N/A.CTA NECK:Common carotid arteries: There is normal contrast opacification of thebilateral common carotid arteries.Cervical internal carotid arteries: Normal contrast opacification of thebilateral cervical internal carotid arteries without significantstenosis by NASCET criteria.Vertebral arteries: Normal contrast opacification of the bilateralcervical vertebral arteries.Arch anatomy: Conventional.Nonvascular findings:Ground glass opacities within the upper lobes.IMPRESSION: The left M2 anterior division demonstrates severe stenosis and likelyocclusion (axial image 95-96).Hypoperfusion in the left MCA territory with a central ischemic core of0 cc, total volume of hypoperfusion of 14 cc, and penumbra of 14 cc.Findings discussed with neurology by Dr. Landa at time of thisdictation.POCT-GLUCOSE [id number] 13:44:16 Test Item Value Reference Range Interpretation Comments POC-GLUCOSE METER 153 mg/dL 70-110 H : TESTED A T [facility] 6720 (SANDY) (test code = [facility], 1538) [address]4781: Ice Cream Dispenser/Techni betty ID = [id number] for LISANDRO NEAL
[2023-06-15 13:50] LABS: Albumin 2.6 g/dL (3.4-5.0); Bilirubin Total 0.5 mg/dL (0.2-1.0); Protein, Total 7.2 g/dL (6.4-8.2)
[2023-06-15 13:52] LABS: Potassium 2.4 mEq/L (3.5-5.1); Troponin High Sensitivity 1227.4 pg/mL (<58.9)
[2023-06-15 13:55] LABS: Specific Gravity 1.018 (1.005-1.030); Urine Bacteria <20 /HPF (<20); Urine Bilirubin NEGATIVE (Negative); Urine Blood Negative (Negative); Urine Clarity Extremely Turbid (Clear); Urine Color Yellow (Yellow); Urine Glucose NEGATIVE (Negative); Urine Mucus 1+ /HPF (None Seen); Urine Protein 1+ (Negative); Urine RBC <5 /HPF (None Seen); Urine Urobilinogen Normal (Normal); Urine WBC Clump Occasional /HPF (None Seen); Urine pH 5.5 (5.0-7.0)
--- NOTE | 2023-06-15 14:04 | RAD REPORT ---
[facility] CLINICAL HISTORY: hypotension COMPARISON: 01/18/2023 TECHNIQUE: Portable AP view of the chest. FINDINGS: The lungs are clear. No pneumothorax or effusion. The cardiomediastinal contours are unre markable. Gaseous distension again seen along the splenic and hepatic flexures of the colon. IMPRESSION: No acute cardiopulmonary process.
[2023-06-15] MEDS ORDERED: KCL 20 MEQ/100 mL IVPB 100 ML IV ONE (14:23)
[2023-06-15] MEDS ORDERED: NA CHLORIDE 0.9% 1,000 ML ONE ×2 (14:23→15:10)
[2023-06-15 14:34] LABS: Magnesium 2.5 mg/dL (1.6-2.4); Phosphorus 3.5 mg/dL (2.5-4.9)
[2023-06-15 14:45] LABS: Absolute Lymphocytes (CBC) 1.1 K/uL (0.7-4.9); Hematocrit 26.9 % (36.0-45.0); Lymphocytes % 8.3 % (15.3-44.8); MCV 83.8 fL (80-100); MPV 7.4 fL (7.6-11.3); Platelets 66 thou/uL (152-406)
--- NOTE | 2023-06-15 14:45 | RAD REPORT ---
EXAM DESCRIPTION: CT - Abdomen Pelvis Wo Contrast - 06/15/2023 2:04 pm CLINICAL HISTORY: abd distension, vomiting COMPARISON: Chest Single View dated 06/15/2023; Chest Single View dated 01/18/2023 TECHNIQUE: Thin cut axial CT imaging of the abdomen and pelvis was performed without IV contrast. Mu ltiplanar reformats were generated and reviewed. All CT scans are performed using dose optimization technique as appropriate and may include automated exposure control or mA/KV adjustment according to patient size. FINDINGS: No suspicious findings in the lung bases, apart from trace right effusion. The liver, spleen, adrenal glands, and pancreas show no suspicious findings. Gallbladder was surgical ly removed. Symmetric renal contour, without suspicious parenchymal findings within limits of noncontrast techniq ue. No evidence of radiopaque calculi or hydroureteronephrosis. Marked distention of the colon and rectal bulb with air-fluid levels, and moderate to pronounced amou nt of liquid stool throughout the colon. The cecal bulb is not significantly distended. Short-segment of mild pneumatosis along the distal ascending colon and hepatic flexure, with minimal wall thickeni ng. No dilated small bowel loops or bowel wall thickening. No free air, free fluid or inflammatory st randing. Percutaneous feeding tube at the distal stomach/ pylorus. Stomach is otherwise collapsed. No hernia, mass or bulky lymphadenopathy. The urinary bladder is without significant finding. No suspicious bony findings. IMPRESSION: Short-segment of mild pneumatosis involving distal ascending colon and hepatic flexure, with minimal wall thickening. This could be idiopathic, however underlying ischemia cannot be entirel y excluded. Marked distention of the colon and rectal bulb, with air-fluid levels. Findings favor colonic ileus. Trace right pleural effusion. The findings were communicated to Baltazar Jay on 06/15/2023 at 14:41 hours.
[2023-06-15 14:49] LABS: Protime INR 1.02
--- NOTE | 2023-06-15 15:07 | EDPHYS ---
Physician Documentation [facility] Name: Tahira Solorio Age: 58 yrs Sex: Female : 1965 Arrival Date: 06/15/2023 Time: 12:38 Bed 13 Private MD: ED Physician Baltazar Jay HPI: 06/15 13:41 This 58 yrs old Female presents to ER via EMS with complaints of General rn Weakness. 13:44 Patient and daughter report generalized weakness and fatigue for the last 2 weeks. rn Patient with a large stroke a few months ago, was in rehab for a while and discharged somewhat recently. Reports not eating or drinking due to lack of appetite and interest, also has not had a bowel movement for 2 weeks and is now having vomiting episodes for the last 3 days. Denies any focal pain. No fever. No chest pain or shortness of breath.. Onset: The symptoms/episode began/occurred 3 day(s) ago. Severity of symptoms: At their worst the symptoms were moderate in the emergency department the symptoms are unchanged. The patient has not experienced similar symptoms in the past. The patient has not recently seen a physician. Historical: - Allergies: 12:53 No Known Allergies; nj1 - PMHx: 12:53 Diabetes mellitus; Hypertensive disorder; Cerebrovascular accident; nj1 - PSHx: 12:53 Cholecystectomy; Feeding tube; nj1 - Immunization history:: Client reports having NOT received the Covid vaccine. - Social history:: Smoking status: Patient denies any tobacco usage or history of. - Family history:: not pertinent. - Hospitalizations: : No recent hospitalization is reported. ROS: 13:44 Constitutional: Negative for fever, chills, and weight loss, Cardiovascular: Negative rn for chest pain, palpitations, and edema, Respiratory: Negative for shortness of breath, cough, wheezing, and pleuritic chest pain, Abdomen/GI: Positive for vomiting and constipation Back: Negative for injury and pain, MS/Extremity: Negative for injury and deformity, Skin: Negative for injury, rash, and discoloration, Neuro: Positive for generalized weakness Exam: 13:44 Constitutional: Cachectic female, appears malnourished. Head/Face: Normocephalic, rn atraumatic. ENT: Dry mucous membranes Cardiovascular: Bradycardic, irregular. No pulse deficits Respiratory: No increased work of breathing, no retractions or nasal flaring. Abdomen/GI: Abdominal distention and tympanitic, no peritoneal signs or guarding MS/ Extremity: Pulses equal, no cyanosis. Neuro: Awake and alert, GCS 15 Vital Signs: 12:35 BP 80 / 47; Pulse 59; Resp 20; Temp 97(TE); Weight 112.04 kg; Height 5 ft. 9 in. ; nj1 13:49 BP 93 / 60; Pulse 43; Resp 17; Pulse Ox 100% on R/A; MAP 71 mmHg; nj1 14:06 BP 84 / 51; Pulse 57; Resp 19; Pulse Ox 100% on R/A; MAP 61 mmHg; nj1 14:54 BP 84 / 47; Pulse 56; Resp 16; Pulse Ox 100% on R/A; MAP 57 mmHg; nj1 15:18 BP 94 / 54; Pulse 60; Resp 19; Pulse Ox 100% ; MAP 66 mmHg; nj1 15:34 BP 91 / 52; Pulse 59; Resp 15; Pulse Ox 100% on R/A; MAP 64 mmHg; nj1 15:50 BP 78 / 32; Pulse 62; Resp 23; Pulse Ox 100% ; MAP 46 mmHg; nj1 16:06 BP 68 / 39; Pulse 58; Resp 22; Pulse Ox 100% ; MAP 48 mmHg; nj1 16:09 BP 91 / 58; Pulse 64; Resp 20; Pulse Ox 100% on R/A; MAP 69 mmHg; nj1 16:20 BP 117 / 60; Pulse 63; Resp 18; Pulse Ox 100% ; MAP 72 mmHg; nj1 17:00 BP 110 / 58; Pulse 59; Resp 15; Pulse Ox 100% on R/A; MAP 73 mmHg; nj1 17:31 BP 114 / 63; Pulse 55; Resp 16; Pulse Ox 100% on R/A; MAP 76 mmHg; nj1 17:53 BP 101 / 61; Pulse 60; Resp 16; Pulse Ox 100% on R/A; MAP 73 mmHg; nj1 18:11 BP 106 / 61; Pulse 63; Resp 18; Temp 97.3(TE); Pulse Ox 100% on R/A; MAP 71 mmHg; nj1 18:40 BP 102 / 62; Pulse 55; Resp 17; Pulse Ox 100% on R/A; MAP 74 mmHg; nj1 19:00 BP 92 / 62; Pulse 57; Resp 16; Pulse Ox 100% on R/A; ha1 19:15 BP 96 / 64; Pulse 57; Resp 17 S; Pulse Ox 100% on R/A; ha1 19:30 BP 102 / 50; Pulse 57; Resp 16 S; Pulse Ox 100% on R/A; ha1 19:45 BP 96 / 56; Pulse 59; Resp 17 S; Pulse Ox 100% on R/A; ha1 20:00 BP 109 / 60; Pulse 59; Resp 17 S; Pulse Ox 100% on R/A; ha1 12:35 Body Mass Index 36.48 (112.04 kg, 175.26 cm) nj1 Procedures: 15:58 Central Line: the site was prepped with Betadine, in sterile fashion, a triple lumen rn catheter was inserted, in the right in 1 attempts. placement was verified, by blood return, the site was dressed with Tegaderm, using sterile technique, the patient tolerated the procedure, well. MDM: 12:43 Patient medically screened. rn 15:03 Differential Diagnosis Bowel obstruction, acute renal failure, dehydration, rn malnourishment, hypotension. Data reviewed: vital signs, nurses notes, lab test result(s), EKG, radiologic studies, CT scan, plain films, and as a result, I will admit patient. Consideration of Admission/Observation Patient was admitted/placed on observation. Escalation of care including admission/observation considered. Management of patient was discussed with the following: Tonger: Discussed case with Dr. Mccormick, recommends transfer for higher level of care and colorectal surgeon given pneumatosis and ascending colon.. Independent interpretation of the following test(s) in the Emergency Department CT Scan: My interpretation is CT scan images show marked dilatation of colon per my interpretation. Care significantly affected by the following chronic conditions: Diabetes, Hypertension. Counseling: I had a detailed discussion with the patient and/or guardian regarding the historical points, exam findings, and any diagnostic results supporting the discharge/admit diagnosis, lab results, radiology results, the need to transfer to another facility, for higher level of care, [facility] does not immediately have the required specialist. Response to treatment: the patient's symptoms have mildly improved after treatment, and as a result, I will admit patient. 15:59 ED course: 30/kg fluid bolus not picking up MAP above 60, decision made to place rn central line for pressor initiation. Levophed ordered.. 15:59 ED course: I personally spent 75 minutes engaged in work directly related to the rn individual patient's care. This does not include any time spent performing procedures. The patient has been deemed critically ill because hypotension, acute renal failure, multiple metabolic abnormalities, shock, requiring persistent time and management including stabilization of critical findings as well as initiation and completion of transfer.. 16:31 ED course: [facility] without ICU beds at this moment, we will try [facility]. rn 17:20 ED course: [facility] at capacity and also declines transfer. [facility] and [facility] have rn declined transfer. Attempting [facility] system. 17:21 ED course: In the meantime blood pressure with marked improvement on Levophed. Current rn blood pressure 110/58, reassessment complete. 17:35 ED course: [facility] at capacity as well and declines transfer. Trying [facility] rn system. 17:58 ED course: Accepted for transfer to [facility] facility, consulted with general surgery who rn agrees to consult on this patient pending medicine approval. . 06/15 12:43 Order name: Blood Culture Adult (2) rn 06/15 12:43 Order name: CBC with Diff; Complete Time: 17:54 rn 06/15 12:43 Order name: CMP; Complete Time: 13:53 rn 06/15 12:43 Order name: Lactate w/ 2H reflex if indic.; Complete Time: 13:53 rn 06/15 12:43 Order name: Protime (+inr); Complete Time: 14:50 rn 06/15 12:43 Order name: Ptt, Activated; Complete Time: 14:50 rn 06/15 12:43 Order name: Urinalysis w/ reflexes; Complete Time: 14:06 rn 06/15 12:43 Order name: COVID-19 SARS RT PCR; Complete Time: 13:53 rn 06/15 12:43 Order name: Flu; Complete Time: 13:44 rn 06/15 12:43 Order name: Troponin High Sensitivity; Complete Time: 13:53 rn 06/15 13:28 Order name: Glucose, Ancillary Testing; Complete Time: 13:44 EDMS 06/15 14:06 Order name: Magnesium; Complete Time: 14:39 iw 06/15 14:06 Order name: Phosphorus; Complete Time: 14:39 iw 06/15 15:00 Order name: CBC Smear Scan; Complete Time: 17:54 EDMS 06/15 12:43 Order name: Chest Single View XRAY; Complete Time: 14:06 rn 06/15 13:55 Order name: Abdomen ; Complete Time: 14:50 EDMS 06/15 12:43 Order name: EKG; Complete Time: 12:45 rn 06/15 12:43 Order name: Accucheck; Complete Time: 13:03 rn 06/15 12:43 Order name: Cardiac monitoring; Complete Time: 12:55 rn 06/15 12:43 Order name: EKG - Nurse/Tech; Complete Time: 13:02 rn 06/15 12:43 Order name: IV Saline Lock - Large Bore; Complete Time: 13:03 rn 06/15 12:43 Order name: Labs collected and sent; Complete Time: 14:52 rn 06/15 12:43 Order name: O2 Per Protocol; Complete Time: 13:02 rn 06/15 12:43 Order name: O2 Sat Monitoring; Complete Time: 13:02 rn 06/15 12:43 Order name: Vital Signs; Complete Time: 12:46 rn 06/15 13:34 Order name: Labs - recollect needed: recollect blue and lavender top; Complete Time: bd 14:39 06/15 13:48 Order name: Salgado; Complete Time: 14:07 nj1 Administered Medications: 12:35 Drug: NS 0.9% IV 1000 ml IV at 1000 ml once Route: IV; Rate: 1000 ml; Site: right nj1 forearm; 13:35 Follow up: Response: No adverse reaction; IV Status: Completed infusion; IV Intake: nj1 1000ml 13:53 CANCELLED (Duplicate Order): potassium [id number] meq PO once rn 14:15 Drug: NS 0.9% IV 1000 ml IV at 1000 ml once Route: IV; Rate: 1000 ml; Site: right nj1 forearm; 15:00 Follow up: Response: No adverse reaction; IV Status: Completed infusion; IV Intake: nj1 1000ml 14:15 Drug: Potassium Chloride IV 20 mEq IV at calculated rate once; administer over 1-2 nj1 hours Route: IV; Rate: calculated rate; Site: right forearm; 16:15 Follow up: Response: No adverse reaction; IV Status: Completed infusion; IV Intake: nj1 100ml 15:03 Drug: NS 0.9% IV (30 ml/kg) 30 ml/kg IV at bolus once; subtract fluids already given nj1 Route: IV; Rate: bolus; Site: right forearm; 16:03 Follow up: Response: No adverse reaction; IV Status: Completed infusion; IV Intake: nj1 1300ml 15:04 Drug: Calcium Gluconate IVPB 1 grams IVPB once over 60 mins; (mix in NS 100 mL) {Note: nj1 Pre-mix bag.} Route: IVPB; Infused Over: 60 mins; Site: left antecubital; 16:04 Follow up: Response: No adverse reaction; IV Status: Completed infusion; IV Intake: [id number] 15:06 Drug: Ondansetron IVP 4 mg IVP once; over 2 minutes Route: IVP; Site: left forearm; nj1 16:00 Follow up: Response: No adverse reaction; Nausea is decreased nj1 15:08 Drug: Piperacillin-Tazobactam IVPB 2.25 grams IVPB once over 60 mins; (mix in NS 100 nj1 mL) Route: IVPB; Infused Over: 60 mins; Site: left forearm; 16:08 Follow up: Response: No adverse reaction; IV Status: Completed infusion; IV Intake: nj1 100ml 16:08 Drug: Norepinephrine IV 0.1 mcg/kg/min IV at calculated rate Per protocol; (Standard nj1 concentration 4 mg / 250 mL D5W); Recommended max rate 3 mcg/kg/min; Titrate 0.05 mcg/kg/min as often as every 5 minutes to achieve goal (see titration policy); Goal parameter MAP greater than 65 mmHg. Route: IV; Rate: calculated rate; Site: right femoral; Disposition Summary: 06/15/23 15:06 Transfer Ordered Notes: Transfer Location: [facility] rn Reason: Higher level of care rn Condition: Fair rn Problem: new rn Symptoms: have improved rn Accepting Physician: (06/15/23 20:13) ha1 Diagnosis - Acute kidney failure, unspecified rn - Ileus, unspecified rn - Colonic Pneumatosis rn - Hypokalemia rn - Hypocalcemia rn Forms: - Medication Reconciliation Form rn - SBAR form investigator internal affairs time excluding procedures: 15:59 Critical care time: Bedside Care: 65 minutes, Family Intervention: 110 minutes. Total rn time: 175 minutes Signatures: Dispatcher [employer] EDMS BeckyChante Baltazar Lackey MD MD rn Ayala, Heidy, RN RN ha1 Maddie Elizabeth 1 Stephanie Galeano RN RN nj1 Corrections: (The following items were deleted from the chart) 13:53 13:52 Potassium Chloride PO 10 mEq PO once ordered. nikki jordan 13:55 13:20 Abdomen Pelvis W Con+CT.RAD.BRZ ordered. EDMS EDMS 19:17 15:06 rn rv1 20:13 19:17 Dr. carpenter1 ha1
--- NOTE | 2023-06-15 15:07 | ER ---
Nurse's Notes [facility] Name: Tahira Solorio Age: 58 yrs Sex: Female : 1965 Arrival Date: 06/15/2023 Time: 12:38 Bed 13 Private MD: Diagnosis: Acute kidney failure, unspecified;Ileus, unspecified;Colonic Pneumatosis;Hypokalemia;Hypocalcemia Presentation: 06/15 12:35 Chief complaint: EMS states: called for generalized weakness, not feeling well. Came nj1 from [place] after having a stroke a month ago, health has declined ever since. Seen by PCP 3 weeks ago, medication adjusted, taken off insulin. Pt "pretty much bed bound". 12:35 Coronavirus screen: Vaccine status: Patient reports being unvaccinated. Ebola Screen: nj1 Patient denies travel to an Ebola-affected area in the 21 days before illness onset. Initial Sepsis Screen: Does the patient meet any 2 criteria? Mean Arterial Pressure (MAP) < 65. No. Patient's initial sepsis screen is negative. Does the patient have a suspected source of infection? No. Patient's initial sepsis screen is negative. Risk Assessment: Do you want to hurt yourself or someone else? Patient reports no desire to harm self or others. Onset of symptoms was May 2023. 12:35 Method Of Arrival: EMS: [place] [id number] 12:35 Acuity: [place] 2 nj1 Historical: - Allergies: 12:53 No Known Allergies; nj1 - PMHx: 12:53 Diabetes mellitus; Hypertensive disorder; Cerebrovascular accident; nj1 - PSHx: 12:53 Cholecystectomy; Feeding tube; nj1 - Immunization history:: Client reports having NOT received the Covid vaccine. - Social history:: Smoking status: Patient denies any tobacco usage or history of. - Family history:: not pertinent. - Hospitalizations: : No recent hospitalization is reported. Screenin:03 [facility] ED Fall Risk Assessment (Adult) History of falling in the last 3 months, kc6 including since admission No falls in past 3 months (0 pts) Confusion or Disorientation No (0 pts) Intoxicated or Sedated No (0 pts) Impaired Gait Yes (1 pt) Mobility Assist Device Used Yes (1 pt) Altered Elimination No (0 pt) Score/Fall Risk Level 0 - 2 = Low Risk. Abuse screen: Denies threats or abuse. Denies injuries from another. Nutritional screening: No deficits noted. Tuberculosis screening: No symptoms or risk factors identified. Assessment: 12:40 General: Appears in no apparent distress. uncomfortable, ill, unkempt, Behavior is nj1 calm, cooperative, appropriate for age, Smells of Urine. 12:40 Pain: Complains of pain in back. Neuro: Level of Consciousness is awake, alert, obeys nj1 commands, Oriented to person, place, time, situation, Speech is normal, Facial symmetry appears normal, Reports weakness Malaise. Cardiovascular: Patient's skin is warm and dry. Rhythm is irregular. Cardiovascular: pitting edema noted from ankles to buttocks. Respiratory: Airway is patent Respiratory effort is even, unlabored. GI: Abdomen is round distended. Derm: Skin is Dusky finger tips. 13:40 Reassessment: Patient appears in no apparent distress at this time. Patient and/or nj1 family updated on plan of care and expected duration. Pain level reassessed. Derm: Decubitus located on sacrum approximately 2.6 cm to 7.5 cm has denuded edges has erythematous edges 3 lesions noted. 15:08 Reassessment: Feeding tube colindres opened as instructed by Dr Jay. nj1 15:08 GI: Reports nausea. nj1 15:50 Reassessment: Patient appears in no apparent distress at this time. Patient and/or nj1 family updated on plan of care and expected duration. Pain level reassessed. Dr Jay at bedside. 15:50 GI: Patient currently denies nausea. nj1 17:00 Reassessment: Patient appears in no apparent distress at this time. Patient and/or nj1 family updated on plan of care and expected duration. Pain level reassessed. Neuro: No deficits noted. Cardiovascular: Rhythm is irregular. Respiratory: No deficits noted. 17:38 Reassessment: King Solorio (son) [phone]. [facility] 17:54 Reassessment: No changes from previously documented assessment. Pt resting/sleeping, no nj1 s/s of distress noted. 19:01 Reassessment: Patient appears in no apparent distress at this time. No changes from nj1 previously documented assessment. Call placed to patients son, spoke with his , to inform of facility patient is being transferred. Awaiting for EMS to come get patient for transfer. 19:25 General: Appears ill, Behavior is calm. Pain: Unable to use pain scale. FLACC scale ha1 score is 0 out of 10. Neuro: Level of Consciousness is awake, obeys commands, Oriented to person, place, time, situation. Neuro: Weakness. Cardiovascular: Heart tones present Capillary refill < 3 seconds. Respiratory: Airway is patent Respiratory effort is even, unlabored, Respiratory pattern is regular, symmetrical. Derm: Wound noted buttocks. 20:00 Reassessment: Patient and/or family updated on plan of care and expected duration. Pain ha1 level reassessed. 20:05 Reassessment: EMS in the room. ha1 Vital Signs: 12:35 BP 80 / 47; Pulse 59; Resp 20; Temp 97(TE); Weight 112.04 kg; Height 5 ft. 9 in. ; nj1 13:49 BP 93 / 60; Pulse 43; Resp 17; Pulse Ox 100% on R/A; MAP 71 mmHg; nj1 14:06 BP 84 / 51; Pulse 57; Resp 19; Pulse Ox 100% on R/A; MAP 61 mmHg; nj1 14:54 BP 84 / 47; Pulse 56; Resp 16; Pulse Ox 100% on R/A; MAP 57 mmHg; nj1 15:18 BP 94 / 54; Pulse 60; Resp 19; Pulse Ox 100% ; MAP 66 mmHg; nj1 15:34 BP 91 / 52; Pulse 59; Resp 15; Pulse Ox 100% on R/A; MAP 64 mmHg; nj1 15:50 BP 78 / 32; Pulse 62; Resp 23; Pulse Ox 100% ; MAP 46 mmHg; nj1 16:06 BP 68 / 39; Pulse 58; Resp 22; Pulse Ox 100% ; MAP 48 mmHg; nj1 16:09 BP 91 / 58; Pulse 64; Resp 20; Pulse Ox 100% on R/A; MAP 69 mmHg; nj1 16:20 BP 117 / 60; Pulse 63; Resp 18; Pulse Ox 100% ; MAP 72 mmHg; nj1 17:00 BP 110 / 58; Pulse 59; Resp 15; Pulse Ox 100% on R/A; MAP 73 mmHg; nj1 17:31 BP 114 / 63; Pulse 55; Resp 16; Pulse Ox 100% on R/A; MAP 76 mmHg; nj1 17:53 BP 101 / 61; Pulse 60; Resp 16; Pulse Ox 100% on R/A; MAP 73 mmHg; nj1 18:11 BP 106 / 61; Pulse 63; Resp 18; Temp 97.3(TE); Pulse Ox 100% on R/A; MAP 71 mmHg; nj1 18:40 BP 102 / 62; Pulse 55; Resp 17; Pulse Ox 100% on R/A; MAP 74 mmHg; nj1 19:00 BP 92 / 62; Pulse 57; Resp 16; Pulse Ox 100% on R/A; ha1 19:15 BP 96 / 64; Pulse 57; Resp 17 S; Pulse Ox 100% on R/A; ha1 19:30 BP 102 / 50; Pulse 57; Resp 16 S; Pulse Ox 100% on R/A; ha1 19:45 BP 96 / 56; Pulse 59; Resp 17 S; Pulse Ox 100% on R/A; ha1 20:00 BP 109 / 60; Pulse 59; Resp 17 S; Pulse Ox 100% on R/A; ha1 12:35 Body Mass Index 36.48 (112.04 kg, 175.26 cm) nj1 ED Course: 12:40 Provided Education on: call light, fall precautions. nj1 12:42 Patient arrived in ED. rn 12:42 Baltazar Jay MD is Attending Physician. rn 12:44 Stephanie Galeano RN is Primary Nurse. nj1 12:53 Triage completed. nj1 12:55 Arm band placed on. nj1 13:02 Flu Sent. kc6 13:02 COVID-19 SARS RT PCR Sent. kc6 13:02 Maintain EMS IV. Dressing intact. Good blood return noted. Site clean \\T\\ dry. Gauge \\T\\ luciano 6 site: 20G R Wrist. Patient maintains SpO2 saturation greater than 95% on room air. 13:03 Patient has correct armband on for positive identification. Placed in gown. Bed in low kc6 position. Call light in reach. Side rails up X2. Client placed on continuous cardiac and pulse oximetry monitoring. NIBP monitoring applied. bus driver/monitor on. 13:06 EKG done, by ED staff. sm8 13:10 Inserted saline lock: 22 gauge in left forearm, using aseptic technique. Blood nj1 collected. 13:25 Missed attempt(s): 22 gauge in left antecubital area. Bleeding controlled, band aid nj1 applied, catheter tip intact. 13:40 Salgado cath inserted, using sterile technique, 18 Fr., by ks, balloon inflated, to nj1 gravity drainage, urine specimen collected. returned anselmo urine. Patient tolerated well. 13:52 Chest Single View XRAY In Process Unspecified. EDMS 14:04 Abdomen In Process Unspecified. EDMS 14:30 Inserted saline lock: 20 gauge in left antecubital area, using aseptic technique. nj1 ,using aseptic technique. Ultrasound guided. Catheter tip well visualized within vasculature during placement. Blood collected. 16:00 Assisted provider with central line placement. Set up central line tray. Triple lumen nj1 line placed in right femoral. Line placed by Baltazar Jay MD Dressed with Tegaderm, Patient tolerated well. 16:18 initiated transfer to [facility]. bd 16:39 initiated transfer to [facility]. bd 17:00 pt declined at [facility] due to no capacity at this time,per YAEL Mancuso. bd 17:02 pt declined at [facility] due to no beds at this time. bd 17:05 initiated transfer to [facility]. bd 17:35 pt denied at [facility] due to no ICU beds or colorectal surgeon per Meredith Oneill. bd 17:37 initiated transfer to [facility]. bd 17:45 pt accepted in transfer to [facility] by dr Yuan admin approval given by Marylin Umana, pt going to ER. 18:21 Patient transferred, IV remains in place. nj1 18:28 pt to be transferred to [facility] by ems. bd 19:17 Called Siddharth with EMS to check ETA for transfer truck, told it will be another 45 mins.rv1 Administered Medications: 12:35 Drug: NS 0.9% IV 1000 ml IV at 1000 ml once Route: IV; Rate: 1000 ml; Site: right nj1 forearm; 13:35 Follow up: Response: No adverse reaction; IV Status: Completed infusion; IV Intake: nj1 1000ml 13:53 CANCELLED (Duplicate Order): potassium [id number] meq PO once rn 14:15 Drug: NS 0.9% IV 1000 ml IV at 1000 ml once Route: IV; Rate: 1000 ml; Site: right nj1 forearm; 15:00 Follow up: Response: No adverse reaction; IV Status: Completed infusion; IV Intake: nj1 1000ml 14:15 Drug: Potassium Chloride IV 20 mEq IV at calculated rate once; administer over 1-2 nj1 hours Route: IV; Rate: calculated rate; Site: right forearm; 16:15 Follow up: Response: No adverse reaction; IV Status: Completed infusion; IV Intake: nj1 100ml 15:03 Drug: NS 0.9% IV (30 ml/kg) 30 ml/kg IV at bolus once; subtract fluids already given nj1 Route: IV; Rate: bolus; Site: right forearm; 16:03 Follow up: Response: No adverse reaction; IV Status: Completed infusion; IV Intake: nj1 1300ml 15:04 Drug: Calcium Gluconate IVPB 1 grams IVPB once over 60 mins; (mix in NS 100 mL) {Note: nj1 Pre-mix bag.} Route: IVPB; Infused Over: 60 mins; Site: left antecubital; 16:04 Follow up: Response: No adverse reaction; IV Status: Completed infusion; IV Intake: [id number] 15:06 Drug: Ondansetron IVP 4 mg IVP once; over 2 minutes Route: IVP; Site: left forearm; nj1 16:00 Follow up: Response: No adverse reaction; Nausea is decreased nj1 15:08 Drug: Piperacillin-Tazobactam IVPB 2.25 grams IVPB once over 60 mins; (mix in NS 100 nj1 mL) Route: IVPB; Infused Over: 60 mins; Site: left forearm; 16:08 Follow up: Response: No adverse reaction; IV Status: Completed infusion; IV Intake: nj1 100ml 16:08 Drug: Norepinephrine IV 0.1 mcg/kg/min IV at calculated rate Per protocol; (Standard nj1 concentration 4 mg / 250 mL D5W); Recommended max rate 3 mcg/kg/min; Titrate 0.05 mcg/kg/min as often as every 5 minutes to achieve goal (see titration policy); Goal parameter MAP greater than 65 mmHg. Route: IV; Rate: calculated rate; Site: right femoral; Medication: 18:21 VIS not applicable for this client. nj1 Intake: 13:35 IV: 1000ml; Total: 1000ml. nj1 15:00 IV: 1000ml; Total: 2000ml. nj1 16:03 IV: 1300ml; Total: 3300ml. nj1 16:04 IV: 50ml; Total: 3350ml. nj1 16:08 IV: 100ml; Total: 3450ml. nj1 16:15 IV: 100ml; Total: 3550ml. nj1 Output: 13:40 Urine: 100ml ([place]); Total: 100ml. nj1 18:57 Urine: 100ml ([place]alg[place]); Total: 200ml. nj1 Outcome: 15:06 ER care complete, transfer ordered by . rn 18:12 Transferred by ground EMS to other acute care facility: [facility] ER. Transfer nj1 form completed. Note: Report given to Jarad RIGGS 18:12 Condition: stable nj1 18:12 Instructed on the need for transfer, 20:13 Patient left the ED. ha1 Signatures: Dispatcher [employer] EDMS Chante Pena Roman, MD MD rn Ayala, Heidy, RN RN ha1 Leslye Panchal RN RN [id number] Maddie Elizabeth1 Stephanie Galeano RN RN nj1 Shelli Sánchez sm8 Corrections: (The following items were deleted from the chart) 16:20 12:40 General: Appears in no apparent distress. uncomfortable, ill, unkempt, Smells of nj1 Urine. nj1
[2023-06-15] MEDS ORDERED: CALCIUM GLUCONATE 1 GM IVPB 1 GM/50 ML BAG IV ONE (15:10)
[2023-06-15] MEDS ORDERED: PIPERACIL/TAZO 2.25 GM VIAL IV ONE (15:10)
[2023-06-15] MEDS ORDERED: NA CHLORIDE 0.9% 100 ML ONE (15:10)
[2023-06-15] MEDS ORDERED: ONDANSETRON 4 MG/2 ML VIAL ONE (15:17)
[2023-06-15] MEDS ORDERED: NA CHLORIDE 0.9% 250 ML ONE (15:44)
[2023-06-15] MEDS ORDERED: NA CHLORIDE 0.9% 50 ML ONE (15:45)
[2023-06-15] MEDS ORDERED: NOREPINEPHRINE BITARTRATE/D5W 4 MG/250 ML BAG IV ONE (16:16)
[2023-06-15 17:50] LABS: Anisocytosis 1+; Blood Morphology Comment NOTED (NOT SEEN); Platelet Estimate DECR; Poikilocytosis 3+; White Blood Cell Scan OK (OK)
[2023-06-15 20:37] VITALS: O2SAT 100
[2023-06-15 20:58] VITALS: TEMP 97.3
[2023-06-15 21:08] VITALS: BP 109/60
--- NOTE | 2023-06-16 07:51 | EKG ---
Test Date: 2023-06-15 Test Time: 12:56:34 Truck Hopper: HOLDEN MEASUREMENT RESULTS: Intervals: Rate: 63 MO: QRSD: 168 QT: 520 QTc: 532 [place]: P: MO: QRS: -26 T: 128 INTERPRETIVE STATEMENTS: Atrial fibrillation Left bundle branch block Abnormal ECG Compared to ECG 01/18/2023 11:32:10 Left bundle-branch block now present Left ventricular hypertrophy no longer present ST (T wave) deviation no longer present Possible ischemia no longer present Electronically Signed On 06-16-23 07:49:42 CDT by Alexys Clarke
== END 2023-06-15 20:13 | disposition short-term general hospital (02) ==
LOC: ER 12:38
PROC: 06HM33Z Insertion of Infusion Device into Right Femoral Vein, Percutaneous Approach (ICD-10-PCS; principal; 2023-06-15)
DX: N17.9 Acute kidney failure, unspecified (principal); K56.7 Ileus, unspecified; K63.89 Other specified diseases of intestine; E87.6 Hypokalemia; E83.51 Hypocalcemia; E11.9 Type 2 diabetes mellitus without complications; I10 Essential (primary) hypertension; Z86.73 Personal history of transient ischemic attack (TIA), and cerebral infarction without residual deficits; Z11.52 Encounter for screening for COVID-19
CPT/HCPCS: 93005; 87040 ×2; 85025; 81001; 36415; 83735; 84100; 85610; 82947; 83605; 85730; 84484; 80053; 87635; 87804 ×2; 74176; 71045; 51702; 99285; 36556; J3480; J0612; J2543; J2405; J7050; J7030 ×2

== ENCOUNTER 2023-08-13 16:09 | Emergency (ER) | payer OTHER ==
[2023-08-13 16:50] LABS: Absolute Lymphocytes (CBC) 1.2 K/uL (0.7-4.9); Hematocrit 28.8 % (36.0-45.0); Lymphocytes % 11.7 % (15.3-44.8); MCV 93.7 fL (80-100); MPV 7.5 fL (7.6-11.3); Platelets 349 thou/uL (152-406); RBC Red Blood Cell Count 3.08 M/uL (3.86-4.86)
[2023-08-13 17:11] LABS: Albumin 1.6 g/dL (3.4-5.0); Bilirubin Total 0.4 mg/dL (0.2-1.0); Magnesium 2.1 mg/dL (1.6-2.4); Protein, Total 5.8 g/dL (6.4-8.2)
[2023-08-13 17:12] LABS: Potassium 2.2 mEq/L (3.5-5.1)
[2023-08-13] MEDS ORDERED: KCL 20 MEQ/100 mL IVPB 100 ML IV ONE (17:28)
[2023-08-13] MEDS ORDERED: POTASSIUM 25 MEQ EFFERV TAB ONE (17:28)
[2023-08-13] MEDS ORDERED: NA CHLORIDE 0.9% 500 ML ONE (17:29)
[2023-08-13] MEDS ORDERED: ONDANSETRON 4 MG/2 ML VIAL ONE (18:13)
--- NOTE | 2023-08-13 18:17 | RAD REPORT ---
EXAM DESCRIPTION: CTAbdomen Pelvis W Contrast - 08/13/2023 6:06 pm CLINICAL HISTORY: ABDOMINAL DISTENTION COMPARISON: Abdomen Pelvis Wo Contrast dated 06/15/2023 TECHNIQUE: CT of the abdomen and pelvis was performed. All CT scans are performed using dose optimization technique as appropriate and may include automated exposure control or mA/KV adjustment according to patient size. FINDINGS: Lower chest: Small bilateral pleural effusions. Liver: No acute abnormality or suspicious lesions. Biliary: No biliary ductal dilatation. Stomach: Gastrojejunostomy. Duodenum: No significant focal abnormality. Pancreas: No significant abnormality. Spleen: No significant abnormality. Adrenal: No suspicious lesions. Kidney/ureter: No hydronephrosis. No renal calculi. Retroperitoneum: No retroperitoneal adenopathy. Vascular: No aneurysm. Bowel: Markedly distended colon. There is fluid within the rectum. A pigtail drainage catheter termin ates in the lower rectum.. Peritoneum: No ascites or free air. Bladder: Grossly unremarkable. Reproductive: No adnexal masses. Bones: No acute fracture. Grade 1 anterolisthesis of L4 on L5. Other: Body wall edema. IMPRESSION: Marked colonic distension likely reflecting an adynamic ileus. No pneumatosis or free ai r. A small bore pigtail drainage catheter is present within the rectum. Anasarca including small bila teral pleural effusions and body wall edema.
--- NOTE | 2023-08-13 19:36 | EDPHYS ---
Physician Documentation [facility] Name: Tahira Solorio Age: 58 yrs Sex: Female : 1965 Arrival Date: 08/13/2023 Time: 16:09 Bed 16 Private MD: ED Physician Manish Bloom HPI: 08/13 16:40 This 58 yrs old Female presents to ER via EMS with complaints of Abnormal Lab sb4 Results, Problem With Feeding Tube. 16:40 Patient was sent here from care home with a potassium of 2.4 and concerns that her sb4 feeding tube is not functioning properly. Patient states that the tube feeds have been moving a lot slower than usual. She states that she has also had a lot of diarrhea. Abdomen is very distended during my assessment, with tenderness to palpation. Patient denies any vomiting. Historical: - Allergies: 16:25 No Known Allergies; ph - PMHx: 16:25 Cerebrovascular accident; diabetes mellitus; Hypertensive disorder; ph - PSHx: 16:25 Cholecystectomy; feeding tube; ph - Immunization history:: Adult Immunizations unknown. - Social history:: Smoking status: unknown. ROS: 16:40 Constitutional: Negative for fever, chills, and weight loss, sb4 16:40 Abdomen/GI: Positive for nausea, diarrhea, abdominal distension, 16:40 All other systems are negative, Exam: 16:40 Constitutional: This is a well developed, well nourished patient who is awake, alert, sb4 and in no acute distress. Head/Face: Normocephalic, atraumatic. Eyes: Extra-ocular motions intact. Periorbital areas with no swelling, redness, or edema. Cardiovascular: Regular rate and rhythm with a normal S1 and S2. Respiratory: Lungs have equal breath sounds bilaterally, clear to auscultation and percussion. No rales, rhonchi or wheezes noted. No increased work of breathing, no retractions or nasal flaring. Skin: Warm, dry with normal turgor. Normal color with no rashes, no lesions, and no evidence of cellulitis. MS/ Extremity: Pulses equal, no cyanosis. Neurovascular intact. Full, normal range of motion. Neuro: Awake and alert, GCS 15, oriented to person, place, time, and situation. Motor strength 5/5 in all extremities. Sensory grossly intact. 16:40 Constitutional: The patient appears smells of urine, 16:40 Abdomen/GI: Inspection: distension, that is moderate, in the right upper quadrant, left upper quadrant, right lower quadrant and left lower quadrant, Palpation: mild abdominal tenderness, in the right upper quadrant, left upper quadrant, right lower quadrant and left lower quadrant, Vital Signs: 16:22 BP 111 / 64; Pulse 71; Resp 18; Pulse Ox 100% on R/A; ph 16:26 Temp 98.5(A); ph 17:58 BP 115 / 61; Pulse 74; Resp 18; Pulse Ox 98% on R/A; ph 19:05 BP 102 / 58; Pulse 76; Resp 18; Pulse Ox 98% on R/A; ph 20:00 BP 106 / 68; Pulse 67; Resp 18; Pulse Ox 100% on R/A; Pain 0/10; pf1 21:00 BP 104 / 62; Pulse 69; Resp 19; Pulse Ox 100% on R/A; Pain 0/10; pf1 22:00 BP 108 / 63; Pulse 67; Resp 19; Pulse Ox 98% on R/A; Pain 0/10; pf1 23:00 BP 107 / 64; Pulse 65; Resp 19; Temp 98.1(IR); Pulse Ox 100% on R/A; Pain 0/10; pf1 08/14 00:00 BP 112 / 64; Pulse 72; Resp 16; Temp 97.9; Pulse Ox 97% on R/A; Pain 0/10; pf1 20:00 Pain Scale: Adult pf1 21:00 Pain Scale: Adult pf1 22:00 Pain Scale: Adult pf1 23:00 Pain Scale: Adult pf1 08/14 00:00 Pain Scale: Adult pf1 MDM: 08/13 16:27 Patient medically screened. sb4 16:42 Differential diagnosis: Ascites, bowel perforation, peritonitis, gastroenteritis, small sb4 bowel obstruction. 19:34 Data reviewed: vital signs, nurses notes, care home records, lab test result(s), sb4 radiologic studies, I have discussed the patient's presentation/case with the attending Emergency Department Physician; and as a result, I will admit patient. Consideration of Admission/Observation Patient was admitted/placed on observation. Management of patient was discussed with the following: Hospitalist: romi [employer]. Care significantly affected by the following chronic conditions: Diabetes, Hypertension. Counseling: I had a detailed discussion with the patient and/or guardian regarding the historical points, exam findings, and any diagnostic results supporting the discharge/admit diagnosis, lab results, radiology results, the need for further work-up and treatment in the hospital. 22:32 ED course: hospitalist requests transfer given prior surgeries/management at [address] [facility] accepts without doc to doc. 08/13 16:32 Order name: CBC with Diff; Complete Time: 16:53 sb4 08/13 16:32 Order name: CMP; Complete Time: 17:13 sb4 08/13 16:32 Order name: Lipase; Complete Time: 17:13 sb4 08/13 16:32 Order name: Magnesium; Complete Time: 17:13 sb4 08/13 16:32 Order name: CT Abd/Pelvis - IV Contrast Only; Complete Time: 18:19 sb4 08/13 16:32 Order name: IV Saline Lock; Complete Time: 16:32 sb4 08/13 16:32 Order name: Labs collected and sent; Complete Time: 16:32 sb4 08/13 16:32 Order name: EKG - Nurse/Tech; Complete Time: 17:58 sb4 08/13 19:35 Order name: NPO; Complete Time: 20:26 sb4 EC:04 Rate is 73 beats/min. Rhythm is irregular, Sinus Rhythm with PACs, Left bundle branch sb4 block. VT interval is normal at 174 msec. QRS interval is normal at 128 msec. QT interval is normal at [address] changes noted. Clinical impression: Abnormal EKG without significant change. Interpreted by me. Reviewed by me. Administered Medications: 18:24 Drug: Potassium Chloride IV 20 mEq IV at calculated rate once; administer over 1-2 ph hours Route: IV; Rate: calculated rate; Site: left forearm; 19:25 Follow up: Response: No adverse reaction pf1 20:30 Follow up: IV Status: Completed infusion pf1 18:24 Drug: Ondansetron IVP 4 mg IVP once; over 2 minutes Route: IVP; Site: left forearm; ph 19:25 Follow up: Response: No adverse reaction pf1 19:29 Not Given (Physician Discretion): potassiumeffervescent tablet 50 meq PO once; dissolve sb4 in 4 ounces of water or juice Disposition Summary: 08/13/23 21:10 Transfer Ordered Notes: Transfer Location: Other Acute Care Facility sb4 Reason: Higher level of care sb4 Condition: Fair(08/13/23 21:10) sb4 Problem: an ongoing problem(08/13/23 21:10) sb4 Symptoms: are unchanged(08/13/23 21:10) sb4 Accepting Physician: GI(08/14/23 00:32) pf1 Diagnosis - Ileus, unspecified(08/13/23 21:10) sb4 - Hypokalemia(08/13/23 21:10) sb4 Forms: - Medication Reconciliation Form sb4 - SBAR form sb4 Addendum: 08/15/2023 21:15 I was immediately available for consultation during this patient's visit. I did not e c2 personally see the patient or guide the patient's care. . Signatures: Dispatcher [employer] Haydee Chun RN RN Liliam Mojica PA-C PA-C sb4 Mariah Sanchez RN RN pf1 Manish Bloom MD MD ec2 Corrections: (The following items were deleted from the chart) 08/13 21:09 19:35 Inpatient Admission sb4 sb4 21:09 19:35 Jama Irvin sb4 sb4 21: 19:35 Telemetry/MedSurg (Inpatient) sb4 sb4 21:09 19:35 Fair sb4 sb4 21:09 19:35 new sb4 sb4 21: 19:35 are unchanged sb4 sb4 21: 19:35 Standard sb4 sb4 21:09 19:35 sb4 sb4 21:09 19:35 Ileus, unspecified sb4 sb4 21: 19:35 Hypokalemia sb4 sb4 08/14 00:32 08/13 21:10 GI sb4 pf1
--- NOTE | 2023-08-13 19:36 | ER ---
Nurse's Notes [facility] Name: Tahira Solorio Age: 58 yrs Sex: Female : 1965 Arrival Date: 08/13/2023 Time: 16:09 Bed 16 Private MD: Diagnosis: Ileus, unspecified;Hypokalemia Presentation: 08/13 16:22 Chief complaint: EMS states: From [facility], sent for potassium of 2.4, has ph feeding tube but nurse is concerned that it is not functioning properly, pt c/o nausea, VSS. Coronavirus screen: Vaccine status: Patient reports receiving the 2nd dose of the covid vaccine. Ebola Screen: No symptoms or risks identified at this time. Initial Sepsis Screen: Does the patient meet any 2 criteria? No. Patient's initial sepsis screen is negative. Does the patient have a suspected source of infection? No. Patient's initial sepsis screen is negative. Risk Assessment: Do you want to hurt yourself or someone else? Patient reports no desire to harm self or others. Onset of symptoms was August 13, 2023. 16:22 Method Of Arrival: EMS: [facility] 16:22 Acuity: [place] 3 ph Historical: - Allergies: 16:25 No Known Allergies; ph - PMHx: 16:25 Cerebrovascular accident; diabetes mellitus; Hypertensive disorder; ph - PSHx: 16:25 Cholecystectomy; feeding tube; ph - Immunization history:: Adult Immunizations unknown. - Social history:: Smoking status: unknown. Screenin:33 [facility] ED Fall Risk Assessment (Adult) Score/Fall Risk Level 3 or more points = High hb Risk Oriented to surroundings, Maintained a safe environment, Educated pt \T\ family on fall prevention, incl call for assistance when getting out of bed. Abuse screen: Denies threats or abuse. Denies injuries from another. Nutritional screening: No deficits noted. Tuberculosis screening: No symptoms or risk factors identified. Assessment: 17:58 General: Appears in no apparent distress. uncomfortable, Behavior is calm, cooperative, ph Denies fever, feeling ill. Pain: Denies pain. Neuro: Level of Consciousness is awake, alert, obeys commands, Oriented to person, place, time, situation. Cardiovascular: Capillary refill < 3 seconds in bilateral fingers Patient's skin is warm and dry. Respiratory: Airway is patent Respiratory effort is even, unlabored. GI: Abdomen is round distended, PEG tube in place, clamped. Site clean. Reports nausea. : Salgado in place to gravity drainage. Derm: Skin is dusky. 19:00 General: Appears in no apparent distress. well developed, Behavior is calm, pf1 cooperative, appropriate for age, quiet. 19:00 Pain: Denies pain. Neuro: No deficits noted. Level of Consciousness is awake, alert, pf1 obeys commands, Oriented to person, place, time, situation. Cardiovascular: No deficits noted. Capillary refill < 3 seconds Patient's skin is warm and dry. Respiratory: No deficits noted. Airway is patent Respiratory effort is even, unlabored, Respiratory pattern is regular, symmetrical. GI: Abdomen is round distended, PEG tube in place, clamped. Site clean. GI: Rectal exam: Patient has a rectal tube in place LEGAL OPERATIONS MANAGER. : Salgado in place to gravity drainage 16 montenegrin placed LEGAL OPERATIONS MANAGER. EENT: No deficits noted. No signs and/or symptoms were reported regarding the EENT system. Derm: Skin is pink, warm \T\ dry. Patient has bilateral zi wrap to feet and ankles with heel protectors. Musculoskeletal: Circulation, motion, and sensation intact. Capillary refill < 3 seconds, Swelling present in right leg and left leg and left lower quadrant and right lower quadrant and left upper quadrant and right upper quadrant. 20:00 Reassessment: Patient appears in no apparent distress at this time. Patient and/or pf1 family updated on plan of care and expected duration. Pain level reassessed. Patient is alert, oriented x 3, equal unlabored respirations, skin warm/dry/pink. 21:00 Reassessment: Patient appears in no apparent distress at this time. Patient and/or pf1 family updated on plan of care and expected duration. Pain level reassessed. Patient is alert, oriented x 3, equal unlabored respirations, skin warm/dry/pink. 22:00 Reassessment: Patient appears in no apparent distress at this time. Patient and/or pf1 family updated on plan of care and expected duration. Pain level reassessed. Patient is alert, oriented x 3, equal unlabored respirations, skin warm/dry/pink. 23:00 Reassessment: Patient appears in no apparent distress at this time. Patient and/or pf1 family updated on plan of care and expected duration. Pain level reassessed. Patient is alert, oriented x 3, equal unlabored respirations, skin warm/dry/pink. 08/14 00:00 Reassessment: Patient appears in no apparent distress at this time. Patient and/or pf1 family updated on plan of care and expected duration. Pain level reassessed. Patient is alert, oriented x 3, equal unlabored respirations, skin warm/dry/pink. Vital Signs: 08/13 16:22 BP 111 / 64; Pulse 71; Resp 18; Pulse Ox 100% on R/A; ph 16:26 Temp 98.5(A); ph 17:58 BP 115 / 61; Pulse 74; Resp 18; Pulse Ox 98% on R/A; ph 19:05 BP 102 / 58; Pulse 76; Resp 18; Pulse Ox 98% on R/A; ph 20:00 BP 106 / 68; Pulse 67; Resp 18; Pulse Ox 100% on R/A; Pain 0/10; pf1 21:00 BP 104 / 62; Pulse 69; Resp 19; Pulse Ox 100% on R/A; Pain 0/10; pf1 22:00 BP 108 / 63; Pulse 67; Resp 19; Pulse Ox 98% on R/A; Pain 0/10; pf1 23:00 BP 107 / 64; Pulse 65; Resp 19; Temp 98.1(IR); Pulse Ox 100% on R/A; Pain 0/10; pf1 08/14 00:00 BP 112 / 64; Pulse 72; Resp 16; Temp 97.9; Pulse Ox 97% on R/A; Pain 0/10; pf1 20:00 Pain Scale: Adult pf1 21:00 Pain Scale: Adult pf1 22:00 Pain Scale: Adult pf1 23:00 Pain Scale: Adult pf1 08/14 00:00 Pain Scale: Adult pf1 ED Course: 08/13 16:21 Patient arrived in ED. ph 16:25 Triage completed. ph 16:25 Arm band placed on Patient placed in an exam room, on a stretcher, on quality assurance monitor body, ph on pulse oximetry. 16:27 [facility] sb[facility] 16:27 Manish Bloom MD is Attending Physician. sb4 16:33 Inserted saline lock: 22 gauge in left forearm, using aseptic technique. Blood hb collected. 16:36 Magnesium Sent. hb 16:36 CBC with Diff Sent. hb 16:36 CMP Sent. hb 16:36 Lipase Sent. hb 17:17 Haydee Castro, ONEIL is Primary Nurse. ph 17:59 Patient has correct armband on for positive identification. Placed in gown. Bed in low ph position. Call light in reach. Side rails up X2. Client placed on continuous cardiac and pulse oximetry monitoring. NIBP monitoring applied. 18:08 CT Abd/Pelvis - IV Contrast Only In Process Unspecified. EDMS 19:35 Jama Irvin MD is Hospitalizing Provider. sb4 21:47 [facility] vk 22:22 Accepted to [facility] ER by Dr. Fuentes at 2222 per Hernando Garcia. vk 23:15 [facility] denied due to no truck available. Called [facility] with ETA of 0015. wm 08/14 00:32 No provider procedures requiring assistance completed. Patient transferred, IV remains pf1 in place. Administered Medications: 08/13 18:24 Drug: Potassium Chloride IV 20 mEq IV at calculated rate once; administer over 1-2 ph hours Route: IV; Rate: calculated rate; Site: left forearm; 19:25 Follow up: Response: No adverse reaction pf1 20:30 Follow up: IV Status: Completed infusion pf1 18:24 Drug: Ondansetron IVP 4 mg IVP once; over 2 minutes Route: IVP; Site: left forearm; ph 19:25 Follow up: Response: No adverse reaction pf1 19:29 Not Given (Physician Discretion): potassiumeffervescent tablet 50 meq PO once; dissolve sb4 in 4 ounces of water or juice Medication: 16:33 VIS not applicable for this client. hb Outcome: 19:35 Decision to Hospitalize by Provider. sb4 21:10 ER care complete, transfer ordered by . sb4 08/14 00:31 Transferred by ground EMS Transfer form completed. X-rays sent w/ patient. Note: [facility] pf1 Evgeny, report given to ONEIL Alexandre and given to [facility] Condition: stable Instructed on the need for transfer, Demonstrated understanding of instructions, 00:32 Patient left the ED. pf1 Signatures: Dispatcher [employer] EDDE Haydee Castro RN RN Cassi Buenrostro, RN RN ayad Aragon, Liliam Munoz, PADavion PA-C sb4 Mariah Sanchez, RN RN pf1 Mercedes Dalal
[2023-08-14 07:04] VITALS: BP 112/64; TEMP 97.9; O2SAT 97
--- NOTE | 2023-08-14 15:29 | EKG ---
Test Date: 2023-08-13 Test Time: 17:51:53 Condenser Tube Tender: PH MEASUREMENT RESULTS: Intervals: Rate: 73 TX: 174 QRSD: 128 QT: 356 QTc: 392 [place]: P: 81 TX: 174 QRS: -17 T: 151 INTERPRETIVE STATEMENTS: Sinus rhythm with premature atrial complexes Left bundle branch block Abnormal ECG Compared to ECG 06/15/2023 12:56:34 Atrial premature complex(es) now present Atrial fibrillation no longer present Electronically Signed On 08-14-23 15:27:16 MACHINE SHOP WORKER by Alexys Clarke
== END 2023-08-14 00:32 | disposition short-term general hospital (02) ==
LOC: ER 16:09
DX: K56.7 Ileus, unspecified (principal); E87.6 Hypokalemia; R19.7 Diarrhea, unspecified; E11.9 Type 2 diabetes mellitus without complications; I10 Essential (primary) hypertension; Z86.73 Personal history of transient ischemic attack (TIA), and cerebral infarction without residual deficits
CPT/HCPCS: 96365; 93005; 85025; 36415; 83735; 83690; 80053; 74177; 96375; 99285; 96366; Q9967; J3480; J2405; J7040

== ENCOUNTER → 2023-08-28 | Emergency (ER) | payer OTHER ==
[~2023-08-28] MED LIST: CALCIUM CARBONATE 500 MG TAB PO SCH; POTASSIUM 25 MEQ EFFERV TAB ONE; POTASSIUM 25 MEQ EFFERV TAB PO SCH
--- NOTE | 2023-08-28 15:32 | RAD REPORT ---
EXAM DESCRIPTION: RAD - Chest Single View - 08/28/2023 3:27 pm CLINICAL HISTORY: MALAISE Chest pain. COMPARISON: <Comparisons> FINDINGS: Portable technique limits examination quality. The lungs are grossly clear. The heart is normal in size. No displaced fractures.Gaseous distention o f the bowel noted. IMPRESSION: No acute intrathoracic process suspected.
[2023-08-28 17:10] LABS: Absolute Lymphocytes (CBC) 2.6 K/uL (0.7-4.9); Hematocrit 28.1 % (36.0-45.0); Lymphocytes % 37.3 % (15.3-44.8); MCV 93.5 fL (80-100); MPV 8.4 fL (7.6-11.3); Platelets 380 thou/uL (152-406); RBC Red Blood Cell Count 3.01 M/uL (3.86-4.86)
[2023-08-28 17:21] LABS: Albumin 1.6 g/dL (3.4-5.0); Bilirubin Direct 0.2 mg/dL (0-0.2); Bilirubin Indirect, Calculated 0.2 mg/dL (0.2-0.8); Bilirubin Total 0.4 mg/dL (0.2-1.0); Protein, Total 5.7 g/dL (6.4-8.2)
[2023-08-28 17:24] LABS: Troponin High Sensitivity 69.8 pg/mL (<58.9)
[2023-08-28 17:25] LABS: Protime INR 1.46
[2023-08-28 17:25] LABS: Potassium 2.5 mEq/L (3.5-5.1)
--- NOTE | 2023-08-28 17:32 | EDPHYS ---
Physician Documentation [facility] Name: Tahira Solorio Age: 58 yrs Sex: Female : 1965 Arrival Date: 08/28/2023 Time: 14:42 Bed 17 Private MD: ED Physician Rebeca De Jesus HPI: 08/28 16:14 This 58 yrs old Female presents to ER via EMS with complaints of electrolyte sp3 abnormality. 16:14 58-year-old female with a history of diabetes, hypertension, end-stage renal disease, sp3 prior CVA presents from the shelter via EMS for electrolyte abnormalities with reported low calcium and potassium. Patient has no complaints whatsoever. This was done on routine blood work outpatient. Review of systems negative for headache, fever, URI symptoms, chest pain, shortness of breath, back pain, abdominal pain, nausea, vomiting, diarrhea, syncope, near syncope, new weakness, or any other signs or symptoms on ROS at this time.. Historical: - Allergies: 14:58 No Known Allergies; me1 - PMHx: 14:58 Cerebrovascular accident; diabetes mellitus; Hypertensive disorder; me1 - PSHx: 14:58 Cholecystectomy; feeding tube; me1 - Immunization history:: Adult Immunizations up to date. - Social history:: Smoking status: unknown. ROS: 16:15 Constitutional: Negative for fever, chills, and weight loss, Eyes: Negative for injury, sp3 pain, redness, and discharge, ENT: Negative for injury, pain, and discharge, Neck: Negative for injury, pain, and swelling, Cardiovascular: Negative for chest pain, palpitations, and edema, Respiratory: Negative for shortness of breath, cough, wheezing, and pleuritic chest pain, Abdomen/GI: Negative for abdominal pain, nausea, vomiting, diarrhea, and constipation, Back: Negative for injury and pain, MS/Extremity: Negative for injury and deformity, Skin: Negative for injury, rash, and discoloration, Neuro: Negative for headache, weakness, numbness, tingling, and seizure, Psych: Negative for depression, anxiety, suicide ideation, homicidal ideation, and hallucinations, Allergy/Immunology: Negative for hives, rash, and allergies, Endocrine: Negative for neck swelling, polydipsia, polyuria, polyphagia, and marked weight changes, 16:15 All other systems are negative, Exam: 16:16 Constitutional: This is a well developed, well nourished patient who is awake, alert, sp3 and in no acute distress. Head/Face: Normocephalic, atraumatic. ENT: Nares patent. No nasal discharge, no septal abnormalities noted. External auditory canals are clear. Oropharynx with no redness, swelling, or masses, exudates, or evidence of obstruction, uvula midline. Mucous membranes moist. Neck: Trachea midline, no thyromegaly or masses palpated, and no cervical lymphadenopathy. Supple, full range of motion without nuchal rigidity, or vertebral point tenderness. No Meningismus. Chest/axilla: Normal chest wall appearance and motion. Nontender with no deformity. No lesions are appreciated. Cardiovascular: Regular rate and rhythm with a normal S1 and S2. No gallops, murmurs, or rubs. Normal PMI, no JVD. No pulse deficits. Respiratory: Lungs have equal breath sounds bilaterally, clear to auscultation and percussion. No rales, rhonchi or wheezes noted. No increased work of breathing, no retractions or nasal flaring. Abdomen/GI: Soft, non-tender, with normal bowel sounds. No distension or tympany. No guarding or rebound. No evidence of tenderness throughout. Back: No spinal tenderness. No costovertebral tenderness. Full range of motion. Skin: Warm, dry with normal turgor. Normal color with no rashes, no lesions, and no evidence of cellulitis. MS/ Extremity: Pulses equal, no cyanosis. Neurovascular intact. Full, normal range of motion. Psych: Awake, alert, with orientation to person, place and time. Behavior, mood, and affect are within normal limits. 16:16 Neuro: Grossly no change in neuroexam. Patient has baseline deficits., 16:47 ECG was reviewed by the Attending Physician. EKG demonstrates sinus bradycardia 55 bpm sp3 with normal intervals, left axis and nonspecific intraventricular delay and nonspecific diffuse ST's ST changes without evidence of acute ischemia. Vital Signs: 14:53 BP 92 / 53; Pulse 54; Resp 18; Temp 97.7(O); Pulse Ox 100% on R/A; Weight 112.49 kg; me1 15:10 BP 102 / 56; Pulse 55; Resp 17; Pulse Ox 100% on R/A; me1 16:00 BP 97 / 62; Pulse 60; Resp 18; Pulse Ox 99% on R/A; me1 17:00 BP 94 / 58; Pulse 55; Resp 17; Pulse Ox 100% on R/A; me1 18:00 BP 105 / 51; Pulse 53; Resp 17; Pulse Ox 100% on R/A; me1 19:00 BP 99 / 59; Pulse 58; Resp 18; Pulse Ox 100% on R/A; me1 MDM: 15:11 Patient medically screened. sp3 16:16 Data reviewed: vital signs, nurses notes, EMS record, lab test result(s), EKG, sp3 radiologic studies. ED course: 58-year-old female with PMH above now with potential electrolyte abnormalities. We will retest laboratory values, obtain EKG and chest x-ray and disposition accordingly.. 17:29 ED course: Patient has potassium of 2.5 and calcium 7.1. We will replenish both p.o. sp3 and discharge patient back to facility. Patient's troponin is very mildly elevated in the setting of decreased GFR. Patient has no chest pain, shortness of breath, or any other anginal equivalents. I do not believe this is cardiac related at all. Patient will continue to have dialysis as per her normal routine. Patient is okay with this plan and has no questions at this time.. 08/28 15:11 Order name: Basic Metabolic Panel; Complete Time: 17:25 3 08/28 15:11 Order name: CBC with Diff 08/28 15:11 Order name: LFT's; Complete Time: 17: 3 08/28 15:11 Order name: Magnesium; Complete Time: 17:25 3 08/28 15:11 Order name: PT-INR; Complete Time: 17:28 3 08/28 15:11 Order name: Troponin HS; Complete Time: 17:25 3 08/28 15:11 Order name: XRAY Chest (1 view); Complete Time: 16:12 3 08/28 15:11 Order name: EKG; Complete Time: 15:11 3 08/28 15:11 Order name: Cardiac monitoring; Complete Time: 16:22 3 08/28 15:11 Order name: EKG - Nurse/Tech; Complete Time: 16: 3 08/28 15:11 Order name: IV Saline Lock; Complete Time: 17:07 sp3 08/28 15:11 Order name: Labs collected and sent; Complete Time: 17:07 sp3 08/28 15:11 Order name: O2 Per Protocol; Complete Time: 16:22 sp3 08/28 15:11 Order name: O2 Sat Monitoring; Complete Time: 16:22 sp3 Administered Medications: 18:08 Not Given (medication not available. ): potassium chlorideliquid 40 meq PO once me1 18:08 Drug: Potassium PO Effervescent Tablet 50 mEq PO once; dissolve in 4 ounces of water or me1 juice Route: PO; 19:08 Follow up: Response: No adverse reaction me1 19:00 Drug: Calcium Carbonate PO 500 mg 2 tablet PO once Route: PO; me1 19:08 Follow up: Response: No adverse reaction me1 Disposition Summary: 08/28/23 17:31 Discharge Ordered Notes: Location: Home sp3 Condition: Stable sp3 Diagnosis - Hypokalemia, hypocalcemia sp3 Followup: sp3 - With: Private Physician - When: Upon discharge from the Emergency Department - Reason: Continuance of care Discharge Instructions: - Discharge Summary Sheet sp3 - Hemodialysis sp3 Forms: - Medication Reconciliation Form sp3 - Thank You Letter sp3 - Antibiotic Education sp3 - Prescription Opioid Use sp3 - Patient Portal Instructions sp3 - Leadership Thank You Letter sp3 Signatures: Dispatcher [employer] Rebeca James MD MD sp3 Rachel Sahni RN RN me1
--- NOTE | 2023-08-28 17:32 | ER ---
Nurse's Notes [facility] Name: Tahira Solorio Age: 58 yrs Sex: Female : 1965 Arrival Date: 08/28/2023 Time: 14:42 Bed 17 Private MD: Diagnosis: Hypokalemia, hypocalcemia Presentation: 08/28 14:53 Chief complaint: EMS states: toned out to senior care for hypokalemia and me1 hypocalcemia. Coronavirus screen: Vaccine status: Patient reports receiving the 2nd dose of the covid vaccine. Ebola Screen: No symptoms or risks identified at this time. Initial Sepsis Screen: Does the patient meet any 2 criteria? No. Patient's initial sepsis screen is negative. Does the patient have a suspected source of infection? No. Patient's initial sepsis screen is negative. Risk Assessment: Do you want to hurt yourself or someone else? Patient reports no desire to harm self or others. Onset of symptoms is unknown. 14:53 Method Of Arrival: EMS: [place] [id number] 14:53 Acuity: [place] 3 me1 Triage Assessment: 14:58 General: Appears comfortable, well groomed, well developed, well nourished, Behavior is me1 calm, cooperative, appropriate for age, Reports Sent by [facility] with hypokalemia and hypocalcemia. Pain: Denies pain. Neuro: Level of Consciousness is awake, alert, obeys commands, Oriented to person, place, time, situation, Appropriate for age. Cardiovascular: Capillary refill < 3 seconds Patient's skin is warm and dry. Respiratory: Airway is patent Respiratory effort is even, unlabored, Respiratory pattern is regular, symmetrical. GI: PEG tube in place, clamped. : Salgado in place. Historical: - Allergies: 14:58 No Known Allergies; me1 - PMHx: 14:58 Cerebrovascular accident; diabetes mellitus; Hypertensive disorder; me1 - PSHx: 14:58 Cholecystectomy; feeding tube; me1 - Immunization history:: Adult Immunizations up to date. - Social history:: Smoking status: unknown. Screenin:58 [facility] ED Fall Risk Assessment (Adult) History of falling in the last 3 months, me1 including since admission No falls in past 3 months (0 pts) Confusion or Disorientation No (0 pts) Intoxicated or Sedated No (0 pts) Impaired Gait Yes (1 pt) Mobility Assist Device Used Yes (1 pt) Altered Elimination Yes (1 pt) Score/Fall Risk Level 0 - 2 = Low Risk Provided non-skid footwear, Hourly rounding (assess needs \T\ fall precautionary measures) done. Abuse screen: Denies threats or abuse. Nutritional screening: No deficits noted. Tuberculosis screening: No symptoms or risk factors identified. Assessment: 14:58 General: See triage assessment. . me1 14:58 Cardiovascular: Denies chest pain, lightheadedness, palpitations, shortness of breath, me1 syncope. Vital Signs: 14:53 BP 92 / 53; Pulse 54; Resp 18; Temp 97.7(O); Pulse Ox 100% on R/A; Weight 112.49 kg; me1 15:10 BP 102 / 56; Pulse 55; Resp 17; Pulse Ox 100% on R/A; me1 16:00 BP 97 / 62; Pulse 60; Resp 18; Pulse Ox 99% on R/A; me1 17:00 BP 94 / 58; Pulse 55; Resp 17; Pulse Ox 100% on R/A; me1 18:00 BP 105 / 51; Pulse 53; Resp 17; Pulse Ox 100% on R/A; me1 19:00 BP 99 / 59; Pulse 58; Resp 18; Pulse Ox 100% on R/A; me1 ED Course: 14:53 Patient arrived in ED. me1 14:53 Rebeca De Jesus MD is Attending Physician. sp3 14:58 Triage completed. me1 14:58 Arm band placed on Patient placed in an exam room. me1 14:58 Patient has correct armband on for positive identification. Placed in gown. Bed in low me1 position. Call light in reach. Side rails up X2. Provided Education on: POC. Verbalized understanding. . 14:58 No provider procedures requiring assistance completed. me1 15:28 XRAY Chest (1 view) In Process Unspecified. EDMS 16:08 Rachel Sahni, ONEIL is Primary Nurse. me1 19:09 IV discontinued, intact, bleeding controlled, No redness/swelling at site. Pressure me1 dressing applied. Administered Medications: 18:08 Not Given (medication not available. ): potassium chlorideliquid 40 meq PO once me1 18:08 Drug: Potassium PO Effervescent Tablet 50 mEq PO once; dissolve in 4 ounces of water or me1 juice Route: PO; 19:08 Follow up: Response: No adverse reaction me1 19:00 Drug: Calcium Carbonate PO 500 mg 2 tablet PO once Route: PO; me1 19:08 Follow up: Response: No adverse reaction me1 Medication: 14:58 VIS not applicable for this client. me1 Outcome: 17:31 Discharge ordered by MD. green 19:21 Discharged to senior care. Report called to MIRIAM Randhawa. me1 19:21 Condition: stable 19:21 Discharge instructions given to patient, senior care, Instructed on discharge instructions, follow up and referral plans. Demonstrated understanding of instructions, follow-up care, 19:53 Patient left the ED. mb9 Signatures: Dispatcher [employer] Rebeca James MD MD sp3 Miriam Amaya RN RN mb9 Rachel Sahni RN RN me1
[2023-08-28 21:39] LABS: Anisocytosis 1+; Blood Morphology Comment NOTED (NOT SEEN); Platelet Estimate ADEQ; White Blood Cell Scan OK (OK)
[2023-08-28 23:20] VITALS: TEMP 97.7; O2SAT 100
[2023-08-28 23:33] VITALS: BP 99/59
--- NOTE | 2023-08-31 17:07 | EKG ---
Test Date: 2023-08-28 Test Time: 16:19:24 Statistical Technician: MB MEASUREMENT RESULTS: Intervals: Rate: 54 [place]: 178 QRSD: 122 QT: 418 QTc: 396 [place]: P: 88 [place]: 178 QRS: -20 T: 138 INTERPRETIVE STATEMENTS: Sinus bradycardia Left ventricular hypertrophy with QRS widening and repolarization abnormality Abnormal ECG Compared to ECG 08/13/2023 17:51:53 Left ventricular hypertrophy now present Early repolarization now present Sinus rhythm no longer present Atrial premature complex(es) no longer present Left bundle-branch block no longer present Electronically Signed On 08-31-23 16:59:42 SUPERVISOR PIPELINE by Alexys Clarke
== END ==
LOC: ER 14:42
DX: E87.6 Hypokalemia (principal); E83.51 Hypocalcemia; I10 Essential (primary) hypertension; E11.9 Type 2 diabetes mellitus without complications; Z86.73 Personal history of transient ischemic attack (TIA), and cerebral infarction without residual deficits
CPT/HCPCS: 36415; 71045; 80048; 80076; 83735; 84484; 85025; 85610; 93005; 99284